=== PATIENT | male | born 1960 | race Caucasian/White ===

== ENCOUNTER 2021-07-03 02:09 | Day surgery (SDC) | payer OTHER, SELFPAY ==
[2021-06-22 14:17] VITALS: BMI 48.8
--- NOTE | 2021-06-28 12:10 | PC.NURSE ---
SPOKE WITH PATIENT TO HOLD XARELTO AFTER 06/30/2021, PT VERBALIZES UNDERSTANDING THAT HE WILL TAKE LAST DOSE ON 06/30/2021.
[2021-07-03 07:46] VITALS: BP 158/101; PULSE 73; RESP 20; TEMP 36.6; O2SAT 97; BMI 48.7
[2021-07-03] MEDS: LACTATED RINGERS 1,000 ML 150 ML IV CONT (07:53)
--- NOTE | 2021-07-03 07:53 | WPDGICN ---
Assessment and Plan Assessment and plan (1) Encounter for screening for malignant neoplasm of colon: Code(s): Z12.11 - Encounter for screening for malignant neoplasm of colon Status: Acute Assessment and Plan: Patient presents for screening colonoscopy today. Appears to be at average risk for colon polyps. GI Consult Note Consult date/time: 07/03/21 07:53 HPI: Vikas Banda is a 60 year old male Presents for screening colonoscopy. Patient's current weight appetite and bowel movements are normal. He denies abdominal pain. He has had no bleeding. Family history is noncontributory. Patient denies abdominal pain. He presents today for neoplasia screening. Review of Systems Review of Systems: All systems reviewed & are unremarkable except as noted in HPI and below PMFSH Past Medical History Medical History (Updated 05/22/21 @ 18:14 by Ashok Gaffney MD) Atrial fibrillation BMI 50.0-59.9, adult Elevated glucose Encounter for screening for malignant neoplasm of colon Encounter for screening for malignant neoplasm of prostate Mixed hyperlipidemia Osteoarthritis of knee Family History Family History Mother Family history of glaucoma Sibling Family history of glaucoma Father Hypertension Social History Social History Smoking status: Never smoker Alcohol intake: current Drinks per week: 24 Substance use: never Substance use type: does not use Living arrangements: with family Spiritual care concerns: No Meds Home Medications and Allergies Home Medications Medication Instructions Recorded Confirmed Type flecainide 150 mg tablet 150 mg PO Q12H 02/03/19 06/22/21 History metoprolol tartrate 50 mg tablet 50 mg PO Q12H 02/03/19 06/22/21 History nifedipine 60 mg tablet,extended 60 mg PO DAILY 02/03/19 06/22/21 History release rivaroxaban 20 mg tablet 20 mg PO DAILY 02/03/19 06/22/21 History Allergies Allergy/AdvReac Type Severity Reaction Status Date / Time No Known Allergies Allergy Verified 07/03/21 07:45 Vital Signs Vital Signs - 24 hr 07/03/21 07:46 Temperature 97.9 F Pulse Rate 73 Respiratory Rate 20 Blood Pressure 158/101 H Pulse Oximetry 97 Exam Narrative: Physical exam reveals patient be alert. Vital signs are stable. HEENT exam is unremarkable. Patient is anicteric. Lungs are clear to auscultation and percussion. Heart is without murmur or extra sounds. Abdominal exam bowel sounds are present soft nontender with no organomegaly. Patient is obese. Digital external rectal exam is normal.
--- NOTE | 2021-07-03 08:14 | P.PNAN_ITS ---
Anes - Initial Pre Proc Eval Procedure: Operation Date: 07/03/21 08:30 Proposed Procedures p Screening Colonoscopy - Rad Cox MD Date/Time: 07/03/21 08:14 Surgeon: Rad Cox MD Pre Op Diagnosis: neoplasm screening Patient Data Age: 60 Gender: M Height: 1.78 m Weight: 154.1 kg Last Vital Signs Temp 97.9 F 07/03/21 07:46 Pulse 73 07/03/21 07:46 Resp 20 07/03/21 07:46 BP 158/101 H 07/03/21 07:46 Pulse Ox 97 07/03/21 07:46 Allergies Allergy/AdvReac Type Severity Reaction Status Date / Time No Known Allergies Allergy Verified 07/03/21 07:45 Home Medications Medication Instructions Recorded Confirmed Type flecainide 150 mg tablet 150 mg PO Q12H 02/03/19 06/22/21 History metoprolol tartrate 50 mg tablet 50 mg PO Q12H 02/03/19 06/22/21 History nifedipine 60 mg tablet,extended 60 mg PO DAILY 02/03/19 06/22/21 History release rivaroxaban 20 mg tablet 20 mg PO DAILY 02/03/19 06/22/21 History Patient hx anesthesia problems: none Family hx anesthesia problems: none Results Review: All pre-operative results and documents have been reviewed as part of the pre-operative evaluation. [facility] Past Medical History Medical History (Updated 05/22/21 @ 18:14 by Ashok Gaffney MD) Atrial fibrillation BMI 50.0-59.9, adult Elevated glucose Encounter for screening for malignant neoplasm of colon Encounter for screening for malignant neoplasm of prostate Mixed hyperlipidemia Osteoarthritis of knee Family History Family History Mother Family history of glaucoma Sibling Family history of glaucoma Father Hypertension Social History Social History Smoking status: Never smoker Alcohol intake: current Drinks per week: 24 Substance use: never Substance use type: does not use Living arrangements: with family Spiritual care concerns: No Anes - Eval Final PreProcedure Day of Procedure 07/03/21 08:14 Patient weight: super morbidly obese Heart: irregular rhythm Lungs: clear to auscultation Airway: Mallampati scale class III Neurological: alert and oriented Last oral intake: >/= 8 hours ASA classification: IV Emergent: no Anesthetic plan: proceed Anesthesia type and monitoring: general GIVS and standard monitoring Results Review: All pre-operative results and documents have been reviewed as part of the pre-operative evaluation. Informed Consent: The patient's anesthetic plan and its attendant risks and benefits were discussed with the patient/family/POA. Questions were solicited and answers provided to the satisfaction of the patient/family/POA.
[2021-07-03 08:42] VITALS: BP 124/81; PULSE 61; RESP 19; O2SAT 96
[2021-07-03 08:52] VITALS: BP 146/77; PULSE 75; RESP 19; O2SAT 97
[2021-07-03 09:02] VITALS: BP 138/78; PULSE 74; RESP 21; O2SAT 98
== END 2021-07-03 09:13 | disposition home or self-care (01) ==
PROVIDERS: PCP Family Medicine; Visit Provider Internal Medicine Gastroenterology
PROC: 0DJD8ZZ Inspection of Lower Intestinal Tract, Via Natural or Artificial Opening Endoscopic (ICD-10-PCS; CPT 45378; principal; 2021-07-03 08:30)
DX: Z12.11 Encounter for screening for malignant neoplasm of colon (principal); K62.1 Rectal polyp; K64.8 Other hemorrhoids; K57.30 Diverticulosis of large intestine without perforation or abscess without bleeding; I48.91 Unspecified atrial fibrillation; E78.2 Mixed hyperlipidemia; Z79.01 Long term (current) use of anticoagulants; E66.01 Morbid (severe) obesity due to excess calories; Z68.42 Body mass index [BMI] 45.0-49.9, adult
CPT/HCPCS: 45380; 88305; J2704; J7120

== ENCOUNTER → 2022-03-08 08:02 | Outpatient (CLI) | payer OTHER, SELFPAY ==
--- NOTE | ~2022-03-08 | US_ITS ---
EXAMINATION: US soft tissue head and neck DATE: 03/08/2022 08:32 INDICATION: Left submandibular lump. Other diseases salivary glands. TECHNIQUE: Multiple grayscale and Doppler ultrasound images of the left submandibular region of myra rn as well as the contralateral right submandibular region for comparison were obtained. COMPARISON: None FINDINGS: There are few bilateral submandibular lymph nodes with central echogenic fatty bj. The largest is o n the left measuring 2.4 x 2.3 x 1.2 cm of the couple smaller left submandibular lymph nodes measurin g 1.2 x 0.6 x 1.6 cm and 1.5 x 0.5 x 1.6 cm. The largest right-sided mandibular lymph node measures 2 .2 x 0.9 x 1.6 cm a couple smaller nodules measuring 1.4 x 0.7 and 1.2 x 0.9 cm. IMPRESSION: 1. Relatively symmetric mild bilateral submandibular lymphadenopathy. This is most likely reactive gi rui the normal morphology with central fatty bj and provided history of recent infection requiring antibiotics. Differential would include less likely lymphoma or metastatic disease and would recommen d continued clinical follow-up with repeat imaging and/or biopsy should the lymph nodes either enlarg e or fail to appropriately decrease in size with time as would be expected for reactive lymph nodes. Reviewed, dictated and finalized at location A. [employer] IMPRESSION: 1. Relatively symmetric mild bilateral submandibular lymphadenopathy. This is m ost likely reactive given the normal morphology with central fatty bj and pro vided history of recent infection requiring antibiotics. Differential would inc lude less likely lymphoma or metastatic disease and would recommend continued c linical follow-up with repeat imaging and/or biopsy should the lymph nodes eith er enlarge or fail to appropriately decrease in size with time as would be expe cted for reactive lymph nodes.
== END ==
PROVIDERS: PCP Family Medicine; Visit Provider Physician Assistant Medical
DX: K11.8 Other diseases of salivary glands (principal); R59.0 Localized enlarged lymph nodes
CPT/HCPCS: 76536

== ENCOUNTER 2022-06-30 09:52 | Emergency (ER) | payer OTHER, SELFPAY ==
[2022-06-30 10:03] VITALS: BP 180/105; PULSE 77; RESP 18; TEMP 36.1; O2SAT 96
--- NOTE | 2022-06-30 10:27 | ED.URI ---
HPI - URI/Sore Throat General Chief Complaint: Upper Respiratory Infection Stated Complaint: Cough/Sinus Source: patient and RN notes reviewed History of Present Illness HPI Narrative: 41-year-old male presents to urgent care with complaints of a cough and congestion x 10 days. Pt reports associated SOB. States his cough is worse at nighttime. Pt denies any sore throat, ear pain, N/V/D, chest pain, or vomiting. Pt has been taking Dayquil at home with minimal relief. Pt's daughter also had strep throat this week and pt has been around her recently. Related Data Home Medications Medication Instructions Recorded Confirmed flecainide 150 mg tablet 150 mg PO Q12H 02/03/19 06/30/22 metoprolol tartrate 50 mg tablet 50 mg PO Q12H 02/03/19 06/30/22 nifedipine 60 mg tablet,extended 60 mg PO DAILY 02/03/19 06/30/22 release rivaroxaban 20 mg tablet (Xarelto) 20 mg PO DAILY 02/03/19 06/30/22 Allergies Allergy/AdvReac Type Severity Reaction Status Date / Time No Known Allergies Allergy Verified 06/30/22 10:07 Review of Systems Review of Systems: Pertinent positives and pertinent negatives per HPI. [facility] Past Medical History Medical History (Updated 06/30/22 @ 10:28 by Helena Hook, MARCEL) Atrial fibrillation BMI 45.0-49.9, adult BMI 50.0-59.9, adult Elevated glucose Encounter for screening for malignant neoplasm of colon Encounter for screening for malignant neoplasm of prostate Marital incompatibility involving divorce Mixed hyperlipidemia Nocturia Osteoarthritis of knee Family History Family History Mother Family history of glaucoma Lung cancer Sibling Family history of glaucoma Father Hypertension Social History Social History Smoking status: Never smoker Second hand tobacco smoke exposure: Yes Alcohol intake: current Drinks per week: 24 Substance use: never Substance use type: does not use Lack of Transportation: No Lack of Food: Never True Current Housing: I Have Housing Concerned About Future Housing: No Difficulty Paying Gas/Electric Bills: No Difficulty Paying for Meds: No Currently Unemployed: No Education: High School Diploma/GED Difficulty w/ Childcare or Family Care: No Living arrangements: alone Occupation/Education: occupation 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 There is no relevant family history pertinent to the patient complaint. Exam Narrative: GENERAL: This is a well-nourished, well-developed patient, in no apparent distress. HEAD: normocephalic, atraumatic. EYES: Sclera clear/white. Vision is grossly intact. EARS: External ears normal, auditory canals clear and without drainage, TMs normal without perforation. Hearing grossly intact. NOSE: Congested THROAT: Mucous membranes moist, posterior pharynx clear. NECK: Neck supple, non-tender without lymphadenopathy, masses or thyromegaly. CARDIOVASCULAR: Regular rate and rhythm without murmurs, gallops, or rubs. RESPIRATORY: mild wheezing and rhonchi noted throughout. Frequent coughing. SKIN: warm, intact with no suspicious lesions or rash, good texture and turgor. NEURO: awake, alert, and oriented to person, place and time. There were no obvious focal neurologic abnormalities. Course Course Level of Care: Express Care Visit Vital Signs Vital signs: Vital Signs Temperature 97 F L 06/30/22 10:03 Pulse Rate 77 06/30/22 10:03 Respiratory Rate 18 06/30/22 10:03 Blood Pressure 180/105 H 06/30/22 10:03 Pulse Oximetry 96 06/30/22 10:03 Oxygen Delivery Room Air 06/30/22 10:03 Temperature 97 F L 06/30/22 1
== END 2022-06-30 10:32 | disposition home or self-care (01) ==
PROVIDERS: Emergency Provider Nurse Practitioner Family; PCP Family Medicine
DX: J40 Bronchitis, not specified as acute or chronic (principal); J01.00 Acute maxillary sinusitis, unspecified; I48.91 Unspecified atrial fibrillation
CPT/HCPCS: 99213; G0463

== ENCOUNTER 2023-11-12 15:04 | Outpatient (CLI) | payer OTHER, SELFPAY ==
--- NOTE | ~2023-11-12 | US_ITS ---
US renal BI 11/12/2023 16:12 Procedure: Realtime transabdominal ultrasound of the kidneys and bladder. Indication: Abnormal CT Comparison: No prior studies for comparison. Findings: Renal echotexture is normal bilaterally without hydronephrosis, contour deforming mass or r enal calculus. There are bilateral renal cysts, largest in the left kidney measuring 3.4 cm. The righ t kidney measures 13.5 cm and left kidney measures 14.2 cm. Bladder within normal limits. Impression: 1: Bilateral renal cysts, largest mid pole of the left kidney measuring 3.4 cm. Reviewed, dictated and finalized at location B. Impression: 1: Bilateral renal cysts, largest mid pole of the left kidney measuring 3.4 cm.
== END 2023-11-12 15:05 | disposition home or self-care (01) ==
LOC: ANHIMG 15:09
PROVIDERS: PCP Family Medicine; Visit Provider Nurse Practitioner Family
DX: N28.89 Other specified disorders of kidney and ureter (principal); N28.1 Cyst of kidney, acquired
CPT/HCPCS: 76775

== ENCOUNTER 2024-03-25 15:55 | Inpatient (IN) | payer OTHER, SELFPAY ==
[2024-03-25] VITALS (7 sets, daily range): BP systolic 127–154; BP diastolic 62–103; PULSE 102–121; RESP 20–28; TEMP 36–37.9; O2SAT 90–98; BMI 45.7
--- NOTE | ~2024-03-25 | XR_ITS ---
EXAMINATION: XR chest 1V portable DATE: 03/25/2024 16:31 INDICATION: Shortness of breath. TECHNIQUE: A single frontal view of the chest was obtained. COMPARISON: Chest 2 views 08/12/2012 FINDINGS: There is a diffuse interstitial pattern, consistent with mild pulmonary edema. No pleural e ffusion or pneumothorax. The heart size is normal. IMPRESSION: 1. Mild pulmonary edema. Reviewed, dictated and finalized at location A. 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 Mild pulmonary edema.
--- NOTE | ~2024-03-25 | CT_ITS ---
EXAMINATION: CTA chest PE protocol DATE: 03/25/2024 18:29 INDICATION: Shortness of breath. TECHNIQUE: Computed tomography angiography (CTA) of the chest was performed with 100 mL Omnipaque-350 intravenous contrast timed to evaluate the pulmonary arteries. Coronal maximum intensity projection 3D-reconstructions were created by the technologist. Automated exposure control and iterative reconst ruction technique were employed. The dose-length product was 938.22 mGy-cm. COMPARISON: Chest CT 05/29/2006 FINDINGS: There is septal thickening throughout the lungs bilaterally. There are airspace opacities i n right upper lobe and right lower lobe, consistent with pneumonia. There is mosaic attenuation in th e lungs, likely small airways disease. There are trace pleural effusions. Cardiomegaly is noted. Ther e are coronary artery calcifications. No pericardial effusion. The central pulmonary arteries are enl arged, consistent with pulmonary arterial hypertension. There is no pulmonary embolus. There is mild right hilar and mediastinal lymphadenopathy. There is bilateral gynecomastia. There is mild thoracic spondylosis. IMPRESSION: 1. Pneumonia involving right upper lobe and right lower lobe. 2. Mild pulmonary edema. 3. No pulmonary embolus. 4. Mild right hilar and mediastinal lymphadenopathy, likely reactive. Reviewed, dictated and finalized at location A. 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
--- NOTE | 2024-03-25 16:11 | ECG_ITS ---
Test Date: 2024-03-25 16:15:25 Measurements Intervals Hermon Rate: 107 P: 0 NE: 0 QRS: -69 QRSD: 110 T: 67 QT: 352 QTc: 472 Interpretive Statements ATRIAL FIBRILLATION WITH RAPID VENTRICULAR RESPONSE PATTERN CONSISTENT WITH PULMONARY DISEASE INCOMPLETE RIGHT BUNDLE BRANCH BLOCK [90+ ms QRS DURATION, TERMINAL R IN V1/V2, 40+ ms S IN I/aVL/V4/V5/V6] LEFT ANTERIOR FASCICULAR BLOCK [QRS AXIS <= -45, QR IN I, RS IN II] No previous ECG available for comparison Electronically Signed On 03-25-2024 16:46:17 PRODUCT DEMONSTRATOR by Guilherme Gonzalez M.D.
[2024-03-25 16:47] LABS: Basophils Percent Auto 0.1 % (0.2-1.2); Hematocrit 41.5 % (42.0-52.0); Hemoglobin 13.8 g/dL (14.0-18.0); Immature Granulocyte Absolute 0.02 K/mm3 (0.00-0.031); Immature Granulocyte Percent A 0.3 % (0-0.5); Lymphocytes Absolute Auto 0.74 K/mm3 (0.9-3.2); Lymphocytes Percent Auto 10.5 % (18.3-44.2); Mean Corpuscular HGB Conc 33.3 g/dl (32-36); Mean Corpuscular Hemoglobin 28.3 pg (26-34); Mean Corpuscular Volume 85.2 fl (80-100); Mean Platelet Volume 10.5 fl (7.4-10.4); Monocytes Absolute Auto 0.4 K/mm3 (0.1-0.6); Monocytes Percent Auto 6.3 % (2.6-8.5); Neutrophils Absolute Auto 5.8 K/mm3 (1.3-6.7); Neutrophils Percent Auto 82.8 % (45.5-73.1); Platelet Count Result 193 k/mm3 (150-375); Red Blood Count 4.87 M/mm3 (4.6-6.20); Red Cell Distribution Width 14.1 % (11.5-14.5)
[2024-03-25 16:57] LABS: Alanine Aminotransferase 12 U/L (6-50); Albumin Level 3.9 g/dL (3.5-5.1); Alkaline Phosphatase 66 U/L (38-126); Anion Gap 4 mmol/L (4-12); Aspartate Amino Transferase 24 U/L (17-59); Bilirubin,Total 0.5 mg/dL (0.2-1.3); Blood Urea Nitrogen 18 mg/dL (9-20); Calcium 8.6 mg/dL (8.4-10.2); Carbon Dioxide 25 mmol/L (22-30); Chloride 105 mmol/L (98-107); Estimated CRCL calculation 97 ml/min; Estimated Glomerular Filt Rate > 60; Glucose 121 mg/dL (65-110); Potassium 3.8 mmol/L (3.4-5.0); Sodium 134 mmol/L (137-145)
--- NOTE | 2024-03-25 17:22 | ED_ITS ---
HPI - URI/Sore Throat General Chief Complaint: Upper Respiratory Infection Stated Complaint: URI sx x 3 days, hypoxic Time Seen by Provider: 03/25/24 16:49 Source: patient Mode of arrival: EMS Limitations: no limitations History of Present Illness HPI Narrative: Patient is a 63-year-old male who presents to the ED via EMS with report of shortness of breath. Patient reports he has not been feeling well for the past 3 days. Reports cough, congestion, rhinorrhea, shortness of breath, worse with any type of exertion. Also reports shortness breath is worse with laying flat causing to have difficulty sleeping. Does note that he was exposed to several children recently that have been sick. Denies known fevers, but was febrile per EMS. Was also noted to be hypoxic per EMS and placed on 2L NC. No previous O2 requirement. Reports history of AFib. Is on an aspirin currently. 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 Denies lower extremity swelling. Denies chest pain. Related Data Home Medications ?Medication ?Instructions ?Recorded ?Confirmed ?Last Taken ?Type metoprolol tartrate 50 mg tablet 50 mg PO Q12H 02/03/19 01/01/24 07/01/21 History nifedipine 60 mg tablet,extended 60 mg PO DAILY 02/03/19 01/01/24 07/01/21 History release Allergies Allergy/AdvReac Type Severity Reaction Status Date / Time No Known Allergies Allergy Verified 01/01/24 07:52 Review of Systems 2 Review of Systems: All systems reviewed & are unremarkable except as noted in HPI. All systems reviewed & are unremarkable except as noted in HPI and below PMFSH Past Medical History Medical History Achilles rupture Nocturia Marital incompatibility involving divorce BMI 45.0-49.9, adult Encounter for screening for malignant neoplasm of colon Encounter for screening for malignant neoplasm of prostate Mixed hyperlipidemia Elevated glucose BMI 50.0-59.9, adult Osteoarthritis of knee Atrial fibrillation Surgical History Surgical History Hx of colonoscopy Family History Family History Mother Family history of glaucoma Lung cancer Sibling Family history of glaucoma Father Hypertension Social History Social History Smoking status: Never smoker Second hand tobacco smoke exposure: Yes Alcohol intake: current Drinks per week: 24 Substance use: never Substance use type: does not use Do You Feel Safe in your Home?: Yes Lack of Transportation: No Lack of Food: Never True Current Housing: I Have Housing Concerned About Future Housing: No Difficulty Paying Gas/Electric Bills: No Difficulty Paying for Meds: No Currently Unemployed: No Education: High School Diploma/GED Difficulty w/ Childcare or Family Care: No Living arrangements: alone Occupation/Education: occupation 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 HEAD: Normocephalic, atraumatic. RESPIRATORY: Airway patent, respirations nonlabored. Diffuse rhonchi in bases bilaterally, worse on R, particularly throughout R lower lung zone CARDIOVASCULAR: Tachycardic with irregular rhythm without murmurs, rubs, or gallops. Peripheral pulses intact. MUSCULOSKELETAL: Moves all extremities. No gross deformities. Trace pitting edema bilaterally SKIN: Warm, dry, normal color. NEURO: A&O X3. Speech clear. Cranial nerves II-XII grossly intact. Steady gait. No ataxic movements. PSYCHIATRIC: Appropriate mood and affect. Normal interaction. Course Vital Signs Vital signs: Vital Signs Temperature 100.3 F H 03/25/24 15:56 Pulse Rate 112 H 03/25/24 15:56 Respiratory Rate 28 H 03/25/24 15:56 Pulse Oximetry 90 03/25/24 15:56 Oxygen Delivery Room Air 03/25/24 15:56 Temperature 100.3 F H 03/25/24 15:56 Pulse Rate 112 H 03/25/24 15:56 Respiratory Rate 28 H 03/25/24 15:56 Pulse Oximetry 95 03/25/24 16:19 Oxygen Delivery Nasal Cannula 03/25/24 16:19 Oxygen Flow Rate 2 03/25/24 16:19 MDM - URI/Sore Throat MDM Narrative Medical decision making narrative: Patient presented to ED with shortness of breath, URI symptoms X3d. Patient tachycardic, tachypneic, febrile, hypoxic upon arrival. Placed on 2 L nasal cannula. Denies previous oxygen requirement. Given fluids and acetaminophen. Laboratory studies are fairly unremarkable. No leukocytosis. Stable H&H. Stable kidney function. EKG showing AFib with RVR, rates in the 100s-110s. Patient has history of AFib, is not currently on anticoagulation due to history of recent brain bleed. Denying chest pain at this time. Chest x-ray with mild pulmonary edema. Patient denies previous history of CHF. BNP is moderately elevated to around 4000. Patient is influenza A positive. Consistent with clinical picture. Chest CTA obtained and no evidence of PE, does show recurrent pulm edema, as well as PNA throughout R lung. Blood cx obtained. Will start abx. Will admit for further evaluation and management of PNA and hypoxia. Discussed case with Dr. Workman, hospitalist, accepted patient for admission. Patient is in agreement with plan and need for admission. Patient's HR in low 100s, but ranging widely. Will given home metoprolol dose 50mg now and continue to monitor. Medical Records Attestation: I reviewed the patient's medical records. Lab Data Attestation: I reviewed the patient's lab results. 03/25/24 16:30 03/25/24 16:30 Labs: Lab Results 03/25/24 Range/Units 16:30 WBC 7.0 (4.5-10.0) K/mm3 RBC 4.87 (4.6-6.20) M/mm3 Hgb 13.8 L (14.0-18.0) g/dL Hct 41.5 L (42.0-52.0) % MCV 85.2 (80-100) fl MCH 28.3 (26-34) pg MCHC 33.3 (32-36) g/dl RDW 14.1 (11.5-14.5) % Plt Count 193 (150-375) k/mm3 MPV 10.5 H (7.4-10.4) fl Immature Gran % (Auto) 0.3 (0-0.5) % Neut % (Auto) 82.8 H (45.5-73.1) % Lymph % (Auto) 10.5 L (18.3-44.2) % Weston % (Auto) 6.3 (2.6-8.5) % Eos % (Auto) 0.0 (0-4.4) % Baso % (Auto) 0.1 L (0.2-1.2) % Lymph # (Auto) 0.74 L (0.9-3.2) K/mm3 Weston # (Auto) 0.4 (0.1-0.6) K/mm3 Eos # (Auto) 0.0 (0-0.3) K/mm3 Baso # (Auto) 0.0 (0.0-0.1) K/mm3 Abs Immat Gran (auto) 0.02 (0.00-0.031) K/mm3 Absolute Neuts (auto) 5.8 (1.3-6.7) K/mm3 Absolute Nucleated RBC 0.000 (0.0-0.012) K/mm3 Nucleated RBC % 0.0 (0.0-0.2) % Sodium 134 L (137-145) mmol/L Potassium 3.8 (3.4-5.0) mmol/L Chloride 105 (98-107) mmol/L Carbon Dioxide 25 (22-30) mmol/L Anion Gap 4 (4-12) mmol/L BUN 18 (9-20) mg/dL Creatinine 1.00 (0.7-1.3) mg/dL Estim Creat Clear Calc 97 ml/min Estimated GFR > 60 (59 - ) Glucose 121 H (65-110) mg/dL Calcium 8.6 (8.4-10.2) mg/dL Total Bilirubin 0.5 (0.2-1.3) mg/dL AST 24 (17-59) U/L ALT 12 (6-50) U/L Alkaline Phosphatase 66 (38-126) U/L NT-Pro-B Natriuret Pep 4130 H (19.9-100) pg/mL Total Protein 7.0 (6.3-8.2) g/dL Albumin 3.9 (3.5-5.1) g/dL Influenza A (RT-PCR) Positive A (Negative) Influenza B (RT-PCR) Negative (Negative) RSV (RT-PCR) Negative (Negative) SARS-CoV-2 RNA (RT-PCR) Negative (Negative) Imaging Data Attestation: I personally reviewed and interpreted this imaging study as follows: Radiologist's impression: ITS Impressions Chest X-Ray 03/25/24 16:32 IMPRESSION: 1. Mild pulmonary edema. Chest CTA 03/25/24 18:33 IMPRESSION: 1. Pneumonia involving right upper lobe and right lower lobe. 2. Mild pulmonary edema. 3. No pulmonary embolus. 4. Mild right hilar and mediastinal lymphadenopathy, likely reactive. ECG Data EKG #1: Attestation: I personally reviewed and interpreted this ECG as follows: ECG completion date: 03/25/24 ECG completion time: 16:15 EKG Interpretation: tachycardia (107), atrial fibrillation (RVR), non- specific ST changes and RBBB (incomplete) Discharge Plan Discharge Clinical Impression: Influenza A, Acute hypoxic respiratory failure, Atrial fibrillation with rapid ventricular response Pneumonia Qualifiers: Pneumonia type: due to unspecified organism Laterality: right Lung location: l ower lobe of lung Qualified Code(s): J18.9 - Pneumonia, unspecified organism Patient Disposition: Still a Patient Condition: Stable
[2024-03-25 17:24] LABS: Influenza A QL RT-PCR Positive (Negative); Influenza B QL RT-PCR Negative (Negative); RSV RNA, RT-PCR Negative (Negative); SARS-CoV-2 RNA PCR Negative (Negative)
[2024-03-25 17:46] LABS: NT Pro B Type Natriuretic Pept 4130 pg/mL (19.9-100)
[2024-03-25] MEDS: SODIUM CHLORIDE 0.9% IV 1,000 ML 999 ML IV CONT (17:59)
[2024-03-25] MEDS: ACETAMINOPHEN 500 MG TABLET 1000 MG PO (17:59)
[2024-03-25] MEDS: METOPROLOL TARTRATE 50 MG TAB PO (21:10)
--- NOTE | 2024-03-25 21:27 | ADMGEN ---
This patient, Vikas Banda, was admitted to 3 [facility] Room 300-01. Patient/family oriented to hospital policies and general routines including ID bracelet, bed and alarms, visiting hours, pain management, procedures, bathroom and other care routines, personal items, smoking policy, room service/diet, and visiting hours. Information on how to activate the Rapid Response Team has been discussed. Patient/Family are encouraged to report perceived risks to care and to ask questions if they do not understand what they are told or what they should do.
--- NOTE | 2024-03-25 21:29 | P.HP_ITS ---
H&P: HPI History of Present Illness Date/Time: 03/25/24 21:29 Chief Complaint: sob Narrative: This is a 63-year-old male with past medical history significant for morbid obesity, hypertension, atrial fibrillation, dyslipidemia. Patient presents to the emergency room due to shortness of breath, generalized malaise, body aches and pains, night sweats, chills. Preliminary workup was significant for chest x-ray with right lower and upper lobes lung pneumonia patient had a BNP of 4000, tested positive for influenza type A, patient ruled out for acute pulmonary embolism. While in the emergency room patient was noted to have low pulse ox requiring supplemental oxygen by nasal cannula 2 L. patient has been admitted for further evaluation management and treatment. EXAMINATION: XR chest 1V portable DATE: 03/25/2024 16:31 INDICATION: Shortness of breath. TECHNIQUE: A single frontal view of the chest was obtained. COMPARISON: Chest 2 views 08/12/2012 FINDINGS: There is a diffuse interstitial pattern, consistent with mild pulmonary edema. No pleural effusion or pneumothorax. The heart size is normal. IMPRESSION: 1. Mild pulmonary edema. EXAMINATION: CTA chest PE protocol DATE: 03/25/2024 18:29 INDICATION: Shortness of breath. TECHNIQUE: Computed tomography angiography (CTA) of the chest was performed with 100 mL Omnipaque-350 intravenous contrast timed to evaluate the pulmonary arteries. Coronal maximum intensity projection 3D-reconstructions were created by the technologist. Automated exposure control and iterative reconstruction technique were employed. The dose-length product was 938.22 mGy-cm. COMPARISON: Chest CT 05/29/2006 FINDINGS: There is septal thickening throughout the lungs bilaterally. There are airspace opacities in right upper lobe and right lower lobe, consistent with pneumonia. There is mosaic attenuation in the lungs, likely small airways disease. There are trace pleural effusions. Cardiomegaly is noted. There are coronary artery calcifications. No pericardial effusion. The central pulmonary arteries are enlarged, consistent with pulmonary arterial hypertension. There is no pulmonary embolus. There is mild right hilar and mediastinal lymphadenopathy. There is bilateral gynecomastia. There is mild thoracic spondylosis. IMPRESSION: 1. Pneumonia involving right upper lobe and right lower lobe. 2. Mild pulmonary edema. 3. No pulmonary embolus. 4. Mild right hilar and mediastinal lymphadenopathy, likely reactive. Review of Systems Review of Systems: sob, generalized malaise, body aches and pains, chills, fevers. [facility] Past Medical History Medical History Achilles rupture Nocturia Marital incompatibility involving divorce BMI 45.0-49.9, adult Encounter for screening for malignant neoplasm of colon Encounter for screening for malignant neoplasm of prostate Mixed hyperlipidemia Elevated glucose BMI 50.0-59.9, adult Osteoarthritis of knee Atrial fibrillation Surgical History Surgical History Hx of colonoscopy Family History Family History Mother Family history of glaucoma Lung cancer Sibling Family history of glaucoma Father Hypertension Social History Social History Smoking status: Never smoker Second hand tobacco smoke exposure: No Alcohol intake: current Drinks per week: 10 Substance use: never Substance use type: does not use Do You Feel Safe in your Home?: Yes Lack of Transportation: No Lack of Food: Never True Current Housing: I Have Housing Concerned About Future Housing: No Difficulty Paying Gas/Electric Bills: No Difficulty Paying for Meds: No Currently Unemployed: No Education: High School Diploma/GED Difficulty w/ Childcare or Family Care: No Living arrangements: alone Occupation/Education: occupation 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[employer] Gender identity (if verbalized by the patient): Female Spiritual care concerns: No Meds Home Medications and Allergies Home Medications ?Medication ?Instructions ?Recorded ?Confirmed ?Type metoprolol tartrate 50 mg tablet 50 mg PO Q12H 02/03/19 03/25/24 History nifedipine 60 mg tablet,extended 60 mg PO DAILY 02/03/19 03/25/24 History release cyclobenzaprine 10 mg tablet 10 mg PO TID PRN muscle spasm #30 11/10/23 03/25/24 Rx tabs tamsulosin 0.4 mg capsule See Rx Instructions .Route 12/23/23 03/25/24 Rx .COMPLEX #90 caps rosuvastatin 20 mg tablet 20 mg PO DAILY #90 tabs 03/17/24 03/25/24 Rx tirzepatide 10 mg/0.5 mL 10 mg (0.5 mL) subcut WEEKLY #2 mL 03/23/24 03/25/24 Rx subcutaneous pen injector aspirin 325 mg capsule 325 mg PO QHS 03/25/24 03/25/24 History Allergies Allergy/AdvReac Type Severity Reaction Status Date / Time No Known Allergies Allergy Verified 01/01/24 07:52 Vital Signs Vital Signs - 24 hr 03/25/24 15:56 03/25/24 16:19 03/25/24 21:00 Temperature 100.3 F H Pulse Rate 112 H 107 H Respiratory Rate 28 H 21 H Blood Pressure 154/103 H Pulse Oximetry 90 95 98 Oxygen Delivery Room Air Nasal Cannula Oxygen Flow Rate 2 03/25/24 21:10 03/25/24 21:13 Temperature Pulse Rate 121 H 107 H Respiratory Rate 21 H Blood Pressure 154/103 H Pulse Oximetry 98 Oxygen Delivery Oxygen Flow Rate Exam Narrative: Sitting by the edge of the bed Const: General: comfortable, no acute distress, well developed, alert, awake, ill appearing acutely and obese Nutritional Appearance: obese morbidly obese Orientation/consciousness: patient oriented x3 HENMT: Head: normal to inspection, normocephalic and atraumatic Ears: hearing grossly normal bilaterally Face/Nose/Sinus: normal facial exam Face and sinus: normal facial exam Eyes: General: appearance normal, both eyes and all related structures Pupils: Equal, round and reactive pupils present EOM: EOMs intact bilaterally Neck: Neck: full ROM, no lymphadenopathy and no JVD Thyroid: thyroid normal Lymphatic: no lymphadenopathy noted Resp: Effort & Inspection: normal respiratory effort and able to speak in complete sentences Auscultation: crackles on the right at the base and rales Cardio: Jugular venous distension: no JVD Rate: regular rate Rhythm: regular rhythm Heart sounds: S1 normal heart sound present and S2 normal heart sound present GI: Inspection: Pannus present and obesity GI Palp: Yes Soft to palpation and Yes No hepatosplenomegaly present : General: Yes deferred Skin: Rashes: no rashes Wounds: no wounds Neuro: General: patient oriented x3 and CN's II-XI intact bilaterally Cranial nerves: Yes CN's II-XII intact bilaterally and Yes Equal, round and reactive pupils present Cognition (Neuro): normal cognition Speech: normal speech Gait exam (Neuro): Normal gait present Motor exam (neuro): 5/5 motor strength present throughout Extrem: General: normal to inspection, full ROM, no joint enlargement and no pedal edema H&P: Results Labs Labs: Short CBC 03/25/24 Range/Units 16:30 WBC 7.0 (4.5-10.0) K/mm3 Hgb 13.8 L (14.0-18.0) g/dL Hct 41.5 L (42.0-52.0) % Plt Count 193 (150-375) k/mm3 BMP 03/25/24 16:30 Sodium 134 L Potassium 3.8 Chloride 105 Carbon Dioxide 25 BUN 18 Creatinine 1.00 Glucose 121 H Calcium 8.6 Liver Function 03/25/24 Range/Units 16:30 Total Bilirubin 0.5 (0.2-1.3) mg/dL AST 24 (17-59) U/L ALT 12 (6-50) U/L Alkaline Phosphatase 66 (38-126) U/L Albumin 3.9 (3.5-5.1) g/dL Assessment and Plan Assessment and plan (1) Pneumonia: Qualifiers: Laterality: right Lung location: lower lobe of lung Pneumonia type: due to unspecified organism Qualified Code(s): J18.9 - Pneumonia, unspecified organism Code(s): J18.9 - Pneumonia, unspecified organism Status: Acute Assessment and Plan: Admit to med tele Patient started on Rocephin and Zithromax Cultures in progress (2) Atrial fibrillation with rapid ventricular response: Code(s): I48.91 - Unspecified atrial fibrillation Status: Acute Assessment and Plan: Continue home meds Continue to monitor (3) Acute hypoxic respiratory failure: Code(s): J96.01 - Acute respiratory failure with hypoxia Status: Acute Assessment and Plan: On supplemental oxygen by nasal cannula 2 L (4) Influenza A: Code(s): J10.1 - Influenza due to other identified influenza virus with other respiratory manifestations Status: Acute Assessment and Plan: Will start Ozeltamivir. 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: without buttermilk drier operator use Diabetes mellitus type: type 2 Qualified Code(s): E11.9 - Type 2 diabetes mellitus without complications Code(s): E11.9 - Type 2 diabetes mellitus without complications Status: Acute Assessment and Plan: Patient is on Tirzepatide Which he will be placed on hold Carb consistent diet Insulin sliding scale as needed (6) BMI 45.0-49.9, adult: Code(s): Z68.42 - Body mass index [BMI] 45.0-49.9, adult Status: Acute Assessment and Plan: Lifestyle and diet modifications 1800 calorie restricted diet Hospitalist MIPS Advance Care Plan I have confirmed that the patient's Advanced Care Plan is present, code status is documented, or surrogate decision maker is listed in patient medical record.: Yes Medication Reconciliation I have utilized all available resources to obtain, update and review the patients current medications (includes all prescriptions, OTC, herbals, cannabis, and nutritional supplements).: Yes
--- NOTE | 2024-03-25 21:55 | ADMGEN ---
This patient, Vikas Banda, was admitted to [facility] Surg Room 300-01. Patient/family oriented to hospital policies and general routines including ID bracelet, bed and alarms, visiting hours, pain management, procedures, bathroom and other care routines, personal items, smoking policy, room service/diet, and visiting hours. Information on how to activate the Rapid Response Team has been discussed. Patient/Family are encouraged to report perceived risks to care and to ask questions if they do not understand what they are told or what they should do.
[2024-03-25] MEDS: AZITHROMYCIN 500 MG/NS 250 ML 500 MG/250 ML BAG 250 MG IVPB (23:00)
[2024-03-26] VITALS (12 sets, daily range): BP systolic 115–133; BP diastolic 81–91; PULSE 74–103; RESP 16–18; TEMP 36.3–36.5; O2SAT 94–99
--- NOTE | 2024-03-26 | ECHO_ITS ---
Patient Info Name: Vikas Banda Age: 63 years : 1960 Gender: Male Ht: 70 in Wt: 318 lbs BSA: 2.74 m2 HR: 103 bpm BP: 128 / 91 mmHg Technical Quality: Good Exam Date: 03/26/2024 9:53 AM Site Location: [facility] Exam Location: Echo Lab Exam Room: [facility]- Patient Status: Inpatient Admit Date: 03/26/2024 Staff Ordering Physician: Deandra Domínguez Template Checker: Stephanie Burnham RDCS Attending Provider: Deandra Domínguez Referring Physician: Catrachita LEE; Exam Type: CA echo doppler color flow Study Info Complete two-dimensional, color flow and Doppler transthoracic echocardiogram is performed. Summary 1. Complete two-dimensional, color flow and Doppler transthoracic echocardiogram is performed. 2. The left ventricle is mildly dilated measuring 6.3 cm in diameter; however this may be normal when indexed to body surface area. There is mild eccentric left ventricular hypertrophy. The left ventricular ejection fraction is visually estimated to be 60-65%. 3. The right ventricle is normal in size and systolic function. Left Ventricle The left ventricle is mildly dilated measuring 6.3 cm in diameter; however this may be normal when indexed to body surface area. There is mild eccentric left ventricular hypertrophy. The left ventricular ejection fraction is visually estimated to be 60-65%. Right Ventricle The right ventricle is normal in size and systolic function. Left Atria The left atrium is normal in size. Right Atria The right atrium is dilated. Atrial Septum The atrial septum visually appears intact. Aortic Valve The aortic valve is trileaflet and sclerotic but opens well. There is no aortic regurgitation. Pulmonic Valve The pulmonic valve is not well visualized. There is no color Doppler evidence of pulmonic valve regurgitation in this study. Mitral Valve The mitral valve is normal. There is trace mitral regurgitation. Tricuspid Valve The tricuspid valve is normal. There is trace tricuspid regurgitation. Pericardium/Pleural Pericardium is normal in appearance with no evidence for significant pericardial effusion. Inferior Vena Cava Dilated inferior vena cava with >50% collapse upon inspiration consistent with elevated right atrial pressure, 8 mmHg. Dilated inferior vena cava with >50% collapse upon inspiration consistent with elevated right atrial pressure, 8 mmHg. Aorta The aortic root at the level of the sinus of Valsalva is dilated measuring 4.0 cm in diameter. The ascending aorta is dilated measuring 4.4 cm in diameter. Left Ventricular Outflow Tract Name Value Normal LVOT 2D LVOT Diameter 2.7 cm LVOT Doppler LVOT Peak Gradient 4 mmHg LVOT Mean Gradient 2 mmHg LVOT VTI 20 cm LVOT VTI/AV VTI Ratio 1.0 LVOT Stroke Volume 113 ml LVOT CO 10.0 l/min LVOT CI 3.6 l/min/m2 Pulmonic Valve Name Value Normal PV Doppler PV Peak Gradient 2 mmHg Mitral Valve Name Value Normal MV Doppler MV Peak Gradient 5 mmHg MV Mean Gradient 1 mmHg MV Decel [place] 465 cm/s2 MV PHT 54 ms MV Area (PHT) 4.1 cm2 4.0-5.0 MV Area (Cont Eq VTI) 5.0 cm2 MV Diastolic Function MV E Peak Velocity 86 cm/s MV A Peak Velocity 31 cm/s MV E/A 2.8 MV Decel Time 185 ms MV Annular TDI MV E/e' (Septal) 8.6 <=8.0 MV E/e' (Lateral) 8.4 <=8.0 MV E/e' (Average) 8.5 Tricuspid Valve Name Value Normal TV Regurgitation Doppler TR Peak Velocity 349 cm/s TR Peak Gradient 49 mmHg Estimated PAP/RSVP RA Pressure 8 mmHg <=5 PA Systolic Pressure 57 mmHg <36 RV Systolic Pressure 57 mmHg <36 Aortic Valve Name Value Normal AV Doppler AV Peak Velocity 112 cm/s AV Peak Gradient 5 mmHg AV Mean Gradient 3 mmHg AV VTI 20 cm AV Area (Cont Eq VTI) 5.7 cm2 >=3.0 AV Area (Cont Eq Frank) 4.9 cm2 AV Regurgitation 2D LVOT Area 5.7 cm2 Ventricles Name Value Normal LV Dimensions 2D/MM IVS Diastolic Thickness (2D) 1.2 cm 0.6-1.0 LVID Diastole (2D) 6.3 cm 4.2-5.8 LVIW Diastolic Thickness (2D) 1.2 cm 0.6-1.0 LVID Systole (2D) 4.8 cm 2.5-4.0 LVOT Diameter 2.7 cm LV Mass (2D Cubed) 339.80 g 88.00-224.00 LV Mass Index (2D Cubed) 124 g/m2 49-115 Relative Wall Thickness (2D) 0.38 LV Fractional Shortening/Ejection Fraction 2D/MM LV Fractional Shortening (2D) 25 % 25-43 LV EF (2D Teicholz) 48 % 52-72 LV Diastolic Volume (4C MOD) 177 ml LV EF (4C MOD) 54 % LV Diastolic Length (4C) 9.0 cm LV Systolic Length (4C) 8.3 cm LV Stroke Volume (4C MOD) 95 ml Atria Name Value Normal LA Dimensions LA Volume (4C A-L) 119 ml RA Dimensions RA Area (4C) 29.7 cm2 <=18.0 Report Signatures
[2024-03-26 07:52] LABS: Basophils Percent Auto 0.6 % (0.2-1.2); Eosinophils Percent Auto 0.4 % (0-4.4); Hematocrit 37.6 % (42.0-52.0); Hemoglobin 12.4 g/dL (14.0-18.0); Immature Granulocyte Absolute 0.03 K/mm3 (0.00-0.031); Immature Granulocyte Percent A 0.6 % (0-0.5); Lymphocytes Absolute Auto 1.45 K/mm3 (0.9-3.2); Lymphocytes Percent Auto 28.5 % (18.3-44.2); Mean Corpuscular Hemoglobin 28.6 pg (26-34); Mean Corpuscular Volume 86.8 fl (80-100); Mean Platelet Volume 10.6 fl (7.4-10.4); Monocytes Absolute Auto 0.6 K/mm3 (0.1-0.6); Monocytes Percent Auto 11.6 % (2.6-8.5); Neutrophils Percent Auto 58.3 % (45.5-73.1); Platelet Count Result 184 k/mm3 (150-375); Red Blood Count 4.33 M/mm3 (4.6-6.20); White Blood Count 5.1 K/mm3 (4.5-10.0)
[2024-03-26 08:09] LABS: Alanine Aminotransferase 11 U/L (6-50); Albumin Level 3.4 g/dL (3.5-5.1); Alkaline Phosphatase 58 U/L (38-126); Anion Gap 4 mmol/L (4-12); Aspartate Amino Transferase 23 U/L (17-59); Bilirubin,Total 0.5 mg/dL (0.2-1.3); Blood Urea Nitrogen 19 mg/dL (9-20); Calcium 8.2 mg/dL (8.4-10.2); Carbon Dioxide 26 mmol/L (22-30); Chloride 107 mmol/L (98-107); Estimated CRCL calculation 98 ml/min; Estimated Glomerular Filt Rate > 60; Glucose 95 mg/dL (65-110); Magnesium 2.1 mg/dL (1.6-2.3); Potassium 3.6 mmol/L (3.4-5.0); Sodium 137 mmol/L (137-145)
[2024-03-26] MEDS: FUROSEMIDE 40 MG TABLET PO (08:09)
[2024-03-26] MEDS: OSELTAMIVIR PHOSPHATE 75 MG CAPSULE PO ×2 (08:09→20:31)
[2024-03-26] MEDS: ROSUVASTATIN 20 MG TABLET PO (08:09)
[2024-03-26 08:10] LABS: Glucose Point of Care 107 mg/dl (65-105)
[2024-03-26] MEDS: METOPROLOL TARTRATE 50 MG TAB PO ×2 (08:10→20:31)
[2024-03-26] MEDS: NIFEdipine 30 MG TAB.ER.24 60 MG PO (08:10)
--- NOTE | 2024-03-26 10:59 | P.PNIM_ITS ---
Progress Note: A&P Assessment and Plan (1) Pneumonia: Qualifiers: Laterality: right Lung location: lower lobe of lung Pneumonia type: due to unspecified organism Qualified Code(s): J18.9 - Pneumonia, unspecified organism Code(s): J18.9 - Pneumonia, unspecified organism Status: Acute Assessment and Plan: Admit to med tele Patient started on Rocephin and Zithromax Cultures in progress 03/26/24: * Continue abx as ordered. * Continue to wean oxygen as able to. * Monitor and trend VS and labs. * Supportive care with nebs ordered w/Duoneb Q6 hrs and prn Albuterol. (2) Atrial fibrillation with rapid ventricular response: Code(s): I48.91 - Unspecified atrial fibrillation Status: Acute Assessment and Plan: Continue home meds Continue to monitor 03/26/24: * Continue Metoprolol * Continue Telemetry * Pt does not appear to be on any oral anticoagulation for his hx of Atrial fibrillation. He is started on Lovenox at this time. Review of EMR states that he sees cardiology, but I do not see any recent notes. Suggest starting anticoagulation at discharge. * ECHO ordered (3) Acute hypoxic respiratory failure: Code(s): J96.01 - Acute respiratory failure with hypoxia Status: Acute Assessment and Plan: On supplemental oxygen by nasal cannula 2 L 03/26/24: * In setting of acute Influenza A and PNA dx. as well as evidence of pulmonary edema on imaging and elevation of BNP * Continue supportive care. * Monitor and trend labs and VS. * ECHO ordered * Diuresis initiated with Lasix 40 mg oral daily. (4) Influenza A: Code(s): J10.1 - Influenza due to other identified influenza virus with other respiratory manifestations Status: Acute Assessment and Plan: Will start Ozeltamivir. 03/26/24: * Continue tamiflu and supportive treatment. (5) Diabetes mellitus: Qualifiers: Diabetes mellitus type: type 2 Diabetes mellitus filler leaf cutter long insulin use: without filler leaf cutter long use Diabetes mellitus complication status: without complication Qualified Code(s): E11.9 - Type 2 diabetes mellitus without complications Code(s): E11.9 - Type 2 diabetes mellitus without complications Status: Acute Assessment and Plan: Patient is on Tirzepatide Which he will be placed on hold Carb consistent diet Insulin sliding scale as needed 03/26/24: * Continue SSI * Continue Hypoglycemic protocol * Glucose checks AC and HS * Continue to hold Tirzepitide. * Most recent A1C is noted to be from 05/16/21 was 6.2. (6) BMI 45.0-49.9, adult: Code(s): Z68.42 - Body mass index [BMI] 45.0-49.9, adult Status: Acute Assessment and Plan: Lifestyle and diet modifications 1800 calorie restricted diet Time Spent With Patient Time with patient: 25 - 35 minutes Subjective Date/time seen: 03/26/24 10:59 Interval history: Pt examined today without any change in condition. He reports intermittent dyspn ea and cough. Still requiring supplemental oxygen. Lasix 40 mg daily ordered as pt's imaging shows some pulmonary edema and he has a BNP of 4000. In addition, ECHO is ordered as pt has no cardiac hx. He remains on Rocephin, Azithromycin and Tamiflu. Review of Systems Review of Systems: All systems reviewed & are unremarkable except as noted in HPI and below Exam Const: General: comfortable and no acute distress Other: Obese male pt lying supine in bed at this time. HENMT: Face/Nose/Sinus: Normal nares present Mouth: Yes moist mucous membranes Eyes: General: appearance normal, both eyes and all related structures Neck: Neck: supple and no JVD Carotids: no bruits Resp: Effort & Inspection: normal respiratory effort Auscultation: wheezes Cardio: Rate: regular rate Rhythm: regular rhythm Heart sounds: no gallops, no murmurs and no rubs GI: GI Palp: Yes Soft to palpation and No Tenderness to palpation present (GI) Auscultation: normal bowel sounds Skin: General skin exam: normal color and no rashes or lesions noted Neuro: General: gait normal Speech: normal speech Motor exam (neuro): 5/5 motor strength present throughout and Normal motor muscle tone present throughout Sensory Exam: normal sensation Extrem: General: normal to inspection and no edema Psych: Mental Status: mental status grossly normal Affect: normal affect Objective Data Vital Signs Vital Signs: Vital Signs - 24 hr 03/25/24 15:56 03/25/24 16:19 03/25/24 21:00 Temperature 100.3 F H Pulse Rate 112 H 107 H Respiratory Rate 28 H 21 H Blood Pressure 154/103 H Pulse Oximetry 90 95 98 Oxygen Delivery Room Air Nasal Cannula Oxygen Flow Rate 2 03/25/24 21:10 03/25/24 21:13 03/25/24 21:45 Temperature 96.8 F L Pulse Rate 121 H 107 H 102 H Respiratory Rate 21 H 20 Blood Pressure 154/103 H 127/62 Pulse Oximetry 98 98 Oxygen Delivery Oxygen Flow Rate 03/25/24 21:49 03/26/24 04:35 03/26/24 08:00 Temperature 97.6 F Pulse Rate 103 H Respiratory Rate 18 Blood Pressure 128/91 H Pulse Oximetry 94 99 99 Oxygen Delivery Nasal Cannula Nasal Cannula Oxygen Flow Rate 2 2 03/26/24 08:00 03/26/24 08:10 Temperature Pulse Rate 96 74 Respiratory Rate Blood Pressure Pulse Oximetry Oxygen Delivery Oxygen Flow Rate Intake/Output Intake/Output: Intake & Output 03/23/24 03/24/24 03/25/24 03/26/24 23:59 23:59 23:59 23:59 Intake Total 1000 590 Balance 1000 590 Meds/Results Medications: Active Medications Generic Name Dose Route Start Last Admin Trade Name Freq PRN Reason Stop Dose Admin Acetaminophen 1,000 mg 03/25/24 19:26 Acetaminophen 500 Mg Tablet PO Q6H PRN Mild Pain (1-3) or Fever Aspirin 325 mg 03/26/24 21:00 Aspirin 325 Mg Enteric Tablet PO QHS JEISON Cyclobenzaprine HCl 10 mg 03/26/24 01:22 Cyclobenzaprine Hcl 10 Mg Tablet PO TID PRN muscle spasm Furosemide 40 mg 03/26/24 09:00 03/26/24 08:09 Furosemide 40 Mg Tablet PO 40 mg DAILY JEISON Administration Ceftriaxone Sodium 1 gm in 50 mls @ 100 mls/hr 03/26/24 20:00 Rocephin 1 Gm/Ns 50 Ml IVPB Q24H JEISON Azithromycin 500 mg in 250 mls @ 250 mls/hr 03/26/24 21:00 Zithromax IVPB Q24H JEISON Insulin Aspart 7 units 03/26/24 08:00 03/26/24 08:23 Insulin Aspart (*Bkc) 100 Units/Ml 0.05 units/kg (7 units) Not Given SUB-Q TIDWM JEISON Metoprolol Tartrate 50 mg 03/26/24 09:00 03/26/24 08:10 Metoprolol Tartrate 50 Mg Tab PO 50 mg Q12HR JEISON Administration Nifedipine 60 mg 03/26/24 09:00 03/26/24 08:10 Nifedipine 30 Mg Tab.Er.24 PO 60 mg DAILY JEISON Administration Ondansetron HCl 4 mg 03/25/24 19:26 Ondansetron Inj 4 Mg/2 Ml Vial IV PUSH Q4H PRN Nausea Oseltamivir Phosphate 75 mg 03/26/24 09:00 03/26/24 08:09 Oseltamivir Phosphate 75 Mg Capsule PO 03/31/24 08:59 75 mg Q12HR JEISON Administration Perflutren Lipid Microsphere 0 ml 03/26/24 07:05 Perflutren Lipid Microspheres 1.5 Ml Vial Diluted To 10 Ml Total Volume IV PUSH 03/29/24 07:05 ONCE PRN adequate visualization Protocol Rosuvastatin Calcium 20 mg 03/26/24 09:00 03/26/24 08:09 Rosuvastatin 20 Mg Tablet PO 20 mg DAILY JEISON Administration Tamsulosin HCl 0.4 mg 03/26/24 21:00 Tamsulosin Hcl 0.4 Mg Capsule BY MOUTH QHS [facility] Radiology Results: ITS Impressions Chest X-Ray 03/25/24 16:32 IMPRESSION: 1. Mild pulmonary edema. Chest CTA 03/25/24 18:33 IMPRESSION: 1. Pneumonia involving right upper lobe and right lower lobe. 2. Mild pulmonary edema. 3. No pulmonary embolus. 4. Mild right hilar and mediastinal lymphadenopathy, likely reactive. Labs Labs: Laboratory Results - last 24 hr 03/25/24 03/26/24 03/26/24 16:30 07:27 07:56 WBC 7.0 5.1 RBC 4.87 4.33 L Hgb 13.8 L 12.4 L Hct 41.5 L 37.6 L MCV 85.2 86.8 MCH 28.3 28.6 MCHC 33.3 33.0 RDW 14.1 14.0 Plt Count 193 184 MPV 10.5 H 10.6 H Immature Gran % (Auto) 0.3 0.6 H Neut % (Auto) 82.8 H 58.3 Lymph % (Auto) 10.5 L 28.5 [place] % (Auto) 6.3 11.6 H Eos % (Auto) 0.0 0.4 Baso % (Auto) 0.1 L 0.6 Lymph # (Auto) 0.74 L 1.45 [place] # (Auto) 0.4 0.6 Eos # (Auto) 0.0 0.0 Baso # (Auto) 0.0 0.0 Abs Immat Gran (auto) 0.02 0.03 Absolute Neuts (auto) 5.8 3.0 Absolute Nucleated RBC 0.000 0.000 Nucleated RBC % 0.0 0.0 Sodium 134 L 137 Potassium 3.8 3.6 Chloride 105 107 Carbon Dioxide 25 26 Anion Gap 4 4 BUN 18 19 Creatinine 1.00 1.00 Estim Creat Clear Calc 97 98 Estimated GFR > 60 > 60 Glucose 121 H 95 POC Capillary Glucose 107 H Calcium 8.6 8.2 L Magnesium 2.1 Total Bilirubin 0.5 0.5 AST 24 23 ALT 12 11 Alkaline Phosphatase 66 58 NT-Pro-B Natriuret Pep 4130 H Total Protein 7.0 7.0 Albumin 3.9 3.4 L Influenza A (RT-PCR) Positive A Influenza B (RT-PCR) Negative RSV (RT-PCR) Negative SARS-CoV-2 RNA (RT-PCR) Negative Quality VTE Prophylaxis VTE prophylaxis: pharmacologic ordered
[2024-03-26 11:46] LABS: Glucose Point of Care 180 mg/dl (65-105)
[2024-03-26 16:44] LABS: Glucose Point of Care 119 mg/dl (65-105)
[2024-03-26] MEDS: TAMSULOSIN HCL 0.4 MG CAPSULE BY MOUTH (20:30)
[2024-03-26] MEDS: ASPIRIN 325 MG ENTERIC TABLET PO (20:31)
[2024-03-26] MEDS: AZITHROMYCIN 500 MG/NS 250 ML 500 MG/250 ML BAG 250 MG IVPB (21:00)
[2024-03-26 21:18] LABS: Glucose Point of Care 113 mg/dl (65-105)
[2024-03-26] MEDS: IPRATROPIUM 0.5 MG/ALBUTEROL SULFATE 2.5 MG AMPUL.NEB 3 ML INHALATION (22:24)
[2024-03-27] VITALS (19 sets, daily range): BP systolic 113–141; BP diastolic 82–98; PULSE 66–97; RESP 16–20; TEMP 36.2–36.3; O2SAT 93–99
[2024-03-27] MEDS: IPRATROPIUM 0.5 MG/ALBUTEROL SULFATE 2.5 MG AMPUL.NEB 3 ML INHALATION ×4 (02:50→20:59)
[2024-03-27 07:41] LABS: Glucose Point of Care 101 mg/dl (65-105)
--- NOTE | 2024-03-27 07:46 | P.PNIM_ITS ---
Progress Note: A&P Assessment and Plan (1) Pneumonia: Qualifiers: Laterality: right Lung location: lower lobe of lung Pneumonia type: due to unspecified organism Qualified Code(s): J18.9 - Pneumonia, unspecified organism Code(s): J18.9 - Pneumonia, unspecified organism Status: Acute (2) Atrial fibrillation with rapid ventricular response: Code(s): I48.91 - Unspecified atrial fibrillation Status: Acute (3) Acute hypoxic respiratory failure: Code(s): J96.01 - Acute respiratory failure with hypoxia Status: Acute (4) Influenza A: Code(s): J10.1 - Influenza due to other identified influenza virus with other respiratory manifestations Status: Acute (5) Diabetes mellitus: Qualifiers: Diabetes mellitus complication status: without complication Diabetes mellitus long term acute care registered nurse insulin use: without long term acute care registered nurse use Diabetes mellitus type: type 2 Qualified Code(s): E11.9 - Type 2 diabetes mellitus without complications Code(s): E11.9 - Type 2 diabetes mellitus without complications Status: Acute Plan Pneumonia: Qualifiers: Laterality: right Lung location: lower lobe of lung Pneumonia type: due to unspecified organism Qualified Code(s): J18.9 - Pneumonia, unspecified organism Code(s): J18.9 - Pneumonia, unspecified organism Status: Acute Assessment and Plan: Admit to med tele Patient started on Rocephin and Zithromax Cultures in progress 03/26/24: * Continue abx as ordered. * Continue to wean oxygen as able to. * Monitor and trend VS and labs. * Supportive care with nebs ordered w/Duoneb Q6 hrs and prn Albuterol.(2) Atrial fibrillation with rapid ventricular response: Code(s): AFib RVR Upon arrival, EKG showed atrial fibrillation heart rate 107 Continue home meds Continue to monitor * Continue Metoprolol * Continue Telemetry * Pt does not appear to be on any oral anticoagulation for his hx of Atrial fibrillation. He is started on Lovenox at this time. Review of EMR states that he sees cardiology, * Patient has history of intracranial bleeding due to trauma, anticoagulation is on hold. Waiting for evaluation by critical care educator and neurosurgeon in [facility] * ECHO pending Acute hypoxic respiratory failure: Code(s): J96.01 - Acute respiratory failure with hypoxia Status: Acute Assessment and Plan: On supplemental oxygen by nasal cannula 2 L 03/26/24: * In setting of acute Influenza A and PNA dx. as well as evidence of pulmonary edema on imaging and elevation of BNP * Continue supportive care. * Monitor and trend labs and VS. * ECHO ordered * Diuresis initiated with Lasix 40 mg oral daily. Influenza A: Code(s): J10.1 - Influenza due to other identified influenza virus with other respiratory manifestations Status: Acute Assessment and Plan: c/w Ozeltamivir. supportive treatment. Fluid overloaded CT scan showed pulmonary edema Elevated BNP above 4000 Pending echocardiogram Patient is on Lasix 40 mg daily (5) Diabetes mellitus: Qualifiers: Diabetes mellitus type: type 2 Diabetes mellitus alf insulin use: without alf use Diabetes mellitus complication status: without complication Qualified Code(s): E11.9 - Type 2 diabetes mellitus without complications Code(s): E11.9 - Type 2 diabetes mellitus without complications Status: Acute Assessment and Plan: Patient is on Tirzepatide Which he will be placed on hold Carb consistent diet Insulin sliding scale as needed 03/26/24: * Continue SSI * Continue Hypoglycemic protocol * Glucose checks AC and HS * Continue to hold Tirzepitide. * Most recent A1C is noted to be from 05/16/21 was 6.2.(6) BMI 45.0-49.9, adult: Code(s): Z68.42 - Body mass index [BMI] 45.0-49.9, adult Status: Acute Assessment and Plan: Lifestyle and diet modifications 1800 calorie restricted diet Time Spent With Patient Time with patient: 25 - 35 minutes Subjective Date/time seen: 03/27/24 07:46 Interval history: Patient feels better today, dyspnea is improving, afebrile, blood pressure stable, still has a cough but improving, Exam Narrative: GENERAL: Pleasant, in no acute distress. Well-nourished. - EYES: EOMI. Anicteric. - HENT: Moist mucous membranes. - LUNGS: Coarse breath sound bilateral base - CARDIOVASCULAR: Regular rate and rhyth m. No murmur. No JVD. - ABDOMEN: Soft, non-tender and non-dist ended. No palpable masses. - EXTREMITIES: No edema. Peripheral puls es 2+. Non-tender. - NEUROLOGIC: No focal neurological defi cits. CN II-XII grossly intact. - PSYCHIATRIC: Awake, Alert and oriented x 3. Appropriate mood and affect. - SKIN: No rashes or lesions. Warm. - LYMPH: No cervical lymphadenopathy. Objective Data Vital Signs Vital Signs: Vital Signs - 24 hr 03/26/24 08:00 03/26/24 08:00 03/26/24 08:10 Temperature Pulse Rate 96 74 Respiratory Rate Blood Pressure Pulse Oximetry 99 Oxygen Delivery Nasal Cannula Oxygen Flow Rate 2 03/26/24 11:42 03/26/24 12:01 03/26/24 14:00 Temperature 97.4 F L Pulse Rate 79 86 Respiratory Rate 16 Blood Pressure 115/81 Pulse Oximetry 94 96 Oxygen Delivery Room Air Oxygen Flow Rate 03/26/24 16:00 03/26/24 20:00 03/26/24 20:00 Temperature Pulse Rate 78 97 Respiratory Rate Blood Pressure Pulse Oximetry Oxygen Delivery Room Air Oxygen Flow Rate 03/26/24 20:15 03/26/24 22:25 03/26/24 22:38 Temperature 97.7 F Pulse Rate 93 98 94 Respiratory Rate 18 18 18 Blood Pressure 133/91 H Pulse Oximetry 96 Oxygen Delivery Oxygen Flow Rate 03/26/24 22:39 03/27/24 00:00 03/27/24 02:50 Temperature Pulse Rate 98 86 91 Respiratory Rate 18 Blood Pressure Pulse Oximetry 97 Oxygen Delivery Room Air Oxygen Flow Rate 03/27/24 02:58 03/27/24 04:00 03/27/24 04:40 Temperature 97.3 F L Pulse Rate 92 97 87 Respiratory Rate 18 16 Blood Pressure 127/87 Pulse Oximetry 97 Oxygen Delivery Oxygen Flow Rate Intake/Output Intake/Output: Intake & Output 03/24/24 03/25/24 03/26/24 03/27/24 23:59 23:59 23:59 23:59 Intake Total 1000 2070 800 Balance 1000 2070 800 Meds/Results Medications: Active Medications Generic Name Dose Route Start Last Admin Trade Name Freq PRN Reason Stop Dose Admin Acetaminophen 1,000 mg 03/25/24 19:26 Acetaminophen 500 Mg Tablet PO Q6H PRN Mild Pain (1-3) or Fever Albuterol 2.5 mg 03/26/24 11:05 Albuterol Sulfate Neb 2.5 Mg/3 Ml Inh INHALATION Q4HRT PRN Shortness Of Breath Albuterol/Ipratropium 3 ml 03/26/24 14:00 03/27/24 02:50 Ipratropium 0.5 Mg/Albuterol Sulfate 2.5 Mg Ampul.Neb 3 Ml INHALATION 3 ml Q6HRT JEISON Administration Aspirin 325 mg 03/26/24 21:00 03/26/24 20:31 Aspirin 325 Mg Enteric Tablet PO 325 mg QHS JEISON Administration Cyclobenzaprine HCl 10 mg 03/26/24 01:22 Cyclobenzaprine Hcl 10 Mg Tablet PO TID PRN muscle spasm Enoxaparin Sodium 40 mg 03/27/24 09:00 Enoxaparin 40 Mg/0.4 Ml Syringe SUB-Q DAILY JEISON Furosemide 40 mg 03/26/24 09:00 03/26/24 08:09 Furosemide 40 Mg Tablet PO 40 mg DAILY JEISON Administration Ceftriaxone Sodium 1 gm in 50 mls @ 100 mls/hr 03/26/24 20:00 03/26/24 20:30 Rocephin 1 Gm/Ns 50 Ml IVPB 100 mls/hr Q24H JEISON Administration Azithromycin 500 mg in 250 mls @ 250 mls/hr 03/26/24 21:00 03/26/24 21:00 Zithromax IVPB 250 mls/hr Q24H JEISON Administration Insulin Aspart 7 units 03/26/24 08:00 03/26/24 17:07 Insulin Aspart (*Bkc) 100 Units/Ml 0.05 units/kg (7 units) Not Given SUB-Q TIDWM JEISON Metoprolol Tartrate 50 mg 03/26/24 09:00 03/26/24 20:31 Metoprolol Tartrate 50 Mg Tab PO 50 mg Q12HR JEISON Administration Nifedipine 60 mg 03/26/24 09:00 03/26/24 08:10 Nifedipine 30 Mg Tab.Er.24 PO 60 mg DAILY JEISON Administration Ondansetron HCl 4 mg 03/25/24 19:26 Ondansetron Inj 4 Mg/2 Ml Vial IV PUSH Q4H PRN Nausea Oseltamivir Phosphate 75 mg 03/26/24 09:00 03/26/24 20:31 Oseltamivir Phosphate 75 Mg Capsule PO 03/31/24 08:59 75 mg Q12HR JEISON Administration Perflutren Lipid Microsphere 0 ml 03/26/24 07:05 Perflutren Lipid Microspheres 1.5 Ml Vial Diluted To 10 Ml Total Volume IV PUSH 03/29/24 07:05 ONCE PRN adequate visualization Protocol Rosuvastatin Calcium 20 mg 03/26/24 09:00 03/26/24 08:09 Rosuvastatin 20 Mg Tablet PO 20 mg DAILY JEISON Administration Tamsulosin HCl 0.4 mg 03/26/24 21:00 03/26/24 20:30 Tamsulosin Hcl 0.4 Mg Capsule BY MOUTH 0.4 mg QHS JEISON Administration Radiology Results: ITS Impressions Chest X-Ray 03/25/24 16:32 IMPRESSION: 1. Mild pulmonary edema. Chest CTA 03/25/24 18:33 IMPRESSION: 1. Pneumonia involving right upper lobe and right lower lobe. 2. Mild pulmonary edema. 3. No pulmonary embolus. 4. Mild right hilar and mediastinal lymphadenopathy, likely reactive. Labs Labs: Laboratory Results - last 24 hr 03/26/24 03/26/24 03/26/24 07:27 07:56 11:29 WBC 5.1 RBC 4.33 L Hgb 12.4 L Hct 37.6 L MCV 86.8 MCH 28.6 MCHC 33.0 RDW 14.0 Plt Count 184 MPV 10.6 H Immature Gran % (Auto) 0.6 H Neut % (Auto) 58.3 Lymph % (Auto) 28.5 [place] % (Auto) 11.6 H Eos % (Auto) 0.4 Baso % (Auto) 0.6 Lymph # (Auto) 1.45 [place] # (Auto) 0.6 Eos # (Auto) 0.0 Baso # (Auto) 0.0 Abs Immat Gran (auto) 0.03 Absolute Neuts (auto) 3.0 Absolute Nucleated RBC 0.000 Nucleated RBC % 0.0 Sodium 137 Potassium 3.6 Chloride 107 Carbon Dioxide 26 Anion Gap 4 BUN 19 Creatinine 1.00 Estim Creat Clear Calc 98 Estimated GFR > 60 Glucose 95 POC Capillary Glucose 107 H 180 H Calcium 8.2 L Magnesium 2.1 Total Bilirubin 0.5 AST 23 ALT 11 Alkaline Phosphatase 58 Total Protein 7.0 Albumin 3.4 L 03/26/24 03/26/24 03/27/24 16:41 20:19 07:27 WBC RBC Hgb Hct MCV MCH MCHC RDW Plt Count MPV Immature Gran % (Auto) Neut % (Auto) Lymph % (Auto) [place] % (Auto) Eos % (Auto) Baso % (Auto) Lymph # (Auto) [place] # (Auto) Eos # (Auto) Baso # (Auto) Abs Immat Gran (auto) Absolute Neuts (auto) Absolute Nucleated RBC Nucleated RBC % Sodium Potassium Chloride Carbon Dioxide Anion Gap BUN Creatinine Estim Creat Clear Calc Estimated GFR Glucose POC Capillary Glucose 119 H 113 H 101 Calcium Magnesium Total Bilirubin AST ALT Alkaline Phosphatase Total Protein Albumin
[2024-03-27 07:51] LABS: Basophils Percent Auto 0.4 % (0.2-1.2); Eosinophils Absolute Auto 0.1 K/mm3 (0-0.3); Eosinophils Percent Auto 1.1 % (0-4.4); Hematocrit 37.3 % (42.0-52.0); Hemoglobin 11.9 g/dL (14.0-18.0); Immature Granulocyte Absolute 0.02 K/mm3 (0.00-0.031); Immature Granulocyte Percent A 0.4 % (0-0.5); Lymphocytes Absolute Auto 1.46 K/mm3 (0.9-3.2); Lymphocytes Percent Auto 32.7 % (18.3-44.2); Mean Corpuscular HGB Conc 31.9 g/dl (32-36); Mean Corpuscular Hemoglobin 27.9 pg (26-34); Mean Corpuscular Volume 87.6 fl (80-100); Mean Platelet Volume 10.5 fl (7.4-10.4); Monocytes Absolute Auto 0.5 K/mm3 (0.1-0.6); Monocytes Percent Auto 11.2 % (2.6-8.5); Neutrophils Absolute Auto 2.4 K/mm3 (1.3-6.7); Neutrophils Percent Auto 54.2 % (45.5-73.1); Platelet Count Result 172 k/mm3 (150-375); Red Blood Count 4.26 M/mm3 (4.6-6.20); Red Cell Distribution Width 13.9 % (11.5-14.5); White Blood Count 4.5 K/mm3 (4.5-10.0)
[2024-03-27 08:07] LABS: Alanine Aminotransferase 13 U/L (6-50); Albumin Level 3.4 g/dL (3.5-5.1); Alkaline Phosphatase 55 U/L (38-126); Anion Gap 2 mmol/L (4-12); Aspartate Amino Transferase 25 U/L (17-59); Bilirubin,Total 0.5 mg/dL (0.2-1.3); Blood Urea Nitrogen 23 mg/dL (9-20); Calcium 8.4 mg/dL (8.4-10.2); Carbon Dioxide 28 mmol/L (22-30); Chloride 107 mmol/L (98-107); Estimated CRCL calculation 109 ml/min; Estimated Glomerular Filt Rate > 60; Glucose 99 mg/dL (65-110); Magnesium 2.1 mg/dL (1.6-2.3); Potassium 3.5 mmol/L (3.4-5.0); Sodium 137 mmol/L (137-145)
[2024-03-27] MEDS: ENOXAPARIN 40 MG/0.4 ML SYRINGE SUB-Q (09:00)
[2024-03-27] MEDS: METOPROLOL TARTRATE 50 MG TAB PO ×2 (09:00→20:31)
[2024-03-27] MEDS: OSELTAMIVIR PHOSPHATE 75 MG CAPSULE PO ×2 (09:00→20:32)
[2024-03-27] MEDS: NIFEdipine 30 MG TAB.ER.24 60 MG PO (09:00)
[2024-03-27] MEDS: ROSUVASTATIN 20 MG TABLET PO (09:00)
[2024-03-27] MEDS: FUROSEMIDE 40 MG TABLET PO (09:00)
[2024-03-27 11:23] LABS: Glucose Point of Care 192 mg/dl (65-105)
[2024-03-27] MEDS: INSULIN ASPART (*BKC) 100 UNITS/ML 7 UNITS SUB-Q ×2 (12:58→17:29)
[2024-03-27 16:18] LABS: Glucose Point of Care 128 mg/dl (65-105)
[2024-03-27 20:15] LABS: Glucose Point of Care 129 mg/dl (65-105)
[2024-03-27] MEDS: AZITHROMYCIN 500 MG/NS 250 ML 500 MG/250 ML BAG 250 MG IVPB (20:27)
[2024-03-27] MEDS: ASPIRIN 325 MG ENTERIC TABLET PO (20:31)
[2024-03-27] MEDS: CYCLOBENZAPRINE HCL 10 MG TABLET PO (20:31)
[2024-03-27] MEDS: TAMSULOSIN HCL 0.4 MG CAPSULE BY MOUTH (20:32)
[2024-03-28] VITALS (9 sets, daily range): BP systolic 154; BP diastolic 96; PULSE 76–96; RESP 18–20; TEMP 36.3; O2SAT 93–94
[2024-03-28] MEDS: IPRATROPIUM 0.5 MG/ALBUTEROL SULFATE 2.5 MG AMPUL.NEB 3 ML INHALATION ×2 (02:00→07:30)
[2024-03-28 07:44] LABS: Glucose Point of Care 111 mg/dl (65-105)
[2024-03-28] MEDS: ENOXAPARIN 40 MG/0.4 ML SYRINGE SUB-Q (08:48)
[2024-03-28] MEDS: METOPROLOL TARTRATE 50 MG TAB PO (08:48)
[2024-03-28] MEDS: OSELTAMIVIR PHOSPHATE 75 MG CAPSULE PO (08:48)
[2024-03-28] MEDS: FUROSEMIDE 40 MG TABLET PO (08:49)
[2024-03-28] MEDS: INSULIN ASPART (*BKC) 100 UNITS/ML 7 UNITS SUB-Q (08:49)
[2024-03-28] MEDS: ROSUVASTATIN 20 MG TABLET PO (08:49)
[2024-03-28] MEDS: NIFEdipine 30 MG TAB.ER.24 60 MG PO (08:49)
--- NOTE | 2024-03-28 08:51 | P.PNIM_ITS ---
Progress Note: A&P Assessment and Plan (1) Pneumonia: Qualifiers: Laterality: right Lung location: lower lobe of lung Pneumonia type: due to unspecified organism Qualified Code(s): J18.9 - Pneumonia, unspecified organism Code(s): J18.9 - Pneumonia, unspecified organism Status: Acute (2) Atrial fibrillation with rapid ventricular response: Code(s): I48.91 - Unspecified atrial fibrillation Status: Acute (3) Acute hypoxic respiratory failure: Code(s): J96.01 - Acute respiratory failure with hypoxia Status: Acute (4) Influenza A: Code(s): J10.1 - Influenza due to other identified influenza virus with other respiratory manifestations Status: Acute (5) Diabetes mellitus: Qualifiers: Diabetes mellitus complication status: without complication Diabetes mellitus terminal press operator insulin use: without terminal press operator use Diabetes mellitus type: type 2 Qualified Code(s): E11.9 - Type 2 diabetes mellitus without complications Code(s): E11.9 - Type 2 diabetes mellitus without complications Status: Acute Plan Pneumonia: Qualifiers: Laterality: right Lung location: lower lobe of lung Pneumonia type: due to unspecified organism Qualified Code(s): J18.9 - Pneumonia, unspecified organism Code(s): J18.9 - Pneumonia, unspecified organism Status: Acute Assessment and Plan: Admit to med tele Patient started on Rocephin and Zithromax Cultures no growth so far AFib RVR Upon arrival, EKG showed atrial fibrillation heart rate 107 Continue home meds Continue to monitor * Continue Metoprolol * Continue Telemetry * Pt does not appear to be on any oral anticoagulation for his hx of Atrial fibrillation. * Patient has history of intracranial bleeding due to trauma, anticoagulation is on hold. Waiting for evaluation by cad intern and neurosurgeon in [facility] * ECHO 1. Complete two-dimensional, color flow and Doppler transthoracic echocardiogram is performed. 2. The left ventricle is mildly dilated measuring 6.3 cm in diameter; however this may be normal when indexed to body surface area. There is mild eccentric left ventricular hypertrophy. The left ventricular ejection fraction is visually estimated to be 60-65%. 3. The right ventricle is normal in size and systolic function. Acute hypoxic respiratory failure: Code(s): J96.01 - Acute respiratory failure with hypoxia Status: Acute Assessment and Plan: On supplemental oxygen by nasal cannula 2 L Likely resulting from acute Influenza A and PNA dx. as well as evidence of pulmonary edema on imaging and elevation of BNP Received Diuresis initiated with Lasix 40 mg oral daily. Echocardiogram showed normal EF Influenza A: Code(s): J10.1 - Influenza due to other identified influenza virus with other respiratory manifestations Status: Acute Assessment and Plan: c/w Ozeltamivir. supportive treatment. Fluid overloaded CT scan showed pulmonary edema Elevated BNP above 4000 Pending echocardiogram Patient is on Lasix 40 mg daily Diabetes mellitus: Qualifiers: Diabetes mellitus type: type 2 Diabetes mellitus terminal press operator insulin use: without terminal press operator use Diabetes mellitus complication status: without compli cation Qualified Code(s): E11.9 - Type 2 diabetes mellitus without complications Code(s): E11.9 - Type 2 diabetes mellitus without complications Status: Acute Assessment and Plan: Patient is on Tirzepatide placed on hold during hospitalization Carb consistent diet Insulin sliding scale as needed Resume home medication on discharge Z68.42 - Body mass index [BMI] 45.0-49.9, adult Status: Acute Assessment and Plan: Lifestyle and diet modifications 1800 calorie restricted diet Subjective Date/time seen: 03/28/24 08:51 Interval history: Patient feels better today, dyspnea is improving, afebrile, blood pressure stable, still has a cough but improving, Exam Narrative: GENERAL: Pleasant, in no acute distress. Well-nourished. - EYES: EOMI. Anicteric. - HENT: Moist mucous membranes. - LUNGS: Coarse breath sound bilateral base - CARDIOVASCULAR: Regular rate and rhyth m. No murmur. No JVD. - ABDOMEN: Soft, non-tender and non-dist ended. No palpable masses. - EXTREMITIES: No edema. Peripheral puls es 2+. Non-tender. - NEUROLOGIC: No focal neurological defi cits. CN II-XII grossly intact. - PSYCHIATRIC: Awake, Alert and oriented x 3. Appropriate mood and affect. - SKIN: No rashes or lesions. Warm. - LYMPH: No cervical lymphadenopathy. Objective Data Vital Signs Vital Signs: Vital Signs - 24 hr 03/27/24 09:00 03/27/24 09:43 03/27/24 09:43 Temperature Pulse Rate 66 93 Respiratory Rate 18 Blood Pressure Pulse Oximetry 98 Oxygen Delivery Room Air Fraction of Inspired Oxygen 03/27/24 09:48 03/27/24 12:00 03/27/24 14:00 Temperature 97.2 F L Pulse Rate 91 85 90 Respiratory Rate 18 20 Blood Pressure 141/98 H Pulse Oximetry 99 Oxygen Delivery Fraction of Inspired Oxygen 03/27/24 14:45 03/27/24 16:00 03/27/24 20:00 Temperature Pulse Rate 86 79 Respiratory Rate 20 Blood Pressure Pulse Oximetry 93 Oxygen Delivery Room Air Fraction of Inspired Oxygen 03/27/24 20:00 03/27/24 20:05 03/27/24 20:31 Temperature 97.1 F L Pulse Rate 93 93 90 Respiratory Rate 18 Blood Pressure 113/82 Pulse Oximetry 96 Oxygen Delivery Fraction of Inspired Oxygen 03/27/24 21:00 03/27/24 21:03 03/27/24 21:08 Temperature Pulse Rate 88 88 Respiratory Rate 20 20 Blood Pressure Pulse Oximetry 98 Oxygen Delivery Room Air Fraction of Inspired Oxygen 03/28/24 00:00 03/28/24 02:01 03/28/24 02:07 Temperature Pulse Rate 94 91 76 Respiratory Rate 20 19 Blood Pressure Pulse Oximetry Oxygen Delivery Fraction of Inspired Oxygen 03/28/24 04:00 03/28/24 04:35 03/28/24 07:27 Temperature 97.4 F L Pulse Rate 91 84 Respiratory Rate 20 Blood Pressure 154/96 H Pulse Oximetry 94 93 Oxygen Delivery Room Air Fraction of Inspired Oxygen 03/28/24 07:27 03/28/24 07:39 Temperature Pulse Rate 90 83 Respiratory Rate 18 18 Blood Pressure Pulse Oximetry Oxygen Delivery Fraction of Inspired Oxygen Intake/Output Intake/Output: Intake & Output 03/25/24 03/26/24 03/27/24 03/28/24 23:59 23:59 23:59 23:59 Intake Total 1000 2370 1800 550 Balance 1000 2370 1800 550 Meds/Results Medications: Active Medications Generic Name Dose Route Start Last Admin Trade Name Freq PRN Reason Stop Dose Admin Acetaminophen 1,000 mg 03/25/24 19:26 Acetaminophen 500 Mg Tablet PO Q6H PRN Mild Pain (1-3) or Fever Albuterol 2.5 mg 03/26/24 11:05 Albuterol Sulfate Neb 2.5 Mg/3 Ml Inh INHALATION Q4HRT PRN Shortness Of Breath Albuterol/Ipratropium 3 ml 03/26/24 14:00 03/28/24 07:30 Ipratropium 0.5 Mg/Albuterol Sulfate 2.5 Mg Ampul.Neb 3 Ml INHALATION 3 ml Q6HRT JEISON Administration Aspirin 325 mg 03/26/24 21:00 03/27/24 20:31 Aspirin 325 Mg Enteric Tablet PO 325 mg QHS JEISON Administration Cyclobenzaprine HCl 10 mg 03/26/24 01:22 03/27/24 20:31 Cyclobenzaprine Hcl 10 Mg Tablet PO 10 mg TID PRN Administration muscle spasm Enoxaparin Sodium 40 mg 03/27/24 09:00 03/27/24 09:00 Enoxaparin 40 Mg/0.4 Ml Syringe SUB-Q 40 mg DAILY JEISON Administration Furosemide 40 mg 03/26/24 09:00 03/27/24 09:00 Furosemide 40 Mg Tablet PO 40 mg DAILY JEISON Administration Ceftriaxone Sodium 1 gm in 50 mls @ 100 mls/hr 03/26/24 20:00 03/27/24 20:55 Rocephin 1 Gm/Ns 50 Ml IVPB Infused Q24H JEISON Infusion Azithromycin 500 mg in 250 mls @ 250 mls/hr 03/26/24 21:00 03/27/24 20:55 Zithromax IVPB 250 mls/hr Q24H JEISON Infusion Insulin Aspart 7 units 03/26/24 08:00 03/27/24 17:29 Insulin Aspart (*Bkc) 100 Units/Ml 0.05 units/kg (7 units) 7 units SUB-Q Administration TIDWM JEISON Metoprolol Tartrate 50 mg 03/26/24 09:00 03/27/24 20:31 Metoprolol Tartrate 50 Mg Tab PO 50 mg Q12HR JEISON Administration Nifedipine 60 mg 03/26/24 09:00 03/27/24 09:00 Nifedipine 30 Mg Tab.Er.24 PO 60 mg DAILY JEISON Administration Ondansetron HCl 4 mg 03/25/24 19:26 Ondansetron Inj 4 Mg/2 Ml Vial IV PUSH Q4H PRN Nausea Oseltamivir Phosphate 75 mg 03/26/24 09:00 03/27/24 20:32 Oseltamivir Phosphate 75 Mg Capsule PO 03/31/24 08:59 75 mg Q12HR JEISON Administration Perflutren Lipid Microsphere 0 ml 03/26/24 07:05 Perflutren Lipid Microspheres 1.5 Ml Vial Diluted To 10 Ml Total Volume IV PUSH 03/29/24 07:05 ONCE PRN adequate visualization Protocol Rosuvastatin Calcium 20 mg 03/26/24 09:00 03/27/24 09:00 Rosuvastatin 20 Mg Tablet PO 20 mg DAILY JEISON Administration Tamsulosin HCl 0.4 mg 03/26/24 21:00 03/27/24 20:32 Tamsulosin Hcl 0.4 Mg Capsule BY MOUTH 0.4 mg QHS JEISON Administration Radiology Results: ITS Impressions Chest X-Ray 03/25/24 16:32 IMPRESSION: 1. Mild pulmonary edema. Chest CTA 03/25/24 18:33 IMPRESSION: 1. Pneumonia involving right upper lobe and right lower lobe. 2. Mild pulmonary edema. 3. No pulmonary embolus. 4. Mild right hilar and mediastinal lymphadenopathy, likely reactive. Labs Labs: Laboratory Results - last 24 hr 03/27/24 03/27/24 03/27/24 11:20 16:15 20:11 POC Capillary Glucose 192 H 128 H 129 H 03/28/24 07:32 POC Capillary Glucose 111 H
--- NOTE | 2024-03-28 08:54 | P.DS_ITS ---
DS: Admitting Diagnosis Discharge Date 03/18/24 Admitting Diagnosis (1) Pneumonia: Qualifiers: Laterality: right Lung location: lower lobe of lung Pneumonia type: due to unspecified organism Qualified Code(s): J18.9 - Pneumonia, unspecified organism Code(s): J18.9 - Pneumonia, unspecified organism Status: Acute (2) Atrial fibrillation with rapid ventricular response: Code(s): I48.91 - Unspecified atrial fibrillation Status: Acute (3) Acute hypoxic respiratory failure: Code(s): J96.01 - Acute respiratory failure with hypoxia Status: Acute (4) Influenza A: Code(s): J10.1 - Influenza due to other identified influenza virus with other respiratory manifestations Status: Acute (5) Diabetes mellitus: Qualifiers: Diabetes mellitus complication status: without complication Diabetes mellitus [facility] insulin use: without long term acute care registered nurse use Diabetes mellitus type: type 2 Qualified Code(s): E11.9 - Type 2 diabetes mellitus without complications Code(s): E11.9 - Type 2 diabetes mellitus without complications Status: Acute DS: Discharge Diagnosis Discharge Diagnosis (1) Pneumonia: Qualifiers: Laterality: right Lung location: lower lobe of lung Pneumonia type: due to unspecified organism Qualified Code(s): J18.9 - Pneumonia, unspecified organism Code(s): J18.9 - Pneumonia, unspecified organism Status: Acute (2) Atrial fibrillation with rapid ventricular response: Code(s): I48.91 - Unspecified atrial fibrillation Status: Acute (3) Acute hypoxic respiratory failure: Code(s): J96.01 - Acute respiratory failure with hypoxia Status: Acute (4) Influenza A: Code(s): J10.1 - Influenza due to other identified influenza virus with other respiratory manifestations Status: Acute (5) Diabetes mellitus: Qualifiers: Diabetes mellitus type: type 2 Diabetes mellitus [facility] insulin use: without long term acute care registered nurse use Diabetes mellitus complication status: without complication Qualified Code(s): E11.9 - Type 2 diabetes mellitus without complications Code(s): E11.9 - Type 2 diabetes mellitus without complications Status: Acute DS: Summary Hospital Course Hospital Course: This is a 63-year-old male with past medical history significant for morbid obesity, hypertension, atrial fibrillation, dyslipidemia. Patient presents to the emergency room due to shortness of breath, generalized malaise, body aches and pains, night sweats, chills. Preliminary workup was significant for chest x-ray with right lower and upper lobes lung pneumonia patient had a BNP of 4000, tested positive for influenza type A, patient ruled out for acute pulmonary embolism. While in the emergency room patient was noted to have low pulse ox requiring supplemental oxygen by nasal cannula 2 L. patient has been admitted for further evaluation management and treatment. The following med issues have been addressed during hospitalization Pneumonia: Qualifiers: Laterality: right Lung location: lower lobe of lung Pneumonia type: due to unspecified organism Qualified Code(s): J18.9 - Pneumonia, unspecified organism Code(s): J18.9 - Pneumonia, unspecified organism Status: Acute Assessment and Plan: Admit to med tele Patient started on Rocephin and Zithromax Cultures no growth so far Switch to azithromycin p.o. on discharge AFib RVR Upon arrival, EKG showed atrial fibrillation heart rate 107 Continue home meds Continue to monitor Continue Metoprolol Telemetry: Rate is controlled Patient has history of intracranial bleeding due to trauma, anticoagulation is on hold. Waiting for evaluation by manager express and neurosurgeon in [facility] Echocardiogram showed 1. Complete two-dimensional, color flow and Doppler transthoracic echocardiogram is performed. 2. The left ventricle is mildly dilated measuring 6.3 cm in diameter; however this may be normal when indexed to body surface area. There is mild eccentric left ventricular hypertrophy. The left ventricular ejection fraction is visually estimated to be 60-65%. 3. The right ventricle is normal in size and systolic function. Acute hypoxic respiratory failure: Code(s): J96.01 - Acute respiratory failure with hypoxia Status: Acute Assessment and Plan: On supplemental oxygen by nasal cannula 2 L Likely resulting from acute Influenza A and PNA dx. as well as evidence of pulmonary edema on imaging and elevation of BNP Received Diuresis initiated with Lasix 40 mg oral daily. Echocardiogram showed normal EF Influenza A: Code(s): J10.1 - Influenza due to other identified influenza virus with other respiratory manifestations Status: Acute Assessment and Plan: c/w Ozeltamivir. supportive treatment. Continue Tamiflu for total of 5 days treatment Fluid overloaded CT scan showed pulmonary edema Elevated BNP above 4000 Pending echocardiogram Received on Lasix 40 mg daily Euvolemia Echocardiogram shows normal EF Diabetes mellitus: Qualifiers: Diabetes mellitus type: type 2 Diabetes mellitus [facility] insulin use: without [facility] use Diabetes mellitus complication status: without complication Qualified Code(s): E11.9 - Type 2 diabetes mellitus without complications Code(s): E11.9 - Type 2 diabetes mellitus without complications Status: Acute Assessment and Plan: Patient is on Tirzepatide placed on hold during hospitalization Carb consistent diet Insulin sliding scale as needed Resume home medication on discharge Z68.42 - Body mass index [BMI] 45.0-49.9, adult Status: Acute Assessment and Plan: Lifestyle and diet modifications 1800 calorie restricted diet Time Spent with Patient Time attestation: Total time spent providing and/or coordinating discharge services: Exam Narrative: GENERAL: Pleasant, in no acute distress. Well-nourished. - EYES: EOMI. Anicteric. - HENT: Moist mucous membranes. - LUNGS: Coarse breath sound bilateral base - CARDIOVASCULAR: Regular rate and rhyth m. No murmur. No JVD. - ABDOMEN: Soft, non-tender and non-dist ended. No palpable masses. - EXTREMITIES: No edema. Peripheral puls es 2+. Non-tender. - NEUROLOGIC: No focal neurological defi cits. CN II-XII grossly intact. - PSYCHIATRIC: Awake, Alert and oriented x 3. Appropriate mood and affect. - SKIN: No rashes or lesions. Warm. - LYMPH: No cervical lymphadenopathy. DS: Data Data Completed and Pending Labs on day of discharge: Labs from last 24 hours 03/28/24 03/27/24 03/27/24 07:32 20:11 16:15 POC Capillary Glucose 111 H 129 H 128 H 03/27/24 11:20 POC Capillary Glucose 192 H Preliminary micro results at discharge 03/25/24 19:50 Blood Culture - Preliminary Blood 03/25/24 20:31 Blood Culture - Preliminary Blood Discharge Plan Discharge Attending physician on discharge: Jose Paulino Discharging Clinician: Jose Paulino Anticipated Discharge Date/Time: 03/28/24 09:55 Patient Disposition: Home, Self-Care Activity: as tolerated Diet: as tolerated and heart healthy Patient Instructions: Antibiotic Form Patient Language: Honduran Stand Alone Forms: General Discharge Information Follow-up/Referrals: Ashok Gaffney MD [Primary Care Provider] - (Patient needs to see primary care doctor in 1 week) Discharge Medications: New azithromycin 250 mg tablet 250 mg PO DAILY Qty: 3 0RF oseltamivir [Tamiflu] 75 mg capsule 75 mg PO Q12H Qty: 6 0RF Continued metoprolol tartrate 50 mg tablet 50 mg PO Q12H nifedipine 60 mg tablet extended release 60 mg PO DAILY aspirin 325 mg capsule 325 mg PO QHS cyclobenzaprine 10 mg tablet 10 mg PO TID PRN (Reason: muscle spasm) Qty: 30 0RF tamsulosin 0.4 mg capsule See Rx Instructions .ROUTE .COMPLEX Qty: 90 1RF Dose Instruction: TAKE 1 CAPSULE BY MOUTH EVERYDAY AT BEDTIME Rx Instructions: TAKE 1 CAPSULE BY MOUTH EVERYDAY AT BEDTIME rosuvastatin 20 mg tablet 20 mg PO DAILY Qty: 90 0RF tirzepatide 10 mg/0.5 mL pen injector 10 mg subcut WEEKLY Qty: 2 0RF Date of admission: 03/26/24 09:40 Primary Care Provider: Ashok Gaffney Admitting Provider: Yuri Workman V. Attending physician on admission: Deandra Domínguez Condition: Stable
--- OUTSIDE RECORDS SUMMARY | 2024-04-01 21:13 | XMS_ITS | Encounter Summary ---
Author Organization [facility] Address [address] [place] [address]. [place], [place] [id number] [place] [id number] Care Team Providers Care Dredging Inspector Name Role Phone Anjelica Moscoso CRNA Primary Care Provider Unav ailable Reason for Visit * Reason Comments Shortness Of Breath Encounter Details Date Type Department Care Team (Late st Contact Info) Description 11/12/2019 8:44 PM CDT - 11/12/2019 11:58 PM CDT Emergency [facility] [place] [address] Tequila Rosenthal PA [address] [place] [address] Shortness Of Breath Discharge Disposition: Home or Self Care (Routine Discharge) Social History Tobacco Use Types Packs/Day Years Used Date Smoking Tobacco: Never Smokeless Tobacco: Never Alcohol Use Standard Drinks/Week Comments Yes 0 (1 standard drink = 0.6 oz pur e alcohol) Sex and Gender Information Value Date Recorded Sex Assigned at Not on file Legal Sex Male 8:41 PM CDT Gender Identity Not on file Sexual Orientation Not on file COVID-19 Exposure Response Date Recorded In the last month, have you been in contact with someone who was confirmed or suspected to have Coronavirus / COVID-19? Yes 11/12/2019 8:42 PM CDT documented as of this encounter Last Filed Vital Signs Vital Sign Reading Time Taken Comments Blood Pressure 135/108 11/12/2019 11:14 PM CDT Pulse 79 11/12/2019 11:14 PM CDT Temperature 37.8 ??C (100.1 ??F) 11/12/2019 11:14 PM CDT Respiratory Rate 20 11/12/2019 11:14 PM CDT Oxygen Saturation 97% 11/12/2019 11:14 PM CDT Inhaled Oxygen Concentration - - Weight 149.7 kg (330 lb) 11/12/2019 10:35 PM CDT Height 177.8 cm (5' 10 ) 11/12/2019 10:35 PM CDT Body Mass Index 47.35 11/12/2019 10:35 PM CDT documented in this encounter Discharge Instructions * Discharge Instructions* JINNY Medina - 11/12/2019 11:34 PM CDT Based on your symptoms and your chest xray you clearly have COVID. Your sample will be sent off andyou should receive a call about the results in the next few days. Please self quarantine yourself and any sick contacts for the next 14 days (or until you have had negative COVID test and your symptoms have resolved for 3 days) If you feel worse especially if you feel short of breath (cannot walk to bathroom without feeling very winded) then please return to the ER. COVID-19 Symptoms, Spread and Prevention: https://www.dhs.[place].gov/publications/s36653.pdf Self-Isolation for Individuals Being Evaluated for COVID-19: https://www.dhs.[place].gov/publications/g90951.pdf * Attachments The following attachments cannot be sent through Care Everywhere. * Coronavirus Disease 2019 (COVID-19) Discharge Instructions (Lao) documented in this encounter Nursing Notes * Deandra Templeton RN - 11/12/2019 11:58 PM CDT covid result called and faxed to Nicolasa at [facility] documented in this encounter ED Notes * JINNY Medina - 11/12/2019 11:28 PM CDT [place] EMERGENCY DEPARTMENT ENCOUNTER HISTORICAL INFORMATION Primary Care Doctor: Anjelica Moscoso APN, VACATION SALES ADVISOR, VACATION SALES ADVISOR Patient information was obtained primarily from the patient, nursing notes History/Exam limitations: None Provider at Bedside Date/Time Event User Comments 11/12/19 6112 Provider at Bedside Assessing Patient TEQUILA ROSENTHAL CHIEF COMPLAINT Shortness Of Breath HPI Meena Andrade is a 59-year-old male who presents loss of taste and smell 1 week ago with cough, now with sob with coughing today. Pt has had low grade fever as well. Pt has not been around anyone with known COVID. PAST MEDICAL HISTORY Past Medical History: Diagnosis Date ??? A-fib (CMS/HCC) ??? Hypertension Negative unless otherwise noted SURGICAL HISTORY History reviewed. No pertinent surgical history. Negative unless otherwise noted CURRENT MEDICATIONS No current facility-administered medications for this encounter. No current outpatient medications on file. ALLERGIES No Known Allergies FAMILY HISTORY No family history on file. Negative unless otherwise noted SOCIAL HISTORY Social History Socioeconomic History ??? Marital status: Spouse name: Not on file ??? Number of children: Not on file ??? Years of education: Not on file ??? Highest education level: Not on file Occupational History ??? Not on file Social Needs ??? Financial resource strain: Not on file ??? Food insecurity: Worry: Not on file Inability: Not on file ??? Transportation needs: Medical: Not on file Non-medical: Not on file Tobacco Use ??? Smoking status: Never Smoker ??? Smokeless tobacco: Never Used Substance and Sexual Activity ??? Alcohol use: Yes ??? Drug use: Not Currently ??? Sexual activity: Not on file Lifestyle ??? Physical activity: Days per week: Not on file Minutes per session: Not on file ??? Stress: Not on file Relationships ??? Social connections: Talks on phone: Not on file Gets together: Not on file Attends worship service: Not on file Active member of club or organization: Not on file Attends meetings of clubs or organizations: Not on file Relationship status: Not on file ??? Intimate partner violence: Fear of current or ex partner: Not on file Emotionally abused: Not on file Physically abused: Not on file Forced sexual activity: Not on file Other Topics Concern ??? Not on file Social History Narrative ??? Not on file Negative unless otherwise noted REVIEW OF SYSTEMS Review of Systems Constitutional: Positive for fatigue and fever. Respiratory: Positive for shortness of breath. Cardiovascular: Negative for chest pain. All other systems reviewed and negative PHYSICAL EXAM VITAL SIGNS: Filed Vitals: 11/12/19 2229 11/12/19 2235 11/12/19 2314 BP: (!) 135/108 Pulse: 79 Resp: 20 20 Temp: 100.1 ??F (37.8 ??C) TempSrc: Oral SpO2: 97% 97% Weight: (!) 149.7 kg (330 lb) Height: 5' 10 (1.778 m) Constitutional: Well developed, Well nourished, No acute distress, Non-toxic appearance. Pt obese HENT: Normocephalic, Atraumatic, Bilateral external ears normal, Oropharynx moist, No oral exudates, Nose normal. Eyes: PERRL, EOMI, Conjunctiva normal, No discharge. Neck- Normal range of motion, No tenderness, Supple, No stridor. Respiratory: Normal breath sounds, No respiratory distress. Cardiovascular: Normal heart rate, Normal rhythm, no chest wall tenderness GI: Bowel sounds normal, Soft, No tenderness, No masses, No pulsatile masses. Musculoskeletal: Intact distal pulses, No edema, No tenderness, No cyanosis, No clubbing. Good range of motion in all major joints. No tenderness to palpation or major deformities noted. Back- No tenderness. Integument: Warm, Dry, No erythema, No rash. Lymphatic: No lymphadenopathy noted. Neurologic: Alert & oriented x 3, Normal motor function, Normal sensory function, No focal deficits noted. Psychiatric: Affect normal, Judgment normal, Mood normal. Pulse Oximetry Interpretation Saturation: 97% Oxygen Delivery: room air Interpretation: normal DDX: Differential diagnostic considerations include acute bronchitis, pneumonia, pleurisy, inhalational injury, asthma/reactive airways disease, COPD/chronic bronchitis, sinusitis, pharyngitis, URI/viral infection, GERD and ACS, PE, COVID Pertinent Labs: Results for orders placed or performed during the hospital encounter of 11/12/19 CBC W/DIFF AUTOMATED Result Value Ref Range WBC 5.3 4.5 - 11.0 x10'3/uL RBC 5.07 4.70 - 6.10 x10'6/uL HGB 16.1 14.0 - 18.0 G/DL HCT 45.7 43.0 - 54.0 % MCV 90.1 80.0 - 94.0 FL MCH 31.8 (H) 27.0 - 31.0 PG MCHC 35.2 32.0 - 36.0 G/DL RDW 13.2 11.5 - 14.5 % PLT 169 130 - 400 x10'3/uL MPV 11.1 9.3 - 12.2 FL DIFFERENTIAL TYPE AUTOMATED DIFFERENTIAL NEUTROPHILS 76.4 % LYMPHOCYTES 16.6 % MONOCYTES 6.2 % EOSINOPHILS 0.0 % BASOPHILS 0.2 % IMMATURE GRANS 0.6 % ABS. NEUTROPHILS TOTAL 4.04 1.80 - 7.70 x10'3/uL ABS. LYMPHOCYTES 0.88 (L) 1.00 - 4.80 x10'3/uL ABS. MONOCYTES 0.33 0.30 - 0.82 x10'3/uL ABS. EOSINOPHILS 0.00 (L) 0.04 - 0.54 x10'3/uL ABS. BASOPHILS 0.01 0.01 - 0.08 x10'3/uL ABS. IMMATURE GRANULOCYTES 0.03 0.00 - 0.49 x10'3/uL COMPREHENSIVE METABOLIC PANEL Result Value Ref Range GLUCOSE 115 (H) 70 - 99 MG/DL BUN 15 7 - 18 MG/DL CREATININE S/P/B 1.17 0.7 - 1.3 MG/DL SODIUM 135 (L) 136 - 145 MMOL/L POTASSIUM 4.1 3.5 - 5.1 MMOL/L CHLORIDE S/P/B 102 100 - 108 MMOL/L CO2 27.5 21 - 32 MMOL/L CALCIUM 8.8 8.5 - 10.1 MG/DL BILIRUBIN TOTAL S/P/B 0.5 0.2 - 1.2 MG/DL TOTAL PROTEIN S/P/B 6.9 6.4 - 8.2 G/DL ALBUMIN S/P/B 3.3 (L) 3.4 - 5.0 G/DL AST 61 (H) 15 - 37 U/L ALT 55 16 - 60 U/L ALKALINE PHOSPHATASE S/P/B 66 50 - 136 U/L ANION GAP 5.5 5 - 15 MMOL/L BUN CREATININE RATIO 12.8 6 - 26 A/G RATIO 0.9 (L) 1.0 - 2.0 RATIO eGFR Non-Afr. Amer. 69 (L) >90 ML/MIN/1.73 M2 eGFR Afr. Amer. 80 (L) >90 ML/MIN/1.73 M2 RADIOLOGY XR CHEST PORTABLE Final Result by User, [id number] (11/11 2110) Examination: Chest x-ray 1 view Exam date/time: 11/12/2019 9:02 PM Reason For Exam: short of breath Comparison: None Technique: Upright AP view of the chest demonstrated. Findings: Heart size within normal limits. Pulmonary vasculature unremarkable. Patchy ill-defined groundglass opacities are noted in both upper lobes. These findings are not specific, however Covid 19 related pneumonitis cannot be excluded. No airspace consolidation. No pleural effusion. Lungs do not appear hyperinflated. =====IMPRESSION:===== 1. Patchy ill-defined groundglass opacities bilaterally as described. No airspace consolidation or pleural effusion. GIVEN IN ER: Medications - No data to display ED COURSE & MEDICAL DECISION MAKING Pertinent Labs & Imaging studies reviewed. (See chart for details) Pt's symptoms and CXR clinically confirm COVID. Pt will be tested. and I instructed the patient to self quarantine for the next 14 days. Pt looks stable and nontoxic looking. Pt mostly dyspneic with coughing. pt ambulates with some dyspnea, no hypoxia. We discussed symptomatic tx of symptoms including anti- pyretics and hydration. During my encounter I used personal protective equipment. I spoke with pt about return precautions including increasing dyspnea uncontrollable fever or change in mental status. ? Disposition Discussion: I have discussed today's findings with the patient and provided information regarding the likely diagnosis. The patient has been given information regarding their treatment, follow up and concerning symptoms for which they should seek urgent or emergent attention. I have expressed the the importance of seeking attention should there be any new, or worsening symptoms or persistence of their condition. The patient is stable at discharge and has verbalized understanding of these instructions. DATE: 11/12/2019 11:28 PM PATIENT: Meena Andrade Discharge Clinical Impressions: COVID infection Discharge Condition: stable Discharge Disposition: Patient discharge to home with I spent time answering the patient's questions. Discharge instructions using teach back, understanding assessed and validated. Please refer to the exit inspector automatic typewriter discharge instructions for details surrounding the discharge plan. I did reiterate with the patient that if an urgent need for immediate follow up comes up, not to hesitate to return to the ED. JINNY Medina PA 11/12/19 2331 Cosigned by Rigo Azevedo MD at 11/13/2019 6:06 AM CDT * Keyur Hunt RN - 11/12/2019 11:15 PM CDT Patient ambulated in room. o2 sats at rest 93-97%. o2 sat with ambulation 93-95% * Keyur Hunt RN - 11/12/2019 10:34 PM CDT covid swab obtained. Handed to charge gang weigher * Peg Morales RN - 11/12/2019 9:34 PM CDT Bed: 01 Expected date: Expected time: Means of arrival: Comments: TG1 * Elif Zambrano RN - 11/12/2019 8:46 PM CDT Pt reports difficulty breathing since this AM, that has progressively gotten worse all week. Pt also reports decreased sense of smell and taste for 5-6 days documented in this encounter Plan of Treatment Not on file documented as of this encounter Procedures Procedure Name Priority Date/Time Associated Diagnosis Comments COMPREHENSIVE METABOLIC PANEL STAT 11/12/2019 10:30 PM CDT CBC W/DIFF AUTOMATED STAT 11/12/2019 10:30 PM CDT CORONAVIRUS (COVID 19) Routine 0 10:10 PM CDT XR CHEST PORTABLE STAT 11/12/2019 9:0 7 PM CDT ECG 12-LEAD Routine 11/12/2019 8:50 PM CDT documented in this encounter Results * (ABNORMAL) COMPREHENSIVE METABOLIC PANEL (11/12/2019 10:30 PM CDT) GLUCOSE 115(H) 70 - 99 MG/DL 11/12/2019 11:13 PM CDT [facility] BUN 15 7 - 18 MG/DL 11/12/2019 11:13 PM CDT [facility] CREATININE S/P/B 1.17 0.7 - 1.3 MG/DL 11/12/2019 11:13 PM CDT [facility] SODIUM S/P/B 135(L) 136 - 145 MMOL/L 11/12/2019 11:13 PM CDT [facility] POTASSIUM S/P/B 4.1 3.5 - 5.1 MMOL/L 11/12/2019 11:13 PM CDT [facility] Comment:SLIGHT HEMOLYSIS, RE SULT MAY BE AFFECTED. CHLORIDE S/P/B 102 100 - 108 MMOL/L 11/12/2019 11:13 PM CDT [facility] CO2 27.5 21 - 32 MMOL/L 11/12/2019 11:13 PM CDT [facility] CALCIUM S/P/B 8.8 8.5 - 10.1 MG/DL 11/12/2019 11:13 PM CDT [facility] BILIRUBIN TOTAL S/P/B 0.5 0.2 - 1.2 MG/DL 11/12/2019 11:13 PM [facility] Comment: THIS ASSAY IS NOT RECOMMENDED FOR PATIENTS UNDERGOING TREATMENT WITH ELTROMBOPAG DUE TO THE POTENTIAL FOR FALSELY ELEVATED RESULTS. TOTAL PROTEIN S/P/B 6.9 6.4 - 8.2 G/DL 11/12/2019 11:13 PM [facility] ALBUMIN S/P/B 3.3(L) 3.4 - 5.0 G/DL 11/12/2019 11:13 PM T [facility] AST 61(H) 15 - 37 U/L 11/12/2019 11:13 PM [facility] Comment:SLIGHT HEMOLYSIS, RE SULT MAY BE AFFECTED. ALT 55 16 - 60 U/L 11/12/2019 11:13 PM [facility] ALKALINE PHOSPHATASE S/P/B 66 50 - 136 U/L 11/12/2019 11:13 PM [facility] ANION GAP 5.5 5 - 15 MMOL/L 11/12/2019 11:13 PM [facility] BUN CREATININE RATIO 12.8 6 - 26 11/12/2019 11:13 PM [facility] A/G RATIO 0.9(L) 1.0 - 2.0 RATIO 11/12/2019 11:13 PM [facility] EGFR NON-AFR. AMER. 69(L) >90 ML/MIN/1.7 3 M2 11/12/2019 11:13 PM [facility] EGFR AFR. AMER. 80(L) >90 ML/MIN/1.7 3 M2 11/12/2019 11:13 PM [facility] Comment: NOTE: eGFR is not calculated for patients <18 years of age. This is an estimated GFR (CKD EPI) and should not be used for calculating drug doses. 11/12/2019 10:3 0 PM CDT Rigo Azevedo MD LABORATORY Final Resu lt [facility] [address] [place] [address], [place] [phone] * (ABNORMAL) CBC W/DIFF AUTOMATED (11/12/2019 10:30 PM CDT) WBC 5.3 4.5 - 11.0 x10'3/uL 11/12/2019 10:48 PM CDT [facility] RBC 5.07 4.70 - 6.10 x10'6/uL 11/12/2019 10:48 PM CDT [facility] HGB 16.1 14.0 - 18.0 G/DL 11/12/2019 10:48 PM CDT [facility] HCT 45.7 43.0 - 54.0 % 11/12/2019 10:48 PM CDT [facility] MCV 90.1 80.0 - 94.0 FL 11/12/2019 10:48 PM CDT [facility] MCH 31.8(H) 27.0 - 31.0 PG 11/12/2019 10:48 PM CDT [facility] MCHC 35.2 32.0 - 36.0 G/DL 11/12/2019 10:48 PM CDT [facility] RDW 13.2 11.5 - 14.5 % 11/12/2019 10:48 PM CDT [facility] PLT 169 130 - 400 x10'3/uL 11/12/2019 10:48 PM CDT [facility] MPV 11.1 9.3 - 12.2 FL 11/12/2019 10:48 PM CDT [facility] DIFFERENTIAL TYPE AUTOMATED DIFFERENTIAL 11/12/2019 10:48 PM CDT [facility] NEUTROPHILS % 76.4 % 11/12/2019 10:48 PM CDT [facility] LYMPHOCYTES % 16.6 % 11/12/2019 10:48 PM CDT [facility] MONOCYTES % 6.2 % 11/12/2019 10:48 PM CDT [facility] EOSINOPHILS 0.0 % 11/12/2019 10:48 PM CDT [facility] BASOPHILS 0.2 % 11/12/2019 10:48 PM CDT [facility] IMMATURE GRANS % 0.6 % 11/12/19 10:48 PM CDT [facility] ABS. NEUTROPHILS TOTAL 4.04 1.80 - 7.70 x10'3/uL 11/12/2019 10:48 PM CDT [facility] ABS. LYMPHOCYTES 0.88(L) 1.00 - 4.80 x10'3/uL 11/12/2019 10:48 PM CDT [facility] ABS. MONOCYTES 0.33 0.30 - 0.82 x10'3/uL 11/12/2019 10:48 PM CDT [facility] ABS. EOSINOPHILS 0.00(L) 0.04 - 0.54 x10'3/uL 11/12/2019 10:48 PM CDT [facility] ABS. BASOPHILS 0.01 0.01 - 0.08 x10'3/uL 11/12/2019 10:48 PM CDT [facility] ABS. IMMATURE GRANULOCYTES 0.03 0.00 - 0.49 x10'3/uL 11/12/2019 10:48 PM CDT [facility] 11/12/2019 10:3 0 PM CDT Rigo Azevedo MD LABORATORY Final Resu lt [facility] [address] [place] [address], * (ABNORMAL) CORONAVIRUS (COVID 19) [facility] (11/12/2019 10:10 PM CDT) CORONAVIRUS SARS COV 2 PCR (RESP) DETECTED( A) NOT DETECTED 11/14/2019 11:23 AM CDT [facility] Comment: ?? A Detected result is considered a positive test result for COVID-19. ??This indicates that RNA from SARS-CoV-2 (formerly 2019-nCoV) was detected, and the patient is infected with the virus and presumed to be contagious. If requested by public health authority, specimen will be sent for additional testing. Please review the Fact Sheets and FDA authorized labeling available for health care providers and patients using the following websites: https://www.[place].[employer]TheBeast/home/Covid-19/HCP/[facility]/fact- sheet.html https://www.[place].[employer]The[employer]ast/home/Covid-19/Patients/ [facility]/fact-sheet.html This test has been authorized by the FDA under an Emergency Use Authorization (EUA) for use by authorized laboratories. Due to the current public health emergency, [facility] is receiving a high volume of samples from a wide variety of swabs and media for COVID-19 testing. In order to serve patients during this public health crisis, samples from appropriate clinical sources are being tested. Negative test results derived from specimens received in non-commercially manufactured viral collection and transport media, or in media and sample collection kits not yet authorized by FDA for COVID-19 testing should be cautiously evaluated and the patient potentially subjected to extra precautions such as additional clinical monitoring, including collection of an additional specimen. Methodology: ??Nucleic Acid Amplification Test (NAAT) includes PCR or TMA Additional information about COVID-19 can be found at the [facility] website: www.[facility].BeTheBeast/Covid19. Test performed at [facility] [place] [address] [facility] [place] Director: SENAIT ROBLES DO,MPH 11/12/2019 10:1 0 PM CDT us Tequila STEARNS MICROBIOLOGY - GENERAL ORD ERABLES Final Result [facility] [address] [place] [address], [place] * XR CHEST PORTABLE (11/12/2019 9:07 PM CDT) Anatomical Region Laterality Modality Chest Radiographic Jennyfer ging 11/12/2019 9:08 PM CDT Impressions 11/12/2019 9:10 PM CDT =====IMPRESSION:===== 1. Patchy ill-defined groundglass opacities bilaterally as described. No airspace consolidation or pleural effusion. Narrative 11/12/2019 9:10 PM CDT Examination: Chest x-ray 1 view Exam date/time: 11/12/2019 9:02 PM Reason For Exam: ??short of breath ? Comparison: None Technique: Upright AP view of the chest demonstrated. Findings: ??Heart size within normal limits. Pulmonary vasculature unremarkable. Patchy ill-defined groundglass opacities are noted in both upper lobes. These findings are not specific, however Covid 19 related pneumonitis cannot be excluded. No airspace consolidation. No pleural effusion. Lungs do not appear hyperinflated. Procedure Note Scar Coyle MD - 11/12/2019 Examination: Chest x-ray 1 view Exam date/time: 11/12/2019 9:02 PM Reason For Exam: short of breath Comparison: None Technique: Upright AP view of the chest demonstrated. Findings: Heart size within normal limits. Pulmonary vasculature unremarkable. Patchy ill-defined groundglass opacities are noted in both upper lobes. These findings are not specific, however Covid 19 related pneumonitis cannot be excluded. No airspace consolidation. No pleural effusion. Lungs do not appear hyperinflated. =====IMPRESSION:===== 1. Patchy ill-defined groundglass opacities bilaterally as described. No airspace consolidation or pleural effusion. us Rigo Azevedo MD GENERAL IMAGING Final Resu lt * ECG 12 lead (11/12/2019 8:50 PM CDT) 11/12/2019 8:50 PM CDT Narrative [facility] - 11/13/2019 9:18 PM CDT ?[facility] ? [address] [place] ? Test Date: ?2019-11-12 Pat Name: ? MEENA ANDRADE ? Department: ? Room: ? EXAM01 Gender: ? M ?Payroll Lead: ?? AW : ?1960 ? Requested By: RIGO AZEVEDO Order Number: [id number] ? Reading : ?? Sawyer Campbell ? Measurements Intervals ?[place] ? Rate: ? 85 ? P: ?-1 CT: ? 183 ?QRS: ?-72 QRSD: ? 110 ?T: ?68 QT: ? 393 ? QTc: ?470 ? Interpretive Statements SINUS RHYTHM WITH OCCASIONAL SUPRAVENTRICULAR PREMATURE COMPLEXES PATTERN CONSISTENT WITH PULMONARY DISEASE LEFT ANTERIOR FASCICULAR BLOCK No previous ECG available for comparison Preliminary EKG interpretation by ED Physician Other ischemic changes, not STEMI Rigo Azevedo M.D. CRITICAL ALERT ISSUED ON 11-12-2019 20:52:20 Procedure Note Sawyer Campbell MD - 11/13/2019 [facility] [address] [facility] Test Date: 2019-11-12 Pat Name: MEENA ANDRADE Department: Room: [facility] Gender: M Payroll Lead: REINALDO : 1960 Requested By: RIGO AZEVEDO Order Number: [id number] Reading MD: Sawyer Campbell Measurements Intervals [place] Rate: 85 P: -1 CT: 183 QRS: -72 QRSD: 110 T: 68 QT: 393 QTc: 470 Interpretive Statements SINUS RHYTHM WITH OCCASIONAL SUPRAVENTRICULAR PREMATURE COMPLEXES PATTERN CONSISTENT WITH PULMONARY DISEASE LEFT ANTERIOR FASCICULAR BLOCK No previous ECG available for comparison Preliminary EKG interpretation by ED Physician Other ischemic changes, not STEMI Rigo Azevedo M.D. CRITICAL ALERT ISSUED ON 11-12-2019 20:52:20 us Rigo Azevedo MD ECG ORDERABLES Final Resu lt [facility] documented in this encounter Visit Diagnoses Diagnosis COVID-19- Primary documented in this encounter Administered Medications Inactive Administered Medications - up to 3 most recent administrations Medication Order MAR Action Action Date Dose Rate Site acetaminophen (TYLENOL) tablet 650 mg 650 mg, Oral, Once, 1 dose, On Fide 11/12/19 at 2345, Maximum dose of acetaminophen is 4000 mg from all sources in 24 hours. Given 11/12/2019 11:49 PM CDT 650 mg documented in this encounter Active and Recently Administered Medications Times are shown in CDT. Scheduled Medication Order 11/10/2019 11/11/2019 11/12/2019 acetaminophen (TYLENOL) tablet 650 mg (COMPLETED) 650 mg, Oral, Once, 1 dose, On Fide 11/12/19 at 2345, Maximum dose of acetaminophen is 4000 mg from all sources in 24 hours. 2349 (Given - Provid er: Keyur Hunt RN - Comment: fever) documented in this encounter Care Teams Dredging Inspector Relationship Specialty Start Date End Date Anjelica Moscoso CRNA PCP - General ANESTHESIOLOGY 11/12/19 documented as of this encounter
--- OUTSIDE RECORDS SUMMARY | 2024-04-01 21:13 | XMS_ITS | Encounter Summary ---
Author Organization [facility] Healthcare Address [address] [place] [address] Care Team Providers Care Ortho Assistant Name Role Phone Ashok Gaffney MD Primary Care Provider [phone] Encounter Details Date Type Department Care Team (Late st Contact Info) Description 09/13/2023 Telephone Arrhythmia Center [address] [facility] [address], [place] [address] Caitlyn Muir, GREASE MAKER [address] [facility] [address] [place] [address] Social History Tobacco Use Types Packs/Day Years Used Date Smoking Tobacco: Never Smokeless Tobacco: Never Alcohol Use Standard Drinks/Week Comments Yes 2 (1 standard drink = 0.6 oz pur e alcohol) [facility] Utilities Answer Date Recorded In the past 12 months has [facility] [employer], gas, oil, or water [employer] threatened to shut off services in your home? No 07/16/2023 Humiliation, Afraid, Rape, and Kick questionnair e Answer Date Recorded Within the last year, have y ou been afraid of your partner or ex-partner? No 07/16/2023 Within the last year, have y ou been humiliated or emotionally abused in other ways by your partner or ex-partner? No Within the last year, have y ou been kicked, hit, slapped, or otherwise physically hurt by your partner or ex-partner? No 07/16/2023 Within the last year, have y ou been raped or forced to have any kind of sexual activity by your partner or ex-partner? No 07/16/2023 Social Connection and Isolat ion Panel [NHANES] Answer Date Recorded In a typical week, how many times do you talk on the phone with family, friends, or neighbors? More than three times a week 07/16/2023 How often do you get togethe r with friends or relatives? More than three times a week 07/16/2023 How often do you attend chur or islam services? Never 07/16/2023 Do you belong to any clubs o r organizations such as adventist groups, unions, fraternal or athletic groups, or school groups? Yes 07/16/2023 How often do you attend meet ings of the clubs or organizations you belong to? More than 4 times per year 07/16/2023 Are you , , di vorced, , never , or living with a partner? Living with partner 07/16/2023 AUDIT-C Answer Date Recorded Q1: How often do you have a drink containing alc ohol? 2-3 times a week 07/16/2023 Q2: How many drinks containi ng alcohol do you have on a typical day when you are drinking? 3 or 4 07/16/2023 Q3: How often do you have si x or more drinks on one occasion? Weekly 07/16/2023 Overall Financial Resource Strain (CARDIA) Answe r Date Recorded How hard is it for you to pa y for the very basics like food, housing, medical care, and heating? Not hard at all 07/16/2023 [facility] of Occupat ional Health - Occupational Stress Questionnaire Answer Date Recorded Do you feel stress - tense, restless, nervous, or anxious, or unable to sleep at night because your mind is troubled all the time - these days? Not at all 07/16/2023 Exercise Vital Sign Answer Date Recorde d On average, how many days pe r week do you engage in moderate to strenuous exercise (like a brisk walk)? 5 days 07/16/2023 On average, how many minutes do you engage in exercise at this level? 30 min 07/16/2023 Hunger Vital Sign Answer Date Recorded Within the past 12 months, y ou worried that your food would run out before you got the money to buy more. Never true 07/16/19 24 Within the past 12 months, t he food you bought just didn't last and you didn't have money to get more. Never true 07/16/2023 PRAPARE - Transportation Answer Date Re corded In the past 12 months, has l ack of transportation kept you from medical appointments or from getting medications? No 06/30 In the past 12 months, has l ack of transportation kept you from meetings, work, or from getting things needed for daily living? No 07/16/2023 Housing Stability Vital Sign Answer Luis e Recorded Unable to Pay for Housing in the Last Year Not o n file 07/16/2023 In the last 12 months, how many places have you lived? 1 07/16/2023 In the last 12 months, was t here a time when you did not have a steady place to sleep or slept in a usp (including now)? No 07/16/2023 Personal Safety Answer Date Recorded Have you ever been in or are you currently in a harmful physical or emotional relationship or is someone making you feel afraid or unsafe? Denies 07/15/2023 Sex and Gender Information Value Date Recorded Sex Assigned at Not on file Legal Sex Male 1:22 AM ANGLE FURNACEMAN Gender Identity Male 02/12/2020 11:14 AM ANGLE FURNACEMAN Sexual Orientation Straight 02/12/2020 11 :14 AM ANGLE FURNACEMAN documented as of this encounter Miscellaneous Notes * Telephone Encounter - Katrin Mar - 10/10/2023 1:42 PM CDT WQ f/u---Stress Echo ordered 07/10/23 by Caitlyn was scheduled and then canceled due to subdural hematoma per Angie noted on 09/15. Deandra/GREASE MAKER request Stress Echo to be rescheduled which is noted on09/15. Please contact pt to schedule * Telephone Encounter - Karla Zabala MA - 09/17/2023 1:08 PM CDT Called patient, no answer, lvm for patient to call back and schedule stress echo. * Telephone Encounter - Deandra Kelsey NP - 09/16/2023 9:27 AM CDT Can go ahead and reschedule stress test prior to his next appointment. * Telephone Encounter - Katrin Mar - 09/13/2023 9:55 AM CDT Stress test to be scheduled before next appointment if possible. Please see phone note dated 07/17/23 documented in this encounter Plan of Treatment Not on file documented as of this encounter Visit Diagnoses Not on filedocumented in this encounter Care Teams Ortho Assistant Relationship Specialty Start Date End Date Ashok Gaffney MD PCP - General 08/23/11 documented as of this encounter
--- OUTSIDE RECORDS SUMMARY | 2024-04-01 21:13 | XMS_ITS | Encounter Summary ---
Author Organization [facility] Healthcare Address [address] [place] [address] Care Team Providers Care Biodiesel Engineering Manager Name Role Phone Ashok Gaffney MD Primary Care Provider [phone] Reason for Visit * Reason Comments Atrial Fibrillation Encounter Details Date Type Department Care Team (Late st Contact Info) Description 10/07/2023 1:15 PM CDT Office Visit Arrhythmia Center [address] [facility] [address] [place] [id number] Caitlyn Muir, NAVID [address] [facility] [address] [address] Cardiac arrhythmia, unspecified cardiac arrhythmia type (Primary Dx) Social History Tobacco Use Types Packs/Day Years Used Date Smoking Tobacco: Never Smokeless Tobacco: Never Tobacco Cessation:Counseling Given: Not Answered Alcohol Use Standard Drinks/Week Comments Yes 2 (1 standard drink = 0.6 oz pur e alcohol) [facility] Utilities Answer Date Recorded In the past 12 months has e [employer], gas, oil, or water [employer] threatened to shut off services in your [...] 07/16/2023 How often do you attend chur ch or pentecostal services? Never 07/16/2023 Do you belong to any clubs o r organizations such as jew groups, unions, fraternal or athletic groups, or [...] and heating? Not hard at all 07/16/2023 [facility] Check of Occupat ional Health - Occupational Stress [...] place to sleep or slept in a halfway (including now)? No 07/16/2023 Personal Safety Answer Date Recorded Have you ever been in or are you currently in a harmful physical or emotional relationship or is someone making you feel afraid or unsafe? Denies 07/15/2023 Sex and Gender Information Value Date Recorded Sex Assigned at Not on file Legal Sex Male 1:22 AM POLE SHAVER HELPER Gender Identity Male 02/12/2020 11:14 AM POLE SHAVER HELPER Sexual Orientation Straight 02/12/2020 11 :14 AM POLE SHAVER HELPER documented as of this encounter Last Filed Vital Signs Vital Sign Reading Time Taken Comments Blood Pressure 130/68 10/07/2023 1:30 PM CDT Pulse 84 10/07/2023 1:30 PM CDT Temperature - - Respiratory Rate - - Oxygen Saturation 94% 10/07/2023 1:30 PM CDT Inhaled Oxygen Concentration - - Weight 149 kg (328 lb 6.4 oz) 10/07/2023 1:30 PM CDT Height 177.8 cm (5' 10 ) 10/07/2023 1:30 PM CDT Body Mass Index 47.12 10/07/2023 1:30 PM CDT documented in this encounter Progress Notes * Caitlyn Muir NP - 10/07/2023 1:15 PM CDT Images from the original note were not included. Patient ID: Vikas Banda is a 63 y.o. male Chief Complaint Atrial fibrillation HPI Mr. Banda is evaluated at the Arrhythmia Center today for follow up on 10/07/2023 for follow-up of his atrial fibrillation. Since he was last seen he unfortunately sustained a fall. He was admitted to [facility] with a subdural hematoma at that time. His anticoagulation at that time was discontinued. He underwent transesophageal echo on August 05, 2017 that showed no thrombus normal LV function no wallmotion abnormalities EF 60% moderate left atrial enlargement. He was started on flecainide then hadspontaneous conversion. On 03/20/2023 he was seen in the emergency room for symptomatic atrial fibrillation. At that time he was found to be in AF with controlled ventricular rates. During that time his drug screen was also positive for cocaine and methamphetamines. He was taken off of his flecainide at that time. He presents today in follow-up. He is currently in sinus rhythm but states he does have episodes atrial fibrillation. 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 EKG on my review today demonstrates sinus rhythm (80) normal QRS duration and QT interval. She Current Outpatient Medications: acetaminophen 500 mg capsule, Take 2 capsules (1,000 mg total) by mouth every 6 (six) hours, Disp: 30 tablet, Rfl: 0 levETIRAcetam (KEPPRA) 500 mg tablet, Take 1 tablet (500 mg total) by mouth 2 (two) times a day for8 doses, Disp: 8 tablet, Rfl: 0 methocarbamoL (ROBAXIN) 500 mg tablet, Take 1 tablet (500 mg total) by mouth 4 (four) times a day, Disp: 10 tablet, Rfl: 0 metoprolol XL (TOPROL-XL) 100 mg 24 hr tablet, Take 0.5 tablets (50 mg total) by mouth 2 (two) times a day, Disp: 30 tablet, Rfl: 11 NIFEdipine (NIFEdipine CC) 60 mg 24 hr tablet, Take 1 tablet (60 mg total) by mouth nightly, Disp: , Rfl: rosuvastatin (CRESTOR) 20 mg tablet, Take 1 tablet (20 mg total) by mouth every evening, Disp: , Rfl: senna-docusate (PERICOLACE) 8.6-50 mg, Take 1 tablet by mouth 2 (two) times a day, Disp: 20 tablet,Rfl: 0 tamsulosin (FLOMAX) 0.4 mg extended release capsule, Take 1 capsule (0.4 mg total) by mouth every evening, Disp: , Rfl: tirzepatide (Mounjaro) 5 mg/0.5 mL pen injector, Inject 5 mg under the skin every 7 days (Patient injects on Sundays), Disp: , Rfl: Past Medical History: Diagnosis Date HX OTHER MEDICAL 2011 Hypogonadism HX OTHER MEDICAL Obesity, Morbid HX OTHER MEDICAL Sleep Apnea, CPAP No family history on file. Social History Tobacco Use Smoking status: Never Smoker Smokeless tobacco: Never Used Substance Use Topics Alcohol use: Yes Alcohol/week: 2.0 standard drinks Types: 2 Cans of beer per week Review of Systems Constitutional: Negative. HENT: Negative. Eyes: Negative. Respiratory: Negative. Cardiovascular: Negative. Gastrointestinal: Negative. Endocrine: Negative. Genitourinary: Negative. Skin: Negative. Neurological: Negative. Hematological: Negative. Psychiatric/Behavioral: Negative. Physical Exam Constitutional: No distress. Head: Normocephalic. Nose: Nose normal. Mouth/Throat: Mucous membranes are normal. Eyes: EOM are normal. Neck: Normal range of motion. Cardiovascular: Regular rhythm, S1 normal and S2 normal. Pulmonary/Chest: Effort normal and breath sounds normal. Abdominal: Soft. Normal appearance. Neurological: alert, oriented to person, place, and time and easily aroused. Skin: warm and dry. Psychiatric: normal mood and affect. Musculoskeletal: No joint inflammation Impression: 1. Atrial fibrillation with a reported increase in burden. He was recently taken off of his flecainide as he tested positive for methamphetamine and cocaine. He does report continued use 2. Normal LV function 3. Recent subdural hematoma after fall. He is currently off of Xarelto Plan: Mr. Ceja was recently admitted to [facility] in 07/20/2023 with a fall and subdural hematoma which was conservatively managed. At that time he was taken off of Xarelto. Will follow-up with his neurosurgeon for safety regardingreinstitution of Xarelto. Have again discussed with the patient the consequences and risk of arrhythmia with methamphetamine. As he has continued use ablation and the addition of antiarrhythmic drug therapy is not an option at this time He demonstrates understanding Caitlyn Muir NP [facility] Medical Group Arrhythmia [facility] documented in this encounter Plan of Treatment Not on file documented as of this encounter Procedures Procedure Name Priority Date/Time Associated Diagnosis Comments ECG 12-LEAD Routine 10/07/2023 1:39 PM CDT Cardiac arrhythmia, unspecified cardiac arrhythmia type documented in this encounter Results * ECG 12 lead (10/07/2023 1:39 PM CDT) Caitlyn Muir NP ECG ORDERABLES Final Resu lt documented in this encounter Visit Diagnoses Diagnosis Cardiac arrhythmia, unspecified cardiac arrhythmia type- Primary documented in this encounter Discontinued Medications Medication Sig Discontinue Reason Start Date End Da te acetaminophen 500 mg capsule Take 2 capsules (1,000 mg total) by mouth every 6 (six) hours Therapy completed 07/18/2023 10/07/2023 levETIRAcetam (KEPPRA) 500 mg tabletIndications:seizu re prevention s/p SDH Take 1 tablet (500 mg total) by mouth 2 (two) times a day for 8 doses Therapy completed 07/18/2023 10/07/2023 senna-docusate (PERICOLACE) 8.6-50 mgIndications:constipat ion Take 1 tablet by mouth 2 (two) times a day Therapy completed 07/18/2023 10/07/2023 tirzepatide (Mounjaro) 5 mg/0.5 mL pen injector Inject 5 mg under the skin every 7 days (Patient injects on Sundays) 10/07/2023 documented as of this encounter Historical Medications * This list may reflect changes made after this encounter. Mounjaro 7.5 mg/0.5 mL pen injector 7.5 MG (0.5 ML) SUBCUTANEOUSLY WEEKLY 10/01/2023 4 added in this encounter Care Teams Biodiesel Engineering Manager Relationship Specialty Start Date End Date Ashok Gaffney MD PCP - General 08/23/11 documented as of this encounter
--- OUTSIDE RECORDS SUMMARY | 2024-04-01 21:13 | XMS_ITS | Clinical Summary ---
Author Organization [facility] Address [address] [place] [address]. [place], [place] [address] [place] [id number] Care Team Providers Care Research & Insights Executive Name Role Phone Anjelica Moscoso CRNA Primary Care Provider Unav ailable Allergies No known active allergies Medications albuterol sulfate HFA 108 (90 Base) MCG/ACT inhaler Inhale 2 puffs into the lungs every 6 (six) hours as needed for Wheezing. 18 g 03/08/2023 Active Social History Tobacco Use Types Packs/Day Years Used Date Smoking Tobacco: Never Smokeless Tobacco: Never Alcohol Use Standard Drinks/Week Comments Yes 0 (1 standard drink = 0.6 oz pur e alcohol) Sex and Gender Information Value Date Recorded Sex Assigned at Not on file Legal Sex Male 8:41 PM CDT Gender Identity Not on file Sexual Orientation Not on file Last Filed Vital Signs Vital Sign Reading Time Taken Comments Blood Pressure 180/100 03/08/2023 7:17 PM VIDEO SYSTEMS ENGINEER Pulse 60 03/08/2023 7:17 PM VIDEO SYSTEMS ENGINEER Temperature 37.1 ??C (98.8 ??F) 03/08/2023 4:24 PM CS T Respiratory Rate 18 03/08/2023 4:24 PM VIDEO SYSTEMS ENGINEER Oxygen Saturation 93% 03/08/2023 7:17 PM VIDEO SYSTEMS ENGINEER Inhaled Oxygen Concentration - - Weight 158.8 kg (350 lb) 03/08/2023 4:24 PM VIDEO SYSTEMS ENGINEER Height 177.8 cm (5' 10 ) 03/08/2023 4:24 PM VIDEO SYSTEMS ENGINEER Body Mass Index 50.22 03/08/2023 4:24 PM VIDEO SYSTEMS ENGINEER Plan of Treatment Health Maintenance Due Date Last Done Comments Colorectal Cancer Screening Colonoscopy (10 Years) 1962 Annual Physical 1965 Hepatitis C 1980 DTaP, Tdap and Td Vaccines ( 1 - Tdap) 1981 Zoster Vaccines (1 of 2) 2012 RSV Immunization or 60+ Years (1 - Risk 60-74 years 1-dose series) 2022 COVID-19 Vaccine (3 - 2023-2 5 season) 2023 07/21/2020, 06/30/2020 Influenza Adult (#1) 2023 Meningococcal Vaccine Aged Out No abraham tyrone eligible based on patient's age to complete this topic Pneumococcal Vaccine: Pediatrics (0 to 5 Years) and At-Risk Patients (6 to 64 Years) Aged Out No longer eligible b ased on patient's age to complete this topic RSV Immunizations Under 20 Months Aged Out No longer eligible b ased on patient's age to complete this topic Insurance Care Teams Research & Insights Executive Relationship Specialty Start Date End Date Anjelica Moscoso CRNA PCP - General ANESTHESIOLOGY 11/12/19
--- OUTSIDE RECORDS SUMMARY | 2024-04-01 21:13 | XMS_ITS | Encounter Summary ---
Author Organization [facility] Healthcare Address [address] [place] [address] Care Team Providers Care Court Assistant Name Role Phone Ashok Gaffney MD Primary Care Provider Reason for Visit * Reason Onset Date Comments Scheduling Appointments 08/12/2023 Encounter Details Date Type Department Care Team (Late st Contact Info) Description 08/12/2023 Telephone Specialty Care Clinic Neurosurgery [address] [facility] [address] [place] [address] Sintia Tse Scheduling Appointments Social History Tobacco Use Types Packs/Day Years Used Date Smoking Tobacco: Never Smokeless Tobacco: Never Alcohol Use Standard Drinks/Week Comments Yes 2 (1 standard drink = 0.6 oz pur e alcohol) [facility] Utilities Answer Date Recorded In the past 12 months has e electric, gas, oil, or water [employer] threatened to shut off services in your [...] often do you attend chur ch or mandaen services? Never 07/16/2023 Do you belong to any clubs o r organizations such as yazidism groups, unions, fraternal or athletic groups, or [...] and heating? Not hard at all 07/16/2023 [facility] of Occupat ional Health - Occupational Stress [...] place to sleep or slept in a care home (including now)? No 07/16/2023 Personal Safety Answer Date Recorded Have you ever been in or are you currently in a harmful physical or emotional relationship or is someone making you feel afraid or unsafe? Denies 07/15/2023 Sex and Gender Information Value Date Recorded Sex Assigned at Not on file Legal Sex Male 1:[address]YER Gender Identity Male 02/12/2020 11:[address] BUYER Sexual Orientation Straight 02/12/2020 11 :[address] BUYER documented as of this encounter Miscellaneous Notes * Telephone Encounter - Sintia Tse - 08/12/2023 1:23 PM CDT Attempted to contact, no answer, left vm. Please schedule f/u with neurosurgery and CT Head WO Contrast (per Dr. Castano) 4-6 wks when call is returned. Sintia Arambula documented in this encounter Plan of Treatment Not on file documented as of this encounter Visit Diagnoses Not on filedocumented in this encounter Care Teams Court Assistant Relationship Specialty Start Date End Date Ashok Gaffney MD PCP - General 08/23/11 documented as of this encounter
--- OUTSIDE RECORDS SUMMARY | 2024-04-01 21:13 | XMS_ITS | Encounter Summary ---
Author Organization [facility] Healthcare Address [address] [place] [address] Care Team Providers Care Key Cutter Name Role Phone Ashok Gaffney MD Primary Care Provider [phone] Encounter Details Date Type Department Care Team (Late st Contact Info) Description 02/12/2024 3:00 PM MARKET INTELLIGENCE CONSULTANT Office Visit Arrhythmia Center [address] [facility] [address] [place] [id number] Caitlyn Muir, CLINICAL RESEARCH SPEC [address] [facility] [address], [place] [address] Cardiac arrhythmia, unspecified cardiac arrhythmia type (Primary Dx) Social History Tobacco Use Types Packs/Day Years Used Date Smoking Tobacco: Never Smokeless Tobacco: Never Alcohol Use Standard Drinks/Week Comments Yes 2 (1 standard drink = 0.6 oz pur e alcohol) [facility] Utilities Answer Date Recorded In the past 12 months has [facility] [employer] gas, oil, or water [employer] threatened to shut off services in your [...] How often do you attend chur or voodoo services? Never 07/16/2023 Do you belong to any clubs o r organizations such as baptist groups, unions, fraternal or athletic groups, or [...] and heating? Not hard at all 07/16/2023 [facility] of Occupat ional Health - Occupational Stress [...] making you feel afraid or unsafe? Denies 11/30/2023 Sex and Gender Information Value Date Recorded Sex Assigned at Not on file Legal Sex Male 1:22 AM MARKET INTELLIGENCE CONSULTANT Gender Identity Male 02/12/2020 11:14 AM MARKET INTELLIGENCE CONSULTANT Sexual Orientation Straight 02/12/2020 11 :14 AM MARKET INTELLIGENCE CONSULTANT documented as of this encounter Last Filed Vital Signs Vital Sign Reading Time Taken Comments Blood Pressure 136/86 02/12/2024 3:08 PM MARKET INTELLIGENCE CONSULTANT Pulse 95 02/12/2024 3:08 PM MARKET INTELLIGENCE CONSULTANT Temperature - - Respiratory Rate - - Oxygen Saturation - - Inhaled Oxygen Concentration - - Weight 144.7 kg (319 lb) 02/12/2024 3:08 PM MARKET INTELLIGENCE CONSULTANT Height 177.8 cm (5' 10 ) 02/12/2024 3:08 PM MARKET INTELLIGENCE CONSULTANT Body Mass Index 45.77 02/12/2024 3:08 PM MARKET INTELLIGENCE CONSULTANT documented in this encounter Progress Notes * Caitlyn Muir, NAVID - 02/12/2024 3:00 PM CST Images from the original note were not included. Patient ID: Vikas Banda is a 63 y.o. male Chief Complaint Atrial fibrillation HPI Mr. Banda is evaluated at the Arrhythmia Center today for follow up on 02/12/2024 for follow-up of his atrial fibrillation. Since he was last seen he unfortunately sustained a fall. He was admitted[place] with a subdural hematoma at that time. [...] of his flecainide at that time. He continues to remain in atrial fibrillation. He also continues to use cocaine and methamphetamines. He reports shortness of breath with his atrial arrhythmia. EKG on my review today demonstrates atrial fibrillation with a ventricular rate of 95 beats per minute Current Outpatient Medications: aspirin 325 mg enteric coated tablet, Take 1 tablet (325 mg total) by mouth daily, Disp: , Rfl: metoprolol XL (TOPROL-XL) 100 mg 24 hr [...] every evening, Disp: , Rfl: tirzepatide (Mounjaro) 7.5 mg/0.5 mL pen injector, Inject 7.5 mg under the skin every 7 days Sundays, Disp: , Rfl: Past Medical History: Diagnosis [...] methamphetamine and cocaine. He does report continued use. Antiarrhythmics continued to be contraindicated in the setting of illicit drug use 2. Normal LV function 3. Recent subdural hematoma after fall. He is currently off of Xarelto Plan: Mr. Ceja was recently admitted to [place] in 07/20/2023 with a fall and subdural hematoma which was conservatively managed. At that time he was taken off of Xarelto. Recent admission to the emergency room confusion and shortness of breath. CT scan at that time was unremarkable. Will discuss with neurosurgeon safety to restart anticoagulation. Have again discussed with the patient her options for his atrial arrhythmia are limited in the setting of continued illicit drug use with cocaine and methamphetamine. He demonstrates understanding Caitlyn Muir NP [facility] Medical Group Arrhythmia Center ET INTELLIGENCE CONSULTANT documented in this encounter Plan of Treatment Not on file documented as of this encounter Procedures Procedure Name Priority Date/Time Associated Diagnosis Comments ECG 12-LEAD Routine 02/12/2024 3:20 PM MARKET INTELLIGENCE CONSULTANT Cardiac arrhythmia, unspecified cardiac arrhythmia type documented in this encounter Results * ECG 12 lead (02/12/2024 3:20 PM MARKET INTELLIGENCE CONSULTANT) Caitlyn Muir NP ECG ORDERABLES Final Resu lt documented in this encounter Visit Diagnoses Diagnosis Cardiac arrhythmia, unspecified cardiac arrhythmia type- Primary documented in this encounter Care Teams Key Cutter Relationship Specialty Start Date End Date Ashok Gaffney MD PCP - General 08/23/11 documented as of this encounter
--- OUTSIDE RECORDS SUMMARY | 2024-04-01 21:13 | XMS_ITS | Encounter Summary ---
Author Organization [facility] Healthcare Address [address] [place] [address] Care Team Providers Care Fish Bait Picker Name Role Phone Ashok Gaffney MD Primary Care Provider Reason for Visit * Reason Comments Stroke Encounter Details Date Type Department Care Team (Late st Contact Info) Description 11/30/2023 12:10 PM CDT - 11/30/2023 7:07 PM CDT Emergency [facility] Emergency Department [address] [place] [address] Vikas Emmanuel MD [address] [place] [address] Domenico Tubbs MD [address] [place] [address] Paroxysmal A-fib (CMS/HCC) (HCC) (Primary Dx); Dizziness Discharge Disposition: Discharge to home or self care Social History Tobacco Use Types Packs/Day Years Used Date Smoking Tobacco: Never Smokeless Tobacco: Never Alcohol Use Standard Drinks/Week Comments Yes 2 (1 standard drink = 0.6 oz pur e alcohol) [facility] Utilities Answer Date Recorded In the past 12 months has th e electric, gas, oil, or water company threatened to shut off services in your [...] How often do you attend chur or latter day services? Never 07/16/2023 Do you belong to any clubs o r organizations such as rastafarian groups, unions, fraternal or athletic groups, or [...] and heating? Not hard at all 07/16/2023 [facility] [place] [facility] Occupat ional Health - Occupational Stress [...] place to sleep or slept in a retirement (including now)? No 07/16/2023 Personal Safety Answer Date Recorded Have you ever been in or are you currently in a harmful physical or emotional relationship or is someone making you feel afraid or unsafe? 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 Gender Identity Male 02/12/2020 11:14 AM WARE TESTER Sexual Orientation Straight 02/12/2020 11 :14 AM WARE TESTER documented as of this encounter Last Filed Vital Signs Vital Sign Reading Time Taken Comments Blood Pressure 143/105 11/30/2023 6:45 PM CDT Pulse 103 11/30/2023 6:45 PM CDT Temperature 36.4 ??C (97.5 ??F) 11/30/2023 1 2:37 PM CDT Respiratory Rate 33 11/30/2023 6:45 PM CDT Oxygen Saturation 97% 11/30/2023 6:45 PM CDT Inhaled Oxygen Concentration - - Weight 147.4 kg (324 lb 15.3 oz) 2023 12:12 PM CDT Height - - Body Mass Index 46.63 10/07/2023 1:30 PM CDT documented in this encounter Discharge Instructions * Discharge Instructions* Matt Cordon MD - 11/30/2023 6:21 PM CDT You were dizziness today does not seem to be caused by any serious health conditions. It could be due to your known prior atrial fibrillation. Please avoid drug or alcohol use and keep taking your medications as prescribed. Call your neurosurgeon to see if you can restart your blood thinning medications. If you are not starting to feel better in the next 1-2 days please call your primary care doctor to arrange for a follow-up appointment. If you start having unbearable pain even with medications, new trouble breathing, fainting, or other worrying symptoms, please return to the emergency department as soon as possible for a re-evaluation. documented in this encounter Medications at Time of Discharge aspirin 325 mg enteric coated tablet Take 1 tablet (325 mg total) by mouth daily metoprolol XL (TOPROL-XL) 100 mg 24 hr tablet Take 0.5 tablets (50 mg total) by mouth 2 (two) times a day 30 tablet 11 04/17/2023 04/16/2024 rosuvastatin (CRESTOR) 20 mg tablet Take 1 tablet (20 mg total) by mouth every evening tirzepatide (Mounjaro) 7.5 mg/0.5 mL pen injector Inject 7.5 mg under the skin every 7 days Sundays NIFEdipine (NIFEdipine CC) 60 mg 24 hr tablet Take 1 tablet (60 mg total) by mouth nightly 03/02/2024 documented as of this encounter Discharge Disposition Disposition Code Departure Means Destination Comment s Discharge to home or self care documented in this encounter ED Notes * Matt Cordon MD - 11/30/2023 12:20 PM CDT HPI Chief Complaint Patient presents with Stroke 63-year-old male patient with past medical history of hyperlipidemia, MIRTA, paroxysmal atrial fibrillation on metoprolol but not currently on any anticoagulation, hypertension on nifedipine, BPH, recent traumatic subdural hematoma, methamphetamine use, presenting with tingling in the left arm, dizzin ess, reported confusion, and shortness of breath starting at approximately 9:30 a.m. today. Patientreports that he woke up and was preparing for work when he had sudden onset of the symptoms. Was initially evaluated as a code stroke. NIH stroke scale 0 on evaluation. He reports that he does not take his anticoagulation but he does take a full-dose aspirin daily. Patient History: Patient Active Problem List Diagnosis Date Noted Discharge planning issues 07/17/2023 SDH (subdural hematoma) ([facility]) 07/16/2023 BPH (benign prostatic hyperplasia) 07/16/2023 Methamphetamine use ([facility]) ([facility]) 03/20/2023 Anticoagulation management encounter 03/13/2023 Class 3 severe obesity without serious comorbidity with body mass index (BMI) of 45.0 to 49.9 in adult ([facility]) 10/09/2017 Body mass index 40.0-44.9, adult ([facility]) 07/31/2017 Morbid obesity ([facility]) 07/31/2017 Hyperlipidemia LDL goal <100 07/15/2017 Morbid obesity with BMI of 40.0-44.9, adult ([facility]) 06/06/2017 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 Social History Tobacco Use Smoking status: Never Smokeless tobacco: Never Substance and Sexual Activity Alcohol use: Yes Alcohol/week: 2.0 standard drinks of alcohol Types: 2 Cans of beer per week Drug use: No Sexual activity: Not on file Social History Social History Narrative Not on file Review of Systems Review of Systems All other systems reviewed and are negative. Physical Exam ED Triage Vitals Temp Pulse Resp BP SpO2 11/30/23 1237 11/30/23 1227 11/30/23 1227 11/30/23 1227 11/30/23 1227 36.4 ??C (97.5 ??F) 104 22 133/100 98 % Temp src Heart Rate Source Patient Position BP Location FiO2 (%) -- -- -- -- -- Height Height Method Weight Weight Method -- -- 11/30/23 1212 11/30/23 1212 (!) 147.4 kg (324 lb 15.3 oz) Standing scale Physical Exam Vitals and nursing note reviewed. Constitutional: General: He is not in acute distress. Appearance: He is well-developed. HENT: Head: Normocephalic and atraumatic. Eyes: Extraocular Movements: Extraocular movements intact. Conjunctiva/sclera: Conjunctivae normal. Pupils: Pupils are equal, round, and reactive to light. Cardiovascular: Rate and Rhythm: Normal rate and regular rhythm. Heart sounds: No murmur heard. Pulmonary: Effort: Pulmonary effort is normal. No respiratory distress. Breath sounds: Normal breath sounds. Abdominal: Palpations: Abdomen is soft. Tenderness: There is no abdominal tenderness. Musculoskeletal: General: No swelling. Cervical back: Neck supple. Skin: General: Skin is warm and dry. Capillary Refill: Capillary refill takes less than 2 seconds. Neurological: General: No focal deficit present. Mental Status: He is alert and oriented to person, place, and time. Cranial Nerves: No cranial nerve deficit. Sensory: No sensory deficit. Motor: No weakness. Coordination: Coordination normal. Gait: Gait normal. Psychiatric: Mood and Affect: Mood normal. MDM Heart Score NIH Score Interval: Baseline Level of Consciousness (1a.): 0 LOC Questions (1b.): 0 LOC Commands (1c.): 0 Best Gaze (2.): 0 Visual (3.): 0 Facial Palsy (4.): 0 Motor Arm, Left (5a.): 0 Motor Arm, Right (5b.): 0 Motor Leg, Left (6a.): 0 Motor Leg, Right (6b.): 0 Limb Ataxia (7.): 0 Sensory (8.): 0 Best Language (9.): 0 Dysarthria (10.): 0 Extinction and Inattention (11.) (Formerly Neglect): 0 Total: 0 Medical Decision Making This is a 63 y.o. male with pertinent history of parox afib not on AC, MIRTA, HTN, presenting with c/f dizziness, shob, L arm tingling. ECG with afib rate 104. No chest pain, neck pain, or headache symptoms. Ddx includes but not limited to: High prob: afib RVR onset, electrolyte abn, dehydration Medium prob: acute stroke less likely, seizure, ACS, substance use Low prob: PE, PTX, dissection, PNA, sepsis Plan: Labs: CBC CMP trops ECG and rest of stroke workup Imaging: CT head wo, CXR Therapeutics: pending workup Dispo: pending workup and findings Amount and/or Complexity of Data Reviewed Labs: ordered. Decision-making details documented in ED Course. Radiology: ordered and independent interpretation performed. ECG/medicine tests: ordered. Risk Prescription drug management. Attending Summary of Care ED Course as of 11/30/23 1828 Time: 11/29 1243 Comment: EKG without signs of acute STEMI to explain this patient's shortness of breath and finger paresthesias. By: Vikas Emmanuel MD Time: 11/29 1259 Comment: IMPRESSION: No acute intracranial abnormality. By: Matt Cordon MD Time: 11/29 7757 Comment: On repeat eval, pt does report using cocaine last night via snorting, meth use by smoking most recently last week. Reports that he can feel palpitations when he is in AFib and has been in and out of AFib several times in the past week at least. He also reports heavy alcohol use about 2 days a week, no prior history of withdrawal. He reports his symptoms have generally improved and he feels more comfortable with walking now By: Matt Cordon MD Time: 11/29 1613 Value: Trop T hs interp: Equivocal Comment: (Reviewed) By: Matt Cordon MD Time: 11/29 1613 Comment: UA noninfectious. Patient's symptoms have resolved, plan for discharge home with neurosurgery clinic and primary care follow-up and return precautions By: Matt Cordon MD Time: 11/29 1820 Comment: CT PE negative, plan for discharge with return precautions By: Matt Cordon MD Paroxysmal A-fib (CMS/HCC) ([facility]) Dizziness Matt Cordon MD Resident 11/30/231827 Cosigned by Vikas Emmanuel MD at 12/02/2023 7:33 AM CDT Associated attestation - Vikas Emmanuel MD - 12/02/2023 7:33 AM CDT I have seen and examined the patient on 11/30/2023. I agree with the findings and plan of care as documented in the resident's note. * Yamilka Holcomb RN - 11/30/2023 12:13 PM CDT Pt arrives complaining of dizziness, L arm tingling/numbness, and confusion that started at 0930. Pt stated that he woke up at 0645 at his baseline, was getting ready for work, then at 0930 had sudden onset dizziness. LKW: 0930- Code stroke activated documented in this encounter Miscellaneous Notes * ED Procedure Note - Vikas Emmanuel MD - 11/30/2023 7:07 PM CDT Associated Order(s): Critical Care Procedure Critical Care Performed by: Vikas Emmanuel MD Authorized by: Domenico Tubbs MD Critical care provider statement: As reflected in the history, physical exam, orders, notes, and/or MDM, I was personally present while the patient was critically ill and provided critical care services for 30 minutes, excluding timeinvolved in separately billable procedures. Critical care was necessary to treat or prevent imminent or life- threatening deterioration of the following condition(s): acute cerebrovascular accident (CVA) Stroke alert, substance use disorder Critical care was time spent by me providing the following: continuous telemetry, continuous pulse oximetry, interpretation of bedside monitors, imaging, and arterial/venous lab draws, serial bedside patient exams and serial laboratory checks frequent neurologic exams, decision regarding acute lytic therapy and initiation of stroke management Electrolyte supplementation I provided emergent necessary critical care medicine services to this patient. I ordered and reviewed test results and/or imaging studies. I spent time discussing the management of this critically ill patient with consultants and the medical staff. I spent time discussing the management and therapeutic options for this critically ill patient with the patient themselves or with the appropriate designated surrogate decision-maker. I spent time documenting in the medical record. Vikas Emmanuel MD 12/01/23 0917 documented in this encounter Plan of Treatment Pending Results Name Type Priority Associated Diagnoses Date /Time Magnesium Lab STAT 11/30/2023 12: 33 PM CDT Thyroid Function [place] [facility] STAT 11/30/2023 12:33 PM CDT Scheduled Orders Name Type Priority Associated Diagnoses Orde r Schedule Magnesium Lab STAT Once for 1 Occ urrences starting 11/30/2023 until 11/30/2023 Thyroid Function [place] [facility] STAT Once for 1 Occurrences starting 11/30/2023 until 11/30/2023 documented as of this encounter Procedures Procedure Name Priority Date/Time Associated Diagnosis Comments [place] [facility] ILL/INJURED PATIENT INIT 30-74 MIN Routine 11/30/2023 7:[address] CHEST PE W CONTRAST ED 11/30/2023 5:09 PM CDT TROPONIN T HIGH-SENSITIVITY 4-HR Timed 11/30/2023 4:28 PM CDT TROPONIN T HIGH-SENSITIVITY 2-HOUR Timed 11/30/2023 2:50 PM CDT URINALYSIS AND REFLEX TO MICROSCOPIC AND CULTURE STAT 11/30/2023 2:50 PM CDT XR CHEST PA LATERAL 2 VIEWS ED 11/30/2023 1:12 PM CDT ADD ON LAB TEST Add-On 11/30/2023 12:54 PM CDT ADD ON LAB TEST Add-On 11/30/2023 12:54 PM CDT TROPONIN T HIGH-SENSITIVITY SERIES (BASELINE, 2HR, 4HR, 6HR) STAT 11/30/2023 12:33 PM CDT EGFR STAT 11/30/2023 12:33 PM CDT DIFFERENTIAL AUTO STAT 11/30/2023 12: 33 PM CDT THYROID FUNCTION CASCADE STAT 11/30/2023 12:33 PM CDT CBC WITH AUTO DIFFERENTIAL STAT 11/30/2023 12:33 PM CDT APTT STAT 11/30/2023 12:33 PM CDT PROTIME-INR STAT 11/30/2023 12:33 PM CDT MAGNESIUM STAT 11/30/2023 12:33 PM CDT COMPREHENSIVE METABOLIC PANEL STAT 11/30/2023 12:33 PM CDT ECG 12-LEAD STAT 11/30/2023 12:[address] STROKE PROTOCOL WO CONTRAST Critical/Life-T hreatening 11/30/2023 12:24 PM CDT documented in this encounter Results * [place] CRIT[facility] ILL/INJURED PATIENT INIT 30-74 MIN (11/30/2023 7:07 PM CDT) Narrative Vikas Emmanuel MD - 11/30/2023 7:07 PM CDT Vikas Emmanuel MD ? 12/01/2023 ??9:17 AM Critical Care Performed by: Vikas Emmanuel MD Authorized by: Domenico Tubbs MD ?? Critical care provider statement: As reflected in the history, physical exam, orders, notes, and/or MDM, I was personally present while the patient was critically ill and provided critical care services for 30 minutes, excluding time involved in separately billable procedures. ??Critical care was necessary to treat or prevent imminent or life-threatening deterioration of the following condition(s): ?? acute cerebrovascular accident (CVA) ?? Stroke alert, substance use disorder ??Critical care was time spent by me providing the following: ? continuous telemetry, continuous pulse oximetry, interpretation of bedside monitors, imaging, and arterial/venous lab draws, serial bedside patient exams and serial laboratory checks ?? frequent neurologic exams, decision regarding acute lytic therapy and initiation of stroke management ?? Electrolyte supplementation ?? I provided emergent necessary critical care medicine services to this patient. I ordered and reviewed test results and/or imaging studies. I spent time discussing the management of this critically ill patient with consultants and the medical staff. I spent time discussing the management and therapeutic options for this critically ill patient with the patient themselves or with the appropriate designated surrogate decision-maker. I spent time documenting in the medical record. us Domenico Tubbs MD IN CLINIC/BEDSIDE ORDERABL ES Final Result * CT Chest PE (CTA) W Contrast (11/30/2023 5:09 PM CDT) Anatomical Region Laterality Modality Body N/A Computed Tomogra phy 11/30/2023 4:57 PM CDT Impressions 12/01/2023 6:42 PM CDT Suboptimal contrast bolus timing limits evaluation for subsegmental emboli. Within this limitation there is no large or central pulmonary embolism visualized. No acute process in the chest. Electronically signed by: Oren Leger MD Narrative 12/01/2023 6:42 PM CDT EXAMINATION: ??CT CHEST PE (CTA) W CONTRAST HISTORY: ??Chest pain, PE suspected, high prob TECHNIQUE: ??Transaxial computed tomographic images of the chest were obtained with intravenous contrast according to a pulmonary embolism protocol after the uneventful administration of 97 mL Opti-Ray 350 intravenous contrast. Vascular 3D images were postprocessed on a dedicated workstation and also interpreted. COMPARISON: 07/16/2023 FINDINGS: ?? Lines/tubes: None. Neck: Unremarkable. Aorta: No ectasia or dissection. Pulmonary vasculature: Suboptimal contrast bolus timing limits evaluation for subsegmental emboli. Within this limitation there is no large or central pulmonary embolism visualized. Lungs: No focal consolidation, pleural effusion or pneumothorax. No suspicious pulmonary nodules or masses. Mediastinum: Unremarkable. Heart: Normal size. No pericardial effusion. No significant coronary artery atherosclerosis. No evidence of right heart strain. Chest wall: Unremarkable. Bones: No suspicious lytic or sclerotic lesions. No acute fracture or dislocation. Mild diffuse degenerative changes of the spine. Soft tissues: Unremarkable. Upper abdomen: Unremarkable. Procedure Note Oren Leger MD - 12/01/2023 EXAMINATION: CT CHEST PE (CTA) W CONTRAST HISTORY: Chest pain, PE suspected, high prob TECHNIQUE: Transaxial computed tomographic images of the chest were obtained with intravenous contrast according to a pulmonary embolism protocol after the uneventful administration of 97 mL Opti-Ray 350 intravenous contrast. Vascular 3D images were postprocessed on a dedicated workstation and also interpreted. COMPARISON: 07/16/2023 FINDINGS: Lines/tubes: None. Neck: Unremarkable. Aorta: No ectasia or dissection. Pulmonary vasculature: Suboptimal contrast bolus timing limits evaluation for subsegmental emboli. Within this limitation there is no large or central pulmonary embolism visualized. Lungs: No focal consolidation, pleural effusion or pneumothorax. No suspicious pulmonary nodules or masses. Mediastinum: Unremarkable. Heart: Normal size. No pericardial effusion. No significant coronary artery atherosclerosis. No evidence of right heart strain. Chest wall: Unremarkable. Bones: No suspicious lytic or sclerotic lesions. No acute fracture or dislocation. Mild diffuse degenerative changes of the spine. Soft tissues: Unremarkable. Upper abdomen: Unremarkable. IMPRESSION: Suboptimal contrast bolus timing limits evaluation for subsegmental emboli. Within this limitation there is no large or central pulmonary embolism visualized. No acute process in the chest. Electronically signed by: Oren Leger MD us Prerak Qamar Cordon MD IMG CT PROCEDURES Kimberley l Result * Troponin T high-sensitivity 4-hour (11/30/2023 4:28 PM CDT) Trop T hs 16 <=22 ng/L Comment: Interpretive Data For further hscTnT resources including the diagnostic algorithm and an aid in interpretation, copy and paste this link: [email or web address].testcatalog.org/show/hsTrop Current Interpretive Data last revised 2020. Trop T hs delta -5 ng/L [facility] Trop T hs interp Equivocal [facility] Blood 11/30/2023 4:28 PM CDT 11/30/2023 4:33 PM CDT us Vikas Emmanuel MD LAB BLOOD ORDERABLES F inal Result [facility] [address] Department [place] [address] * Troponin T high-sensitivity 2-hour (11/30/2023 2:50 PM CDT) Trop T hs 13 <=22 ng/L Comment: Interpretive Data For further hscTnT resources including the diagnostic algorithm and an aid in interpretation, copy and paste this link: https://nrl.testcatalog.org/show/hsTrop Current Interpretive Data last revised 2020. Trop T hs delta -8 ng/L [facility] Trop T hs interp Equivocal [facility] Blood 11/30/2023 2:50 PM CDT 11/30/2023 3:15 PM CDT Vikas Emmanuel MD LAB BLOOD ORDERABLES F inal Result [facility] [address] Department [place] [address] * (ABNORMAL) Urinalysis reflex to microscopic and culture Urine (11/30/2023 2:50 PM CDT) Pathologist [facility] Color, ur Yellow Yellow Clarity, ur Clear Clear [facility] Specific gravity, ur 1.007 1.003 - 1.030 [facility] pH, urine 6.0 [facility] Comment: Interpretive Data ? Urine pH is affected by diet, medications, systemic acid-base disturbances, and renal tubular function. ??pH may affect urinary stone formation. ??For example, urine pH below 6.0 may help reduce the tendency for calcium phosphate stones and pH greater than 6.0 may reduce the tendency for uric acid stone formation. Source: [facility] [employer] Current Interpretive Data was last revised on 2017 Protein, ur ql Negative Negative [facility] Glucose, ur ql Trace(A) Negative [facility] Ketones, ur Negative Negative [facility] Bilirubin, ur Negative Negative [facility] Blood, ur Negative Negative [facility] Urobilinogen, ur <2.0 <2.0 mg/dL [facility] Nitrite, ur Negative Negative [facility] Leukocyte esterase, ur Negative Negative [facility] UA reflex comment Reflex conditions for microscopic UA and culture not met. [facility] Urine 11/30/2023 2:50 PM CDT 11/30/2023 2:51 PM CDT us Vikas Emmanuel MD LAB MICROBIOLOGY - GEN ERAL ORDERABLES Final Result [facility] [address] Department [place] [address] * XR Chest Pa Lateral 2 Views (11/30/2023 1:12 PM CDT) Anatomical Region Laterality Modality Body, Chest N/A Computed Radiogr aphy 11/30/2023 1:17 PM CDT Impressions 11/30/2023 1:17 PM CDT 1. ??Mild cephalization of the pulmonary vessels, likely representing pulmonary vascular congestion. 2. ??Borderline cardiomegaly. Electronically signed by: John Vasquez M.D. Narrative 11/30/2023 1:17 PM CDT EXAMINATION: Two view chest radiograph INDICATION: shortness of breath COMPARISON: 06/10/2023 VIEWS: AP/Lateral FINDINGS: Heart size is the upper limits of normal. There is mild cephalization of the pulmonary vessels. There are no pleural effusions or pneumothorax. Procedure Note John Vasquez MD - 11/30/2023 EXAMINATION: Two view chest radiograph INDICATION: shortness of breath COMPARISON: 06/10/2023 VIEWS: AP/Lateral FINDINGS: Heart size is the upper limits of normal. There is mild cephalization of the pulmonary vessels. There are no pleural effusions or pneumothorax. IMPRESSION: 1. Mild cephalization of the pulmonary vessels, likely representing pulmonary vascular congestion. 2. Borderline cardiomegaly. Electronically signed by: John Vasquez M.D. us Preemerson Cordon MD IMG XR PROCEDURES Kimberley l Result * Magnesium - Add on lab test (11/30/2023 12:54 PM CDT) Acceptable Yes Blood 11/30/2023 12:5 4 PM CDT 11/30/2023 12:54 PM CDT Narrative [facility] - 11/30/2023 12:54 PM CDT Name of Test->Magnesium Matt Cordon MD LAB BLOOD ORDERABLES F inal Result Performing Organization Address City/[facility]/ZIP Co de Phone Number [facility] [address] [facility] [employer] [place], [place] [id number] * TSH reflex Free T4 - Add on lab test (11/30/2023 12:54 PM CDT) Acceptable Yes Blood 11/30/2023 12:5 4 PM CDT 11/30/2023 12:54 PM CDT Narrative [facility] 11/30/2023 12:54 PM CDT Name of Test->TSH reflex Free T4 Matt Cordon MD LAB BLOOD ORDERABLES F inal Result Performing Organization Address [facility] Co de Phone Number [facility] [address] [facility] [employer] [place] [address] * Thyroid Function [place] (11/30/2023 12:33 PM CDT) TSH 3.00 0.30 - 4.20 mcIUnit/mL Blood 11/30/2023 12:3 3 PM CDT 11/30/2023 12:35 PM CDT Vikas Emmanuel MD LAB BLOOD ORDERABLES F inal Result Performing Organization Address City/[facility]/ZIP Co de Phone Number [facility] [address] [facility] [employer] [place] [address] * Magnesium (11/30/2023 12:33 PM CDT) Magnesium 1.9 1.4 - 2.5 mg/dL Blood 11/30/2023 12:3 3 PM CDT 11/30/2023 12:35 PM CDT us Vikas Emmanuel MD LAB BLOOD ORDERABLES F inal Result [facility] [address] [place] [address] * eGFR (11/30/2023 12:33 PM CDT) eGFR 61 >=60 mL/min/1. 73 m2 Comment: Interpretive Data Reference Interval Normal ?>/= 90 mL/min/1.73m2 Mildly decreased* ? 60 - 89 mL/min/1.73m2 Mildly to moderately decreased ?45 - 59 mL/min/1.73m2 Moderately to severely decreased ??30 - 44 mL/min/1.73m2 Severely decreased ?15 - 29 mL/min/1.73m2 Kidney Failure ?< 15 ??mL/min/1.73m2 *Relative to young adult level Estimated glomerular filtration rate is determined by the 2020 CKD-EPI equation recommended by the National Kidney Foundation (A Unifying Approach to GFR Estimation: Recommendations of the NKF-ASK Task Force on Reassessing the Inclusion of Race in Diagnosing Kidney Disease, JASN 202). The CKD-EPI equation should not be used for patients with unstable renal function and has not been validated in children and those over 70. Current interpretive data was last reviewed 2021. Blood 11/30/2023 12:3 3 PM CDT 11/30/2023 12:35 PM CDT us Vikas Emmanuel MD LAB BLOOD ORDERABLES F inal Result [facility] [address] Department [place] [address] * (ABNORMAL) Differential, auto (11/30/2023 12:33 PM CDT) Neutrophil abs 10.2(H) 1.5 - 6.5 K/cumm Imm gran abs 0.1 0.0 - 0.1 K/cumm [facility] Lymphocyte abs 1.7 0.8 - 3.3 K/cumm [facility] Monocyte abs 0.8 0.2 - 0.8 K/cumm [facility] Eosinophil abs 0.0 0.0 - 0.5 K/cumm [facility] Basophil abs 0.1 0.0 - 0.1 K/cumm [facility] Neutrophil pct 79.3 % [facility] Comment: Interpretive Data Percent cell count reference ranges are not reported, since discordance with absolute values may lead to misinterpretation of CBC data. Current Interpretive Data was last revised on 2017. Imm gran pct 0.6 % [facility] Comment: Interpretive Data Percent cell count reference ranges are not reported, since discordance with absolute values may lead to misinterpretation of CBC data. Current Interpretive Data was last revised on 2017. Lymphocyte pct 13.0 % [facility] Comment: Interpretive Data Percent cell count reference ranges are not reported, since discordance with absolute values may lead to misinterpretation of CBC data. Current Interpretive Data was last revised on 2017. Monocyte pct 6.3 % [facility] Comment: Interpretive Data Percent cell count reference ranges are not reported, since discordance with absolute values may lead to misinterpretation of CBC data. Current Interpretive Data was last revised on 2017. Eosinophil pct 0.3 % [facility] Comment: Interpretive Data Percent cell count reference ranges are not reported, since discordance with absolute values may lead to misinterpretation of CBC data. Current Interpretive Data was last revised on 2017. Basophil pct 0.5 % [facility] Comment: Interpretive Data Percent cell count reference ranges are not reported, since discordance with absolute values may lead to misinterpretation of CBC data. Current Interpretive Data was last revised on 2017. Blood 11/30/2023 12:3 3 PM CDT 11/30/2023 12:35 PM CDT Vikas Emmanuel MD LAB BLOOD ORDERABLES F inal Result Performing Organization Address [facility] Co de Phone Number [facility] [address] Department [employer] [place] [address] * Troponin T high-sensitivity series (baseline, 2hr, 4hr, 6hr) (11/30/2023 12:33 PM CDT) Trop T hs 21 <=22 ng/L Comment: Interpretive Data For further hscTnT resources including the diagnostic algorithm and an aid in interpretation, copy and paste this link: https://nrl.testcatalog.org/show/hsTrop Current Interpretive Data last revised 2020. Blood 11/30/2023 12:3 3 PM CDT 11/30/2023 12:35 PM CDT Vikas Emmanuel MD LAB BLOOD ORDERABLES F inal Result Performing Organization Address [facility] de Phone Number [facility] [address] Department [place] [address] * (ABNORMAL) aPTT (11/30/2023 12:33 PM CDT) aPTT 27(L) 28 - 38 sec Comment: Interpretive Data Heparin therapeutic range: 66.0 - 100.0 seconds. Range based on correlation with therapeutic heparin activity range of 0.3 - 0.7 Units/mL. Current interpretive data was last revised on 2022. Blood (Blood, Venous) 11/30/2023 12:33 PM CDT 11/30/2023 12:35 PM CDT Narrative [facility] - 11/30/2023 12:49 PM CDT Potential stroke patient. Vikas Emmanuel MD LAB BLOOD ORDERABLES F inal Result Performing Organization Address [facility] Co de Phone Number [facility] [address] Department [place] [employer] [place] [address] * Protime-INR (11/30/2023 12:33 PM CDT) Pathologist [facility] PT 12.4 9.7 - 13.0 sec INR 1.14 0.90 - 1.20 [facility] Comment: Interpretive data Oral anticoagulant therapeutic ranges: Venous thromboembolism prophylaxis or treatment: 2.0-3.0 CARDIOLOGY Standard range: 2.0-3.0 High-intensity range: 2.5-3.5 Refer to indication-specific guidelines for appropriate target ranges for prosthetic heart valve replacement. Current interpretive data was last revised on 2019. Blood 11/30/2023 12:3 3 PM CDT 11/30/2023 12:35 PM CDT Vikas Emmanuel MD LAB BLOOD ORDERABLES F inal Result Performing Organization Address [facility] de Phone Number [facility] [address] [employer] [address] * (ABNORMAL) Comprehensive metabolic panel (11/30/2023 12:33 PM CDT) Pathologist [facility] Sodium 139 135 - 145 mmol/L Potassium, pl 4.0 3.3 - 4.9 mmol/L [facility] Chloride 100 97 - 110 mmol/L [facility] CO2 22 22 - 32 mmol/L [facility] Anion gap 17(H) 2 - 15 mmol/L [facility] BUN 18 6 - 25 mg/dL [facility] Creatinine 1.33(H) 0.80 - 1.30 mg/dL [facility] Glucose 133 70 - 199 mg/dL [facility] Comment: Interpretive Data Fasting glucose >/= 126 mg/dl is diagnostic for diabetes. ?? Fasting is defined as no caloric intake for at least 8 hours. Fasting glucose between 100 mg/dl to 125 mg/dl is diagnostic of prediabetes. In a patient with classic symptoms of hyperglycemia or hyperglycemic crisis, a random glucose >/= 200 mg/dl is diagnostic for diabetes. In the absence of unequivocal hyperglycemia, results should be confirmed by repeat testing. The classification and Diagnosis of Diabetes Diabetes Care 2021; 46: S19-S40. Current interpretive data was last revised 2022. Calcium 9.0 8.5 - 10.3 mg/dL [facility] Bilirubin, total 0.5 0.1 - 1.2 mg/dL [facility] Protein, pl 7.2 6.5 - 8.5 g/dL [facility] Albumin 3.9 3.5 - 5.0 g/dL [facility] Alk phos 85 40 - 130 Units/L [facility] ALT 19 7 - 55 Units/L [facility] AST 20 10 - 50 Units/L [facility] Blood (Blood, Venous) 11/30/2023 12:33 PM CDT 11/30/2023 12:35 PM CDT Narrative [facility] - 11/30/2023 12:59 PM CDT Potential Stroke Patient us Vikas Emmanuel MD LAB BLOOD ORDERABLES F inal Result [facility] [address] Department [place] [address] * (ABNORMAL) CBC with auto differential (11/30/2023 12:33 PM CDT) WBC 12.8(H) 3.8 - 9.9 K/cumm Hgb 15.2 13.0 - 17.5 g/dL [facility] Hct 44.5 38.9 - 50.3 % [facility] Plt 287 150 - 400 K/cumm [facility] MPV 9.3 9.1 - 12.3 fL [facility] RBC 5.16 4.30 - 5.80 M/cumm [facility] MCV 86.2 81.3 - 96.4 fL [facility] MCH 29.5 27.1 - 33.3 pg [facility] MCHC 34.2 32.3 - 35.7 g/dL [facility] RDW CV 14.0 11.1 - 14.9 % [facility] RDW SD 43.4 35.7 - 48.1 fL [facility] NRBC abs 0.00 0.00 - 0.01 K/cumm [facility] Blood (Blood, Venous) 11/30/2023 12:33 PM CDT 11/30/2023 12:35 PM CDT Narrative [facility] - 11/30/2023 12:42 PM CDT Potential Stroke Patient us Vikas Emmanuel MD LAB BLOOD ORDERABLES F inal Result Performing Organization Address City/[facility]/ZIP Co de Phone Number [facility] [address] Department [place] [address] * ECG 12 lead (11/30/2023 12:26 PM CDT) 11/30/2023 12:2 6 PM CDT Narrative [facility] - 12/01/2023 6:06 PM CDT Vent Rate: 104 bpm RR Interval: 574 msec [place] Interval: 0 msec QRS Duration: 109 msec QT Interval: 382 msec QTC Interval: 442 msec P-R-T [place]: 0 - -73 - 28 degrees IMPRESSION: ATRIAL FIBRILLATION WITH RAPID VENTRICULAR RESPONSE PATTERN CONSISTENT WITH PULMONARY DISEASE INCOMPLETE RIGHT BUNDLE BRANCH BLOCK SEPTAL MYOCARDIAL INFARCTION , PROBABLY OLD INFERIOR MYOCARDIAL INFARCTION , PROBABLY OLD ABNORMAL ECG Electronically Signed By: Aryan Zapata [facility] Card us Vikas Emmanuel MD ECG ORDERABLES Final Result Performing Organization Address City/[facility]/ZIP Co de Phone Number [email or web address] [facility] * CT Stroke Head WO Contrast (11/30/2023 12:24 PM CDT) Anatomical Region Laterality Modality Head N/A Computed Tomogra phy 11/30/2023 12:2 9 PM CDT Impressions 11/30/2023 12:56 PM CDT No acute intracranial abnormality. The Critical results were discussed with Dr. Emmanuel by Dr. Davila on 11/30/2023 at 12:29 P.M. Dictated by: Rigo Davila M.D. The radiology attending physician has personally reviewed this study, and had reviewed and/or edited this written report and agrees with it. Electronically signed by: Carolyn Michel M.D., Ph.D. Narrative 11/30/2023 12:56 PM CDT EXAMINATION: CT head without contrast HISTORY: left arm numbness and weakness. TECHNIQUE: Noncontrast CT of the brain was performed with images acquired from skull base to vertex. COMPARISON: 07/16/2023 FINDINGS: Topogram demonstrates no lytic lesions or fractures. There is no acute intracranial hemorrhage. Ventricles are of normal size and morphology. No mass effect or midline shift is present. The yadav-white matter differentiation is normal. The visualized portions of the orbits are normal. The visualized portions of the mastoids are normal. Mild paranasal sinus mucosal thickening. No fractures are identified.Small left frontal arachnoid cyst. Prior parafalcine subdural hemorrhage has resolved. Procedure Note Carolyn Michel MD PhD - 11/30/2023 EXAMINATION: CT head without contrast HISTORY: left arm numbness and weakness. TECHNIQUE: Noncontrast CT of the brain was performed with images acquired from skull base to vertex. COMPARISON: 07/16/2023 FINDINGS: Topogram demonstrates no lytic lesions or fractures. There is no acute intracranial hemorrhage. Ventricles are of normal size and morphology. No mass effect or midline shift is present. The yadav-white matter differentiation is normal. The visualized portions of the orbits are normal. The visualized portions of the mastoids are normal. Mild paranasal sinus mucosal thickening. No fractures are identified.Small left frontal arachnoid cyst. Prior parafalcine subdural hemorrhage has resolved. IMPRESSION: No acute intracranial abnormality. The Critical results were discussed with Dr. Emmanuel by Dr. Davila on 11/30/2023 at 12:29 P.M. Dictated by: Rigo Davila M.D. The radiology attending physician has personally reviewed this study, and had reviewed and/or edited this written report and agrees with it. Electronically signed by: Carolyn Michel M.D., Ph.D. Vikas Emmanuel MD IMG CT PROCEDURES Kimberley l Result documented in this encounter Visit Diagnoses Diagnosis Paroxysmal A-fib (CMS/HCC) (HCC)- Primary Dizziness Dizziness and giddiness documented in this encounter Administered Medications Inactive Administered Medications - up to 3 most recent administrations Medication Order MAR Action Action Date Dose Rate Site ioversoL (OPTIRAY 350) syringe 100 mL 100 mL, intravenous, Once in imaging, contrast, Starting on 11/30/23 at 1657, For 1 dose Contrast Given 11/30/2023 4:57 PM CDT 97 mL magnesium sulfate 2 g/50 mL in water (premix) 2 g 2 g, intravenous, Administer over 60 Minutes, Once, On 11/30/23 at 1338, For 1 dose New Bag 11/30/2023 1:51 PM CDT 2 g documented in this encounter Discontinued Medications Medication Sig Discontinue Reason Start Date End Da te tamsulosin (FLOMAX) 0.4 mg extended release capsule Take 1 capsule (0.4 mg total) by mouth every evening Error 11/30/2023 methocarbamoL (ROBAXIN) 500 mg tablet Take 1 tablet (500 mg total) by mouth 4 (four) times a day Error 07/18/2023 11/30/2023 Mounjaro 7.5 mg/0.5 mL pen injector 7.5 MG (0.5 ML) SUBCUTANEOUSLY WEEKLY Error 10/01/2023 11/30/2023 documented as of this encounter Historical Medications * This list may reflect changes made after this encounter. tirzepatide (Mounjaro) 7.5 mg/0.5 mL pen injector Inject 7.5 mg under the skin every 7 days Sundays aspirin 325 mg enteric coated tablet Take 1 tablet (325 mg total) by mouth daily added in this encounter Active and Recently Administered Medications Times are shown in CDT. Scheduled Medication Order 11/28/2023 11/29/2023 11/30/2023 magnesium sulfate 2 g/50 mL in water (premix) 2 g (COMPLETED) 2 g, intravenous, Administer over 60 Minutes, Once, On 11/30/23 at 1338, For 1 dose 1351 (New Bag - Prov ider: Cheli Maradiaga, RN)1445 (Stopped - Provider: Cheli Maradiaga, RN) PRN Medication Order 11/28/2023 11/29/2023 11/30/2023 ioversoL (OPTIRAY 350) syringe 100 mL (COMPLETED) 100 mL, intravenous, Once in imaging, contrast, Starting on 11/30/23 at 1657, For 1 dose 1657 (Contrast Given - Provider: Diane Guadarrama, RT) documented in this encounter Orders Lab Orders Without Results Count Last Ordered D ate First Ordered Date POCT GLUCOSE DEVICE 1 11/30/2023 Nursing Count Last Ordered Date First Orde red Date CARDIORESPIRATORY MONITOR 1 11/30/2023 NURSING COMMUNICATION 1 11/30/2023 NURSING SWALLOW ASSESSMENT 1 11/30/2023 WEIGH PATIENT 1 11/30/2023 IV Count Last Ordered Date First Orde red Date SALINE LOCK IV 2 11/30/2023 documented in this encounter Care Teams Fish Bait Picker Relationship Specialty Start Date End Date sAhok Gaffney MD PCP - General 08/23/11 documented as of this encounter
--- OUTSIDE RECORDS SUMMARY | 2024-04-01 21:13 | XMS_ITS | Encounter Summary ---
Author Organization [facility] Address [address] [place] [address]. [place], [place] [id number] [place] [address] Care Team Providers Care Fire Marshal Name Role Phone Anjelica Moscoso CRNA Primary Care Provider Unav ailable Encounter Details Date Type Department Care Team (Latest Contact Info) Description 03/08/2023 Travel Social History Tobacco Use Types Packs/Day Years Used Date Smoking Tobacco: Never Smokeless Tobacco: Never Alcohol Use Standard Drinks/Week Comments Yes 0 (1 standard drink = 0.6 oz pur e alcohol) Sex and Gender Information Value Date Recorded Sex Assigned at Not on file Legal Sex Male 8:41 PM CDT Gender Identity Not on file Sexual Orientation Not on file documented as of this encounter Plan of Treatment Not on file documented as of this encounter Visit Diagnoses Not on filedocumented in this encounter Care Teams Fire Marshal Relationship Specialty Start Date End Date Anjelica Moscoso CRNA PCP - General ANESTHESIOLOGY 11/12/19 documented as of this encounter
--- OUTSIDE RECORDS SUMMARY | 2024-04-01 21:13 | XMS_ITS | Encounter Summary ---
Author Organization [facility] Address [address] [place] [address]. [place], [place] [address] [place] [id number] Care Team Providers Care Ehs Manager Name Role Phone Anjelica Moscoso CRNA Primary Care Provider Unav ailable Reason for Visit * Reason Comments Flu Like Symptoms Encounter Details Date Type Department Care Team (Late st Contact Info) Description 03/08/2023 4:57 PM AGRICULTURAL SYSTEMS SPECIALIST - 03/08/2023 7:34 PM AGRICULTURAL SYSTEMS SPECIALIST Emergency [facility] [place] [address] Anson Colon MD [address] [id number] Flu Like Symptoms Discharge Disposition: Home or Self Care (Routine [...] on file documented as of this encounter Last Filed Vital Signs Vital Sign Reading Time Taken Comments Blood Pressure 180/100 03/08/2023 7:17 PM AGRICULTURAL SYSTEMS SPECIALIST Pulse 60 03/08/2023 7:17 PM AGRICULTURAL SYSTEMS SPECIALIST Temperature 37.1 ??C (98.8 ??F) 03/08/2023 4:24 PM CS T Respiratory Rate 18 03/08/2023 4:24 PM AGRICULTURAL SYSTEMS SPECIALIST Oxygen Saturation 93% 03/08/2023 7:17 PM AGRICULTURAL SYSTEMS SPECIALIST Inhaled Oxygen Concentration - - Weight 158.8 kg (350 lb) 03/08/2023 4:24 PM AGRICULTURAL SYSTEMS SPECIALIST Height 177.8 cm (5' 10 ) 03/08/2023 4:24 PM AGRICULTURAL SYSTEMS SPECIALIST Body Mass Index 50.22 03/08/2023 4:24 PM AGRICULTURAL SYSTEMS SPECIALIST documented in this encounter Discharge Instructions * Discharge Instructions* Anson Colon MD - 03/08/2023 7:28 PM AGRICULTURAL SYSTEMS SPECIALIST Thank you for entrusting your health with me. I have obtained information about your health and reviewed your work-up. Please access [facility] to see my note and work-up. Medical care is complex and your health is important to me. I encourage you to ask questions for further understanding of today's visit and return if something changes. Sincerely, Dr. Colon CULTURAL SYSTEMS SPECIALIST * Attachments The following attachments cannot be sent through Care Everywhere. * Cough, Adult ED (Faroese) documented in this encounter Medications at Time of Discharge albuterol sulfate HFA 108 (90 Base) MCG/ACT inhaler Inhale 2 puffs into the lungs every 6 (six) hours as needed for Wheezing. 18 g 03/08/2023 doxycycline hyclate (VIBRAMYCIN) 100 MG capsule Take 1 capsule (100 mg total) by mouth 2 (two) times daily for 7 days. 14 capsule 03/08/2023 03/15/2023 documented as of this encounter ED Notes * Anson Colon MD - 03/08/2023 7:17 PM CST Emergency Department Note Chief Complaint Chief Complaint Patient presents with Flu Like Symptoms History of Present Illness Meena Andrade is a 62-year-old male with a PMH of A-fib and HTN presents to the ED for evaluation of flu-like symptoms. Patient reports having a nonproductive cough and pounding headache x 3 weeks. He reports the cough makes it hard to breathe and he often dry heaves. Patient reports missing his blood pressure meds the last few days. Patient has appointment on 03/14 with his aromatherapist. Deniesnausea/vomiting. Denies fever/chills. Patient takes xarelto. Hx obtained by patient. Medical History MEDICATIONS: Prior to Admission medications Medication Sig Start Date End Date Taking? Authorizing Provider albuterol sulfate HFA 108 (90 Base) MCG/ACT inhaler Inhale 2 puffs into the lungs every 6 (six) hours as needed for Wheezing. 03/08/23 Yes Anson Colon MD doxycycline hyclate (VIBRAMYCIN) 100 MG capsule Take 1 capsule (100 mg total) by mouth 2 (two) times daily for 7 days. 03/08/23 03/15/23 Yes Anson Colon MD PAST MEDICAL HISTORY: Past Medical History: Diagnosis Date A-fib (CMS/HCC) Hypertension PAST SURGICAL HISTORY: No past surgical history on file. Physical Exam Vital 24 Hour Range Most Recent Value Temperature Temp Min: 98.8 ??F (37.1 ??C) Max: 98.8 ??F (37.1 ??C) 98.8 ??F (37.1 ??C) Pulse Pulse Min: 60 Max: 62 60 Respiratory Resp Min: 18 Max: 18 18 Blood Pressure BP Min: 180/100 Max: 206/110 (!) 180/100 Pulse Oximetry SpO2 Min: 93 % Max: 96 % 93 % O2 No data recorded Constitutional: Well developed, Well nourished, No acute distress, Non-toxic appearance. Occasionalcough. HEENT: Normocephalic, Atraumatic, Bilateral external ears normal, EOMI, Conjunctiva normal, No discharge.Oropharynx moist, Nose normal. Respiratory: Normal breath sounds, No respiratory distress. Cardiovascular: Normal heart rate, Normal rhythm GI: Soft, No tenderness, No masses, No pulsatile masses. Neck: Normal range of motion, No tenderness, Supple, No stridor. Back: No tenderness Extremities: Intact distal pulses, trace bilateral lower extremity edema, No tenderness, Good rangeof motion in all major joints. Skin: Warm, Dry, No erythema, No rash. Neurologic: Alert & oriented x 3, Normal motor function, Normal sensory function, No focal deficits noted. Psychiatric: Affect normal, Judgment normal, Mood normal. Medical Decision Making/ ED course: Problem list: Cough, congestion, headache Differentials: Viral syndrome, bacterial pneumonia, less likely fluid overload, other Considered chronic illnesses (see PMH), comorbidities, social determinants of health, access to follow-up, and medical literacy when determining work up and disposition. Labs: Results for orders placed or performed during the hospital encounter of 03/08/23 CBC W/DIFF AUTOMATED Result Value Ref Range WBC 8.0 4.5 - 11.0 x10'3/uL RBC 5.24 4.70 - 6.10 x10'6/uL HGB 16.0 14.0 - 18.0 G/DL HCT 46.4 43.0 - 54.0 % MCV 91.1 80.0 - 94.0 FL MCH 30.5 27.0 - 31.0 PG MCHC 34.5 32.0 - 36.0 G/DL RDW 13.6 11.5 - 14.5 % PLT 254 130 - 400 x10'3/uL MPV 10.5 9.3 - 12.2 FL DIFFERENTIAL TYPE AUTOMATED DIFFERENTIAL NEUTROPHILS 76.4 % LYMPHOCYTES 13.0 % MONOCYTES 9.2 % EOSINOPHILS 0.3 % BASOPHILS 0.3 % IMMATURE GRANS 0.8 % ABS. NEUTROPHILS TOTAL 6.09 1.80 - 7.70 x10'3/uL ABS. LYMPHOCYTES 1.03 1.00 - 4.80 x10'3/uL ABS. MONOCYTES 0.73 0.30 - 0.82 x10'3/uL ABS. EOSINOPHILS 0.02 (L) 0.04 - 0.54 x10'3/uL ABS. BASOPHILS 0.02 0.01 - 0.08 x10'3/uL ABS. IMMATURE GRANULOCYTES 0.06 0.00 - 0.49 x10'3/uL COMPREHENSIVE METABOLIC PANEL Result Value Ref Range GLUCOSE 154 (H) 70 - 99 MG/DL BUN 13 7 - 18 MG/DL CREATININE S/P/B 1.04 0.7 - 1.3 MG/DL SODIUM S/P/B 138 136 - 145 MMOL/L POTASSIUM S/P/B 4.0 3.5 - 5.1 MMOL/L CHLORIDE S/P/B 102 100 - 108 MMOL/L CO2 25.4 21 - 32 MMOL/L CALCIUM S/P/B 9.1 8.5 - 10.1 MG/DL BILIRUBIN TOTAL S/P/B 0.4 0.2 - 1.2 MG/DL TOTAL PROTEIN S/P/B 8.4 (H) 6.4 - 8.2 G/DL ALBUMIN S/P/B 3.5 3.4 - 5.0 G/DL AST 64 (H) 15 - 37 U/L ALT 60 16 - 60 U/L ALKALINE PHOSPHATASE S/P/B 88 50 - 136 U/L ANION GAP 10.6 5 - 15 MMOL/L BUN CREATININE RATIO 12.5 6 - 26 A/G RATIO 0.7 (L) 1.0 - 2.0 RATIO GFR ESTIMATE 82 (L) >90 ML/MIN/1.73 M2 TROPONIN, QUANT Result Value Ref Range TROPONIN I HIGH SENSITIVITY 16 <79 ng/L URINALYSIS Result Value Ref Range Specimen Type URINE CLEAN CATCH COLOR (U) YELLOW TRANSPARENCY CLEAR SPECIFIC GRAVITY (U) 1.018 1.001 - 1.030 U PH 5.5 5.0 - 9.0 LEUKOCYTES (U) NEGATIVE NEGATIVE NITRITES NEGATIVE NEGATIVE PROTEIN RANDOM (U) 50 (H) <30 MG/DL GLUCOSE (U) 30 (A) NORMAL MG/DL KETONES (U) NEGATIVE NEGATIVE MG/DL UROBILINOGEN NORMAL NORMAL MG/DL BILIRUBIN (U) NEGATIVE NEGATIVE MG/DL BLOOD (U) NEGATIVE NEGATIVE CULTURE & SENSITIVITY INDICATED? CULTURE IS NOT INDICATED TRANSITIONAL EPI RARE /HPF MUCUS RARE /LPF WBC/HPF 2 <6 /HPF RBC/HPF 4 <6 /HPF SQUAMOUS EPITHELIALS RARE /HPF Imaging: XR CHEST PA+LAT Result Date: 03/08/2023 =====IMPRESSION:===== Increase in lung markings and subtle opacities in the lungs. These may represent congestion rather than inflammatory process. Clinical correlation and management and follow-up imaging recommended. Ordered By: JACOBO MARSH Interpreted By: Bairon Jimenez MD, 03/08/2023 5:35 PM My independent interpretation of labs/imaging: Labs grossly benign. Troponin normal. Chest imaging with concerns for subtle opacifications in the lungs. Unclear whether or not this is congestion or pneumonia. Cardiac Rhythm strip ordered and independently interpretated as: Sinus rhythm. Rate of 60. First-degree block My independent interpretation of EKG: No ischemia My independent interpretation of pulse ox: Normal Consults: no emergent consult indicated Communication: I discussed the workup as well as plan of care when possible. I discussed medications as well as other therapies as needed. Encourage compliance with blood pressure medications. Patient agrees. Patient has follow-up with his aromatherapist next week. Recommended albuterol as well as antibiotics. Return precautions given. Medications - No data to display Clinical Impression Cough (Primary) Discharge Medication List as of 03/08/2023 7:30 PM START taking these medications Details albuterol sulfate HFA 108 (90 Base) MCG/ACT inhaler Inhale 2 puffs into the lungs every 6 (six) hours as needed for Wheezing., Starting Sat03/08/2023, Eprescribe Class: Eprescribe Pharmacy: [facility]/pharmacy [address] [place] [address] (Ph #: [phone]) doxycycline hyclate (VIBRAMYCIN) 100 MG capsule Take 1 capsule (100 mg total) by mouth 2 (two) times daily for 7 days., Starting Sat03/08/2023, Until Sat03/15/2023, Eprescribe Class: Eprescribe Pharmacy: [facility]/pharmacy [address] [place] [address] (Ph #: [phone]) Disposition: Discharge Follow-Up: [facility] [address] [place] [address] If symptoms worsen; also follow-up with your aromatherapist ANSON COLON MD 03/08/2023 Please excuse any grammatical or spelling errors as this chart was likely documented using a dictation software. I, Nelida Ramos, acting as a scribe, am personally taking down the notes in the presence of Dr. Anson Colon,*. Take no action on this note until reviewed and authenticated by the physician. Anson Colon MD 03/08/232005 CULTURAL SYSTEMS SPECIALIST * Cathy Buckner RN - 03/08/2023 7:00 PM CST Bed: 22 Expected date: Expected time: Means of arrival: Comments: CULTURAL SYSTEMS SPECIALIST * Akosua García RN - 03/08/2023 4:52 PM CST Pt has hx of afib but states he is not in it right now. He stated he goes in and out. Pt is scheduled to see aromatherapist next week. CULTURAL SYSTEMS SPECIALIST * Akosua García RN - 03/08/2023 4:51 PM CST Pt comes in with complaints of flu like symptoms. Pt has been sick for about 2 weeks and states he can't get over it. He has increased SOB today. CULTURAL SYSTEMS SPECIALIST documented in this encounter Plan of Treatment Not on file documented as of this encounter Procedures Procedure Name Priority Date/Time Associated Diagnosis Comments XR CHEST PA+LAT STAT 03/08/2023 5:33 PM AGRICULTURAL SYSTEMS SPECIALIST ECG 12-LEAD Routine 03/08/2023 5:17 PM AGRICULTURAL SYSTEMS SPECIALIST COMPREHENSIVE METABOLIC PANEL STAT 03/08/2023 5:08 PM AGRICULTURAL SYSTEMS SPECIALIST CBC W/DIFF AUTOMATED STAT 03/08/2023 5:08 PM AGRICULTURAL SYSTEMS SPECIALIST TROPONIN, QUANT STAT 03/08/2023 5:08 PM AGRICULTURAL SYSTEMS SPECIALIST HC URINALYSIS AUTO W/O MICRO STAT 03/08/2023 5:07 PM AGRICULTURAL SYSTEMS SPECIALIST documented in this encounter Results * XR CHEST PA+LAT (03/08/2023 5:33 PM AGRICULTURAL SYSTEMS SPECIALIST) Anatomical Region Laterality Modality Chest Radiographic Jennyfer ging 03/08/2023 5:35 PM AGRICULTURAL SYSTEMS SPECIALIST Impressions 03/08/2023 5:37 PM AGRICULTURAL SYSTEMS SPECIALIST =====IMPRESSION:===== Increase in lung markings and subtle opacities in the lungs. These may represent congestion rather than inflammatory process. Clinical correlation and management and follow-up imaging recommended. Ordered By: JACOBO MARSH Interpreted By: Bairon Jimenez MD, 03/08/2023 5:35 PM Narrative 03/08/2023 5:37 PM AGRICULTURAL SYSTEMS SPECIALIST Examination: Chest x-ray 2 view Exam date/time: 03/08/2023 5:23 PM Reason For Exam: ??cough ? Comparison: Prior studies from October 2019. Technique: PA and lateral views of the chest were obtained. Findings: Heart size is in the upper normal limits. Mildly elongated aorta. In the lung parenchyma there is worsening of aeration than before with opacities and increase in lung markings. Diagnostic considerations would be congestion although inflammatory changes and atelectasis in the lower lobes cannot be excluded. There is no pneumothorax. No significant effusion. Osseous structures are intact. Mild degenerative changes. Procedure Note Bairon Jimenez MD - 03/08/2023 Examination: Chest x-ray 2 view Exam date/time: 03/08/2023 5:23 PM Reason For Exam: cough Comparison: Prior studies from October 2019. Technique: PA and lateral views of the chest were obtained. Findings: Heart size is in the upper normal limits. Mildly elongatedaorta. In the lung parenchyma there is worsening of aeration than beforewith opacities and increase in lung markings. Diagnostic considerationswould be congestion although inflammatory changes and atelectasis in thelower lobes cannot be excluded. There is no pneumothorax. No significanteffusion. Osseous structures are intact. Mild degenerative changes. =====IMPRESSION:===== Increase in lung markings and subtle opacities in the lungs. These mayrepresent congestion rather than inflammatory process. Clinical correlation and management and follow-up imaging recommended. Ordered By: JACOBO MARSH Interpreted By: Bairon Jimenez MD, 03/08/2023 5:35 PM us [facility] Final Resul t * ECG 12 lead (03/08/2023 5:17 PM AGRICULTURAL SYSTEMS SPECIALIST) 03/08/2023 5:17 PM AGRICULTURAL SYSTEMS SPECIALIST Narrative [facility]Taryn DUGANOLIVER[facility] ([facility]) RAD - 03/08/2023 11:11 PM AGRICULTURAL SYSTEMS SPECIALIST ?Ze[place]`t[place] ? [address] ? Test Date: ?2023-03-08 Pat Name: ? MEENA ANDRADE ? Department: ?? 41 ? Room: ? EXAM22 Gender: ? Male ? Banquet Captain: ?? [id number] : ?1960 ? Requested By: JACOBO MARSH Order Number: [id number] ? Reading : ?? Rickie Holden ? Measurements Intervals ?[place] ? Rate: ? 60 ? P: ?1 ME: ? 255 ?QRS: ?-67 QRSD: ? 130 ?T: ?54 QT: ? 498 ? QTc: ?502 ? Interpretive Statements SINUS RHYTHM WITH FIRST DEGREE AV BLOCK WITH FREQUENT SUPRAVENTRICULAR PREMATURE COMPLEXES Interventricular conduction defect LEFT AXIS DEVIATION ??[QRS AXIS < -30] SEPTAL MYOCARDIAL INFARCTION , PROBABLY OLD [40+ ms Q WAVE IN V1/V2] Compared to ECG 11/12/2019 20:50:26 First degree AV block now present CULTURAL SYSTEMS SPECIALIST Procedure Note Rickie Holden MD - 03/08/2023 [facility] [place] [address] [facility] Test Date: 2023-03-08 Pat Name: MEENA ANDRADE Department: 41 Room: [facility] Gender: Male Banquet Captain: [id number] : 1960 Requested By: JACOBO MARSH Order Number: [id number] Adarsh MD: Rickie Holden Measurements Intervals [place] Rate: 60 P: 1 ME: 255 QRS: -67 QRSD: 130 T: 54 QT: 498 QTc: 502 Interpretive Statements SINUS RHYTHM WITH FIRST DEGREE AV BLOCK WITH FREQUENT SUPRAVENTRICULAR PREMATURE COMPLEXES Interventricular conduction defect LEFT AXIS DEVIATION [QRS AXIS < -30] SEPTAL MYOCARDIAL INFARCTION , PROBABLY OLD [40+ ms Q WAVE IN V1/V2] Compared to ECG 11/12/2019 20:50:26 First degree AV block now present CULTURAL SYSTEMS SPECIALIST us [facility] ECG ORDERABLES Final Resul t Performing Organization Address City/[facility]/ZIP Co de Phone Number [facility] ([facility]) RAD * TROPONIN, QUANT (03/08/2023 5:08 PM AGRICULTURAL SYSTEMS SPECIALIST) Pathologist [facility] TROPONIN I HIGH SENSITIVITY 16 <79 ng/L 03/08/2023 6:08 PM AGRICULTURAL SYSTEMS SPECIALIST [facility] Comment: HIGH DOSES OF BIOTIN, TROPONIN-SPECIFIC AUTOANTIBODIES, AND ANTIBODY THERAPY CONTAINING HAMA MAY INTERFERE WITH THIS TEST RESULT. CORRELATION TO CLINICAL HISTORY AND PRESENTATION RECOMMENDED. 03/08/2023 5:08 PM AGRICULTURAL SYSTEMS SPECIALIST us [facility] Final Resul t Performing Organization Address [facility] Co de Phone Number [facility] [address] [place] [address], [place] [phone] * (ABNORMAL) COMPREHENSIVE METABOLIC PANEL (03/08/2023 5:08 PM AGRICULTURAL SYSTEMS SPECIALIST) Pathologist [facility] GLUCOSE 154(H) 70 - 99 MG/DL 03/08/2023 6:08 PM AGRICULTURAL SYSTEMS SPECIALIST [facility] BUN 13 7 - 18 MG/DL 03/08/2023 6:08 PM AGRICULTURAL SYSTEMS SPECIALIST [facility] CREATININE S/P/B 1.04 0.7 - 1.3 MG/DL 03/08/2023 6:08 PM AGRICULTURAL SYSTEMS SPECIALIST [facility] SODIUM S/P/B 138 136 - 145 MMOL/L 03/08/2023 6:08 PM AGRICULTURAL SYSTEMS SPECIALIST [facility] POTASSIUM S/P/B 4.0 3.5 - 5.1 MMOL/L 03/08/2023 6:08 PM [facility] CHLORIDE S/P/B 102 100 - 108 MMOL/L 03/08/2023 6:08 PM [facility] CO2 25.4 21 - 32 MMOL/L 03/08/2023 6:08 PM [facility] CALCIUM S/P/B 9.1 8.5 - 10.1 MG/DL 03/08/2023 6:08 PM [facility] BILIRUBIN TOTAL S/P/B 0.4 0.2 - 1.2 MG/DL 03/08/2023 6:08 PM [facility] Comment: THIS ASSAY IS NOT RECOMMENDED FOR PATIENTS UNDERGOING TREATMENT WITH ELTROMBOPAG DUE TO THE POTENTIAL FOR FALSELY ELEVATED RESULTS. TOTAL PROTEIN S/P/B 8.4(H) 6.4 - 8.2 G/DL 03/08/2023 6:08 PM [facility] ALBUMIN S/P/B 3.5 3.4 - 5.0 G/DL 03/08/2023 6:08 PM [facility] AST 64(H) 15 - 37 U/L 03/08/2023 6:08 PM [facility] ALT 60 16 - 60 U/L 03/08/2023 6:08 PM [facility] ALKALINE PHOSPHATASE S/P/B 88 50 - 136 U/L 03/08/2023 6:08 PM [facility] ANION GAP 10.6 5 - 15 MMOL/L 03/08/2023 6:08 PM [facility] BUN CREATININE RATIO 12.5 6 - 26 03/08/2023 6:08 PM [facility] A/G RATIO 0.7(L) 1.0 - 2.0 RATIO 03/08/2023 6:08 PM AGRICULTURAL SYSTEMS SPECIALIST [facility] GFR ESTIMATE 82(L) >90 ML/MIN/1.7 3 M2 03/08/2023 6:08 PM AGRICULTURAL SYSTEMS SPECIALIST [facility] Comment: NOTE: eGFR is not calculated for patients <18 years of age. This is an estimated GFR calculation using the new CKD EPI creatinine equation without race and so does not require a correction factor for race. This estimated GFR should not be used for calculating drug doses. 03/08/2023 5:08 PM AGRICULTURAL SYSTEMS SPECIALIST us [facility] Final Resul t [facility] [address] [place] [address], [place] [phone] * (ABNORMAL) CBC W/DIFF AUTOMATED (03/08/2023 5:08 PM AGRICULTURAL SYSTEMS SPECIALIST) WBC 8.0 4.5 - 11.0 x10'3/uL 03/08/2023 6:51 PM AGRICULTURAL SYSTEMS SPECIALIST [facility] RBC 5.24 4.70 - 6.10 x10'6/uL 03/08/2023 6:51 PM AGRICULTURAL SYSTEMS SPECIALIST [facility] HGB 16.0 14.0 - 18.0 G/DL 03/08/2023 6:51 PM AGRICULTURAL SYSTEMS SPECIALIST [facility] HCT 46.4 43.0 - 54.0 % 03/08/2023 6:51 PM AGRICULTURAL SYSTEMS SPECIALIST [facility] MCV 91.1 80.0 - 94.0 FL 03/08/2023 6:51 PM AGRICULTURAL SYSTEMS SPECIALIST [facility] MCH 30.5 27.0 - 31.0 PG 03/08/2023 6:51 PM AGRICULTURAL SYSTEMS SPECIALIST [facility] MCHC 34.5 32.0 - 36.0 G/DL 03/08/2023 6:51 PM [facility] RDW 13.6 11.5 - 14.5 % 03/08/2023 6:51 PM [facility] PLT 254 130 - 400 x10'3/uL 03/08/2023 6:51 PM [facility] MPV 10.5 9.3 - 12.2 FL 03/08/2023 6:51 PM [facility] DIFFERENTIAL TYPE AUTOMATED DIFFERENTIAL 03/08/2023 6:51 PM [facility] NEUTROPHILS % 76.4 % 03/08/2023 6:51 PM [facility] LYMPHOCYTES % 13.0 % 03/08/2023 6:51 PM [facility] MONOCYTES % 9.2 % 03/08/2023 6:51 PM [facility] EOSINOPHILS 0.3 % 03/08/2023 6:51 PM [facility] BASOPHILS 0.3 % 03/08/2023 6:51 PM [facility] IMMATURE GRANS % 0.8 % 03/08/20 6:51 PM [facility] ABS. NEUTROPHILS TOTAL 6.09 1.80 - 7.70 x10'3/uL 03/08/2023 6:51 PM [facility] ABS. LYMPHOCYTES 1.03 1.00 - 4.80 x10'3/uL 03/08/2023 6:51 PM [facility] ABS. MONOCYTES 0.73 0.30 - 0.82 x10'3/uL 03/08/2023 6:51 PM [facility] ABS. EOSINOPHILS 0.02(L) 0.04 - 0.54 x10'3/uL 03/08/2023 6:51 PM [facility] ABS. BASOPHILS 0.02 0.01 - 0.08 x10'3/uL 03/08/2023 6:51 PM [facility] ABS. IMMATURE GRANULOCYTES 0.06 0.00 - 0.49 x10'3/uL 03/08/2023 6:51 PM [facility] 03/08/2023 5:08 PM AGRICULTURAL SYSTEMS SPECIALIST us [facility] Final Resul t [facility] [address] [place] [address], * (ABNORMAL) URINALYSIS (03/08/2023 5:07 PM AGRICULTURAL SYSTEMS SPECIALIST) SPECIMEN TYPE URINE CLEAN CATCH 03/08/2023 5:07 PM [facility] COLOR (U) YELLOW 03/08/2023 6:11 PM [facility] TRANSPARENCY CLEAR 03/08/2023 6:11 PM [facility] SPECIFIC GRAVITY (U) 1.018 1.001 - 1.030 03/08/2023 6:11 PM [facility] U PH 5.5 5.0 - 9.0 03/08/2023 6:11 PM [facility] LEUKOCYTES (U) NEGATIVE NEGATIVE 03/08/2023 6:11 PM [facility] NITRITES NEGATIVE NEGATIVE 03/08/2023 6:11 PM [facility] PROTEIN RANDOM (U) 50(H) <30 MG/DL 03/08/2023 6:11 PM [facility] GLUCOSE (U) 30(A) NORMAL MG/DL 03/08/2023 6:11 PM [facility] KETONES MG/DL (U) NEGATIVE NEGATIVE MG/DL 03/08/2023 6:11 PM AGRICULTURAL SYSTEMS SPECIALIST [facility] UROBILINOGEN NORMAL NORMAL MG/DL 03/08/2023 6:11 PM AGRICULTURAL SYSTEMS SPECIALIST [facility] BILIRUBIN (U) NEGATIVE NEGATIVE MG/DL 03/08/2023 6:11 PM AGRICULTURAL SYSTEMS SPECIALIST [facility] BLOOD (U) NEGATIVE NEGATIVE 03/08/2023 6:11 PM AGRICULTURAL SYSTEMS SPECIALIST [facility] CULTURE & SENSITIVITY INDICATED? CULTURE IS NOT INDICATED 03/08/2023 6:11 PM AGRICULTURAL SYSTEMS SPECIALIST [facility] TRANSITIONAL EPI RARE /HPF 03/08/20 6:11 PM AGRICULTURAL SYSTEMS SPECIALIST [facility] MUCUS RARE /LPF 03/08/2023 6:11 PM AGRICULTURAL SYSTEMS SPECIALIST [facility] WBC/HPF 2 <6 /HPF 03/08/2023 6:11 PM AGRICULTURAL SYSTEMS SPECIALIST [facility] RBC/HPF 4 <6 /HPF 03/08/2023 6:11 PM AGRICULTURAL SYSTEMS SPECIALIST [facility] SQUAMOUS EPITHELIALS RARE /HPF 03/08/2023 6:11 PM [facility] URINE SPECIMEN OBTAINED BY CLEAN CATCH PROCEDURE / Unknown 03/08/2023 5:07 PM AGRICULTURAL SYSTEMS SPECIALIST us [facility] URINE ORDERABLES Final Resu lt [facility] [address] [place] [address], [place] [phone] documented in this encounter Visit Diagnoses Diagnosis Cough- Primary documented in this encounter Care Teams Ehs Manager Relationship Specialty Start Date End Date Anjelica Moscoso CRNA PCP - General ANESTHESIOLOGY 11/12/19 documented as of this encounter
--- OUTSIDE RECORDS SUMMARY | 2024-04-01 21:13 | XMS_ITS | Encounter Summary ---
Author Organization [facility] Address [address] [place] [address] Care Team Providers Care Loan Review Analyst Name Role Phone Unavailable Primary Care Provider Unavailabl e Encounter Details Date Type Department Care Team (Late st Contact Info) Description 02/05/2019 Lab Requisition [facility] [address] [facility], [place] [id number] Ashok Gaffney MD [address] [place] [address] Social History Tobacco Use Types Packs/Day Years Used Date Smoking Tobacco: Never Assessed Sex and Gender Information Value Date Recorded Sex Assigned at Not on file Gender Identity Not on file Sexual Orientation Not on file documented as of this encounter Plan of Treatment Not on file documented as of this encounter Procedures Procedure Name Priority Date/Time Associated Diagnosis Comments DERMATOPATHOLOGY Routine 02/03/2019 12:0 0 AM REMOTE RUBY ON RAILS DEVELOPER documented in this encounter Results * DERMATOPATHOLOGY (02/03/2019 12:00 AM REMOTE RUBY ON RAILS DEVELOPER) Case Report Dermatopathology Report ? Case: [id number] ? Authorizing Provider: ??Ashok Gaffney MD ? Collected: ? 02/03/2019 12:00 AM ? Ordering Location: ? [facility] ?Received: ?02/05/2019 01:38 PM ? Pathologist: ? David Ann MD ? Specimen: ?Skin, right hand thumb ? 3:11 PM [facility] Final Diagnosis Specimen A. 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 Check margins. 3:11 PM [facility] Gross Description Specimen A: Received is one formalin filled container labeled with the patient's name and designated right hand thumb. The specimen consists of a shave biopsy measuring [id number], bisected. The margin is inked green. Jar 0. 3:11 PM [facility] Microscopic Description Specimen A. SKIN, right hand thumb: The epidermis is acanthotic and hyperkeratotic and surrounds a dermis with thick collagen bundles oriented predominantly in a vertical fashion. There are scattered stellate fibroblasts. COMMENT: Included in this group are: acquired digital fibrokeratoma, acquired periungual fibrokeratoma, garlic clove fibroma, and subungual/periungua l fibromas of tuberous sclerosis. This lesion is present at the margin of the specimen. 3:11 PM [facility] Disclaimer An external and internal positive and negative controls are appropriate for the histochemical, immunohistochemical and immunofluorescence stain(s) in this case (if any), except where stated explicitly. The performance characteristics of the stain(s) cited in this report were developed and its performance characteristic determined by the Dermatopathology Laboratory at [facility], directed by Dr. Jolly Ann. These tests need not be, and therefore are not, approved by the [place] Food and Drug Administration. The tests are used for clinical purposes. Billing Codes Specimen Charges Stain Charges 83299 1 9 3:11 PM REMOTE RUBY ON RAILS DEVELOPER DERMATOPATHOLOGY LABORATORY Embedded Images 9 3:11 PM REMOTE RUBY ON RAILS DEVELOPER DERMATOPATHOLOGY LABORATORY Pathology/Cytolog y TISSUE SPECIMEN FROM SKIN / Unknown 02/03/2019 02/05/2019 1:38 PM REMOTE RUBY ON RAILS DEVELOPER Ashok Gaffney MD LAB - PATHOLOGY/CYTO LOGY ORDERABLES DERMATOPATHOLOGY LABORATORY [facility] - Department of Dermatology [address] [place] [address], [address]th [place] [address], [facility] [phone] documented in this encounter Visit Diagnoses Not on filedocumented in this encounter
--- OUTSIDE RECORDS SUMMARY | 2024-04-01 21:13 | XMS_ITS | Clinical Summary ---
Author Organization [facility] Address [address] [place] [address] Care Team Providers Care Shovel Operator Name Role Phone Unavailable Primary Care Provider Unavailabl e Source Comments [facility] [employer],non-owned Affiliates and Associated Physician Practices is amultiple site organization consisting of ambulatory clinics and hospital sitesin [place], [place], [place] and [place]. This disclosure is being madepursuant to the Care Everywhere program and may not contain all information available regarding this patient. Last updated 17.[facility] [employer] Social History Tobacco Use Types Packs/Day Years Used Date Smoking Tobacco: Never Assessed Sex and Gender Information Value Date Recorded Sex Assigned at Not on file Gender Identity Not on file Sexual Orientation Not on file Plan of Treatment Health Maintenance Due Date Last Done Comments COLOGUARD (AGES 45-75) - COL ON CA SCREENING 1962 COLON MONITORING 1962 COLONOSCOPY - COLON CA SCREENING 1962 CT COLONOGRAPHY - COLON CA SCREENING 1962 Colorectal Cancer Screening 1962 FIT - COLON CA SCREENING 1962 FLEX SIG - COLON CA SCREENING 1962 LIPID TESTING 1962 HIV SCREENING 1977 HEPATITIS C SCREENING 09/19/1980 DTAP/TDAP/TD VACCINES (1 - Tdap) 1981 ZOSTER VACCINE (1 of 2) 2012 COVID-19 VACCINE ( - 2023-2 5 season) 2023 INFLUENZA VACCINE (#1) 2023 DEPRESSION SCREENING 04/01/2024 Respiratory Syncytial Virus (RSV) Vaccine Pt: or over 60 yrs (1 - 1-dose 75+ series) 2037 HEPATITIS B VACCINE Aged Out No longe r eligible based on patient's age to complete this topic HIB VACCINE Aged Out No longer eligi ble based on patient's age to complete this topic HPV VACCINE Aged Out No longer eligi ble based on patient's age to complete this topic MENINGOCOCCAL VACCINE Aged Out No abraham tyrone eligible based on patient's age to complete this topic PNEUMOCOCCAL VACCINE Aged Out No long er eligible based on patient's age to complete this topic
--- OUTSIDE RECORDS SUMMARY | 2024-04-01 21:13 | XMS_ITS | Patient Health Summary ---
Author Organization [facility] Address [address] [place] [place] [address] Care Team Providers Care Election Assistant Name Role Phone Unavailable Primary Care Provider Unavailabl e Note from [facility],non-owned Affiliates and Associated Physician Practices is amultiple site organization consisting of ambulatory clinics and hospital sitesin [place], [place], [place] and [place]. This disclosure is being madepursuant to the Care Everywhere program and may not contain all information available regarding this patient. Last updated 17.[facility] Social History Tobacco Use Types Packs/Day Years Used Date Smoking Tobacco: Never Assessed Sex and Gender Information Value Date Recorded Sex Assigned at Not on file Gender Identity Not on file Sexual Orientation Not on file Procedures * DERMATOPATHOLOGY(Performed 02/03/2019) Results * DERMATOPATHOLOGY (02/03/2019 12:00 AM INSPECTOR METAL FABRICATING) Case Report Dermatopathology Report ? Case: [id number] ? Authorizing Provider: ??Ashok Gaffney MD ? Collected: ? 02/03/2019 12:00 AM ? Ordering Location: ? [facility] ?Received: ?02/05/2019 01:38 PM ? Pathologist: ? David Ann MD ? Specimen: ?Skin, right hand thumb ? 3:11 PM [facility] DERMATOPATHOLOGY LABORATORY Final Diagnosis Specimen A. 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 Check margins. 3:11 PM [facility] DERMATOPATHOLOGY LABORATORY Gross Description Specimen A: Received is one formalin filled container labeled with the patient's name and designated right hand thumb. The specimen consists of a shave biopsy measuring [id number], bisected. The margin is inked green. Jar 0. 3:11 PM [facility] DERMATOPATHOLOGY LABORATORY Microscopic Description Specimen A. SKIN, [...] the margin of the specimen. 3:11 PM [facility] DERMATOPATHOLOGY LABORATORY Disclaimer An external and internal positive and negative controls are appropriate for the histochemical, immunohistochemical and immunofluorescence stain(s) in this case (if any), except where stated explicitly. The performance characteristics of the stain(s) cited in this report were developed and its performance characteristic determined by the Dermatopathology Laboratory at [facility], directed by Dr. Jolly Ann. These tests need not be, and therefore are not, approved by the [place] Food and Drug Administration. The tests are used for clinical purposes. Billing Codes Specimen Charges Stain Charges 24106 1 9 3:11 PM INSPECTOR METAL FABRICATING DERMATOPATHOLOGY LABORATORY Embedded Images 9 3:11 PM INSPECTOR METAL FABRICATING DERMATOPATHOLOGY LABORATORY Pathology/Cytolog y TISSUE SPECIMEN FROM SKIN / Unknown 02/03/2019 02/05/2019 1:38 PM INSPECTOR METAL FABRICATING Ashok Gaffney MD LAB - PATHOLOGY/CYTO LOGY ORDERABLES DERMATOPATHOLOGY LABORATORY [facility] - Department of Dermatology [address] [place] [address], 5th Floor Lab [address] [phone]
--- OUTSIDE RECORDS SUMMARY | 2024-04-01 21:13 | XMS_ITS | Referral Summary ---
Author Organization [facility] [address] Address [address] [place] [address] Care Team Providers Care Meter Supervisor Name Role Phone Ashok Gaffney MD Primary Care Provider [phone] Encounters Date Type Department Care Team Description 02/12/2024 3:00 PM BANQUET COORDINATOR [facility] [address] [address] Caitlyn Muir NP Cardiac arrhythmia, unspecified cardiac arrhythmia type (Primary Dx) 01/01/2024 Telephone [facility] [address] [address] Caitlyn Muir NP from Last 3 Months Allergies No known active allergies Medications metoprolol XL (TOPROL-XL) 100 mg 24 hr tablet Take 0.5 tablets (50 mg total) by mouth 2 (two) times a day 30 tablet 11 04/17/2023 Active rosuvastatin (CRESTOR) 20 mg tablet Take 1 tablet (20 mg total) by mouth every evening Active aspirin 325 mg enteric coated tablet Take 1 tablet (325 mg total) by mouth daily Active tirzepatide (Mounjaro) 7.5 mg/0.5 mL pen injector Inject 7.5 mg under the skin every 7 days Sundays Active NIFEdipine CC 60 mg 24 hr tablet TAKE 1 TABLET BY MOUTH EVERY DAY 90 tablet 3 03/02/2024 Active Active Problems Problem Noted Date Diagnosed Date Discharge planning issues 07/17/2023 Assessment & Plan (07/17/2023 10:19 AM CDT): 07/16 clear from neurosurgery Q4 neuro checks, episode of Afib with RVR if rate controlled and BI consults completed can plan for dispo, likely to discharge home 07/18/2023. SDH (subdural hematoma) 07/16/2023 Assessment & Plan (07/18/2023 10:32 AM CDT): 3 mm anterior Parafalcine SDH after fall hitting head after horse bumped him - NSGY consultation - Keppra 500 mg BID - Q4hr - Ok for DVT ppx -PT/INR stable normal -hold DOAC until follow up with neurosurgery 1 month Neurosurgery team for 3mm parafalcine SDH, which was managed non-operatively, and followed with stable serial imaging. This patient was staffed with Dr. Dipo, who reviewed the patient's history and imaging. e seen in our clinic in 4-6 weeks with a non-contrast head CT. Please have the patient hold Xarelto until the patient's follow-up appointment. Appointment Scheduling: Doctor? s Office: [facility], After hours emergency: or BPH (benign prostatic hyperplasia) 07/16/2023 Assessment & Plan (07/16/2023 2:55 PM CDT): Home Flomax 0.4 mg daily Methamphetamine use (CMS/HCC) 03/20/2023 Assessment & Plan (03/20/2023 4:02 PM BANQUET COORDINATOR): Had a long discussion about the dangers of this and he was counseled to stop using. Will stop the flecainide as above. Anticoagulation management encounter 03/13/2023 Assessment & Plan (03/13/2023 1:39 PM BANQUET COORDINATOR): The patient is maintained on rivaroxaban. He states compliance with this. He denies any bleeding issues. Class 3 severe obesity witho ut serious comorbidity with body mass index (BMI) of 45.0 to 49.9 in adult 10/09/2017 Assessment & Plan (07/16/2023 10:04 AM CDT): On Mounjaro weekly -RD consult Body mass index 40.0-44.9, adult 07/31/2017 Morbid obesity 07/31/2017 Hyperlipidemia LDL goal <100 07/15/2017 Assessment & Plan (07/16/2023 10:06 AM CDT): Home Rosuvastatin 20 mg daily Morbid obesity with BMI of 40.0-44.9, adult 10/2017 halfway current use of antiarrhythmic drug 10/2017 Assessment & Plan (03/13/2023 1:40 PM BANQUET COORDINATOR): The patient is currently maintained on flecainide. With lifestyle modifications mentioned in the HPI, he states that his atrial fibrillation is fairly well controlled on this medication. However, he has multiple risk factors for CAD and given that this is a class 1 C antiarrhythmic, we will get a stress echocardiogram to rule out any underlying structural heart disease. Plan tentative follow-up in 3 months. Paroxysmal atrial fibrillation (CMS/HCC) 016 Overview (07/05/2016): PAF (paroxysmal atrial fibrillation) Assessment & Plan (07/17/2023 10:16 AM CDT): Home Xarelto - On hold 2/2 SDH, Resume per neurosurgery Home Metoprolol XL 100 mg daily 07/16 episode of Afib with RVR overnight requiring metoprolol 5 mg IV x 3 in the past 12-16 hours, Metoprolol PO increase from 25 mg bid to 50 mg bid. -continue telemetry Assessment & Plan (03/20/2023 4:02 PM BANQUET COORDINATOR): The patient is in rate controlled atrial fibrillation in the ER. Will stop his flecainide as above and continue his rivaroxaban and metoprolol. Assessment & Plan (03/13/2023 1:39 PM BANQUET COORDINATOR): EKG reveals sinus rhythm with first-degree AV block and IVCD. He is maintained on rivaroxaban for CVA prophylaxis and flecainide for rhythm control and metoprolol succinate for rate control. Encouraged lifestyle modifications including compliance with his CPAP and continued decreased alcohol intake. Given his age and risk factors for CAD including morbid obesity, hypertension we will get a stress echocardiogram to ensure that it is safe to continue his class IC antiarrhythmic. Will continue his current medical therapy pending the results of this and have him follow-up in 3 months or sooner if needed. Essential hypertension 03/20/2016 Overview (07/05/2016): Essential hypertension Assessment & Plan (07/16/2023 10:06 AM CDT): Home Nifedipine 60 mg daily Obstructive sleep apnea syndrome 03/20/2016 Overview (07/05/2016): MIRTA on CPAP Assessment & Plan (07/16/2023 12:24 PM CDT): Maintain O2 sat greater than 90% Supplemental oxygen as needed Home CPAP - pt states he does not wear his device and decline being supplied with a device to wear while hospitalized. Body mass index 40+ - severely obese 03/20/2016 Overview (07/05/2016): Morbid obesity with BMI of 40.0-44.9, adult Left ventricular hypertrophy 03/20/2016 Overview (07/05/2016): LVH (left ventricular hypertrophy) Social History Tobacco Use Types Packs/Day Years Used Date Smoking Tobacco: Never Smokeless Tobacco: Never Tobacco Cessation:Counseling Given: Not Answered Alcohol Use Standard Drinks/Week Comments Yes 2 (1 standard drink = 0.6 oz pur e alcohol) [facility] [employer] Answer Date Recorded In the past 12 months has e [employer], gas, oil, or water [employer] threatened to shut off services in your [...] often do you attend chur ch or gnosticism services? Never 07/16/2023 Do you belong to any clubs o r organizations such as buddhist groups, unions, fraternal or athletic groups, or [...] and heating? Not hard at all 07/16/2023 [facility] [place] of Occupat ional Health - Occupational Stress [...] place to sleep or slept in a mcc (including now)? No 07/16/2023 Personal Safety Answer Date Recorded Have you ever been in or are you currently in a harmful physical or emotional relationship or is someone making you feel afraid or unsafe? Denies 11/30/2023 Sex and Gender Information Value Date Recorded Sex Assigned at Not on file Legal Sex Male 1:22 AM BANQUET COORDINATOR Gender Identity Male 02/12/2020 11:14 AM BANQUET COORDINATOR Sexual Orientation Straight 02/12/2020 11 :14 AM BANQUET COORDINATOR Last Filed Vital Signs Vital Sign Reading Time Taken Comments Blood Pressure 136/86 02/12/2024 3:08 PM BANQUET COORDINATOR Pulse 95 02/12/2024 3:08 PM BANQUET COORDINATOR Temperature 36.4 ??C (97.5 ??F) 11/30/2023 12:37 PM C DT Respiratory Rate 33 11/30/2023 6:45 PM CDT Oxygen Saturation 97% 11/30/2023 6:45 PM CDT Inhaled Oxygen Concentration - - Weight 144.7 kg (319 lb) 02/12/2024 3:08 PM BANQUET COORDINATOR Height 177.8 cm (5' 10 ) 02/12/2024 3:08 PM BANQUET COORDINATOR Body Mass Index 45.77 02/12/2024 3:08 PM BANQUET COORDINATOR Plan of Treatment Not on file Procedures Procedure Name Priority Date/Time Associated Diagnosis Comments ECG 12-LEAD Routine 02/12/2024 3:20 PM BANQUET COORDINATOR Cardiac arrhythmia, unspecified cardiac arrhythmia type from Last 3 Months Results * ECG 12 lead (02/12/2024 3:20 PM BANQUET COORDINATOR) Caitlyn Muir NP ECG ORDERABLES Final Resu lt from Last 3 Months Insurance [employer] [facility] Advance Directives For more information, please contact: [phone] * Full Code (Latest Code Status on File) Date Activated Date Inactivated Comments 07/16/2023 7:51 AM 07/18/2023 3:17 PM Care Teams Meter Supervisor Relationship Specialty Start Date End Date Ashok Gaffney MD PCP - General 08/23/11
--- OUTSIDE RECORDS SUMMARY | 2024-04-01 21:13 | XMS_ITS | Clinical Summary ---
Author Organization [facility] [address] Address [address] [place] [address] Care Team Providers Care K 9 Handler/ Deputy Name Role Phone Ashok Gaffney MD Primary Care Provider [phone] Allergies No known active allergies Medications metoprolol [...] imaging. This patient was staffed with Dr. Diop, who reviewed the patient's history and imaging. [...] 03/20/2023 Assessment & Plan (03/20/2023 4:02 PM SUPPLY CHAIN CONSULTANT): Had a long discussion about the dangers of this and he was counseled to stop using. Will stop the flecainide as above. Anticoagulation management encounter 03/13/2023 Assessment & Plan (03/13/2023 1:39 PM SUPPLY CHAIN CONSULTANT): The patient is maintained on rivaroxaban. He states compliance with this. He denies any bleeding issues. Class 3 severe obesity witho ut serious comorbidity with body mass index (BMI) of 45.0 to 49.9 in adult 10/09/2017 Assessment & Plan (07/16/2023 10:04 AM CDT): On Mounjadi weekly -RD consult Body mass index 40.0-44.9, adult 07/31/2017 Morbid obesity 07/31/2017 Hyperlipidemia LDL goal <100 07/15/2017 Assessment & Plan (07/16/2023 10:06 AM CDT): Home Rosuvastatin 20 mg daily Morbid obesity with BMI of 40.0-44.9, adult 10/2017 care home current use of antiarrhythmic drug 10/2017 Assessment & Plan (03/13/2023 1:40 PM SUPPLY CHAIN CONSULTANT): The patient is currently maintained on flecainide. [...] AM CDT): Home Xarelto - On hold / SDH, Resume per neurosurgery Home Metoprolol XL 100 mg daily 07/16 episode of Afib with RVR overnight requiring metoprolol 5 mg IV x 3 in the past 12-16 hours, Metoprolol PO increase from 25 mg bid to 50 mg bid. -continue telemetry Assessment & Plan (03/20/2023 4:02 PM SUPPLY CHAIN CONSULTANT): The patient is in rate controlled atrial fibrillation in the ER. Will stop his flecainide as above and continue his rivaroxaban and metoprolol. Assessment & Plan (03/13/2023 1:39 PM SUPPLY CHAIN CONSULTANT): EKG reveals sinus rhythm with first-degree AV [...] 03/20/2016 Overview (07/05/2016): LVH (left ventricular hypertrophy) Encounters Date Type Department Care Team Description 02/12/2024 3:00 PM SUPPLY CHAIN CONSULTANT Office [facility] [address] [address] Caitlyn Muir NP Cardiac arrhythmia, unspecified cardiac arrhythmia type (Primary Dx) 01/01/2024 Telephone [facility] [address] [address] Caitlyn Muir NP from Last 3 Months Surgical History Surgery Date Site/Laterality Comments TONSILLECTOMY Tonsillectomy OTHER SURGICAL HISTORY Achilles tendon OR Medical History Medical History Date Comments Hx Other Medical 2012 Hypogonadism Hx Other Medical Obesity, Morbid Hx Other Medical Sleep Apnea, CP AP Social History Tobacco Use Types Packs/Day Years Used Date Smoking Tobacco: Never Smokeless Tobacco: Never Tobacco Cessation:Counseling Given: Not Answered Alcohol Use Standard Drinks/Week Comments Yes 2 (1 standard drink = 0.6 oz pur e alcohol) [facility] Utilities Answer Date Recorded In the past 12 months has [employer], gas, oil, or water [employer] threatened to shut off services in your [...] week 07/16/2023 How often do you attend up health system or uatsdin services? Never 07/16/2023 Do you belong to any clubs o r organizations such as quaker groups, unions, fraternal or athletic groups, or [...] and heating? Not hard at all 07/16/2023 [facility] [place] of Occupat ional Health - Occupational Stress [...] place to sleep or slept in a jail (including now)? No 07/16/2023 Personal Safety Answer Date Recorded Have you ever been in or are you currently in a harmful physical or emotional relationship or is someone making you feel afraid or unsafe? Denies 11/30/2023 Sex and Gender Information Value Date Recorded Sex Assigned at Not on file Legal Sex Male 1:22 AM SUPPLY CHAIN CONSULTANT Gender Identity Male 02/12/2020 11:14 AM SUPPLY CHAIN CONSULTANT Sexual Orientation Straight 02/12/2020 11 :14 AM SUPPLY CHAIN CONSULTANT Obstetrics History Last Filed Vital Signs Vital Sign Reading Time Taken Comments Blood Pressure 136/86 02/12/2024 3:08 PM SUPPLY CHAIN CONSULTANT Pulse 95 02/12/2024 3:08 PM SUPPLY CHAIN CONSULTANT Temperature 36.4 ??C (97.5 ??F) 11/30/2023 12:37 PM C DT Respiratory Rate 33 11/30/2023 6:45 PM CDT Oxygen Saturation 97% 11/30/2023 6:45 PM CDT Inhaled Oxygen Concentration - - Weight 144.7 kg (319 lb) 02/12/2024 3:08 PM SUPPLY CHAIN CONSULTANT Height 177.8 cm (5' 10 ) 02/12/2024 3:08 PM SUPPLY CHAIN CONSULTANT Body Mass Index 45.77 02/12/2024 3:08 PM SUPPLY CHAIN CONSULTANT Plan of Treatment Health Maintenance Due Date Last Done Comments Colon Cancer Screening-Colonoscopy 1962 Depression Screening 1962 Hepatitis C Screening 1962 Prostate Cancer Screening-PSA 1962 DTaP/Tdap/Td Vaccine (1 - Tdap) 1973 Hepatitis B Screening 1980 Regular Well Visit/Exam 18-64 1980 Zoster Vaccine (1 of 2) 2012 Covid-19 Vaccine (3 - 2023-2 5 season) 2023 07/21/2020, 06/30/2020 Influenza Vaccine (#1) 2023 Pneumococcal vaccine <65 Aged Out No longer eligible based on patient's age to complete this topic Procedures Procedure Name Priority Date/Time Associated Diagnosis Comments ECG 12-LEAD Routine 02/12/2024 3:20 PM SUPPLY CHAIN CONSULTANT Cardiac arrhythmia, unspecified cardiac arrhythmia type from Last 3 Months Results * ECG 12 lead (02/12/2024 3:20 PM SUPPLY CHAIN CONSULTANT) Caitlyn Muir NP ECG ORDERABLES Final Resu lt from Last 3 Months Insurance [employer] OPEN ACCESS [facility] Advance Directives For more information, please contact: [phone] * Full Code (Latest Code Status on File) Date Activated Date Inactivated Comments 07/16/2023 7:51 AM 07/18/2023 3:17 PM Care Teams K 9 Handler/ Deputy Relationship Specialty Start Date End Date Ashok Gaffney MD PCP - General 08/23/11
--- OUTSIDE RECORDS SUMMARY | 2024-04-01 21:13 | XMS_ITS | Encounter Summary ---
Author Organization [facility] Address [address] [place] [address] Care Team Providers Care Boarder Hand Name Role Phone Ashok Gaffney MD Primary Care Provider [phone] Encounter Details Date Type Department Care Team (Late st Contact Info) Description 01/01/2024 Telephone [facility] [address] [facility] [address], [place] [address] Caitlyn Muir, EPIDEMIOLOGY INTERN [address] [facility] [address], [place] [address] Social History Tobacco Use Types Packs/Day Years Used Date Smoking Tobacco: Never Smokeless Tobacco: Never Alcohol Use Standard Drinks/Week Comments Yes 2 (1 standard drink = 0.6 oz pur e alcohol) [facility] Utilities Answer Date Recorded In the past 12 months has [facility] [employer], gas, oil, or water [employer] threatened to shut off services in your [...] How often do you attend chur or zoroastrian services? Never 07/16/2023 Do you belong to any clubs o r organizations such as hoahaoism groups, unions, fraternal or athletic groups, or [...] and heating? Not hard at all 07/16/2023 [facility] - Occupational Stress [...] place to sleep or slept in a prison (including now)? No 07/16/2023 Personal Safety Answer Date Recorded Have you ever been in or are you currently in a harmful physical or emotional relationship or is someone making you feel afraid or unsafe? 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 Test needs to be scheduled and hopefully before next office visit which is 02/11/24 documented in this encounter Plan of Treatment Not on file documented as of this encounter Visit Diagnoses Not on filedocumented in this encounter Care Teams Boarder Hand Relationship Specialty Start Date End Date Ashok Gaffney MD PCP - General 08/23/11 documented as of this encounter
--- OUTSIDE RECORDS SUMMARY | 2024-04-01 21:13 | XMS_ITS | Referral Summary ---
Author Organization [facility] Address [address] [place] [address] Care Team Providers Care State Wildlife Officer Name Role Phone Unavailable Primary Care Provider Unavailabl e Source Comments [facility],non-owned Affiliates and Associated Physician Practices is amultiple site organization consisting of ambulatory clinics and hospital sitesin [place], [place], [place] and [place]. This disclosure is being madepursuant to the Care Everywhere program and may not contain all information available regarding this patient. Last updated 17.[facility] [place] Social History Tobacco Use Types Packs/Day Years Used Date Smoking Tobacco: Never Assessed Sex and Gender Information Value Date Recorded Sex Assigned at Not on file Gender Identity Not on file Sexual Orientation Not on file Plan of Treatment Not on file
--- OUTSIDE RECORDS SUMMARY | 2024-04-01 21:13 | XMS_ITS | Encounter Summary ---
Author Organization [facility] Address [address] [place] [address]. [place], [place] [id number] [place] [id number] Care Team Providers Care Vegetable Grader Name Role Phone Anjelica Moscoso CRNA Primary Care Provider Unav ailable Encounter Details Date Type Department Care Team (Latest Contact Info) Description 11/12/2019 Travel Social History Tobacco Use Types Packs/Day [...] PM CDT documented as of this encounter Plan of Treatment Not on file documented as of this encounter Visit Diagnoses Not on filedocumented in this encounter Care Teams Vegetable Grader Relationship Specialty Start Date End Date Anjelica Moscoso CRNA PCP - General ANESTHESIOLOGY 11/12/19 documented as of this encounter
--- OUTSIDE RECORDS SUMMARY | 2024-04-01 21:13 | XMS_ITS | Encounter Summary ---
Author Organization [facility] Healthcare Address [address] [place] [address] Care Team Providers Care Reconditioning Associate Name Role Phone Ashok Gaffney MD Primary Care Provider [phone] Encounter Details Date Type Department Care Team (Late st Contact Info) Description 10/08/2023 Documentation [facility] [address] [facility] [address], [place] [address] Caitlyn Muir, DUTY OFFICER [address] [facility] [address] [address] Social History Tobacco Use Types Packs/Day Years Used Date Smoking Tobacco: Never Smokeless Tobacco: Never Alcohol Use Standard Drinks/Week Comments Yes 2 (1 standard drink = 0.6 oz pur e alcohol) [facility] Utilities Answer Date Recorded In the past 12 months has [facility] [employer], gas, oil, or water [employer] threatened to shut off services in your [...] How often do you attend chur or mandaen services? Never 07/16/2023 Do you belong to any clubs o r organizations such as religion groups, unions, fraternal or athletic groups, or [...] and heating? Not hard at all 07/16/2023 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 He recently sustained a subdural hematoma following a fall. At that time he was on Xarelto. This was discontinued and has not been restarted. Have reviewed the chart. Neurosurgery has been trying to contact the patient regarding a follow-up CT scan. He has not had this scheduled yet. Will discuss with the patient. We will also discuss withNeurosurgery the safety of restarting anticoagulation post follow-up CT documented in this encounter Plan of Treatment Not on file documented as of this encounter Visit Diagnoses Not on filedocumented in this encounter Care Teams Reconditioning Associate Relationship Specialty Start Date End Date Ashok Gaffney MD PCP - General 08/23/11 documented as of this encounter
--- OUTSIDE RECORDS SUMMARY | 2024-04-01 21:14 | XMS_ITS | Encounter Summary ---
Author Organization [facility] Healthcare Address [address] [place] [address] Care Team Providers Care Arabic Linguist Name Role Phone Ashok Gaffney MD Primary Care Provider Reason for Visit * Reason Comments Trauma Encounter Details Date Type Department Care Team (Late st Contact Info) Description 07/15/2023 4:23 PM CDT - 07/15/2023 8:34 PM CDT Emergency [facility] [address] [place] [address] Gilberto Day MD [address] [place] [id number] Subdural hematoma (HCC) (Primary Dx) Discharge Disposition: Discharge to a short term hospital for IP Social History Tobacco Use Types Packs/Day Years Used Date Smoking Tobacco: Never Smokeless Tobacco: Never Alcohol Use Standard Drinks/Week Comments Yes 2 (1 standard drink = 0.6 oz pur e alcohol) [facility] Utilities Answer Date Recorded In the past 12 months has [facility] [employer], gas, oil, or water [employer] threatened to shut off services in your [...] often do you attend chur ch or anglican services? Never 07/16/2023 Do you belong to any clubs o r organizations such as judaism groups, unions, [email or web address] or athletic groups, or school groups? Yes [...] and heating? Not hard at all 07/16/2023 [facility] Occupat ional Health - Occupational Stress [...] place to sleep or slept in a fpc (including now)? No 07/16/2023 Personal Safety Answer Date Recorded Have you ever been in or are you currently in a harmful physical or emotional relationship or is someone making you feel afraid or unsafe? Denies 07/15/2023 Sex and Gender Information Value Date Recorded Sex Assigned at Not on file Legal Sex Male 1:22 AM JD EDWARDS Gender Identity Male 02/12/2020 11:14 AM JD EDWARDS Sexual Orientation Straight 02/12/2020 11 :14 AM JD EDWARDS documented as of this encounter Last Filed Vital Signs Vital Sign Reading Time Taken Comments Blood Pressure 134/98 07/15/2023 8:15 PM CDT Pulse 96 07/15/2023 8:15 PM CDT Temperature 36.9 ??C (98.4 ??F) 07/15/2023 7:30 PM CD T Respiratory Rate 17 07/15/2023 8:15 PM CDT Oxygen Saturation 92% 07/15/2023 8:15 PM CDT Inhaled Oxygen Concentration - - Weight 167 kg (368 lb 2.7 oz) 07/15/2023 4:25 PM CDT Height 177.8 cm (5' 10 ) 07/15/2023 4:25 PM CDT Body Mass Index 52.83 07/15/2023 4:25 PM CDT documented in this encounter Medications at Time of Discharge metoprolol XL (TOPROL-XL) 100 mg 24 hr tablet Take 0.5 tablets (50 mg total) by mouth 2 (two) times a day 30 tablet 11 04/17/2023 04/16/2024 rosuvastatin (CRESTOR) 20 mg tablet Take 1 tablet (20 mg total) by mouth every evening acetaminophen 500 mg capsule Take 2 capsules (1,000 mg total) by mouth every 6 (six) hours 30 tablet 07/18/2023 10/07/2023 levETIRAcetam (KEPPRA) 500 mg tabletIndication s:seizure prevention s/p SDH Take 1 tablet (500 mg total) by mouth 2 (two) times a day for 8 doses 8 tablet 07/18/2023 10/07/2023 methocarbamoL (ROBAXIN) 500 mg tablet Take 1 tablet (500 mg total) by mouth 4 (four) times a day 10 tablet 07/18/2023 11/30/2023 NIFEdipine (NIFEdipine CC) 60 mg 24 hr tablet Take 1 tablet (60 mg total) by mouth nightly 03/02/2024 rivaroxaban (XARELTO) 20 mg tablet Take 1 tablet (20 mg total) by mouth daily with dinner 07/18/2023 senna-docusate (PERICOLACE) 8.6-50 mgIndications:co nstipation Take 1 tablet by mouth 2 (two) times a day 20 tablet 07/18/2023 10/07/2023 tamsulosin (FLOMAX) 0.4 mg extended release capsule Take 1 capsule (0.4 mg total) by mouth every evening 11/30/2023 tirzepatide (Mounjaro) 5 mg/0.5 mL pen injector Inject 5 mg under the skin every 7 days (Patient injects on Sundays) 10/07/2023 documented as of this encounter Discharge Disposition Disposition Code Departure Means Destination Comment s Discharge to a short term hospital for [facility] documented in this encounter ED Notes * Gilberto Day MD - 07/15/2023 4:23 PM CDT HPI Chief Complaint Patient presents with Trauma Patient is 62-year-old male presenting with head injury. Was pinned between hoarse and rail earliertoday. Horse moved suddenly and he spun backwards striking the back of his head on the ground. No loss of consciousness. Is on Xarelto. Reports pain and swelling to his posterior occiput. 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 HENT: Negative for congestion, rhinorrhea, sinus pressure, sinus pain and sore throat. Eyes: Negative for pain and visual disturbance. Respiratory: Negative for cough, chest tightness, shortness of breath and wheezing. Cardiovascular: Negative for chest pain. Gastrointestinal: Negative for abdominal pain, diarrhea, nausea and vomiting. Genitourinary: Negative for difficulty urinating, dysuria, flank pain and hematuria. Musculoskeletal: Negative for myalgias. Skin: Negative for rash. Neurological: Negative for seizures, facial asymmetry and headaches. Psychiatric/Behavioral: Negative for agitation, self-injury and suicidal ideas. Physical Exam ED Triage Vitals [07/15/23 1625] Temp Pulse Resp BP SpO2 37.1 ??C (98.7 ??F) 77 20 110/69 94 % Temp src Heart Rate Source Patient Position BP Location FiO2 (%) Oral -- -- -- -- Height Height Method Weight Weight Method 1.778 m (5' 10 ) Stated (!) 167 kg (368 lb 2.7 oz) EMS stretcher scale Physical Exam Vitals and nursing note reviewed. Constitutional: General: He is not in acute distress. Appearance: He is well-developed. HENT: Head: Normocephalic and atraumatic. Ears: Comments: Large hematoma to the posterior occipital Eyes: Conjunctiva/sclera: Conjunctivae normal. Cardiovascular: Rate and Rhythm: Normal rate and [...] refill takes less than 2 seconds. Neurological: Mental Status: He is alert. Psychiatric: Mood and Affect: Mood normal. MDM Heart Score Medical Decision Making Patient is 62-year-old male, chronically anticoagulated on Xarelto for paroxysmal AFib presenting to the emergency department with head injury. Fell backward striking his head while working with a horse earlier this afternoon. No loss of consciousness. Notable posterior scalp hematoma. Cervical spinal collar was placed on arrival. CT head demonstrates prominent posterior scalp hematoma as well assmall subdural hemorrhage. No cervical spinal injury approach shaded. Anticoagulation reversal medications as well as labs ordered. Patient given medication for pain control. Plan will be to discuss with the transfer service at [facility] for transfer for trauma/neurosurgical evaluation. Will be signing out to the oncoming physician, please see their documentation for further detail. Amount and/or Complexity of Data Reviewed Labs: ordered. Radiology: ordered. Risk Prescription drug management. Final diagnoses: Subdural hematoma (HCC) Gilberto Day MD 07/16/23 1156 * Bárbara Ponce, RN - 07/15/2023 4:17 PM CDT Pt brought in by ems for head trauma. 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 Unsure of LOC. A&ox4 Pt has large hematoma to back of head, dried blood to mouth. Pt on xarelto. C- collar placed in triage documented in this encounter Plan of Treatment Not on file documented as of this encounter Procedures Procedure Name Priority Date/Time Associated Diagnosis Comments INFLUENZA A/B, RSV, AND COVID-19 PCR Routine 07/15/2023 6:59 PM CDT EGFR STAT 07/15/2023 6:59 PM CDT DIFFERENTIAL AUTO STAT 07/15/2023 6:5 9 PM CDT CBC WITH AUTO DIFFERENTIAL STAT 07/15/2023 6:59 PM CDT PROTIME-INR STAT 07/15/2023 6:59 PM CDT COMPREHENSIVE METABOLIC PANEL STAT 07/15/2023 6:[address] CERVICAL SPINE WO CONTRAST ED 07/15/2023 6:[address] HEAD WO CONTRAST ED 07/15/2023 6 :30 PM CDT documented in this encounter Results * eGFR (07/15/2023 6:59 PM CDT) eGFR 86 >=60 mL/min/1. 73 m2 Comment: Interpretive Data [...] of Race in Diagnosing Kidney Disease, JASN 2020). The CKD-EPI equation should not be used for patients with unstable renal function and has not been validated in children and those over 70. Current interpretive data was last reviewed 2021. Testing performed by: [facility], [address] [place] [address]., [address] Blood 07/15/2023 6:59 PM CDT 07/15/2023 7:03 PM CDT us Gilberto Day MD LAB BLOOD ORDERABLES Final Re sult [facility] [address] [facility] Department [place] [address] * Differential, auto (07/15/2023 6:59 PM CDT) [facility] Neutrophil abs 5.2 1.5 - 6.5 K/cumm Comment:Testing performed by : [address] [address] Imm gran abs 0.0 0.0 - 0.1 K/cumm CHEN Comment:Testing performed by : [facility], [address] [place] [address]., [address] Lymphocyte abs 1.5 0.8 - 3.3 K/cumm CHEN Comment:Testing performed by : [address] [address] Monocyte abs 0.5 0.2 - 0.8 K/cumm CHEN Comment:Testing performed by : [address] [address] Eosinophil abs 0.1 0.0 - 0.5 K/cumm CHEN Comment:Testing performed by : [address] [address] Basophil abs 0.0 0.0 - 0.1 K/cumm [facility] Comment:Testing performed by : [address] [address] Neutrophil pct 70.6 % CHEN Comment: Interpretive Data Percent cell count reference ranges are not reported, since discordance with absolute values may lead to misinterpretation of CBC data. Current Interpretive Data was last revised on 2017. Testing performed by: [address] [address] Imm gran pct 0.4 % [facility] Comment: Interpretive Data Percent cell count reference ranges are not reported, since discordance with absolute values may lead to misinterpretation of CBC data. Current Interpretive Data was last revised on 2017. Testing performed by: [address] [address] Lymphocyte pct 19.8 % [facility] Comment: Interpretive Data Percent cell count reference ranges are not reported, since discordance with absolute values may lead to misinterpretation of CBC data. Current Interpretive Data was last revised on 2017. Testing performed by: [address] [address] Monocyte pct 7.3 % [facility] Comment: Interpretive Data Percent cell count reference ranges are not reported, since discordance with absolute values may lead to misinterpretation of CBC data. Current Interpretive Data was last revised on 2017. Testing performed by: [address] [place]., [address] Eosinophil pct 1.8 % CHEN Comment: Interpretive Data Percent cell count reference ranges are not reported, since discordance with absolute values may lead to misinterpretation of CBC data. Current Interpretive Data was last revised on 2017. Testing performed by: [address] [address] Basophil pct 0.1 % CHEN Comment: Interpretive Data Percent cell count reference ranges are not reported, since discordance with absolute values may lead to misinterpretation of CBC data. Current Interpretive Data was last revised on 2017. Testing performed by: [address] [address] Blood 07/15/2023 6:59 PM CDT 07/15/2023 7:03 PM CDT Gilberto Day MD LAB BLOOD ORDERABLES Final Re sult [facility] [address] [facility] Department [place] [address] * (ABNORMAL) Protime-INR (07/15/2023 6:59 PM CDT) PT 22.4(H) 12.0 - 14.6 sec Comment: Ref Range High Testing performed by: [address] [address] INR 2.0(H) 0.9 - 1.2 CHEN Comment: Ref Range High Interpretive data Oral anticoagulant therapeutic ranges: Venous thromboembolism prophylaxis or treatment: 2.0-3.0 CARDIOLOGY Standard range: 2.0-3.0 High-intensity range: 2.5-3.5 Refer to indication-specific guidelines for appropriate target ranges for prosthetic heart valve replacement. Current interpretive data was last revised on 2019. Testing performed by: [address] [address] Blood 07/15/2023 6:59 PM CDT 07/15/2023 7:03 PM CDT Gilberto Day MD LAB BLOOD ORDERABLES Final Re sult Performing Organization Address [facility]/ZIP Co de Phone Number CHEN [facility] [facility] [place] [address] * Influenza A/B, RSV, and COVID-19 PCR Nasopharyngeal (07/15/2023 6:59 PM CDT) COVID-19 RNA Negative Negative Comment:Testing performed by : [address] [address] Influenza A RNA Negative Negative [facility] Comment:Testing performed by : [address] [address] Influenza B RNA Negative Negative [facility] Comment:Testing performed by : [address] [address] RSV RNA Negative Negative [facility] Comment: Interpretive data: Testing performed by [facility]. This test is performed using the [employer] Xpert Xpress CoV-2/Flu/RSV plus assay. This is a multiplex, real-time reverse transcriptase PCR assay intended for the qualitative detection of nucleic acid from SARS-CoV-2, influenza A, influenza B, and respiratory syncytial virus. This assay has been cleared by the [place] Food and Drug administration. The performance characteristics have been verified by the [facility]. ??Results must be considered in the clinical context, and a negative result does not rule out infection. Interpretive Data last revised 2023 Testing performed by: [address] [address] Nasopharyngeal 07/15/2023 6: 59 PM CDT 07/15/2023 7:03 PM CDT Narrative CHEN - 07/15/2023 7:45 PM CDT Is the Patient experiencing symptoms consistent with COVID?->Unknown Gilberto Day MD LAB MICROBIOLOGY - GENERAL OR DERABLES Final Result Performing Organization Address City/[facility]/ZIP Co de Phone Number CHEN [address] [facility] Department [place] [employer] [place] [address] * Comprehensive metabolic panel (07/15/2023 6:59 PM CDT) Sodium 141 135 - 145 mmol/L Comment:Testing performed by : [address] [address] Potassium, pl 4.2 3.3 - 4.9 mmol/L CHEN Comment:Testing performed by : [address], [place]., [address] Chloride 104 97 - 110 mmol/L CHEN Comment:Testing performed by : [address], [place]., [address] CO2 25 22 - 32 mmol/L CHEN Comment:Testing performed by : [address], [place]., [address] Anion gap 12 2 - 15 mmol/L CHEN Comment:Testing performed by : [address], [place]., [address] BUN 20 6 - 25 mg/dL CHEN Comment:Testing performed by : [address] [address] Creatinine 1.00 0.80 - 1.30 mg/dL [facility] Comment:Testing performed by : [address] [address] Glucose 133 70 - 199 mg/dL [facility] Comment: Interpretive Data Fasting glucose >/= 126 [...] classification and Diagnosis of Diabetes Diabetes Care 202; 46: S19-S40. Current interpretive data was last revised 2022. Testing performed by: [address], [place]., [address] Calcium 9.4 8.5 - 10.3 mg/dL CHEN Comment:Testing performed by : [address], [place]., [address] Bilirubin, total 0.4 0.1 - 1.2 mg/dL CHEN GARCIA Comment:Testing performed by : [address] [address] Protein, pl 7.1 6.5 - 8.5 g/dL CHEN GARCIA Comment:Testing performed by : [address] [address] Albumin 3.9 3.5 - 5.0 g/dL CHEN GARCIA Comment:Testing performed by : [address] [address] Alk phos 85 40 - 130 Units/L CHEN Comment:Testing performed by : [address] [address] ALT 17 7 - 55 Units/L CHEN Comment:Testing performed by : [address] [address] AST 20 10 - 50 Units/L CHEN Comment:Testing performed by : [address] [address] Blood 07/15/2023 6:59 PM CDT 07/15/2023 7:03 PM CDT us Gilberto Day MD LAB BLOOD ORDERABLES Final Re sult CHEN [address] [facility] Department of Laboratories [place], [place] [id number] * (ABNORMAL) CBC with auto differential (07/15/2023 6:59 PM CDT) [facility] WBC 7.4 3.8 - 9.9 K/cumm Comment:Testing performed by : [address] [address] Hgb 13.2 13.0 - 17.5 g/dL CHEN GARCIA Comment:Testing performed by : [address] [address] Hct 38.4(L) 38.9 - 50.3 % CHEN GARCIA Comment:Testing performed by : [address] [address] Plt 249 150 - 400 K/cumm CHEN GARCIA Comment:Testing performed by : [address] [address] MPV 10.8 9.1 - 12.3 fL CHEN GARCIA Comment:Testing performed by : [address] [address] RBC 4.48 4.30 - 5.80 M/cumm CHEN GARCIA Comment:Testing performed by : [address] [address] MCV 85.7 81.3 - 96.4 fL CHEN Comment:Testing performed by : [address] [address] MCH 29.5 27.1 - 33.3 pg CHEN GARCIA Comment:Testing performed by : [address] [address] MCHC 34.4 32.3 - 35.7 g/dL CHEN Comment:Testing performed by : [address] [address] RDW CV 13.8 11.1 - 14.9 % CHEN Comment:Testing performed by : [address] [address] RDW SD 42.6 35.7 - 48.1 fL CHEN Comment:Testing performed by : [address] [address] NRBC abs 0.00 0.00 - 0.01 K/cumm CHEN GARCIA Comment:Testing performed by : [address] [address] Blood 07/15/2023 6:59 PM CDT 07/15/2023 7:03 PM CDT us Gilberto Day MD LAB BLOOD ORDERABLES Final Re sult CHEN [address] [facility] Department of Laboratories [place], [place] [id number] * CT Cervical Spine WO Contrast (07/15/2023 6:30 PM CDT) Anatomical Region Laterality Modality Spine N/A Computed Tomogra phy 07/15/2023 6:51 PM CDT Narrative 07/15/2023 6:53 PM CDT EXAM DESCRIPTION: ?? CT CERVICAL SPINE WO CONTRAST REASON FOR STUDY: ?? Fall, left-sided neck pain, chronic anticoagulation ?? Pt brought in by ems for head trauma. 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 Unsure of LOC. A ?? TECHNIQUE: Axial images through the cervical spine with sagittal and coronal reformatted images. Automated exposure control was used as a dose optimization technique for this examination. COMPARISON: ?? None FINDINGS: ALIGNMENT: ?? Normal. ?? Straightening of the cervical spine with loss of the normal lordotic curve. VERTEBRAE: ?? No fracture. Vertebral body heights well-maintained. DISCS: ?? Mild disc space narrowing at C4-5 and there is moderate narrowing at C5-6 and C6-7. ??Small marginal osteophytes C4 through C7. ??Degenerative change involving the articular facets. HARDWARE: ?? None in the spine. INDIVIDUAL DISC LEVELS: ?? No significant osseous spinal canal or neural foraminal stenosis. UPPER THORACIC: ?? Incompletely imaged. No significant osseous spinal stenosis or osseous neural foraminal stenosis. SKULL BASE: ?? No significant finding. LUNG APICES: ?? No significant abnormality. NECK SOFT TISSUES: ?? No significant abnormality. OTHER: ?? No other significant findings. IMPRESSION: Multilevel degenerative change in the cervical spine. No CT evidence of cervical spine fracture. THIS IS AN ELECTRONICALLY VERIFIED FINAL REPORT 07/15/2023 6:53 PM - Electronically signed by ??Domenico Huggins M.D. KT: JESÚS D: ??07/15/2023 6:53 PM T: ??07/15/2023 6:53 PM Report ID: [id number] Reading Location: ??[id number] Procedure Note Domenico Huggins MD - 07/15/2023 EXAM DESCRIPTION: CT CERVICAL SPINE WO CONTRAST REASON FOR STUDY: Fall, left-sided neck pain, chronic anticoagulation Pt brought in by ems for head trauma. 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 Unsure of LOC. A TECHNIQUE: Axial images through the cervical spine with sagittal andcoronal reformatted images. Automated exposure control was used as a doseoptimization technique for this examination. COMPARISON: None FINDINGS: ALIGNMENT: Normal. Straightening of the cervical spine with loss ofthe normal lordotic curve. VERTEBRAE: No fracture. Vertebral body heights well-maintained. DISCS: Mild disc space narrowing at C4-5 and there is moderate narrowingat C5-6 and C6-7. Small marginal osteophytes C4 through C7. Degenerativechange involving the articular facets. HARDWARE: None in the spine. INDIVIDUAL DISC LEVELS: No significant osseous spinal canal or neural foraminal stenosis. UPPER THORACIC: Incompletely imaged. No significant osseous spinalstenosis or osseous neural foraminal stenosis. SKULL BASE: No significant finding. LUNG APICES: No significant abnormality. NECK SOFT TISSUES: No significant abnormality. OTHER: No other significant findings. IMPRESSION: Multilevel degenerative change in the cervical spine. No CT evidence of cervical spine fracture. THIS IS AN ELECTRONICALLY VERIFIED FINAL REPORT 07/15/2023 6:53 PM - Electronically signed by Domenico Huggins M.D. KT: JESÚS Report ID: [id number] Reading Location: [place] [address] Gilberto Day MD IMG CT PROCEDURES Final Resul t * CT Head WO Contrast (07/15/2023 6:30 PM CDT) Anatomical Region Laterality Modality Head and Neck N/A Computed Tomogra phy 07/15/2023 6:36 PM CDT Narrative 07/15/2023 6:51 PM CDT EXAM DESCRIPTION: CT HEAD WO CONTRAST REASON FOR STUDY: Fall, head trauma, chronically anticoagulated ?? Pt brought in by ems for head trauma. 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 Unsure of LOC. A ?? TECHNIQUE: Axial images acquired through the brain without intravenous contrast. ??Images stored on PACS. ?? Automated exposure control was used as a dose optimization technique for this examination. COMPARISON: None FINDINGS: BRAIN: ?? No intra-axial hemorrhage, edema or mass effect. No recent infarct. ?Mild periventricular microvascular white matter ischemic change. ? EXTRA-AXIAL SPACES: ?? There is a 3 mm subdural hematoma along the anterior left side of the falx. CALVARIUM: ?? No fracture. ?? Large superior scalp occipital hematoma measuring 5.9 cm x 3 cm by 8.2 cm. SINUSES/MASTOIDS: ?? Mild mucosal thickening in the ethmoid sinuses. ORBITS: ?? No significant abnormality. OTHER: ?? No other significant abnormality. IMPRESSION: 3 mm subdural hematoma along the anterior left side of the falx. ??The findings were called to Dr. Day at 6:50 p.m. on 07/15/2023. Large superior scalp hematoma measuring 5.9 cm x 3 cm x 8.2 cm. THIS IS AN ELECTRONICALLY VERIFIED FINAL REPORT 07/15/2023 6:51 PM - Electronically signed by ??Domenico Huggins M.D. KT: JESÚS D: ??07/15/2023 6:51 PM T: ??07/15/2023 6:51 PM Report ID: [id number] Reading Location: ??[id number] Procedure Note Domenico Huggins MD - 07/15/2023 EXAM DESCRIPTION: CT HEAD WO CONTRAST REASON FOR STUDY: Fall, head trauma, chronically anticoagulated Pt brought in by ems for head trauma. 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 Unsure of LOC. A TECHNIQUE: Axial images acquired through the brain without intravenous contrast. Images stored on PACS. Automated exposure control was used asa dose optimization technique for this examination. COMPARISON: None FINDINGS: BRAIN: No intra-axial hemorrhage, edema or mass effect. Norecent infarct. Mild periventricular microvascular white matter ischemicchange. EXTRA-AXIAL SPACES: There is a 3 mm subdural hematoma along the anterior left side of the falx. CALVARIUM: No fracture. Large superior scalp occipital hematomameasuring 5.9 cm x 3 cm by 8.2 cm. SINUSES/MASTOIDS: Mild mucosal thickening in the ethmoid sinuses. ORBITS: No significant abnormality. OTHER: No other significant abnormality. IMPRESSION: 3 mm subdural hematoma along the anterior left side of the falx. The findings were called to Dr. Day at 6:50 p.m. on 07/15/2023. Large superior scalp hematoma measuring 5.9 cm x 3 cm x 8.2 cm. THIS IS AN ELECTRONICALLY VERIFIED FINAL REPORT 07/15/2023 6:51 PM - Electronically signed by Domenico Huggins M.D. KT: KT Report ID: [id number] Reading Location: [place] [address] [place] Gilberto Day MD IMG CT PROCEDURES Final Resul t documented in this encounter Visit Diagnoses Diagnosis Subdural hematoma (HCC)- Primary Subdural hemorrhage documented in this encounter Administered Medications Inactive Administered Medications - up to 3 most recent administrations Medication Order MAR Action Action Date Dose Rate Site fentaNYL (SUBLIMAZE) preservative free injection 50 mcg 50 mcg, intravenous, As needed, 1st line for pain, Starting on Sat07/15/23 at 1904, For 3 doses Given 07/15/2023 7:15 PM CDT 50 mcg prothrombin complex four factor (KCENTRA) injection 4,920 Units 4,920 Units, intravenous, Once, On Sat07/15/23 at 1915, For 1 dose, Administration rate = 3 units/kg/min. Maximum rate is 500 mL/hr. If 3 units/kg/min exceeds 500 mL/hr, use a rate of 500 mL/hr., Indications: Anticoagulant-Induced Prothrombin DeficiencyIndications:Antico agulant-Induced Prothrombin Deficiency New Bag 07/15/2023 7:19 PM CDT 4,920 Units 916 mL/hr documented in this encounter Discontinued Medications Medication Sig Discontinue Reason Start Date End Da te tirzepatide (Mounjaro) 2.5 mg/0.5 mL pen injector Inject 0.5 mL (2.5 mg total) under the skin every 7 days Sundays Alternate therapy 07/15/2023 documented as of this encounter Historical Medications * This list may reflect changes made after this encounter. rosuvastatin (CRESTOR) 20 mg tablet Take 1 tablet (20 mg total) by mouth every evening tirzepatide (Mounjaro) 5 mg/0.5 mL pen injector Inject 5 mg under the skin every 7 days (Patient injects on Sundays) 10/07/2023 tamsulosin (FLOMAX) 0.4 mg extended release capsule Take 1 capsule (0.4 mg total) by mouth every evening 11/30/2023 added in this encounter Active and Recently Administered Medications Times are shown in CDT. Scheduled Medication Order 07/13/2023 07/14/2023 07/15/2023 prothrombin complex four factor (KCENTRA) injection 4,920 Units (COMPLETED) 4,920 Units, intravenous, Once, On Sat07/15/23 at 1915, For 1 dose, Administration rate = 3 units/kg/min. Maximum rate is 500 mL/hr. If 3 units/kg/min exceeds 500 mL/hr, use a rate of 500 mL/hr., Indications: Anticoagulant-Induced Prothrombin Deficiency 1918 (New Bag - Prov ider: Adebayo Alegre RN - Comment: verified with Wm, pharmacist, on rate calculation.)1938 (Stopped - Provider: Adebayo Alegre RN) PRN Medication Order 07/13/2023 07/14/2023 07/15/2023 fentaNYL (SUBLIMAZE) preservative free injection 50 mcg 50 mcg, intravenous, As needed, 1st line for pain, Starting on Sat07/15/23 at 1904, For 3 doses 1914 (Given - Provid er: Adebayo Alegre RN) documented in this encounter Additional Health Concerns Infection Onset Date Last Indicated Resolved Time COVID: Suspected 07/15/2023 07/15/2023 07/15/2023 7:46 PM CDT documented as of this encounter Care Teams Arabic Linguist Relationship Specialty Start Date End Date Ashok Gaffney MD PCP - General 08/23/11 documented as of this encounter
--- OUTSIDE RECORDS SUMMARY | 2024-04-01 21:14 | XMS_ITS | Encounter Summary ---
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 Dictated by: Rox Servin MD, MPH CT Chest WO Contrast Result Date: 07/16/2023 1. Findings of bibasilar atelectasis and aspiration. 2. Otherwise, no evidence of acute traumatic abnormality in the chest. Dictated by: Rox Servin MD, MPH I have independently reviewed and interpreted all relevant lab and radiographic data. Assessment/Plan Trauma Surgical Assessment and Plan Discharge planning issues Assessment & Plan 07/16 clear from neurosurgery Q4 neuro checks, episode of Afib with RVR if rate controlled and BI consults completed can plan for dispo, likely to discharge home 07/18/2023. BPH (benign prostatic hyperplasia) Assessment & Plan Home Flomax 0.4 mg daily Class 3 severe obesity without serious comorbidity with body mass index (BMI) of 45.0 to 49.9 in adult ([facility]) Assessment & Plan On Mounjaro weekly -RD consult Hyperlipidemia LDL goal <100 Assessment & Plan Home Rosuvastatin 20 mg daily Obstructive sleep apnea syndrome Assessment & Plan Maintain O2 sat greater than 90% Supplemental oxygen as needed Home CPAP - pt states he does not wear his device and decline being supplied with a device to wear while hospitalized. Essential hypertension Assessment & Plan Home Nifedipine 60 mg daily Paroxysmal atrial fibrillation (CMS/HCC) ([facility]) Assessment & Plan Home Xarelto - On hold 2/2 SDH, Resume per neurosurgery Home Metoprolol XL 100 mg daily 07/16 episode of Afib with RVR overnight requiring metoprolol 5 mg IV x 3 in the past 12-16 hours, Metoprolol PO increase from 25 mg bid to 50 mg bid. -continue telemetry * SDH (subdural hematoma) ([facility]) Assessment & Plan 3 mm anterior Parafalcine SDH after fall hitting head after horse bumped him - NSGY consultation - Keppra 500 mg BID - Q4hr - Ok for DVT ppx -PT/INR stable normal -hold DOAC until follow up with neurosurgery 1 month FEN: These fluid and electrolyte abnormalities are being treated, evaluated or monitored: No fluid or electrolyte disorders Lines/Drains/Tubes: piv DVT Prophylaxis: hold Diet: Adult Diet Regular Activity: bedrest GI Prophylaxis: n/a Code Status: Full Code Total time spent included the following activities caring for this patient: Patient chart review, Reviewing/obtaining history, Examination and evaluation, Counseling/educating patient/family/caregiver, Ordering medications/tests/procedures, Referring & communicating with other health youth care worker, Documenting clinical information in the health record, Independent interpretation of results, and Care coordination 30 minutes All care plans discussed with rounding/operative attending: MD Angle Steel NP * Viji Kevin - 07/17/2023 8:28 AM CDT Physical Therapy Physical Therapy Initial Assessment NOTE: This is a summary note for the zeng assessments completed during the evaluation session. For full details, review chart review for all flowsheets documented on by this physical therapist on thisdate. Vital signs documented in vital signs flowsheet. Plan Plan Plan : If this is the last note, consider this the discharge summary, Discharge PT Recommendation and Plan Recommendation/Plan PT Recommendation/Plan: Home with family, Home with intermittent assist PT Frequency during current admission: One time visit (Discharge from this service) PT - OK to Discharge: Yes PT Evaluation Complete: Yes General Information General Chart Reviewed: Yes Session Type: Evaluation PT Received On: 07/17/23 Safe Environment: Arm band checked, Patient found in supine, Gait belt not utilized, see comment (not utilized per pt request) Subjective: Agreeable to Therapy Family/Caregiver Present: Yes (Friend) Physical Therapy-Patient Goal: pt agreeable to goals set by SPT Prior Function Prior Function Level of [place]: Independent with ADLs, Independent functional transfers, Independent with ambulation Lives With: Alone Receives Help From: Friend(s) (available for FT assist) Fall within the last 6 months: Yes Fall within the last 6 months comment: Reason for current admission Home Living Home Living Type of Home: House Home Layout: Multi-level, Stairs without rails # of Steps-Unrailed: 16 Home Access: Stairs to enter without rails Entrance Stairs-Rails: None Entrance Stairs-Number of Steps: 2 Home Mobility Equipment-Available: None Home Mobility Equipment-Currently Using: None Precautions Precautions Precautions: Obstructive sleep apnea Weight Bearing Restrictions: No Precaution Handout Issued: No Pain Pain Assessment Pain Assessment: No/denies pain Cognition Cognition Cognition Comments: RLAS: X Arousal/Alertness: Alert, Appropriate responses to stimuli Orientation : Oriented X4 (person, place, time, situation) Following Commands: Follows all commands and directions without difficulty Safety Judgment: Good awareness of safety precautions Compliance/Behavior: Easy to engage 6 Clicks Basic Mobility - 6 Click How much difficulty does the patient have: Turning over in bed: None How much difficulty does the patient currently have: Sitting down and standing up from a chair witharms?: None How much difficulty does the patient have: Moving from lying on back to sitting on the side of the bed?: A little How much difficulty does the patient have: Moving to and from a bed to a chair including wheelchair?: None How much help does the patient currently need: Walk in hospital room?: A little How much help from another person does the patient currently need: Climbing 3-5 steps with a railing?: A little Total 6 Click Score (range 6-24): 21 Score Interpretation: 21 Bed Mobility Bed Mobility Bed Mobility: Yes Bed Mobility 1 Bed Mobility From 1: Supine Bed Mobility Type 1: To and from Bed Mobility to 1: Edge of bed Level of Assistance 1: Minimum Assist Bed Mobility Comments 1: min A for elevation of trunk; pt states he sleeps in a recliner Transfers Transfers Transfer: Yes Transfer 1 Transfer From 1: Sit Transfer Type 1: To and from Transfer to 1: Stand Technique 1: Sit to stand, Stand to sit Transfer Device 1: No device Transfer Level of Assistance 1: Independent Trials/Comments 1: performed x2 Balance Static Sitting Balance Static Sitting-Balance Support: Bilateral upper extremity supported, Feet supported (UE supported on bed) Static Sitting-Sitting Surface: Bed Static Sitting-Level of Assistance: Independent Static Standing Balance Static Standing-Balance Support: Left upper extremity supported Static Standing-Standing Surface: Floor Static Standing-Level of Assistance: Independent Static Standing-Comment/# of Minutes: L UE supported on IV pole Ambulation Ambulation Ambulation: Yes Ambulation 1 Distance (ft) 1: 250 Surface 1: Level tile Device 1: No device Assistance 1: Standby Assist Gait: Requires verbal cues to 1: Improve upright posture, Increase step length, Pace activity Ambulation Comments 1: 10 MWT: 0.73 Stairs Stairs Stairs: Yes Stairs Number of Stairs 1: 8 Rails 1: Right Device 1: No device Assistance 1: Standby Assist Stairs: Requires assist with 1: (SBA for patient safety and verbal cues to perform slowly for safety) RLE Assessment RLE Assessment RLE Assessment: Within Functional Limits LLE Assessment LLE Assessment LLE Assessment: Within Functional Limits Safe Environment End of Session Safe Environment End of Therapy Session: Call light within reach, Patient left in chair Other Comments Other Comments Other PT Comments: pt agreeable to SPT POC and d/c recs; pt educate on concussion s/s and importance of a good night's sleep and limiting screen time if headache occurs significant other present for this agreement and both verbalize understanding. PT Goals Multi-Disciplinary Problems (from Physical Therapy) Active Problems Not on file Cosigned by Natalie Beard, PT at 07/17/2023 4:25 PM CDT * Sánchez Castano MD PhD - 07/16/2023 7:00 PM CDT Neurosurgery Daily Progress Note 07/17/2023 Hospital Course 07/14 Consulted for tSDH 3mm parafalcine on xarelto s/p Kcentra. Repeat HCT stable. 07/[address] stable. Admitted to GTS. Subjective no complaints and pain well controlled Objective Physical Exam Awake, alert, oriented to person, place, time. Regards, follows all commands. Speech is fluent. Answers questions appropriately. PERRL, EOMI, face symmetric, tongue protrusion midline. Strength 5/5 BUE and BLE. No drift. Sensation intact to light touch in BUE and BLE. Vitals 24hr min/max vitals: Temp Min: 36.4 ??C (97.6 ??F) Max: 37.6 ??C (99.6 ??F) Pulse Min: 73 Max: 145 Resp Min: 13 Max: 33 SpO2 Min: 91 % Max: 96 % MAP (mmHg) Min: 91 Max: 139 Intake and Output I/O last 2 completed shifts: In: 470 [I.V.:470] Out: 600 [Urine:600] Medications Scheduled Scheduled Medications Medication Dose Route Frequency acetaminophen (TYLENOL) tablet 1,000 mg 1,000 mg oral Q6H JEISON levETIRAcetam (KEPPRA) injection 500 mg 500 mg intravenous Q12H JEISON metoprolol tartrate (LOPRESSOR) immediate release tablet 25 mg 25 mg oral BID NIFEdipine (PROCARDIA XL/ADALAT CC) extended release tablet 60 mg 60 mg oral Nightly rosuvastatin (CRESTOR) tablet 20 mg 20 mg oral Daily senna-docusate (PERICOLACE) 8.6-50 mg per tablet 1 tablet 1 tablet oral BID sodium chloride 0.9% flush 0.5-20 mL 0.5-20 mL intra-catheter Q8H JEISON tamsulosin (FLOMAX) extended release capsule 0.4 mg 0.4 mg oral Daily with dinner As needed PRN Medications Medication Dose Route Frequency Last Admin Carrier Fluids for Secondary Infusion - 0.9% Sodium Chloride 30 mL intravenous PRN HYDROmorphone (DILAUDID) injection 0.5 mg 0.5 mg intravenous Q3H PRN sodium chloride 0.9% flush 0.5-20 mL 0.5-20 mL intra-catheter PRN Labs Lab Results Component Value Date SODIUM 139 07/16/2023 SODIUM 138 07/15/2023 SODIUM 141 07/15/2023 Lab Results Component Value Date GLUCOSE 142 07/17/2023 CALCIUM 9.1 07/16/2023 POTASSIUM 3.8 07/16/2023 CO2 25 07/16/2023 CHLORIDE 106 07/16/2023 BUNSER 11 07/16/2023 CREATININE 0.90 07/16/2023 Lab Results Component Value Date WBC 8.8 07/16/2023 WBC 9.1 07/15/2023 WBC 7.4 07/15/2023 HGB 13.8 07/16/2023 HGB 13.6 07/15/2023 HGB 13.2 07/15/2023 HCT 39.2 07/16/2023 HCT 39.8 07/15/2023 HCT 38.4 (L) 07/15/2023 LABPLAT 219 07/16/2023 LABPLAT 234 07/15/2023 LABPLAT 249 07/15/2023 Lab Results Component Value Date INR 1.15 07/16/2023 INR 1.27 (H) 07/15/2023 INR 2.0 (H) 07/15/2023 PT 13.1 07/16/2023 PT 14.5 (H) 07/15/2023 PT 22.4 (H) 07/15/2023 APTT 27 (L) 07/16/2023 APTT 31 07/15/2023 No components found for: TROPONIN PT/OT Evaluation Assessment/Plan Hospital Day: 3 Vikas Banda is a 62 y.o. male who was on Xarelto s/p Kcentra, Xarelto last taken 07/13 PM, hypertension, paroxysmal atrial fibrillation, meth/cocaine use in past, HLD, and MIRTA, who presents to [facility] as a transfer from [facility] after being pinned to a trailer by a horse, at a head strike and has a traumatic subdural hematoma. Plan NC Q4H OK for SQH for DVT prophylaxis 07/16 Hold Xarelto until neurosurgery follow-up in 1 month Responsible Team Eyad Judd For any questions or concerns, please contact the nurse practitioner signed in to the chart. If youare unable to reach them, you may contact the residents as listed. If it is after 6pm or you are unable to reach the ACCOUNTS PAYABLE OR RECEIVABLE CLERK or resident team, please page the Neurosurgery Call Pager at [phone]. Cosigned by Parmjit Diop MD at 07/26/2023 6:38 PM CDT * Angle Medeiros ACCOUNTS PAYABLE OR RECEIVABLE CLERK - 07/16/2023 12:21 PM CDT Images from the original note were not included. [facility] Daily Progress Note Admit: 07/15/2023 9:06 PM Date: July 16, 2023 Length of Stay: 0 Attending: Rigo Burnham MD POD:* No surgery found * Subjective History: Vikas Banda (1960) 62 yo M paroxysmal atrial fibrillation for 20 years currently on Xarelto, hypertension, and MIRTA presents as level III transfer from [facility] for a fall. [place] into a wall then jerked him to the ground causing him to strike the back of his head on the asphalt. #SDH Edited by: Angle Medeiros NP at 07/16/2023 1014 Interval History: pt to [facility] from ed, no acute distress, complain of headache, alert though sleeping,easily aroused. Objective Medications: Current Facility-Administered Medications: acetaminophen (TYLENOL) tablet 1,000 mg, 1,000 mg, oral, Q6H [facility], Angle Hayes NP, 1,000 mg at 07/16/23 1213 Carrier Fluids for Secondary Infusion - 0.9% Sodium Chloride, 30 mL, intravenous, PRN, Goldie Crespo MD dextrose 5% and Lactated Ringer's infusion, 50 mL/hr, intravenous, Continuous, Goldie Crespo MD, Last Rate: 50 mL/hr at 07/16/23 0836, 50 mL/hr at 07/16/23 0836 HYDROmorphone (DILAUDID) injection 0.5 mg, 0.5 mg, intravenous, Q3H PRN, Colin Ventura MD levETIRAcetam (KEPPRA) injection 500 mg, 500 mg, intravenous, Q12H JEISON, Angle Medeiros, ACCOUNTS PAYABLE OR RECEIVABLE CLERK, 500 mg at 07/16/23 0836 NIFEdipine (PROCARDIA XL/ADALAT CC) extended release tablet 60 mg, 60 mg, oral, Nightly, Goldie Crespo MD rosuvastatin (CRESTOR) tablet 20 mg, 20 mg, oral, Daily, Goldie Crespo MD, 20 mg at 07/16/23 0836 senna-docusate (PERICOLACE) 8.6-50 mg per tablet 1 tablet, 1 tablet, oral, BID, Goldie Crespo MD, 1 tablet at 07/16/23 0836 sodium chloride 0.9% flush 0.5-20 mL, 0.5-20 mL, intra-catheter, Q8H JEISON, Goldie Crespo MD, 10 mL at 07/16/23 0836 sodium chloride 0.9% flush 0.5-20 mL, 0.5-20 mL, intra-catheter, PRN, Goldie Crespo MD tamsulosin (FLOMAX) extended release capsule 0.4 mg, 0.4 mg, oral, Daily with dinner, Goldie Crespo MD Past Medical: Past Medical History: Diagnosis Date HX OTHER MEDICAL 2012 Hypogonadism HX OTHER MEDICAL Obesity, Morbid HX OTHER MEDICAL Sleep Apnea, CPAP Surgical History: Past Surgical History: Procedure Laterality Date OTHER SURGICAL HISTORY Achilles tendon OR TONSILLECTOMY Tonsillectomy Is&Os: No intake/output data recorded. I/O this shift: In: 170 [I.V.:170] Out: 350 [Urine:350] Physical Exam: 24hr Min/Max: Temp Min: 36.4 ??C (97.6 ??F) Max: 37.1 ??C (98.7 ??F) Pulse Min: 73 Max: 113 BP Min: 110/69 Max: 187/106 Resp Min: 14 Max: 26 SpO2 Min: 91 % Max: 97 % Physical Exam Vitals and nursing note reviewed. Constitutional: Appearance: Normal appearance. He is obese. HENT: Head: Normocephalic and atraumatic. Comments: Occipital head contusion/hematoma scant blood Right Ear: External ear normal. Left Ear: External ear normal. Mouth/Throat: Mouth: Mucous membranes are moist. Pharynx: Oropharynx is clear. Eyes: Extraocular Movements: Extraocular movements intact. Conjunctiva/sclera: Conjunctivae normal. Cardiovascular: Rate and Rhythm: Normal rate. Pulses: Normal pulses. Pulmonary: Effort: Pulmonary effort is normal. Abdominal: General: There is no distension. Palpations: Abdomen is soft. Tenderness: There is no abdominal tenderness. Musculoskeletal: General: Normal range of motion. Cervical back: Normal range of motion. Skin: General: Skin is warm and dry. Neurological: General: No focal deficit present. Mental Status: He is alert and oriented to person, place, and time. GCS: GCS eye subscore is 4. GCS verbal subscore is 5. GCS motor subscore is 6. Cranial Nerves: Cranial nerves 2-12 are intact. No cranial nerve deficit. Sensory: Sensation is intact. Motor: Motor function is intact. No weakness. Psychiatric: Mood and Affect: Mood normal. Behavior: Behavior normal. Labs/Imaging: Recent Labs Lab Units 07/15/23225607/15/23 1859 WBC K/cumm 9.1 7.4 HEMOGLOBIN g/dL 13.6 13.2 HEMATOCRIT % 39.8 38.4* PLATELETS K/cumm 234 249 Recent Labs Lab Units 07/16/23 0846 07/16/23 0545 07/16/23 0143 07/15/23225607/15/23211907/15/23 1859 SODIUM mmol/L -- -- -- 138 -- 141 POTASSIUM PLASMA mmol/L -- -- -- 3.9 -- 4.2 CHLORIDE mmol/L -- -- -- 104 -- 104 CO2 mmol/L -- -- -- 24 -- 25 BUN SERUM mg/dL -- -- -- 15 -- 20 CREATININE mg/dL -- -- -- 0.85 -- 1.00 GLUCOSE mg/dL -- -- -- 113 -- 133 POC GLUCOSE MONITOR mg/dL 147 124 111 -- < > -- CALCIUM mg/dL -- -- -- 9.0 -- 9.4 < > = values in this interval not displayed. Recent Labs Lab Units 07/15/232256 PROTIME (PT) sec 14.5* INR 1.27* XR Elbow Left 3 or More Views Result Date: 07/16/2023 FINDINGS/IMPRESSION: Intravenous line overlying the left elbow. Heterotopic ossification seen adjacent to the medial condyle. Ossific density with irregular borders posterior to the olecranon may represent a small enthesophyte versus an avulsion fracture. Small joint effusion. Clinical correlation with point tenderness is recommended. Dictated by: Rox Servin MD, MPH CT Head WO Contrast Result Date: 07/16/2023 1. Stable thin left anterior parafalcine subdural hematoma. No new intracranial hemorrhage. No midline shift. 2. Evolving left occipital scalp hematoma with increasing surrounding hematoma. Dictated by: Matthew Skaggs MD The radiology attending physician has personally reviewed this study, and had reviewed and/or edited this written report and agrees with it. Electronically signed by: Marietta Lacey M.D. CT Abdomen Pelvis W Contrast Result Date: 07/16/2023 1. 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 This is unlikely to represent mesenteric injury given no evidence of adjacent bowel wall thickening 2. Incidentally noted 3.5 cm hypoattenuating lesion in the midpole of the left kidney, favored to represent a cyst but indeterminate. Further evaluation with a renal ultrasound in 3 months is recommended. 3. Otherwise, no acute CT evidence of a traumatic abnormality in the abdomen or pelvis. Recommend follow up of the Incidental renal nodule. Additional Imaging in 3 Months with US. Dictated by: Rox Servin MD, MPH CT Chest WO Contrast Result Date: 07/16/2023 1. Findings of bibasilar atelectasis and aspiration. 2. Otherwise, no evidence of acute traumatic abnormality in the chest. Dictated by: Rox Servin MD, MPH I have independently reviewed and interpreted all relevant lab and radiographic data. Assessment/Plan Trauma Surgical Assessment and Plan SDH (subdural hematoma) ([facility]) Assessment & Plan 3 mm anterior Parafalcine SDH after fall hitting head after horse bumped him - NSGY consultation - Keppra 500 mg BID - Q2H Neurovascular checks - Repeat coagulation profile Hyperlipidemia LDL goal <100 Assessment & Plan Home Rosuvastatin 20 mg daily Obstructive sleep apnea syndrome Assessment & Plan Maintain O2 sat greater than 90% Supplemental oxygen as needed Home CPAP - pt states he does not wear his device and decline being supplied with a device to wear while hospitalized. Essential hypertension Assessment & Plan Home Nifedipine 60 mg daily Paroxysmal atrial fibrillation (CMS/HCC) ([facility]) Assessment & Plan Home Xarelto - On hold 2/2 SDH, Resume per neurosurgery Home Metoprolol XL 100 mg daily * Class 3 severe obesity without serious comorbidity with body mass index (BMI) of 45.0 to 49.9 in adult ([facility]) Assessment & Plan On Mounjaro weekly -RD consult FEN: These fluid and electrolyte abnormalities are being treated, evaluated or monitored: No fluid or electrolyte disorders Lines/Drains/Tubes: piv DVT Prophylaxis: hold Diet: NPO Diet Activity: bedrest GI Prophylaxis: n/a Code Status: Full Code Total time spent included the following activities caring for this patient: Patient chart review, Reviewing/obtaining history, Examination and evaluation, Counseling/educating patient/family/caregiver, Ordering medications/tests/procedures, Referring & communicating with other health youth care worker, Documenting clinical information in the health record, Independent interpretation of results, and Care coordination 45 minutes All care plans discussed with rounding/operative attending: MD Angle Steel NP Cosigned by Colin Brown MD at 07/16/2023 12:59 PM CDT documented in this encounter Consult Notes * Raffy Vera MD - 07/16/2023 12:01 AM CDTAssociated Order(s): IP CONSULT TO NEUROSURGERY Neurosurgery Consultation Patient: Vikas Banda CSN: [id number] : 1960 Admission date: 07/15/2023 Length of stay (days): 0 Consulting: Dr. Diop Requesting provider: ED Reason for consultation: [facility] History of present illness: Vikas Banda is a 62 y.o. male who was on Xarelto s/p Kcentra, Xarelto last taken 07/13 PM, hypertension, paroxysmal atrial fibrillation, meth/cocaine use in past, HLD, and MIRTA, who presents to [facility] as a transfer from [facility] after being pinned to a trailer by a horse. He was walking next to the horse when the horse unexpectedly backed up into him and caused him to hit his head against the side of his trailer. He denied loss of consciousness. He has a mild headache right now. He denies weakness, numbness, tingling, dizziness, or double vision. Review of systems: A full review of systems was completed and was negative unless otherwise stated in the HPI. Past medical/surgical history: HTN Afib Obesity Methamphetamine/cocaine use MIRTA HLD Allergies: No Known Allergies Medications: HOME MEDICATIONS : metoprolol XL (TOPROL-XL) 100 mg 24 hr tablet NIFEdipine (NIFEdipine CC) 60 mg 24 hr tablet rivaroxaban (XARELTO) 20 mg tablet rosuvastatin (CRESTOR) 20 mg tablet tamsulosin (FLOMAX) 0.4 mg extended release capsule tirzepatide (Mounjaro) 5 mg/0.5 mL pen injector Social history: The patient does not smoke, he drinks couple of beers a week. He has a history of positive drug screen for cocaine and methamphetamines. The patient's primary emergency contact is Nicole whose contact information is below: Extended Emergency Contact Information Primary Emergency Contact: Nicole Neely Address: [address] [place], [place] [id number] [facility] Mobile Relation: Significant Other Preferred language: Bahamian Mercury Purifier needed? No Family history: Reviewed and noncontributory. Physical Examination: Neuro: Awake, alert, oriented to person, place, time. Regards, follows all commands. Speech is fluent. Answers questions appropriately. PERRL, EOMI, face symmetric, tongue protrusion midline. Strength 5/5 BUE and BLE. No drift. Sensation intact to light touch in BUE and BLE. Psych: normal mood Constitutional: no acute distress HENT: Hematoma posterior scalp Cardiovascular: normal rate Pulmonary: normal respiratory effort Abdominal: non-distended Musculoskeletal: normal range of motion Imaging and Labs: It at CT without contrast in a stable repeat head CT without contrast that are most significant fora 3 mm anterior parafalcine subdural hematoma. Labs: Na 138 Cr 0.85 WBC 9.1 Hgb 13.6 Plt 234 INR 1.27 PTT 31 Assessment and Plan Vikas Banda is a 62 y.o. male who was on Xarelto s/p Kcentra, Xarelto last taken 4 PM, hypertension, paroxysmal atrial fibrillation, meth/cocaine use in past, HLD, and MIRTA, who presents to [facility] as a transfer from [facility] after being pinned to a trailer by a horse, at a head strike and has a traumatic subdural hematoma. This is stable on repeat imaging and on examhe is intact. At this point, he can be watched with q.2 hours neuro checks. He should be given Keppra 500 mg b.i.d. for 7 days. We will monitor him closely given that he was on Xarelto. BMP, CBC, PT, PTT, UA macro-micro, CXR, EKG, T&S Appreciate trauma eval Q.2 hours neuro checks Keppra 500 b.i.d. x7 days Repeat coag labs after receiving Kcentra are okay. This plan will be discussed with the chief resident and attending svp research & ebusiness operations. The patient was evaluated within 30 minutes of consultation. For any questions regarding care of this patient, please page Neurosurgery at [phone]. Raffy Vera MD Cosigned by Parmjit Diop MD at 07/17/2023 3:30 PM CDT Associated attestation - Parmjit Diop MD - 07/17/2023 3:30 PM CDT I have seen and examined the patient on 07/17/23. I agree with the findings and plan of care as documented in the resident's/fellow's note. . * Goldie Crespo MD - 07/15/2023 11:30 PM CDT [facility] Team A Trauma Surgery History and Physical Date of Evaluation: 07/15/23 Sex: male Date of : 1960 Consulting provider: Consults Trauma Level 3 Assessment/Plan: 62 yo M paroxysmal atrial fibrillation for 20 years currently on Xarelto, hypertension, and MIRTA presents as level III transfer from [facility] for a fall. [place] into a wall then jerked him to the ground causing him to strike the back of his head on the asphalt. CT Head Cspine abdomen pelvis as well as left elbow demonstrated: #SDH - NSGY consultation - Keppra 500 mg BIDx 7 days - Hold Xarelto - Q2H Neurovascular checks -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 (07/16/231099) Potential discharge needs include: Specific discharge needs undetermined at this time. Will await therapy evals for dispo recommendations. Case management will continue to follow for discharge planning and referrals as needed. Dialysis: No Behavioral Health Services: Behavioral Health Services: No (07/16/231099) Patient expects to be Discharged to: Private residence, (07/16/231099) Additional Information: Demographics verified with facesheet. Explained role of CM. Patient reportshe was independent in ADLs prior to admission. Denies any active home health or DME prior to admission. Lives alone. Patient's Identified Problem/Goal Problem: Ensure acute medical needs are met and that patient has a safe discharge plan. Goal: Secure a discharge plan that patient/family are agreeable with and ensure patient has continuum of care. Case management will follow for discharge planning and send referrals as needed. Goals include: To assure continuity of care, To maximize coping skills, To assure patient is in a safe environment and To assure access to community resources. Plan includes: 1. Collaboration with patient, MD, direct care nurse, Websphere Commerce Developer, and other members of the health care team to assure needed interventions completed. 2. Return patient to optimal level of self-care post discharge. 3. Dairy Machine Operator Farmworker will follow for Discharge Planning - interventions as needed 4. Anticipated level of care at discharge 5. Planned Discharge Disposition Based on a comprehensive family assessment, assistance with instrumental activities of daily livingafter discharge will be provided by significant other Through the course of our work I determined that the significant other possesses the skill and ability to provide and monitor the care of the patient when he or she returns home. Significant other has the capacity to provide/monitor/arrange for the care of the patient. Finally, we determined that significant other has the knowledge of available resources and that combining them with their existing resources will suffice to sustain and care for the patient when he or she returns home. The treatment team is aware of this information. All are in agreement with the aftercare plan. Anita Becerra RN * ED Re-evaluation Note - Josafat Colorado MD - 07/16/2023 10:38 AM CDT ED Re-evaluation Neuro recheck: Conducted at [id number] Physical Exam Constitutional: Appearance: Normal appearance. Eyes: Pupils: Pupils are equal, round, and reactive to light. Cardiovascular: Rate and Rhythm: Normal rate. Abdominal: General: Abdomen is flat. There is no distension. Musculoskeletal: Cervical back: Normal range of motion and neck supple. Skin: General: Skin is dry. Neurological: General: No focal deficit present. Mental Status: He is alert and oriented to person, place, and time. Cranial Nerves: No cranial nerve deficit. Sensory: No sensory deficit. Motor: No weakness. Coordination: Coordination normal. Psychiatric: Mood and Affect: Mood normal. Behavior: Behavior normal. Thought Content: Thought content normal. Judgment: Judgment normal. Josafat Colorado MD 07/16/23 1041 * Assessment & Plan Note - Angle Medeiros NP - 07/16/2023 10:08 AM CDTAssociated Problem(s): SDH (subdural hematoma) (HCC) 3 mm anterior Parafalcine SDH after fall [...] until the patient's follow-up appointment. Appointment Scheduling: Doctor???s Office: [facility], After hours emergency: or * Assessment & Plan Note - Angle Medeiros NP - 07/16/2023 10:08 AM CDTAssociated Problem(s): Paroxysmal atrial fibrillation (CMS/HCC) (HCC) Home Xarelto - On hold / SDH, Resume per neurosurgery Home Metoprolol XL 100 mg daily 07/16 episode of Afib with RVR overnight requiring metoprolol 5 mg IV x 3 in the past 12-16 hours, Metoprolol PO increase from 25 mg bid to 50 mg bid. -continue telemetry * Assessment & Plan Note - Angle Medeiros NP - 07/16/2023 10:07 AM CDTAssociated Problem(s): Obstructive sleep apnea syndrome Maintain O2 sat greater than 90% Supplemental oxygen as needed Home CPAP - pt states he does not wear his device and decline being supplied with a device to wear while hospitalized. * Assessment & Plan Note - Angle Medeiros NP - 07/16/2023 10:06 AM CDTAssociated Problem(s): Hyperlipidemia LDL goal <100 Home Rosuvastatin 20 mg daily * Assessment & Plan Note - Angle Medeiros NP - 07/16/2023 10:06 AM CDTAssociated Problem(s): Essential hypertension Home Nifedipine 60 mg daily * Assessment & Plan Note - Angle Medeiros NP - 07/16/2023 10:04 AM CDTAssociated Problem(s): Class 3 severe obesity without serious comorbidity with body mass index (BMI) of 45.0 to 49.9 in adult (HCC) On Mounjaro weekly -RD consult * ED Re-evaluation Note - Colin Ventura MD - 07/15/2023 10:46 PM CDT ED Re-evaluation TRANSITION OF CARE I, Colin Ventura MD, am taking signout from outgoing team and assuming care of this patient. I have reviewed all pertinent vital signs, allergies, and history available in the chart. See below for a time-stamped review of ED course. Refer to original providers H+P for initial history. ED Course as of 07/19/232148 Time: 07/14 2253 Comment: D/W NSGY. Plan as discussed in my prior MDM. Will d/w GTS about admit. By: Unique Landers MD Time: 07/14 2256 Comment: D/W GTS. They will see the patient. Likely admission to their service. Anticipate OU. By: Unique Landers MD Time: 07/14 2308 Comment: TRANSITION OF CARE: I, Colin Ventura MD, am taking signout from outgoing team and assuming care of this patient. I have reviewed all pertinent vital signs, allergies, and history available in the chart. Summary: 62 y.o. male anticoagulated on xeralto for afib. Fell off horse. 3mm SDH. NSGY and GTS consulted. Pending: Specialty recs Dispo: Likely admission By: Colin Ventura MD Time: 07/15 733 Comment: Spoke with NSG, they would like his repeat head CT at noon. Q1 hour neuro checks until repeat head CT is negative. By: Shiloh Graham MD Time: 07/15 733 Comment: Pt s/p fall from horse with SDH per nsgy wants a repeat head CT at noon with Q1 hour neurochecks will likely maintain an OU bed at noon. By: Josafat Colorado MD Ruggeri, Jeffrey Scott, MD Resident 07/16/23 0656 Colin Ventura MD Resident 07/19/23 2149 * ED Pre-Arrival Note - Nesha Lugo RN - 07/15/2023 7:37 PM CDT Pre-Arrival Note The patient is coming from [facility] patient had a fall off a horse and has a SDH patient is neuro intact is getting Kcentra prior to arrival . Dr Olson received report patient accepted as a Level 3 trauma transfer. Nesha Lugo RN documented in this encounter Plan of Treatment Scheduled Orders Name Type Priority Associated Diagnoses Orde r Schedule ECG 12 lead ECG STAT As needed unt il discontinued starting 07/16/2023 documented as of this encounter Procedures Procedure Name Priority Date/Time Associated Diagnosis Comments POCT GLUCOSE DEVICE Routine 07/18/2023 7 :32 AM CDT POCT GLUCOSE DEVICE Routine 07/18/2023 4 :56 AM CDT POCT GLUCOSE DEVICE Routine 07/18/2023 1 :01 AM CDT POCT GLUCOSE DEVICE Routine 07/17/2023 9 :27 PM CDT POCT GLUCOSE DEVICE Routine 07/17/2023 5 :10 PM CDT POCT GLUCOSE DEVICE Routine 07/17/2023 1 2:58 PM CDT POCT GLUCOSE DEVICE Routine 07/17/2023 9 :04 AM CDT POCT GLUCOSE DEVICE Routine 07/17/2023 4 :04 AM CDT POCT GLUCOSE DEVICE Routine 07/17/2023 1 :07 AM CDT POCT GLUCOSE DEVICE Routine 07/16/2023 9 :56 PM CDT EGFR Routine 07/16/2023 9:51 PM CDT CBC WITHOUT DIFFERENTIAL Routine 07/16/2023 9:51 PM CDT PHOSPHORUS Timed 07/16/2023 9:51 PM CDT MAGNESIUM Routine 07/16/2023 9:51 PM CDT BASIC METABOLIC PANEL Routine 07/16/2023 9:51 PM CDT ECG 12-LEAD STAT 07/16/2023 6:09 PM CDT POCT GLUCOSE DEVICE Routine 07/16/2023 5 :[address] HEAD WO CONTRAST ED Urgent/IP Urgent 07/16/2023 1:34 PM CDT POCT GLUCOSE DEVICE Routine 07/16/2023 1 2:48 PM CDT APTT Routine 07/16/2023 12:46 PM CDT PROTIME-INR Routine 07/16/2023 12:46 PM CDT POCT GLUCOSE DEVICE Routine 07/16/2023 8 :46 AM CDT POCT GLUCOSE DEVICE Routine 07/16/2023 5 :[address] CHEST WO CONTRAST ED 07/16/2023 4:[address] ABDOMEN PELVIS W CONTRAST ED 07/16/2023 2:12 AM CDT POCT GLUCOSE DEVICE Routine 07/16/2023 1 :43 AM CDT URINALYSIS AND REFLEX TO MICROSCOPIC STAT 07/16/2023 12:55 AM CDT URINALYSIS, MICROSCOPIC ONLY STAT 07/16/2023 12:55 AM CDT XR ELBOW LEFT 3 OR MORE VIEWS ED 07/16/2023 12:[address] HEAD WO CONTRAST Timed 07/16/2023 1 2:40 AM CDT B CHECK SAMPLE STAT 07/15/2023 11:37 PM CDT EGFR STAT 07/15/2023 10:57 PM CDT DIFFERENTIAL AUTO STAT 07/15/2023 10: 57 PM CDT HEPARIN ANTI FACTOR XA ACTIVITY STAT 07/15/2023 10:57 PM CDT CBC WITH AUTO DIFFERENTIAL STAT 07/15/2023 10:57 PM CDT APTT STAT 07/15/2023 10:57 PM CDT PROTIME-INR STAT 07/15/2023 10:57 PM CDT TYPE AND SCREEN STAT 07/15/2023 10:57 PM CDT COMPREHENSIVE METABOLIC PANEL STAT 07/15/2023 10:57 PM CDT POCT GLUCOSE DEVICE Routine 07/15/2023 9 :20 PM CDT POCT RAPID HIV ANTIBODY COMMUNITY SCREENING-[place] ELIGIBLE Routine 07/15/2023 9:07 PM CDT documented in this encounter Results * POCT glucose (07/18/2023 7:32 AM CDT) Glucose, POC 159 70 - 199 mg/dL Blood 07/18/2023 7:32 AM CDT 07/18/2023 7:32 AM CDT us Rigo Burnham MD LAB POCT ORDERABLES - DEV ICE Final Result [facility] Department [place] [address] * POCT glucose (07/18/2023 4:56 AM CDT) Glucose, POC 137 70 - 199 mg/dL Blood 07/18/2023 4:56 AM CDT 07/18/2023 4:56 AM CDT Rigo Burnham MD LAB POCT ORDERABLES - DEV ICE Final Result Performing Organization Address [facility] de Phone Number [facility] [place] [address] * POCT glucose (07/18/2023 1:01 AM CDT) Glucose, POC 126 70 - 199 mg/dL Blood 07/18/2023 1:01 AM CDT 07/18/2023 1:01 AM CDT us Rigo Burnham MD LAB POCT ORDERABLES - DEV ICE Final Result Performing Organization Address [facility] de Phone Number [facility] [place] [address] * POCT glucose (07/17/2023 9:27 PM CDT) Glucose, POC 139 70 - 199 mg/dL Blood 07/17/2023 9:27 PM CDT 07/17/2023 9:27 PM CDT us Rigo Burnham MD LAB POCT ORDERABLES - DEV ICE Final Result Performing Organization Address [facility] de Phone Number [facility] [place] [address] * POCT glucose (07/17/2023 5:10 PM CDT) Glucose, POC 131 70 - 199 mg/dL Blood 07/17/2023 5:10 PM CDT 07/17/2023 5:10 PM CDT Rigo Burnham MD LAB POCT ORDERABLES - DEV ICE Final Result Performing Organization Address [facility]/[place] [address] * POCT glucose (07/17/2023 12:58 PM CDT) Glucose, POC 129 70 - 199 mg/dL Blood 07/17/2023 12:5 8 PM CDT 07/17/2023 12:58 PM CDT Rigo Burnham MD LAB POCT ORDERABLES - DEV ICE Final Result Performing Organization Address [facility] [place] [address] * POCT glucose (07/17/2023 9:04 AM CDT) Glucose, POC 137 70 - 199 mg/dL Blood 07/17/2023 9:04 AM CDT 07/17/2023 9:04 AM CDT Rigo Burnham MD LAB POCT ORDERABLES - DEV ICE Final Result Performing Organization Address [facility] Co de Phone Number [facility] [place] [address] * POCT glucose (07/17/2023 4:04 AM CDT) Glucose, POC 142 70 - 199 mg/dL Blood 07/17/2023 4:04 AM CDT 07/17/2023 4:04 AM CDT Rigo Burnham MD LAB POCT ORDERABLES - DEV ICE Final Result Performing Organization Address [facility]/ZIP Co de Phone Number [facility] [place] [address] * POCT glucose (07/17/2023 1:07 AM CDT) Glucose, POC 148 70 - 199 mg/dL Blood 07/17/2023 1:07 AM CDT 07/17/2023 1:07 AM CDT Rigo Burnham MD LAB POCT ORDERABLES - DEV ICE Final Result Performing Organization Address [facility] Co de Phone Number [facility] [place] [address] * POCT glucose (07/16/2023 9:56 PM CDT) Glucose, POC 120 70 - 199 mg/dL Blood 07/16/2023 9:5 6 PM CDT 07/16/2023 9:56 PM CDT Rigo Burnham MD LAB POCT ORDERABLES - DEV ICE Final Result Performing Organization Address [facility] de Phone Number [facility] [place] [address] * eGFR (07/16/2023 9:51 PM CDT) eGFR >90 >=60 mL/min/1. 73 m2 Comment: Interpretive Data [...] interpretive data was last reviewed 2021. Blood 07/16/2023 9:51 PM CDT 07/16/2023 10:02 PM CDT Rigo Burnham MD LAB BLOOD ORDERABLES Kimberley hayden Result [facility] Department [place] [address] * Basic metabolic panel (07/16/2023 9:51 PM CDT) [facility] Sodium 139 135 - 145 mmol/L Potassium, pl 3.8 3.3 - 4.9 mmol/L [facility] Chloride 106 97 - 110 mmol/L [facility] CO2 25 22 - 32 mmol/L [facility] Anion gap 8 2 - 15 mmol/L [facility] BUN 11 6 - 25 mg/dL [facility] Creatinine 0.90 0.80 - 1.30 mg/dL [facility] Glucose 130 70 - 199 mg/dL [facility] Comment: Interpretive Data Fasting glucose >/= 126 [...] interpretive data was last revised 2022. Calcium 9.1 8.5 - 10.3 mg/dL [facility] Blood 07/16/2023 9:51 PM CDT 07/16/2023 10:02 PM CDT Rigo Burnham MD LAB BLOOD ORDERABLES Kimberley l Result Performing Organization Address [facility]/ZIP Co de Phone Number [facility] [place] [address] * Phosphorus (07/16/2023 9:51 PM CDT) Pathologist [facility] Phosphorus, pl 3.6 2.3 - 4.5 mg/dL Blood 07/16/2023 9:51 PM CDT 07/16/2023 10:02 PM CDT Rigo Burnham MD LAB BLOOD ORDERABLES Kimberley l Result Performing Organization Address [facility] Co de Phone Number [facility] [place] [address] * Magnesium (07/16/2023 9:51 PM CDT) Pathologist [facility] Magnesium 2.1 1.4 - 2.5 mg/dL Blood 07/16/2023 9:51 PM CDT 07/16/2023 10:02 PM CDT Rigo Burnham MD LAB BLOOD ORDERABLES Kimberley l Result Performing Organization Address [facility] Co de Phone Number [facility] [place] [address] * CBC without differential (07/16/2023 9:51 PM CDT) Pathologist [facility] WBC 8.8 3.8 - 9.9 K/cumm Hgb 13.8 13.0 - 17.5 g/dL [facility] Hct 39.2 38.9 - 50.3 % [facility] Plt 219 150 - 400 K/cumm [facility] MPV 9.9 9.1 - 12.3 fL [facility] RBC 4.64 4.30 - 5.80 M/cumm [facility] MCV 84.5 81.3 - 96.4 fL [facility] MCH 29.7 27.1 - 33.3 pg [facility] MCHC 35.2 32.3 - 35.7 g/dL [facility] RDW CV 13.5 11.1 - 14.9 % [facility] RDW SD 41.2 35.7 - 48.1 fL [facility] NRBC abs 0.00 0.00 - 0.01 K/cumm [facility] Blood 07/16/2023 9:51 PM CDT 07/16/2023 10:02 PM CDT us Rigo Burnham MD LAB BLOOD ORDERABLES Kimberley l Result Performing Organization Address City/State/[facility] Co de Phone Number [facility] Department [place] [address] * ECG 12 lead (07/16/2023 6:09 PM CDT) Ventricular Rate EKG/Min 85 BPM [facility] Atrial Rate 85 BPM [facility] DE-Interval (MSEC) 244 ms [facility] QRS-Interval (MSEC) 110 ms [facility] QT-Interval (MSEC) 384 ms [facility] QTc 456 ms [facility] P Staples 22 degrees [facility] R Staples -65 degrees [facility] T Staples 50 degrees [facility] Diagnosis Sinus rhythm with 1st degree A-V block Left anterior fascicular block Abnormal ECG No previous ECGs available Confirmed by PASCUAL BEDOLLA M.D ([id number]) on 07/23/2023 5:35:42 AM [facility] 07/16/2023 6:09 PM CDT 07/23/2023 5:35 AM CDT us Rigo Burnham MD ECG ORDERABLES Final Res ult [facility] * POCT glucose (07/16/2023 5:23 PM CDT) Glucose, POC 136 70 - 199 mg/dL Blood 07/16/2023 5:23 PM CDT 07/16/2023 5:23 PM CDT us Rigo Burnham MD LAB POCT ORDERABLES - DEV ICE Final Result [facility] Department [place] [address] * CT Head WO Contrast (07/16/2023 1:34 PM CDT) Anatomical Region Laterality Modality Head and Neck N/A Computed Tomogra phy 07/16/2023 3:54 PM CDT Impressions 07/16/2023 4:22 PM CDT 1. ??Similar-appearing left parafalcine subdural hematoma along the anterior falx with extension into the left tentorium, measuring 3 mm. 2. ??Interval decrease in hyperacute component of the left-sided occipital scalp hematoma. Dictated by: Chidi Chadwick MD The radiology attending physician has personally reviewed this study, and had reviewed and/or edited this written report and agrees with it. Electronically signed by: Aleida Stein M.D. Narrative 07/16/2023 4:22 PM CDT EXAMINATION: CT head without contrast HISTORY: Follow-up subdural hemorrhage TECHNIQUE: CT of the head was performed with images acquired from skull base to vertex without intravenous contrast. COMPARISON: 07/16/2023 at 12:33 AM FINDINGS: When measured in a similar fashion, there has been interval decrease in left occipital scalp hematoma measuring 3.4 x 1.8 cm, previously 4 x 2.3 cm. ??Similar-appearing underlying subcutaneous soft tissue swelling. Unchanged appearance of left parafalcine subdural hematoma measuring 3 mm along the anterior falx with extension into the left tentorium. Note made of a cava septum pellucidum. Topogram demonstrates no lytic lesions or fractures. Ventricles are of normal size and morphology. No mass effect or midline shift is present. The yadav-white matter differentiation is normal. The visualized portions of the orbits are normal. The visualized portions of the mastoids are normal. Mild mucosal thickening of the paranasal sinuses. No fractures are identified. Procedure Note Aleida Gonzalez MD - 07/16/2023 EXAMINATION: CT head without contrast HISTORY: Follow-up subdural hemorrhage TECHNIQUE: CT of the head was performed with images acquired from skull base to vertex without intravenous contrast. COMPARISON: 07/16/2023 at 12:33 AM FINDINGS: When measured in a similar fashion, there has been interval decrease in left occipital scalp hematoma measuring 3.4 x 1.8 cm, previously 4 x 2.3 cm. Similar-appearing underlying subcutaneous soft tissue swelling. Unchanged appearance of left parafalcine subdural hematoma measuring 3 mm along the anterior falx with extension into the left tentorium. Note made of a cava septum pellucidum. Topogram demonstrates no lytic lesions or fractures. Ventricles are of normal size and morphology. No mass effect or midline shift is present. The yadav-white matter differentiation is normal. The visualized portions of the orbits are normal. The visualized portions of the mastoids are normal. Mild mucosal thickening of the paranasal sinuses. No fractures are identified. IMPRESSION: 1. Similar-appearing left parafalcine subdural hematoma along the anterior falx with extension into the left tentorium, measuring 3 mm. 2. Interval decrease in hyperacute component of the left-sided occipital scalp hematoma. Dictated by: Chidi Chadwick MD The radiology attending physician has personally reviewed this study, and had reviewed and/or edited this written report and agrees with it. Electronically signed by: Aleida Stein M.D. Rigo Burnham MD IM CT PROCEDURES Final R esult * POCT glucose (07/16/2023 12:48 PM CDT) Glucose, POC 129 70 - 199 mg/dL Blood 07/16/2023 12:4 8 PM CDT 07/16/2023 12:48 PM CDT Rigo Burnham MD LAB POCT ORDERABLES - DEV ICE Final Result Performing Organization Address [facility] Co de Phone Number [facility] [place] [address] * (ABNORMAL) aPTT (07/16/2023 12:46 PM CDT) aPTT 27(L) 28 - 38 sec Comment: Interpretive Data Heparin therapeutic range: 66.0 - 100.0 seconds. Range based on correlation with therapeutic heparin activity range of 0.3 - 0.7 Units/mL. Current interpretive data was last revised on 2022. Blood 07/16/2023 12:4 6 PM CDT 07/16/2023 1:27 PM CDT Angle Medeiros NP LAB BLOOD ORDERABLES Final Result Performing Organization Address [facility] de Phone Number [facility] [place] [address] * Protime-INR (07/16/2023 12:46 PM CDT) PT 13.1 10.3 - 13.7 sec INR 1.15 0.90 - 1.20 [facility] Comment: Interpretive data Oral anticoagulant therapeutic ranges: Venous thromboembolism prophylaxis or treatment: 2.0-3.0 CARDIOLOGY Standard range: 2.0-3.0 High-intensity range: 2.5-3.5 Refer to indication-specific guidelines for appropriate target ranges for prosthetic heart valve replacement. Current interpretive data was last revised on 2019. Blood 07/16/2023 12:4 6 PM CDT 07/16/2023 1:27 PM CDT Angle Medeiros NP LAB BLOOD ORDERABLES Final Result Performing Organization Address [facility] Co de Phone Number [facility] [place] [address] * POCT glucose (07/16/2023 8:46 AM CDT) Glucose, POC 147 70 - 199 mg/dL Blood 07/16/2023 8:46 AM CDT 07/16/2023 8:46 AM CDT Rigo Burnham MD LAB POCT ORDERABLES - DEV ICE Final Result Performing Organization Address [facility] de Phone Number [facility] [place] [address] * POCT glucose (07/16/2023 5:45 AM CDT) Glucose, POC 124 70 - 199 mg/dL Blood 07/16/2023 5:45 AM CDT 07/16/2023 5:45 AM CDT Rigo Burnham MD LAB POCT ORDERABLES - DEV ICE Final Result Performing Organization Address [facility] de Phone Number [facility] Department [place] [address] * CT Chest WO Contrast (07/16/2023 4:36 AM CDT) Anatomical Region Laterality Modality Body N/A Computed Tomogra phy 07/16/2023 4:49 AM CDT Impressions 07/16/2023 1:56 PM CDT 1. ??Findings of bibasilar atelectasis and aspiration. 2. ??Otherwise, no evidence of acute traumatic abnormality in the chest. Dictated by: Rox Servin MD, MPH The radiology attending physician has personally reviewed this study, and had reviewed and/or edited this written report and agrees with it. Electronically signed by: Terri Stoddard M.D. Narrative 07/16/2023 1:56 PM CDT EXAMINATION: ??Computed tomography of the chest without intravenous contrast HISTORY: 62-year-old male presenting after being pinned between a horse and railing TECHNIQUE: ??Transaxial computed tomographic images of the chest were obtained without intravenous contrast according to the standard protocol. COMPARISON: None FINDINGS: ?? The central airways are patent. ??Bibasilar atelectasis. ??Additional tree-in-bud opacities are seen superimposed concerning for possible aspiration. ??No pleural effusion. ??No pneumothorax. The thyroid tissue is unremarkable. ??No suspicious supraclavicular or axillary lymphadenopathy. ??There are multiple prominent but not enlarged by size criteria mediastinal and hilar lymph nodes, likely reactive. ??There is also a 1.0 cm right cardiophrenic lymph node (2:120). ??Heart size is within normal limits. ??Trace pericardial effusion. ??Coronary artery calcifications. ??Aortic valve calcifications. ??Mild atherosclerotic calcifications of the thoracic aorta. The partially imaged upper abdomen is unremarkable for an acute abnormality. ??No suspicious osseous lesion Procedure Note Terri Stoddard MD - 07/16/2023 EXAMINATION: Computed tomography of the chest without intravenous contrast HISTORY: 62-year-old male presenting after being pinned between a horse and railing TECHNIQUE: Transaxial computed tomographic images of the chest were obtained without intravenous contrast according to the standard protocol. COMPARISON: None FINDINGS: The central airways are patent. Bibasilar atelectasis. Additional tree-in-bud opacities are seen superimposed concerning for possible aspiration. No pleural effusion. No pneumothorax. The thyroid tissue is unremarkable. No suspicious supraclavicular or axillary lymphadenopathy. There are multiple prominent but not enlarged by size criteria mediastinal and hilar lymph nodes, likely reactive. There is also a 1.0 cm right cardiophrenic lymph node (2:120). Heart size is within normal limits. Trace pericardial effusion. Coronary artery calcifications. Aortic valve calcifications. Mild atherosclerotic calcifications of the thoracic aorta. The partially imaged upper abdomen is unremarkable for an acute abnormality. No suspicious osseous lesion IMPRESSION: 1. Findings of bibasilar atelectasis and aspiration. 2. Otherwise, no evidence of acute traumatic abnormality in the chest. Dictated by: Rox Servin MD, MPH The radiology attending physician has personally reviewed this study, and had reviewed and/or edited this written report and agrees with it. Electronically signed by: Terri Stoddard M.D. Colin Ventura MD IMG CT PROCEDURES Final Result * CT Abdomen Pelvis W Contrast (07/16/2023 2:12 AM CDT) Anatomical Region Laterality Modality Body N/A Computed Tomogra phy 07/16/2023 2:59 AM CDT Addenda Addendum by Terri Stoddard MD on 11/22/2023 12:59 PM CDT Follow up kidney ultrasound completed 11/12/23 ([place]). Lizzie MARSHALL, RN. Edited by: Lizzie Thompson Electronically signed by: Terri Stoddard M.D. Impressions 07/16/2023 1:57 PM CDT 1. 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 This is unlikely to represent mesenteric injury given no evidence of adjacent bowel wall thickening 2. ??Incidentally noted 3.5 cm hypoattenuating lesion in the midpole of the left kidney, favored to represent a cyst but indeterminate. Further evaluation with a renal ultrasound in 3 months is recommended. 3. ??Otherwise, no acute CT evidence of a traumatic abnormality in the abdomen or pelvis. Recommend follow up of the Incidental renal nodule. Additional Imaging in 3 Months with US. Dictated by: Rox Servin MD, MPH The radiology attending physician has personally reviewed this study, and had reviewed and/or edited this written report and agrees with it. Electronically signed by: Terri Stoddard M.D. Narrative 07/16/2023 1:57 PM CDT EXAMINATION: ??Computed tomography of the abdomen and pelvis with intravenous contrast HISTORY: 62-year-old male presenting after being pinned between a horse and railing TECHNIQUE: ??Transaxial computed tomographic images of the abdomen and pelvis were obtained with intravenous contrast according to the standard protocol after the uneventful administration of 110 mL Opti-Ray 350 intravenous contrast. COMPARISON: None FINDINGS: Bibasilar atelectasis. ??No pulmonary consolidation. ??No pleural effusion. ??No pneumothorax. ??Imaged heart is within normal limits. No pericardial effusion. ??Coronary artery calcifications. ??The thoracic aorta is normal in caliber. ??The distal esophagus is unremarkable. No focal solid liver lesions. ??No intrahepatic or extra hepatic biliary ductal dilatation. ??The portal vein, superior mesenteric vein and splenic veins are patent. ??The gallbladder is unremarkable. ??The spleen is unremarkable. ??The pancreas is unremarkable. ??Minimal adreniform thickening of bilateral adrenal glands. ??Multiple hypoattenuating lesions seen in bilateral kidneys, the majority of which have simple fluid attenuation and are favored to represent cysts. ??There is a 3.5 x 2.9 cm slightly higher attenuation cysts in the midpole of the left kidney. ??Symmetric nephrograms without obstructing stone or hydronephrosis. ??The urinary bladder is unremarkable. ??The prostate is present. ??The seminal vesicles are unremarkable. Diffuse colonic diverticulosis without evidence of acute diverticulitis. ??The appendix is normal. ??The stomach, small bowel and large bowel is unremarkable without bowel wall thickening or dilatation. ??No bowel obstruction. There is mild focal haziness of the mesentery centered in the left hemiabdomen without evidence of adjacent bowel wall thickening. No free air. ??No free fluid. ??The abdominal aorta is normal in caliber without significant atherosclerotic calcifications of it or its branching vessels. ??The celiac axis and superior mesenteric arteries are patent. ??No suspicious abdominal or pelvic lymphadenopathy. Bilateral gynecomastia. No suspicious osseous lesions. ??Degenerative disease of the spine. Procedure Note Terri Stoddard MD - 07/16/2023 EXAMINATION: Computed tomography of the abdomen and pelvis with intravenous contrast HISTORY: 62-year-old male presenting after being pinned between a horse and railing TECHNIQUE: Transaxial computed tomographic images of the abdomen and pelvis were obtained with intravenous contrast according to the standard protocol after the uneventful administration of 110 mL Opti-Ray 350 intravenous contrast. COMPARISON: None FINDINGS: Bibasilar atelectasis. No pulmonary consolidation. No pleural effusion. No pneumothorax. Imaged heart is within normal limits. No pericardial effusion. Coronary artery calcifications. The thoracic aorta is normal in caliber. The distal esophagus is unremarkable. No focal solid liver lesions. No intrahepatic or extra hepatic biliary ductal dilatation. The portal vein, superior mesenteric vein and splenic veins are patent. The gallbladder is unremarkable. The spleen is unremarkable. The pancreas is unremarkable. Minimal adreniform thickening of bilateral adrenal glands. Multiple hypoattenuating lesions seen in bilateral kidneys, the majority of which have simple fluid attenuation and are favored to represent cysts. There is a 3.5 x 2.9 cm slightly higher attenuation cysts in the midpole of the left kidney. Symmetric nephrograms without obstructing stone or hydronephrosis. The urinary bladder is unremarkable. The prostate is present. The seminal vesicles are unremarkable. Diffuse colonic diverticulosis without evidence of acute diverticulitis. The appendix is normal. The stomach, small bowel and large bowel is unremarkable without bowel wall thickening or dilatation. No bowel obstruction. There is mild focal haziness of the mesentery centered in the left hemiabdomen without evidence of adjacent bowel wall thickening. No free air. No free fluid. The abdominal aorta is normal in caliber without significant atherosclerotic calcifications of it or its branching vessels. The celiac axis and superior mesenteric arteries are patent. No suspicious abdominal or pelvic lymphadenopathy. Bilateral gynecomastia. No suspicious osseous lesions. Degenerative disease of the spine. IMPRESSION: 1. 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 This is unlikely to represent mesenteric injury given no evidence of adjacent bowel wall thickening 2. Incidentally noted 3.5 cm hypoattenuating lesion in the midpole of the left kidney, favored to represent a cyst but indeterminate. Further evaluation with a renal ultrasound in 3 months is recommended. 3. Otherwise, no acute CT evidence of a traumatic abnormality in the abdomen or pelvis. Recommend follow up of the Incidental renal nodule. Additional Imaging in 3 Months with US. Dictated by: Rox Servin MD, MPH The radiology attending physician has personally reviewed this study, and had reviewed and/or edited this written report and agrees with it. Electronically signed by: Terri Stoddard M.D. Colin Ventura MD IMG CT PROCEDURES Edite d Result - Final * POCT glucose (07/16/2023 1:43 AM CDT) Glucose, POC 111 70 - 199 mg/dL Blood 07/16/2023 1:43 AM CDT 07/16/2023 1:43 AM CDT Samantha Islas MD LAB POCT ORDERABLES - DEVICE Final Result Performing Organization Address [facility] de Phone Number [facility] [place] [address] * (ABNORMAL) Urinalysis, microscopic only (07/16/2023 12:55 AM CDT) WBC, ur 0-5 0 - 5 /HPF RBC, ur 0-2 0 - 2 /HPF [facility] Epithelial cells, squamous, ur 1-5 0 - 5 /HPF [facility] Mucous, ur Present(A) [facility] Urine 07/16/2023 12:5 5 AM CDT 07/16/2023 1:02 AM CDT us Unique Landers MD LAB URINE ORDERABLES Fin al Result Performing Organization Address [facility] [place] [address] * (ABNORMAL) Urinalysis reflex to microscopic (07/16/2023 12:55 AM CDT) Color, ur Straw Yellow Clarity, ur Clear Clear [facility] Specific gravity, ur 1.016 1.003 - 1.030 [facility] pH, urine 6.5 [facility] Comment: Interpretive Data ? Urine pH is affected by diet, medications, systemic acid-base disturbances, and renal tubular function. ??pH may affect urinary stone formation. ??For example, urine pH below 6.0 may help reduce the tendency for calcium phosphate stones and pH greater than 6.0 may reduce the tendency for uric acid stone formation. Source: [facility] [employer] Current Interpretive Data was last revised on 2017 Protein, ur ql Negative Negative [facility] Glucose, ur ql Trace(A) Negative [facility] Ketones, ur Negative Negative [facility] Bilirubin, ur Negative Negative [facility] Blood, ur Negative Negative [facility] Urobilinogen, ur <2.0 <2.0 mg/dL [facility] Nitrite, ur Negative Negative [facility] Leukocyte esterase, ur Trace(A) Negative [facility] UA reflex comment Reflex to microscopic UA will be performed. [facility] Urine 07/16/2023 12:5 5 AM CDT 07/16/2023 1:02 AM CDT us Unique Landers MD LAB URINE ORDERABLES Fin al Result [facility] Department [place] [address] * XR Elbow Left 3 or More Views (07/16/2023 12:47 AM CDT) Anatomical Region Laterality Modality Upper Extremities, Elbow Left Compute d Radiography 07/16/2023 12:5 5 AM CDT Impressions 07/16/2023 1:53 PM CDT FINDINGS/IMPRESSION: Intravenous line overlying the left elbow. Heterotopic ossification seen adjacent to the medial condyle. Ossific density with irregular borders posterior to the olecranon may represent a small enthesophyte versus an avulsion fracture. Small joint effusion. Clinical correlation with point tenderness is recommended. Dictated by: Rox Servin MD, MPH The radiology attending physician has personally reviewed this study, and had reviewed and/or edited this written report and agrees with it. Electronically signed by: Terri Stoddard M.D. Narrative 07/16/2023 1:53 PM CDT EXAMINATION: ??XR ELBOW LEFT 3 OR MORE VIEWS HISTORY: Trauma, patient pinned between a horse and railing Procedure Note Terri Stoddard MD - 07/16/2023 EXAMINATION: XR ELBOW LEFT 3 OR MORE VIEWS HISTORY: Trauma, patient pinned between a horse and railing IMPRESSION: FINDINGS/IMPRESSION: Intravenous line overlying the left elbow. Heterotopic ossification seen adjacent to the medial condyle. Ossific density with irregular borders posterior to the olecranon may represent a small enthesophyte versus an avulsion fracture. Small joint effusion. Clinical correlation with point tenderness is recommended. Dictated by: Rox Servin MD, MPH The radiology attending physician has personally reviewed this study, and had reviewed and/or edited this written report and agrees with it. Electronically signed by: Terri Stoddard M.D. Colin Ventura MD IMG XR PROCEDURES Final Result * CT Head WO Contrast (07/16/2023 12:40 AM CDT) Anatomical Region Laterality Modality Head and Neck N/A Computed Tomogra phy 07/16/2023 1:01 AM CDT Impressions 07/16/2023 8:11 AM CDT 1. ??Stable thin left anterior parafalcine subdural hematoma. ??No new intracranial hemorrhage. ??No midline shift. 2. ??Evolving left occipital scalp hematoma with increasing surrounding hematoma. Dictated by: Matthew Skaggs MD The radiology attending physician has personally reviewed this study, and had reviewed and/or edited this written report and agrees with it. Electronically signed by: Marietta Lacey M.D. Narrative 07/16/2023 8:11 AM CDT EXAMINATION: CT head without contrast HISTORY: Follow-up subdural hematoma TECHNIQUE: CT of the head was performed with images acquired from skull base to vertex without intravenous contrast. COMPARISON: Same-day head CT from 6:19 PM FINDINGS: Redemonstrated acute left thin parafalcine subdural hematoma along the anterior falx measuring 3 mm, unchanged. Evolving left occipital scalp hematoma with increased surrounding subcutaneous edema. ??Mild scattered periventricular white matter hypodensities are nonspecific but likely sequela of chronic small vessel ischemic disease. Ventricles are of normal size and morphology.. ??Cavum septum pellucidum is noted. ??No mass effect or midline shift is present. The yadav-white matter differentiation is normal. The visualized portions of the orbits are normal. The visualized portions of the mastoids are normal. Mild mucosal thickening of the left maxillary sinus and ethmoid air cells. No fractures are identified. Procedure Note Marietta Lacey MD - 07/16/2023 EXAMINATION: CT head without contrast HISTORY: Follow-up subdural hematoma TECHNIQUE: CT of the head was performed with images acquired from skull base to vertex without intravenous contrast. COMPARISON: Same-day head CT from 6:19 PM FINDINGS: Redemonstrated acute left thin parafalcine subdural hematoma along the anterior falx measuring 3 mm, unchanged. Evolving left occipital scalp hematoma with increased surrounding subcutaneous edema. Mild scattered periventricular white matter hypodensities are nonspecific but likely sequela of chronic small vessel ischemic disease. Ventricles are of normal size and morphology.. Cavum septum pellucidum is noted. No mass effect or midline shift is present. The yadav-white matter differentiation is normal. The visualized portions of the orbits are normal. The visualized portions of the mastoids are normal. Mild mucosal thickening of the left maxillary sinus and ethmoid air cells. No fractures are identified. IMPRESSION: 1. Stable thin left anterior parafalcine subdural hematoma. No new intracranial hemorrhage. No midline shift. 2. Evolving left occipital scalp hematoma with increasing surrounding hematoma. Dictated by: Matthew Skaggs MD The radiology attending physician has personally reviewed this study, and had reviewed and/or edited this written report and agrees with it. Electronically signed by: Marietta Lacey M.D. us Unique Landers MD IMG CT PROCEDURES Final Result * Check Sample (07/15/2023 11:37 PM CDT) ABO Rh B Positive [facility] OTHER 07/15/2023 11:3 7 PM CDT 07/15/2023 11:49 PM CDT us Samantha Islas MD LAB BLOOD ORDERABLES Final Result [facility] Department [place] [address] * eGFR (07/15/2023 10:57 PM CDT) Pathologist [facility] eGFR >90 >=60 mL/min/1. 73 m2 Comment: Interpretive Data [...] interpretive data was last reviewed 2021. Blood 07/15/2023 10:5 7 PM CDT 07/15/2023 11:13 PM CDT us Unique Landers MD LAB BLOOD ORDERABLES Fin al Result [facility] Department [place] [address] * Differential, auto (07/15/2023 10:57 PM CDT) Pathologist [facility] Neutrophil abs 6.4 1.5 - 6.5 K/cumm Imm gran abs 0.0 0.0 - 0.1 K/cumm [facility] Lymphocyte abs 1.8 0.8 - 3.3 K/cumm [facility] Monocyte abs 0.7 0.2 - 0.8 K/cumm [facility] Eosinophil abs 0.2 0.0 - 0.5 K/cumm [facility] Basophil abs 0.0 0.0 - 0.1 K/cumm [facility] Neutrophil pct 70.3 % [facility] Comment: Interpretive Data Percent cell count reference ranges are not reported, since discordance with absolute values may lead to misinterpretation of CBC data. Current Interpretive Data was last revised on 2017. Imm gran pct 0.3 % [facility] Comment: Interpretive Data Percent cell count reference ranges are not reported, since discordance with absolute values may lead to misinterpretation of CBC data. Current Interpretive Data was last revised on 2017. Lymphocyte pct 20.2 % [facility] Comment: Interpretive Data Percent cell count reference ranges are not reported, since discordance with absolute values may lead to misinterpretation of CBC data. Current Interpretive Data was last revised on 2017. Monocyte pct 7.4 % [facility] Comment: Interpretive Data Percent cell count reference ranges are not reported, since discordance with absolute values may lead to misinterpretation of CBC data. Current Interpretive Data was last revised on 2017. Eosinophil pct 1.6 % [facility] Comment: Interpretive Data Percent cell count reference ranges are not reported, since discordance with absolute values may lead to misinterpretation of CBC data. Current Interpretive Data was last revised on 2017. Basophil pct 0.2 % [facility] Comment: Interpretive Data Percent cell count reference ranges are not reported, since discordance with absolute values may lead to misinterpretation of CBC data. Current Interpretive Data was last revised on 2017. Blood 07/15/2023 10:5 7 PM CDT 07/15/2023 11:14 PM CDT us Unique Landers MD LAB BLOOD ORDERABLES Fin al Result [facility] Department [place] [address] * Heparin anti factor Xa activity (07/15/2023 10:57 PM CDT) [facility] Anti Factor Xa 1.07 IUnits/mL Comment: Interpretive Data Enoxaparin therapeutic range (peak): VTE treatment, Q12hr dosin.60-1.00 IUnits/mL VTE treatment, Q24hr dosin.00-2.00 IUnits/mL Q24hr dosing for renal impairment (CrCl <30 mL/min): 0.60-1.00 IUnits/mL VTE prevention: 0.10-0.40 IUnits/mL - Anti-Xa therapeutic ranges apply to blood samples drawn 4 hours after last dose (peak). - Unfractionated heparin (UFH) therapeutic range: 0.30-0.70 IUnits/mL - Direct factor Xa inhibitors (rivaroxaban, apixaban): Results must be interpreted qualitatively. No activity detected suggests little anticoagulant activity. - In severe antithrombin deficiency, anti-Xa measurement may be inaccurate. - Interpretive guidelines developed in adult populations. Interpretive guidelines for pediatric patients have not been rigorously defined. - Current interpretive data was last revised on 2018. Blood 07/15/2023 10:5 7 PM CDT 07/15/2023 11:36 PM CDT us Unique Landers MD LAB BLOOD ORDERABLES Fin al Result [facility] Department [place] [address] * CBC with auto differential (07/15/2023 10:57 PM CDT) [facility] WBC 9.1 3.8 - 9.9 K/cumm Hgb 13.6 13.0 - 17.5 g/dL [facility] Hct 39.8 38.9 - 50.3 % [facility] Plt 234 150 - 400 K/cumm [facility] MPV 9.7 9.1 - 12.3 fL [facility] RBC 4.66 4.30 - 5.80 M/cumm [facility] MCV 85.4 81.3 - 96.4 fL [facility] MCH 29.2 27.1 - 33.3 pg [facility] MCHC 34.2 32.3 - 35.7 g/dL [facility] RDW CV 13.9 11.1 - 14.9 % [facility] RDW SD 42.8 35.7 - 48.1 fL [facility] NRBC abs 0.00 0.00 - 0.01 K/cumm [facility] Blood 07/15/2023 10:5 7 PM CDT 07/15/2023 11:14 PM CDT us Unique Landers MD LAB BLOOD ORDERABLES Fin al Result [facility] Department [place] [address] * Comprehensive metabolic panel (07/15/2023 10:57 PM CDT) Sodium 138 135 - 145 mmol/L Potassium, pl 3.9 3.3 - 4.9 mmol/L [facility] Chloride 104 97 - 110 mmol/L [facility] CO2 24 22 - 32 mmol/L [facility] Anion gap 10 2 - 15 mmol/L [facility] BUN 15 6 - 25 mg/dL [facility] Creatinine 0.85 0.80 - 1.30 mg/dL [facility] Glucose 113 70 - 199 mg/dL [facility] Comment: Interpretive Data Fasting glucose >/= 126 [...] 2022. Calcium 9.0 8.5 - 10.3 mg/dL [facility] Bilirubin, total 0.5 0.1 - 1.2 mg/dL [facility] Protein, pl 7.2 6.5 - 8.5 g/dL [facility] Albumin 4.0 3.5 - 5.0 g/dL [facility] Alk phos 91 40 - 130 Units/L [facility] ALT 21 7 - 55 Units/L [facility] AST 27 10 - 50 Units/L [facility] Blood 07/15/2023 10:5 7 PM CDT 07/15/2023 11:13 PM CDT Unique Landers MD LAB BLOOD ORDERABLES Fin al Result Performing Organization Address [facility] de Phone Number [facility] [place] [address] * aPTT (07/15/2023 10:57 PM CDT) aPTT 31 28 - 38 sec Comment: Interpretive Data Heparin therapeutic range: 66.0 - 100.0 seconds. Range based on correlation with therapeutic heparin activity range of 0.3 - 0.7 Units/mL. Current interpretive data was last revised on 2022. Blood 07/15/2023 10:5 7 PM CDT 07/15/2023 11:34 PM CDT Unique Landers MD LAB BLOOD ORDERABLES Fin al Result Performing Organization Address [facility] de Phone Number [facility] [place] [address] * (ABNORMAL) Protime-INR (07/15/2023 10:57 PM CDT) PT 14.5(H) 10.3 - 13.7 sec INR 1.27(H) 0.90 - 1.20 [facility] Comment: Interpretive data Oral anticoagulant therapeutic ranges: Venous thromboembolism prophylaxis or treatment: 2.0-3.0 CARDIOLOGY Standard range: 2.0-3.0 High-intensity range: 2.5-3.5 Refer to indication-specific guidelines for appropriate target ranges for prosthetic heart valve replacement. Current interpretive data was last revised on 2019. Blood 07/15/2023 10:5 7 PM CDT 07/15/2023 11:34 PM CDT Unique Landers MD LAB BLOOD ORDERABLES Fin al Result Performing Organization Address [facility] [place] [address] * Type and screen (07/15/2023 10:57 PM CDT) Pathologist [facility] ABO Rh B Positive [place], indirect Negative [facility] Blood 07/15/2023 10:5 7 PM CDT 07/15/2023 11:20 PM CDT Narrative [facility] - 07/16/2023 12:15 AM CDT Has the patient had Daratumumab or Isatuximab in the past 6 months?->Unknown Unique Landers MD LAB BLOOD BANK TEST ORDE RABLES Final Result Performing Organization Address [facility] [place] [address] * POCT glucose (07/15/2023 9:20 PM CDT) Pathologist [facility] Glucose, POC 116 70 - 199 mg/dL Blood 07/15/2023 9:20 PM CDT 07/15/2023 9:20 PM CDT Result [facility] Physician No LAB POCT ORDERABLES - DEVICE Fin al Result Performing Organization Address [facility] [place] [address] * POCT rapid HIV (07/15/2023 9:07 PM CDT) Rapid HIV, POC Negative Negative QC Control Line Acceptable Blood 07/15/2023 9:07 PM CDT Epifanio Up MD POINT OF CARE TEST ORDERA BLES Final Result documented in this encounter Visit Diagnoses Diagnosis SDH (subdural hematoma) (HCC)- Primary Subdural hemorrhage SDH (subdural hematoma) (HCC) Subdural hemorrhage Fall, initial encounter Class 3 severe obesity without serious comorbidity with body mass index (BMI) of 45.0 to 49.9 in adult (HCC) Essential hypertension Unspecified essential hypertension Hyperlipidemia LDL goal <100 Other and unspecified hyperlipidemia Obstructive sleep apnea syndrome Obstructive sleep apnea (adult) (pediatric) Paroxysmal atrial fibrillation (CMS/HCC) (HCC) Atrial fibrillation BPH (benign prostatic hyperplasia) Unspecified hyperplasia of prostate without urinary obstruction and other lower urinary tract symptoms (LUTS) Discharge planning issues documented in this encounter Admitting Diagnoses Diagnosis SDH (subdural hematoma) (HCC) Subdural hemorrhage documented in this encounter Administered Medications Inactive Administered Medications - up to 3 most recent administrations Medication Order MAR Action Action Date Dose Rate Site acetaminophen (TYLENOL) tablet 1,000 mg 1,000 mg, oral, Once, On Sat07/15/23 at 2303, For 1 dose Given 07/15/2023 11:05 PM CDT 1,000 mg acetaminophen (TYLENOL) tablet 1,000 mg 1,000 mg, oral, Every 6 hours scheduled, First dose on Sat07/16/23 at 1200 Given 07/18/2023 6:33 AM CDT 1,000 mg Given 07/18/2023 12:58 AM CDT 1,000 mg Given 07/17/2023 5:07 PM CDT 1,000 mg dextrose 5% and Lactated Ringer's infusion 50 mL/hr, intravenous, Continuous, Starting on Sat07/16/23 at 0830 New Bag 07/17/2023 6:01 AM CDT 50 mL/hr 50 mL/hr New Bag 07/16/2023 8:36 AM CDT 50 mL/hr 50 mL/hr enoxaparin (LOVENOX) syringe 40 mg 40 mg, subcutaneous, Every 12 hours scheduled, First dose on Sat07/17/23 at 0930, Indications: Deep Vein Thrombosis PreventionIndications:Deep Vein Thrombosis Prevention Given 07/18/2023 8:23 AM CDT 40 mg Left Upper Abdomen Given 07/17/2023 9:27 PM CDT 40 mg Ri ght Lower Abdomen Given 07/17/2023 9:01 AM CDT 40 mg Ri ght Upper Arm HYDROmorphone (DILAUDID) injection 0.5 mg 0.5 mg, intravenous, Administer over 2 Minutes, Every 3 hours PRN, 1st line for pain, Starting on Sat07/16/23 at 0137 Given 07/16/2023 5:46 AM CDT 0.5 mg Given 07/16/2023 1:44 AM CDT 0.5 mg HYDROmorphone (DILAUDID) injection 1 mg 1 mg, intravenous, Administer over 2 Minutes, Once, On Sat07/15/23 at 2224, For 1 dose Given 07/15/2023 10:26 PM CDT 1 mg ioversoL (OPTIRAY 350) syringe 125 mL 125 mL, intravenous, Once in imaging, contrast, Starting on Sat07/16/23 at 0213, For 1 dose Contrast Given 07/16/2023 2:13 AM CDT 110 mL levETIRAcetam (KEPPRA) injection 500 mg 500 mg, intravenous, Every 12 hours scheduled, First dose on Sat07/15/23 at 2300, For 14 doses, Administer at a rate of 500 mg/min IV push (IVP) undiluted. For doses greater than 2,000 mg, split into multiple syringes (maximum 2,000 mg per syringe) and administer as separate injections (in separate IV lines, if available). Given 07/17/2023 8:49 AM CDT 500 mg Given 07/16/2023 8:22 PM CDT 500 mg Given 07/16/2023 8:36 AM CDT 500 mg levETIRAcetam (KEPPRA) tablet 500 mg 500 mg, oral, 2 times daily, First dose on Sat07/17/23 at 2100, For 10 doses, May mix with 120 mL of enteral nutrition formula or disperse crushed tablets (500 mg tablet strength studied) in 10 mL of water, shake for 5 minutes to dissolve, and administer immediately via enteral feeding tube Given 07/18/2023 8:22 AM CDT 500 mg Given 07/17/2023 9:28 PM CDT 500 mg metoprolol (LOPRESSOR) injection 5 mg 5 mg, intravenous, Administer over 1 Minutes, Once, On Sat07/16/23 at 2015, For 1 dose Given 07/16/2023 8:24 PM CDT 5 m g metoprolol (LOPRESSOR) injection 5 mg 5 mg, intravenous, Administer over 1 Minutes, Once, On Sat07/17/23 at 0400, For 1 dose Given 07/17/2023 4:07 AM CDT 5 m g metoprolol (LOPRESSOR) injection 5 mg 5 mg, intravenous, Administer over 1 Minutes, Every 5 min PRN, afib w RVR, Starting on Sat07/17/23 at 0738, For 2 doses, Hold for heart rate 100 or less, Indications: Ventricular Rate Control in Atrial FibrillationIndications:Ventricular Rate Control in Atrial Fibrillation Given 07/17/2023 8:49 AM CDT 5 mg Given 07/17/2023 7:50 AM CDT 5 mg metoprolol tartrate (LOPRESSOR) immediate release tablet 25 mg 25 mg, oral, 2 times daily, First dose (after last modification) on Sat07/16/23 at 1745 Given 07/16/2023 5:19 PM CDT 25 mg metoprolol tartrate (LOPRESSOR) immediate release tablet 50 mg 50 mg, oral, 2 times daily, First dose (after last modification) on Sat07/17/23 at 0900 Given 07/18/2023 8:22 AM CDT 50 mg Given 07/17/2023 9:28 PM CDT 50 mg Given 07/17/2023 9:23 AM CDT 50 mg NIFEdipine (PROCARDIA XL/ADALAT CC) extended release tablet 60 mg 60 mg, oral, Nightly, First dose on Sat07/16/23 at 2100, Do not crush, chew, cut, dissolve, open or otherwise manipulate tablet/capsule. Given 07/17/2023 9:27 PM CDT 60 mg Given 07/16/2023 8:23 PM CDT 60 mg oxyCODONE (ROXICODONE) tablet 5 mg 5 mg, oral, Every 4 hours PRN, 1st line for pain, Starting on Sat07/17/23 at 1003, Indications: PainIndications:Pain rosuvastatin (CRESTOR) tablet 20 mg 20 mg, oral, Daily, First dose on 4/16/24 at 0900 Given 07/18/2023 8:22 AM CDT 20 mg Given 07/17/2023 8:49 AM CDT 20 mg Given 07/16/2023 8:36 AM CDT 20 mg senna-docusate (PERICOLACE) 8.6-50 mg per tablet 1 tablet 1 tablet, oral, 2 times daily, First dose on Sat07/16/23 at 0900, Hold for diarrhea., Indications: constipationIndications:constipation Given 07/18/2023 8:22 AM CDT 1 table t Given 07/17/2023 9:27 PM CDT 1 tablet Given 07/17/2023 8:49 AM CDT 1 tablet sodium chloride 0.9% flush 0.5-20 mL 0.5-20 mL, intra-catheter, Every 8 hours scheduled, First dose on Sat07/16/23 at 0830, Flush volume based on line type and size. Given 07/17/2023 2:00 PM CDT 10 mL Given 07/16/2023 8:36 AM CDT 10 mL tamsulosin (FLOMAX) extended release capsule 0.4 mg 0.4 mg, oral, Daily with dinner, First dose on Sat07/16/23 at 1800, Do not crush, chew, cut, dissolve, open or otherwise manipulate tablet/capsule. Given 07/17/2023 5:07 PM CDT 0.4 mg Given 07/16/2023 5:19 PM CDT 0.4 mg documented in this encounter Discontinued Medications Medication Sig Discontinue Reason Start Date End Da te rivaroxaban (XARELTO) 20 mg tablet Take 1 tablet (20 mg total) by mouth daily with dinner Stop Taking at Discharge 07/18/2023 documented as of this encounter Active and Recently Administered Medications Times are shown in CDT. Scheduled Medication Order 07/16/2023 07/17/2023 07/18/2023 acetaminophen (TYLENOL) tablet 1,000 mg 1,000 mg, oral, Every 6 hours scheduled, First dose on Sat07/16/23 at 1200 1213 (Given - Provider: Livia Gutierrez RN)1719 (Given - Provider: Livia Gutierrez RN) 0000 (Not Given - Provider: Augusta Win RN - Reason: Patient/family refused)0515 (Given - Provider: Augusta Win, NATA)1255 (Given - Provider: Livia Gutierrez, NATA)1707 (Given - Provider: Livia Gutierrez, NATA) 0058 (Given - Provider: Karen Bailey, RN)0633 (Given - Provider: Karen Bailey, RN) enoxaparin (LOVENOX) syringe 40 mg 40 mg, subcutaneous, Every 12 hours scheduled, First dose on Sat07/17/23 at 0930, Indications: Deep Vein Thrombosis Prevention 0901 (Given - Provider: Livia Gutierrez, NATA)2126 (Given - Provider: Karen Bailey, RN) 822 (Given - Provider: Lesli Nunez, NATA) levETIRAcetam (KEPPRA) injection 500 mg (CANCELED) 500 mg, intravenous, Every 12 hours scheduled, First dose on Sat07/15/23 at 2300, For 14 doses, Administer at a rate of 500 mg/min IV push (IVP) undiluted. For doses greater than 2,000 mg, split into multiple syringes (maximum 2,000 mg per syringe) and administer as separate injections (in separate IV lines, if available). 08 (Given - Provider: Livia Gutierrez RN)2021 (Given - Provider: Augusta Win RN) 08 (Given - Provider: Livia Gutierrez, NATA) levETIRAcetam (KEPPRA) tablet 500 mg 500 mg, oral, 2 times daily, First dose on Sat07/17/23 at 2100, For 10 doses, May mix with 120 mL of enteral nutrition formula or disperse crushed tablets (500 mg tablet strength studied) in 10 mL of water, shake for 5 minutes to dissolve, and administer immediately via enteral feeding tube 2127 (Given - Provider: Karen Bailey, NAAT) 08 (Given - Provider: Lesli Nunez, NATA) metoprolol (LOPRESSOR) injection 5 mg (COMPLETED) 5 mg, intravenous, Administer over 1 Minutes, Once, On Sat07/16/23 at 2015, For 1 dose 2023 (Given - Provider: Augusta Win RN) metoprolol (LOPRESSOR) injection 5 mg (COMPLETED) 5 mg, intravenous, Administer over 1 Minutes, Once, On Sat07/17/23 at 0400, For 1 dose 0407 (Given - Provider: Augusta Win RN) metoprolol tartrate (LOPRESSOR) immediate release tablet 25 mg (CANCELED) 25 mg, oral, 2 times daily, First dose (after last modification) on Sat07/16/23 at 1745 1719 (Given - Provider: Livia Gutierrez RN) metoprolol tartrate (LOPRESSOR) immediate release tablet 50 mg 50 mg, oral, 2 times daily, First dose (after last modification) on Sat07/17/23 at 0900 0923 (Given - Provider: Livia Gutierrez RN)2127 (Given - Provider: Karen Bailey, NATA) 821 (Given - Provider: Lesli Nunez, NATA) NIFEdipine (PROCARDIA XL/ADALAT CC) extended release tablet 60 mg 60 mg, oral, Nightly, First dose on Sat07/16/23 at 2100, Do not crush, chew, cut, dissolve, open or otherwise manipulate tablet/capsule. 2022 (Given - Provider: Augusta Win RN) 2126 (Given - Provider: Karen Bailey, NATA) rosuvastatin (CRESTOR) tablet 20 mg 20 mg, oral, Daily, First dose on Sat07/16/23 at 0900 0836 (Given - Provider: Livia Gutierrez RN) 0849 (Given - Provider: Livia Gutierrez RN) 08 (Given - Provider: Lesli Nunez, NATA) senna-docusate (PERICOLACE) 8.6-50 mg per tablet 1 tablet 1 tablet, oral, 2 times daily, First dose on Sat07/16/23 at 0900, Hold for diarrhea., Indications: constipation 0836 (Given - Provider: Livia Gutierrez RN)2033 (Not Given - Provider: Augusta Win RN - Reason: Patient/family refused) 0849 (Given - Provider: Livia Gutierrez RN)2126 (Given - Provider: Karen Bailey, NATA) 0822 (Given - Provider: Lesli Nunez RN) sodium chloride 0.9% flush 0.5-20 mL 0.5-20 mL, intra-catheter, Every 8 hours scheduled, First dose on Sat07/16/23 at 0830, Flush volume based on line type and size. 0836 (Given - Provider: Livia Gutierrez RN)1555 (Not Given - Provider: Livia Gutierrez RN - Reason: Other)2158 (Not Given - Provider: Augusta Win RN - Reason: IV Infusing) 0523 (Not Given - Provider: Augusta Win RN - Reason: IV Infusing)1400 (Given - Provider: Livia Gutierrez RN)2216 (Canceled Entry - Provider: Karen Bailey RN) 0630 (Canceled Entry - Provider: Rickey York RN)1400 (Canceled Entry - Provider: Rickey York RN) tamsulosin (FLOMAX) extended release capsule 0.4 mg 0.4 mg, oral, Daily with dinner, First dose on Sat07/16/23 at 1800, Do not crush, chew, cut, dissolve, open or otherwise manipulate tablet/capsule. 1719 (Given - Provider: Livia Gutierrez RN) 1707 (Given - Provider: Livia Gutierrez, NATA) Continuous Medication Order 07/16/2023 07/17/2023 07/18/2023 dextrose 5% and Lactated Ringer's infusion (CANCELED) 50 mL/hr, intravenous, Continuous, Starting on Sat07/16/23 at 0830 0836 (New Bag - Provider: Livia Gutierrez, NATA) 0601 (New Bag - Provider: Augusta Win RN)0855 (Stopped - Provider: Livia Gutierrez RN) PRN Medication Order 07/16/2023 07/17/2023 07/18/2023 Carrier Fluids for Secondary Infusion - 0.9% Sodium Chloride 30 mL, intravenous, As needed, For priming tubing and/or flushing, Starting on Sat07/16/23 at 0750, 0-250 ml/hr to flush line after IV infusions when no maintenance IV ordered. Infuse 30mL at the same rate as the secondary infusion. Run as primary IV, not intended for KVO. HYDROmorphone (DILAUDID) injection 0.5 mg (CANCELED) 0.5 mg, intravenous, Administer over 2 Minutes, Every 3 hours PRN, 1st line for pain, Starting on Sat07/16/23 at 0137 0144 (Given - Provider: Porsha Patiño RN)0546 (Given - Provider: Porsha Patiño RN) ioversoL (OPTIRAY 350) syringe 125 mL (COMPLETED) 125 mL, intravenous, Once in imaging, contrast, Starting on Sat07/16/23 at 0213, For 1 dose 0213 (Contrast Given - Provider: Crystal Armas RT) metoprolol (LOPRESSOR) injection 5 mg (COMPLETED) 5 mg, intravenous, Administer over 1 Minutes, Every 5 min PRN, afib w RVR, Starting on Sat07/17/23 at 0738, For 2 doses, Hold for heart rate 100 or less, Indications: Ventricular Rate Control in Atrial Fibrillation 0750 (Given - Provider: Livia Gutierrez RN)0849 (Given - Provider: Livia Gutierrez RN) oxyCODONE (ROXICODONE) tablet 5 mg 5 mg, oral, Every 4 hours PRN, 1st line for pain, Starting on Sat07/17/23 at 1003, Indications: Pain sodium chloride 0.9% flush 0.5-20 mL 0.5-20 mL, intra-catheter, As needed, line care, Starting on Sat07/16/23 at 0750, Flush volume based on line type and size. Flush before and after each use. documented in this encounter Orders Medications Ordered That Uziel ht Not Have Been Administered Count Last Ordered Date First Ordered Date oxyCODONE (ROXICODONE) tablet 5 mg 2023 Carrier Fluids for Secondary Infusion - 0.9% Sodium Chloride 07/16/2023 HYDROmorphone (DILAUDID) injection 0.5 mg 07/16/2023 metoprolol (LOPRESSOR) injection 5 mg metoprolol tartrate (LOPRESS OR) immediate release tablet 25 mg 1 07/16/2023 sodium chloride 0.9% flush 0.5-20 mL 1 06/30 Lab Orders Without Results Count Last Ordered D ate First Ordered Date POCT GLUCOSE DEVICE 16 07/18/2023 07/15/19 24 Diet Count Last Ordered Date First Orde red Date ADULT DISCHARGE DIET 1 07/18/2023 Nursing Count Last Ordered Date First Orde red Date DISCHARGE ACTIVITY 4 07/18/2023 DISCHARGE CALL PROVIDER 6 07/18/2023 DISCHARGE DRESSING 2 07/18/2023 WEIGH PATIENT 1 07/16/2023 MISCELLANEOUS NURSING CARE ORDER (SPECIFY) 1 07/15/2023 Consult Count Last Ordered Date First Orde red Date IP CONSULT TO SOCIAL WORK 1 07/16/2023 IP CONSULT TO NEUROSURGERY 1 07/15/2023 Admission Count Last Ordered Date First Orde red Date ADMIT TO INPATIENT 1 07/16/2023 Discharge Count Last Ordered Date First Orde red Date DISCHARGE PATIENT 1 07/18/2023 CORE MEASURES Count Last Ordered Date First Ord ered Date REASON FOR NO VTE PROPHYLAXI S - HOSPITAL ADMISSION - MEDICATIONS 1 07/16/2023 documented in this encounter Care Teams Electric Motor Assembler And Tester Relationship Specialty Start Date End Date Ashok Gaffney MD PCP - General 08/23/11 documented as of this encounter
--- OUTSIDE RECORDS SUMMARY | 2024-04-01 21:14 | XMS_ITS | Encounter Summary ---
Author Organization [facility] Address [address] [place] [address] Care Team Providers Care Medical Manager Name Role Phone Ashok Gaffney MD Primary Care Provider [phone] Reason for Visit * Reason Onset Date Comments Prior Auth 03/09/2022 Xarelto Encounter Details Date Type Department Care Team (Late st Contact Info) Description 03/09/2022 Telephone [facility] [address] [address] Eze Mcdaniel MD [address] [facility] [address] [address] Prior Auth (Xarelto) Social History Tobacco Use Types Packs/Day Years Used Date Smoking Tobacco: Never Smokeless Tobacco: Never Alcohol Use Standard Drinks/Week Comments Yes 2 (1 standard drink = 0.6 oz pur e alcohol) Sex and Gender Information Value Date Recorded Sex Assigned at Not on file Legal Sex Male 1:22 AM METALLURGY LABORATORY TECHNICIAN Gender Identity Male 02/12/2020 11:14 AM METALLURGY LABORATORY TECHNICIAN Sexual Orientation Straight 02/12/2020 11 :14 AM METALLURGY LABORATORY TECHNICIAN documented as of this encounter Miscellaneous Notes * Telephone Encounter - Mraia Elena Hassan MA - 03/09/2022 9:24 AM CST Images from the original note were not included. Prior Auth request received from pharmacy. Completed on Cover My Meds. APPROVED LLURGY LABORATORY TECHNICIAN documented in this encounter Plan of Treatment Not on file documented as of this encounter Visit Diagnoses Not on filedocumented in this encounter Care Teams Medical Manager Relationship Specialty Start Date End Date Ashok Gaffney MD PCP - General 08/23/11 documented as of this encounter
--- OUTSIDE RECORDS SUMMARY | 2024-04-01 21:14 | XMS_ITS | Encounter Summary ---
Author Organization [facility] Address [address] [place] [address] Phone Care Team Providers Care Electric Locomotive Firer/Fireman Name Role Phone Ashok Gaffney MD Primary Care Provider Encounter Details Date Type Department Care Team (Late st Contact Info) Description 08/05/2023 Telephone [facility] Neurosurgery [address] 6[address] [place] [address] [place] [id number] aPrmjit Diop MD [address] [place] [address] Social History Tobacco Use Types Packs/Day Years Used Date Smoking Tobacco: Never Smokeless Tobacco: Never Alcohol Use Standard Drinks/Week Comments Yes 2 (1 standard drink = 0.6 oz pur e alcohol) [facility] Utilities Answer Date Recorded In the past 12 months has [employer], gas, oil, or water [employer] threatened to shut off services in your [...] How often do you attend chur or roman catholic services? Never 07/16/2023 Do you belong to [...] and heating? Not hard at all 07/16/2023 [facility] - [...] on file Legal Sex Male 1:22 AM SALES PROPERTY MANAGER Gender Identity Male 02/12/2020 11:14 AM SALES PROPERTY MANAGER Sexual Orientation Straight 02/12/2020 11 :14 AM SALES PROPERTY MANAGER documented as of this encounter Miscellaneous Notes * Telephone Encounter - Tori Zayas - 08/05/2023 2:15 PM CDT ----- Message from Sánchez Castano MD PhD sent at 07/17/2023 5:34 PM CDT ----- Regarding: Follow-up Please task follow-up for this patient in 4-6 weeks in the [facility] neurosurgery clinic with a non-contrast CT scan of the head. documented in this encounter Plan of Treatment Not on file documented as of this encounter Visit Diagnoses Not on filedocumented in this encounter Care Teams Electric Locomotive Firer/Fireman Relationship Specialty Start Date End Date Ashok Gaffney MD PCP - General 08/23/11 documented as of this encounter
--- OUTSIDE RECORDS SUMMARY | 2024-04-01 21:14 | XMS_ITS | Encounter Summary ---
Author Organization [facility] Healthcare Address [address] [place] [address] Care Team Providers Care Geophysical Computer Name Role Phone Ashok Gaffney MD Primary Care Provider Reason for Visit * Reason Comments Irregular Heart Beat Encounter Details Date Type Department Care Team (Late st Contact Info) Description 04/02/2023 1:45 PM PROCESS LEAD Office Visit Ar[facility]ia Center [address] [facility] [address], [place] [address] Caitlyn Muir, NAVID [address] [facility] [address], [place] [address] Atrial fibrillation, unspecified type (HCC) (Primary Dx) Social History Tobacco Use Types Packs/Day Years Used Date Smoking Tobacco: Never Smokeless Tobacco: Never Tobacco Cessation:Counseling Given: Not Answered Alcohol Use Standard Drinks/Week Comments Yes 2 (1 standard drink = 0.6 oz pur e alcohol) Personal Safety Answer Date Recorded Getting School Help Needed Denies 03/20 Sex and Gender Information Value Date Recorded Sex Assigned at Not on file Legal Sex Male 1:22 AM PROCESS LEAD Gender Identity Male 02/12/2020 11:14 AM PROCESS LEAD Sexual Orientation Straight 02/12/2020 11 :14 AM PROCESS LEAD documented as of this encounter Last Filed Vital Signs Vital Sign Reading Time Taken Comments Blood Pressure 130/60 04/02/2023 1:57 PM PROCESS LEAD Pulse 66 04/02/2023 1:57 PM PROCESS LEAD Temperature - - Respiratory Rate - - Oxygen Saturation 93% 04/02/2023 1:57 PM PROCESS LEAD Inhaled Oxygen Concentration - - Weight 161.3 kg (355 lb 8 oz) 04/02/2023 1:57 PM PROCESS LEAD Height 177.8 cm (5' 10 ) 04/02/2023 1:57 PM PROCESS LEAD Body Mass Index 51.01 04/02/2023 1:57 PM PROCESS LEAD documented in this encounter Progress Notes * Caitlyn Muir, AUTOMATIC OPERATOR - 04/02/2023 1:45 PM CST Images from the original note were not included. Patient ID: Vikas Banda is a 62 y.o. male Chief Complaint Atrial fibrillation HPI Mr. Banda is evaluated at the [facility] today for follow up on 04/02/2023 for follow-up of his atrial fibrillation. He was recently seen in the [facility] on 03/13/2023. During that time a stress echocardiogram is ordered. He was also on flecainide at that time. He underwent transesophageal echo on August 05, [...] at that time. He presents today in sinus rhythm but reports symptoms related to his AF. 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 EKG on my review today demonstrates sinus rhythm (62) right bundle-branch block Current Outpatient Medications: albuterol HFA (PROVENTIL HFA,VENTOLIN HFA,PROAIR HFA) 90 mcg/actuation inhaler, Inhale 2 puffs every 6 (six) hours as needed for wheezing or shortness of breath, Disp: , Rfl: metoprolol XL (TOPROL-XL) 100 mg 24 hr tablet, Take 0.5 tablets (50 mg total) by mouth 2 (two) times a day, Disp: , Rfl: NIFEdipine (NIFEdipine CC) 60 mg 24 hr tablet, Take 1 tablet (60 mg total) by mouth nightly, Disp: , Rfl: rivaroxaban (XARELTO) 20 mg tablet, Take 1 tablet (20 mg total) by mouth daily with dinner, Disp: ,Rfl: tirzepatide (Mounjaro) 2.5 mg/0.5 mL pen injector, Inject 0.5 mL (2.5 mg total) under the skin every 7 days Fridays, Disp: , Rfl: flecainide (TAMBOCOR) 150 mg tablet, Take 1 tablet (150 mg total) by mouth 2 (two) times a day (Patient not taking: Reported on 04/02/2023), Disp: , Rfl: Past Medical History: Diagnosis Date HX OTHER MEDICAL 2012 Hypogonadism HX OTHER MEDICAL Obesity, Morbid HX OTHER MEDICAL Sleep Apnea, CPAP History reviewed. No pertinent family history. Social History Tobacco Use Smoking status: Never [...] cocaine. He does report continued use 2. Encounter for anticoagulation management. He remains on Xarelto 20 mg daily. He denies any issues with bleeding or bruising 3. Normal LV function Plan: Had a thorough discussion with the patient today regarding options for his atrial fibrillation. At this time options are very limited due to his continued use of illicit drugs. Antiarrhythmic therapy is contraindicated with the use of methamphetamine due to risk for QT prolongation. Also discussed with him the risks of cocaine use and beta-blockade. He will continue to follow with us. He can follow up in 6 months for an office visit and 12 lead EKG Caitlyn Muir NP [facility] Ar[facility] ESS LEAD documented in this encounter Plan of Treatment Not on file documented as of this encounter Procedures Procedure Name Priority Date/Time Associated Diagnosis Comments ECG 12-LEAD Routine 04/02/2023 Atrial fibrillation, unspecified type (HCC) documented in this encounter Results * ECG 12 lead (04/02/2023) us Caitlyn Muir NP ECG ORDERABLES Final Resu lt documented in this encounter Visit Diagnoses Diagnosis Atrial fibrillation, unspecified type (HCC)- Primary documented in this encounter Care Teams Geophysical Computer Relationship Specialty Start Date End Date Ashok Gaffney MD PCP - General 08/23/11 documented as of this encounter
--- OUTSIDE RECORDS SUMMARY | 2024-04-01 21:14 | XMS_ITS | Encounter Summary ---
Author Organization [facility] Healthcare Address [address] [place] [address] Care Team Providers Care Cook Ship Name Role Phone Ashok Gaffney MD Primary Care Provider [phone] Reason for Visit * Reason Onset Date Comments Med Management 07/26/2023 Encounter Details Date Type Department Care Team (Late st Contact Info) Description 07/26/2023 Telephone Arrhythmia Center [address] [facility] [address] [place] [phone] Caitlyn Muir, NAVID [address] [facility] [address], [place] [address] Med Management Social History Tobacco Use Types Packs/Day Years Used Date Smoking Tobacco: Never Smokeless Tobacco: Never Alcohol Use Standard Drinks/Week Comments Yes 2 (1 standard drink = 0.6 oz pur e alcohol) [facility] Utilities Answer Date Recorded In the past 12 months has [facility] Traveler | VIP, gas, oil, or water [employer] threatened to shut off services in your [...] How often do you attend chur or yazdanism services? Never 07/16/2023 Do you belong to any clubs o r organizations such as protestant groups, unions, fraternal or athletic groups, or [...] place to sleep or slept in a detention (including now)? No 07/16/2023 Personal Safety Answer Date Recorded Have you ever been in or are you currently in a harmful physical or emotional relationship or is someone making you feel afraid or unsafe? Denies 07/15/2023 Sex and Gender Information Value Date Recorded Sex Assigned at Not on file Legal Sex Male 1:22 AM TWISTER IN Gender Identity Male 02/12/2020 11:14 AM TWISTER IN Sexual Orientation Straight 02/12/2020 11 :14 AM TWISTER IN documented as of this encounter Miscellaneous Notes * Telephone Encounter - Katrin Mar - 07/26/2023 12:50 PM CDT Called pt and let him what Caitlyn responded. He will continue on the medicine that Wheeler sent saul on. * Telephone Encounter - Caitlyn Muir NP - 07/26/2023 12:18 PM CDT Please let him know to continue the medications he was discharged home on from [place] * Telephone Encounter - Katrin Mar - 07/26/2023 11:57 AM CDT Pt called asking if he should continue to take the medicines our office put him on and now that he is discharged from the hospital (07/15/23 ER [facility]) he needs to know if he should go back on it. Pleaseadvise. Thank You documented in this encounter Plan of Treatment Not on file documented as of this encounter Visit Diagnoses Not on filedocumented in this encounter Care Teams Cook Ship Relationship Specialty Start Date End Date Ashok Gaffney MD PCP - General 08/23/11 documented as of this encounter"
--- OUTSIDE RECORDS SUMMARY | 2024-04-01 21:14 | XMS_ITS | Encounter Summary ---
Author Organization [facility] Healthcare Address [address] [place] [address] Care Team Providers Care Embossing Press Operator Molded Goods Name Role Phone Ashok Gaffney MD Primary Care Provider [phone] Reason for Visit * Reason Comments Atrial Fibrillation Encounter Details Date Type Department Care Team (Latest Contact Info) Description 03/13/2023 1:00 PM TOUR COORDINATOR Office Visit Ar[facility]ia Center [address] [facility] [address] [place] [phone] Caitlyn Muir, NAVID [address] [facility] [address] [address] Cardiac arrhythmia, unspecified cardiac arrhythmia type (Primary Dx); Paroxysmal atrial fibrillation (CMS/HCC) (HCC); Anticoagulation management encounter; retirement current use of antiarrhythmic drug Social History Tobacco Use Types Packs/Day Years Used Date Smoking Tobacco: Never Smokeless Tobacco: Never Tobacco Cessation:Counseling Given: Not Answered Alcohol Use Standard Drinks/Week Comments Yes 2 (1 standard drink = 0.6 oz pur e alcohol) Sex and Gender Information Value Date Recorded Sex Assigned at Not on file Legal Sex Male 1:22 AM TOUR COORDINATOR Gender Identity Male 02/12/2020 11:14 AM TOUR COORDINATOR Sexual Orientation Straight 02/12/2020 11 :14 AM TOUR COORDINATOR documented as of this encounter Last Filed Vital Signs Vital Sign Reading Time Taken Comments Blood Pressure 140/70 03/13/2023 1:08 PM TOUR COORDINATOR Pulse 64 03/13/2023 1:08 PM TOUR COORDINATOR Temperature - - Respiratory Rate - - Oxygen Saturation 95% 03/13/2023 1:08 PM TOUR COORDINATOR Inhaled Oxygen Concentration - - Weight 161.6 kg (356 lb 4.8 oz) 03/13/2023 1:08 PM TOUR COORDINATOR Height 177.8 cm (5' 10 ) 03/13/2023 1:08 PM TOUR COORDINATOR Body Mass Index 51.12 03/13/2023 1:08 PM TOUR COORDINATOR documented in this encounter Progress Notes * Deandra Kelsey, BOTTOM BRUSHER - 03/13/2023 1:00 PM CST Images from the original note were not included. [facility] [address] [place] [address], [address] [place], [place] [address] Office Visit Note Patient Name: Vikas Banda Date of : 1960 Primary Physician: Ashok Gaffney MD Chief Complaint Atrial Fibrillation HPI Vikas Banda is a 62 y.o. male seen today for follow-up of his paroxysmal atrial fibrillation for which he is maintained on apixaban, flecainide, and metoprolol. He was last seen in our office on 03/15/2021. The patient states that he had increased breakthroughs of atrial fibrillation over the summer. Has had increased stress due to recent divorce and admits that he was drinking alcohol frequently over the summer but has significantly decreased the amount he drinks and noticed a continued decrease in his breakthroughs. The patient states that he does have sleep apnea- admits to not always being compliant with his CPAP. Reports that he does have an appointment with his PCP next week to re-establish care and for preventive care. He denies chest pain, dyspnea, syncope, near-syncope, dizziness, TIA, stroke-like symptoms, hematochezia, melena or other symptoms or concerns not stated above. Past Medical History Past Medical History: Diagnosis Date HX OTHER MEDICAL 2012 Hypogonadism HX OTHER MEDICAL Obesity, Morbid HX OTHER MEDICAL Sleep Apnea, CPAP Past Surgical History Past Surgical History: Procedure Laterality Date OTHER SURGICAL HISTORY Achilles tendon OR TONSILLECTOMY Tonsillectomy Medications Current Outpatient Medications Medication Instructions albuterol HFA (PROVENTIL HFA,VENTOLIN HFA,PROAIR HFA) 90 mcg/actuation inhaler 2 puffs, inhalation,Every 6 hours PRN flecainide (TAMBOCOR) 150 mg tablet TAKE 1 TABLET BY MOUTH TWICE A DAY metoprolol XL (TOPROL-XL) 100 mg 24 hr tablet TAKE 1/2 TABLET BY MOUTH TWICE DAILY NIFEdipine (PROCARDIA XL/ADALAT CC) 60 mg, oral, Daily Xarelto 20 mg tablet TAKE 1 TABLET BY MOUTH EVERY DAY Allergies No Known Allergies Family History History reviewed. No pertinent family history. Social History Social History Tobacco Use Smoking status: Never Smokeless tobacco: Never Substance and Sexual Activity Drug use: No Sexual activity: None Alcohol Use: Not on file Objective ROS Review of systems negative except as per the HPI. Physical Exam Constitutional: Appearance: He is well-developed. HENT: Head: Normocephalic and atraumatic. Right Ear: External ear normal. Left Ear: External ear normal. Nose: Nose normal. Mouth/Throat: Mouth: Mucous membranes are moist. Pharynx: Oropharynx is clear. Eyes: Conjunctiva/sclera: Conjunctivae normal. Pupils: Pupils are equal, round, and reactive to light. Cardiovascular: Rate and Rhythm: Normal rate and regular rhythm. Pulses: Normal pulses. Heart sounds: Normal heart sounds. Pulmonary: Effort: Pulmonary effort is normal. Breath sounds: Normal breath sounds. Abdominal: General: Bowel sounds are normal. Palpations: Abdomen is soft. Musculoskeletal: General: Normal range of motion. Cervical back: Normal range of motion. Skin: General: Skin is warm and dry. Neurological: General: No focal deficit present. Mental Status: He is alert and oriented to person, place, and time. Psychiatric: Behavior: Behavior normal. Thought Content: Thought content normal. Judgment: Judgment normal. BP 140/70 Pulse 64 Ht 177.8 cm (5' 10 ) Wt (!) 161.6 kg (356 lb 4.8 oz) SpO2 95% BMI 51.12 kg/m?? Assessment/Plan Diagnoses and all orders for this visit: Cardiac arrhythmia, unspecified cardiac arrhythmia type (Primary) - ECG 12 lead Paroxysmal atrial fibrillation (CMS/HCC) (HCC) Assessment & Plan: EKG reveals sinus rhythm with first-degree AV block and IVCD. He is maintained on rivaroxaban for CVA prophylaxis and flecainide for rhythm control and metoprolol succinate for rate control. Encouraged lifestyle modifications including compliance with his CPAP and continued decreased alcohol intake. Given his age and risk factors for CAD including morbid obesity, hypertension we will get a stressechocardiogram to ensure that it is safe to continue his class IC antiarrhythmic. Will continue hiscurrent medical therapy pending the results of this and have him follow-up in 3 months or sooner ifneeded. Anticoagulation management encounter Assessment & Plan: The patient is maintained on rivaroxaban. He states compliance with this. He denies any bleeding issues. 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 [...] disease. Plan tentative follow-up in 3 months. 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 [...] disease. Plan tentative follow-up in 3 months. COORDINATOR * Assessment & Plan Note - Deandra Kelsey NP - 03/13/2023 1:39 PM CSTAssociated Problem(s): Anticoagulation management encounter The patient is maintained on rivaroxaban. He states compliance with this. He denies any bleeding issues. COORDINATOR * Assessment & Plan Note - Deandra Kelsey NP - 03/13/2023 1:39 PM CSTAssociated Problem(s): Paroxysmal atrial fibrillation (CMS/HCC) (HCC) EKG reveals sinus rhythm with first-degree AV block and IVCD. He is maintained on rivaroxaban for CVA prophylaxis and flecainide for rhythm control and metoprolol succinate for rate control. Encouraged lifestyle modifications including compliance with his CPAP and continued decreased alcohol intake. Given his age and risk factors for CAD including morbid obesity, hypertension we will get a stressechocardiogram to ensure that it is safe to continue his class IC antiarrhythmic. Will continue hiscurrent medical therapy pending the results of this and have him follow-up in 3 months or sooner ifneeded. COORDINATOR documented in this encounter Plan of Treatment Not on file documented as of this encounter Procedures Procedure Name Priority Date/Time Associated Diagnosis Comments ECG 12-LEAD Routine 03/13/2023 Cardiac arrhythmia, unspecified cardiac arrhythmia type documented in this encounter Results * ECG 12 lead (03/13/2023) Caitlyn Muir NP ECG ORDERABLES Final Resu lt documented in this encounter Visit Diagnoses Diagnosis Cardiac arrhythmia, unspecified cardiac arrhythmia type- Primary Paroxysmal atrial fibrillation (CMS/HCC) (HCC) Atrial fibrillation Anticoagulation management encounter Encounter for therapeutic drug monitoring retirement current use of antiarrhythmic drug documented in this encounter Discontinued Medications Medication Sig Discontinue Reason Start Date End Da te amoxicillin-clavulanate (AUGMENTIN) 875-125 mg per tablet TAKE 1 TABLET ORALLY TWICE A DAY FOR 7 DAYS Therapy completed 03/06/2022 03/13/2023 documented as of this encounter Historical Medications * This list may reflect changes made after this encounter. albuterol HFA (PROVENTIL HFA,VENTOLIN HFA,PROAIR HFA) 90 mcg/actuation inhaler Inhale 2 puffs every 6 (six) hours as needed for wheezing or shortness of breath 03/08/2023 4 added in this encounter Care Teams Embossing Press Operator Molded Goods Relationship Specialty Start Date End Date Ashok Gaffney MD PCP - General 08/23/11 documented as of this encounter
--- OUTSIDE RECORDS SUMMARY | 2024-04-01 21:14 | XMS_ITS | Encounter Summary ---
Author Organization [facility] Address [address] [facility] [address] [place] [address] Care Team Providers Care Warper Fixer Name Role Phone Ashok Gaffney MD Primary Care Provider [phone] Reason for Visit * Reason Comments Abnormal Cardiac Testing Encounter Details Date Type Department Care Team (Late st Contact Info) Description 03/14/2022 11:00 AM FURNITURE DESIGNER Office Visit Ar[facility]hythmia Center [address] [facility] [address] [phone] Caitlyn Muir, ECONOMICS FACULTY MEMBER [address] [facility] [address], [place] [id number] Cardiac arrhythmia, unspecified cardiac arrhythmia type (Primary Dx) Social History Tobacco Use Types Packs/Day Years Used Date Smoking Tobacco: Never Smokeless Tobacco: Never Alcohol Use Standard Drinks/Week Comments Yes 2 (1 standard drink = 0.6 oz pur e alcohol) Sex and Gender Information Value Date Recorded Sex Assigned at Not on file Legal Sex Male 1:22 AM FURNITURE DESIGNER Gender Identity Male 02/12/2020 11:14 AM FURNITURE DESIGNER Sexual Orientation Straight 02/12/2020 11 :14 AM FURNITURE DESIGNER documented as of this encounter Last Filed Vital Signs Vital Sign Reading Time Taken Comments Blood Pressure - - Pulse - - Temperature - - Respiratory Rate - - Oxygen Saturation - - Inhaled Oxygen Concentration - - Weight 159.6 kg (351 lb 12.8 oz) 2021 10:54 AM FURNITURE DESIGNER Height 177.8 cm (5' 10 ) 03/14/2022 10: 54 AM FURNITURE DESIGNER Body Mass Index 50.48 03/14/2022 10:54 AM FURNITURE DESIGNER documented in this encounter Progress Notes * Wood Caitlyn Rodolfo, ECONOMICS FACULTY MEMBER - 03/14/2022 11:00 AM CST Images from the original note were not included. Patient ID: Vikas Banda is a 61 y.o. male Chief Complaint Atrial fibrillation HPI Mr. Banda is evaluated at the [facility]ia Center today for follow up on 03/14/2022 for follow-up of his atrial fibrillation. He underwent transesophageal echo on August 05, 2017 that showed no thrombus normal LV function no wallmotion abnormalities EF 60% moderate left atrial enlargement. He was started on flecainide then hadspontaneous conversion. Since he was seen 1 year ago he has been doing well. No recent episodes atrial fibrillation. No recent hospitalizations or major medical events. No orthopnea or PND EKG on my review today demonstrates sinus rhythm (55) with normal QRS duration and QT interval Current Outpatient Medications: amoxicillin-clavulanate (AUGMENTIN) 875-125 mg per tablet, TAKE 1 TABLET ORALLY TWICE A DAY FOR 7 DAYS, Disp: , Rfl: flecainide (TAMBOCOR) 150 mg tablet, TAKE 1 TABLET BY MOUTH TWICE A DAY, Disp: 180 tablet, Rfl: 3 metoprolol XL (TOPROL-XL) 100 mg 24 hr tablet, TAKE 1/2 TAB BY MOUTH TWICE DAILY, Disp: 30 tablet, Rfl: 11 NIFEdipine CC 60 mg 24 hr tablet, TAKE 1 TABLET BY MOUTH EVERY DAY, Disp: 90 tablet, Rfl: 3 Xarelto 20 mg tablet, TAKE 1 TABLET BY MOUTH EVERY DAY, Disp: 30 tablet, Rfl: 11 Past Medical History: Diagnosis Date HX OTHER [...] joint inflammation Impression: 1. Atrial fibrillation with good suppression on flecainide. Denies any recent episodes. Remains on 150 mg twice daily 2. Encounter for anticoagulation management. He remains on Xarelto 20 mg daily. He denies any issues with bleeding or bruising 3. Normal LV function Plan: No changes to his medications are made at this office visit He can follow up in 1 year for an office visit and 12 lead EKG Caitlyn Muir NP [facility] Ar[facility]ia [facility] ITURE DESIGNER documented in this encounter Plan of Treatment Not on file documented as of this encounter Procedures Procedure Name Priority Date/Time Associated Diagnosis Comments ECG 12-LEAD Routine 03/14/2022 Cardiac arrhythmia, unspecified cardiac arrhythmia type documented in this encounter Results * ECG 12 lead (03/14/2022) Caitlyn Muir NP ECG ORDERABLES Final Resu lt documented in this encounter Visit Diagnoses Diagnosis Cardiac arrhythmia, unspecified cardiac arrhythmia type- Primary documented in this encounter Historical Medications * This list may reflect changes made after this encounter. amoxicillin-clavu lanate (AUGMENTIN) 875-125 mg per tablet TAKE 1 TABLET ORALLY TWICE A DAY FOR 7 DAYS 03/06/2022 03/13/2023 added in this encounter Care Teams Warper Fixer Relationship Specialty Start Date End Date Ashok Gaffney MD PCP - General 08/23/11 documented as of this encounter
--- OUTSIDE RECORDS SUMMARY | 2024-04-01 21:14 | XMS_ITS | Encounter Summary ---
Author Organization [facility] Healthcare Address [address] [place] [address] Care Team Providers Care Manager Provider Relations Name Role Phone Ashok Gaffney MD Primary Care Provider [phone] Reason for Visit * Reason Onset Date Comments Xarelto Rx PA 02/26/2023 Encounter Details Date Type Department Care Team (Late st Contact Info) Description 02/26/2023 Telephone [facility] [address] [address] Ottoniel Walsh III, [place] [address] [address] Xarelto Rx PA Social History Tobacco Use Types Packs/Day Years Used Date Smoking Tobacco: Never Smokeless Tobacco: Never Alcohol Use Standard Drinks/Week Comments Yes 2 (1 standard drink = 0.6 oz pur e alcohol) Sex and Gender Information Value Date Recorded Sex Assigned at Not on file Legal Sex Male 1:22 AM BROOD STATION MANAGER Gender Identity Male 02/12/2020 11:14 AM BROOD STATION MANAGER Sexual Orientation Straight 02/12/2020 11 :14 AM BROOD STATION MANAGER documented as of this encounter Miscellaneous Notes * Telephone Encounter - Ana Lozano MA - 02/26/2023 2:38 PM CST Called [facility] pharmacy [phone] and explained to pharmacist that PA was approved for patient's Xarelto 20 mg. He reran the Rx through and it was able to process. He stated he will get started on it and it should be done today. Explained to him that pt has been out of medication and needs it today. Called pt back to explain that [facility] is getting Rx processed now and was informed pt is out of medication and needs it today. Informed pt to contact [facility] if they have not contacted him an it gets close to closing time for the pharmacy so he is not without anymore. Pt agreed. D STATION MANAGER * Telephone Encounter - Ana Lozano MA - 02/26/2023 2:15 PM CST Received VM from pt regarding issue with needing a PA each time for his Xarelto 20 mg Rx. Called ptback and explained that PA was requested and approved for 02/19/23-02/19/24 for 30 day supply. Explained we will contact his pharmacy to explain and get it filled because pt stated he is out of medication. Pt provided [facility] pharmacy phone number [phone]. D STATION MANAGER documented in this encounter Plan of Treatment Not on file documented as of this encounter Visit Diagnoses Not on filedocumented in this encounter Care Teams Manager Provider Relations Relationship Specialty Start Date End Date Ashok Gaffney MD PCP - General 08/23/11 documented as of this encounter
--- OUTSIDE RECORDS SUMMARY | 2024-04-01 21:14 | XMS_ITS | Encounter Summary ---
Author Organization [facility] Address [address] [place] [address] Care Team Providers Care Switch Technician Name Role Phone Ashok Gaffney MD Primary Care Provider [phone] Encounter Details Date Type Department Care Team (Late st Contact Info) Description 12/20/2022 Telephone [facility] [address] [facility] [address] [address] Olga Liu Social History Tobacco Use Types Packs/Day Years Used Date Smoking Tobacco: Never Smokeless Tobacco: Never Alcohol Use Standard Drinks/Week Comments Yes 2 (1 standard drink = 0.6 oz pur e alcohol) Sex and Gender Information Value Date Recorded Sex Assigned at Not on file Legal Sex Male 1:22 AM SUPERVISOR RIDE ASSEMBLY Gender Identity Male 02/12/2020 11:14 AM SUPERVISOR RIDE ASSEMBLY Sexual Orientation Straight 02/12/2020 11 :14 AM SUPERVISOR RIDE ASSEMBLY documented as of this encounter Ordered Prescriptions Prescription Sig Dispense Quantity Refills Last Filled Start Date End Date NIFEdipine (NIFEdipine CC) 60 mg 24 hr tablet Take 1 tablet (60 mg total) by mouth daily 90 tablet 3 12/20/2022 03/20/2023 documented in this encounter Miscellaneous Notes * Telephone Encounter - Olga Liu - 12/20/2022 9:15 AM CDT Electronically refilled script documented in this encounter Plan of Treatment Not on file documented as of this encounter Visit Diagnoses Not on filedocumented in this encounter Discontinued Medications Medication Sig Discontinue Reason Start Date End Da te NIFEdipine CC 60 mg 24 hr tablet TAKE 1 TABLET BY MOUTH EVERY DAY Reorder 04/03/2022 12/20/2022 documented as of this encounter Care Teams Switch Technician Relationship Specialty Start Date End Date Ashok Gaffney MD PCP - General 08/23/11 documented as of this encounter
--- OUTSIDE RECORDS SUMMARY | 2024-04-01 21:14 | XMS_ITS | Encounter Summary ---
Author Organization [facility] Healthcare Address [address] [place] [address] Care Team Providers Care Manager Games Name Role Phone Ashok Gaffney MD Primary Care Provider [phone] Encounter Details Date Type Department Care Team (Late st Contact Info) Description 03/21/2023 Telephone [facility] [address] [facility] [address], [place] [address] Deandra Kelsey NP [address] [facility] [address], [place] [address] Social History Tobacco Use Types Packs/Day Years Used Date Smoking Tobacco: Never Smokeless Tobacco: Never Alcohol Use Standard Drinks/Week Comments Yes 2 (1 standard drink = 0.6 oz pur e alcohol) Personal Safety Answer Date Recorded Getting School Help Needed Denies 03/20 Sex and Gender Information Value Date Recorded Sex Assigned at Not on file Legal Sex Male 1:22 AM AUTOMOTIVE SPECIALTY TECHNICIAN Gender Identity Male 02/12/2020 11:14 AM AUTOMOTIVE SPECIALTY TECHNICIAN Sexual Orientation Straight 02/12/2020 11 :14 AM AUTOMOTIVE SPECIALTY TECHNICIAN documented as of this encounter Miscellaneous Notes * Telephone Encounter - eDandra Kelsey NP - 03/21/2023 8:44 AM AUTOMOTIVE SPECIALTY TECHNICIAN Please call patient to make an appointment to be seen with me in 2-3 weeks for follow-up of an ER visit 03/20/23 for rapid atrial fibrillation, dizziness. Thank you! MOTIVE SPECIALTY TECHNICIAN documented in this encounter Plan of Treatment Not on file documented as of this encounter Visit Diagnoses Not on filedocumented in this encounter Care Teams Manager Games Relationship Specialty Start Date End Date Ashok Gaffney MD PCP - General 08/23/11 documented as of this encounter
--- OUTSIDE RECORDS SUMMARY | 2024-04-01 21:14 | XMS_ITS | Encounter Summary ---
Author Organization [facility] Healthcare Address [address] [place] [address] Care Team Providers Care Head Of Talent Management Name Role Phone Ashok Gaffney MD Primary Care Provider [phone] Reason for Visit * Reason Comments Palpitations Shortness of Breath Encounter Details Date Type Department Care Team (Late st Contact Info) Description 06/10/2023 10:41 AM CDT - 06/10/2023 3:30 PM CDT Emergency [facility] Emergency Department [address] [place] [address] José Cesar, DO [address] [employer] [facility] [address] [place] [address] Paroxysmal atrial fibrillation (CMS/HCC) (HCC) (Primary Dx) Discharge Disposition: Discharge to home or self care Social History Tobacco Use Types Packs/Day Years Used Date Smoking Tobacco: Never Smokeless Tobacco: Never Alcohol Use Standard Drinks/Week Comments Yes 2 (1 standard drink = 0.6 oz pur e alcohol) Personal Safety Answer Date Recorded Have you ever been in or are you currently in a harmful physical or emotional relationship or is someone making you feel afraid or unsafe? 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 APPLICATIONS DESIGNER Gender Identity Male 02/12/2020 11:14 AM SOFTWARE APPLICATIONS DESIGNER Sexual Orientation Straight 02/12/2020 11 :14 AM SOFTWARE APPLICATIONS DESIGNER documented as of this encounter Last Filed Vital Signs Vital Sign Reading Time Taken Comments Blood Pressure 145/90 06/10/2023 3:20 PM CDT Pulse 88 06/10/2023 3:20 PM CDT Temperature 36.4 ??C (97.6 ??F) 06/10/2023 10:40 AM C DT Respiratory Rate 26 06/10/2023 10:40 AM CDT Oxygen Saturation 98% 06/10/2023 3:20 PM CDT Inhaled Oxygen Concentration - - Weight 154.2 kg (340 lb) 06/10/2023 10:40 AM CDT Height 177.8 cm (5' 10 ) 06/10/2023 10:40 AM CDT Body Mass Index 48.78 06/10/2023 10:40 AM CDT documented in this encounter Discharge Instructions * Discharge Instructions* José Cesar DO - 06/10/2023 1:55 PM CDT You have been evaluated for palpitations in the setting of atrial fibrillation. Your heart rate is well controlled and there is no evidence of recent heart attack or severe strain to your heart. Though atrial fibrillation can be uncomfortable at this time it does not appear to require additional treatment such as electrical cardioversion but if it remains persistent and you continue to have symptoms this may be arranged as an outpatient by your varnisher plasticoater. Please stay on your regular medications and follow-up with the varnisher plasticoater within the next week. Return here for any severe chest pain or other concerning symptoms. * Attachments The following attachments cannot be sent through Care Everywhere. * Fibrillation, Atrial (Mosotho) documented in this encounter Medications at Time of Discharge metoprolol XL (TOPROL-XL) 100 mg 24 hr tablet Take 0.5 tablets (50 mg total) by mouth 2 (two) times a day 30 tablet 11 04/17/2023 04/16/2024 NIFEdipine (NIFEdipine CC) 60 mg 24 hr tablet Take 1 tablet (60 mg total) by mouth nightly 03/02/2024 rivaroxaban (XARELTO) 20 mg tablet Take 1 tablet (20 mg total) by mouth daily with dinner 07/18/2023 tirzepatide (Mounjaro) 2.5 mg/0.5 mL pen injector Inject 0.5 mL (2.5 mg total) under the skin every 7 days Sundays07/15/2023 documented as of this encounter Discharge Disposition Disposition Code Departure Means Destination Comment s Discharge to home or self care documented in this encounter ED Notes * José Cesar, DO - 06/10/2023 11:34 AM CDT HPI Chief Complaint Patient presents with Palpitations Shortness of Breath HPI 62-year-old male with a history of paroxysmal atrial fibrillation for 20 years currently on Xarelto, hypertension, and MIRTA who presents with 4 days of nearly constant irregular heartbeat/palpitationswith worsening exertional dyspnea since yesterday. He admits that while in the ED he feels better than he has felt days and he gave 2nd thoughts to coming to the ER at all. He denies chest pain, fever or chills, productive cough, abdominal pain, or vomiting. He is compliant with Xarelto. He admits to having been cardioverted 3 times in his life, but has been several years since the last procedure. He states that he is often ???in and out of AFib?? but never consistently in AFib for days at a time like this past weekend. He denies any obvious triggers but admits to minor alcohol intake over the weekend after his AFib symptoms started. 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 Physical Exam ED Triage Vitals [06/10/23 1040] Temp Pulse Resp BP SpO2 36.4 ??C (97.6 ??F) 95 26 (!) 155/101 99 % Temp src Heart Rate Source Patient Position BP Location FiO2 (%) Oral -- -- -- -- Height Height Method Weight Weight Method 1.778 m (5' 10 ) -- (!) 154.2 kg (340 lb) -- Physical Exam Vitals and nursing note reviewed. Constitutional: General: He is not in acute distress. Appearance: He is well-developed. He is not ill-appearing. HENT: Head: Normocephalic and atraumatic. Nose: Nose normal. Mouth/Throat: Mouth: Mucous membranes are moist. Pharynx: Oropharynx is clear. Eyes: Extraocular Movements: Extraocular movements intact. Conjunctiva/sclera: Conjunctivae normal. Pupils: Pupils are equal, round, and reactive to light. Neck: Thyroid: No thyromegaly. Cardiovascular: Rate and Rhythm: Normal rate. Rhythm irregular. Pulses: Normal pulses. Heart sounds: Normal heart sounds. Pulmonary: Effort: Pulmonary effort is normal. No tachypnea, accessory muscle usage or respiratory distress. Breath sounds: Normal breath sounds. No wheezing or rales. Chest: Chest wall: No tenderness or edema. Abdominal: General: Bowel sounds are normal. Palpations: Abdomen is soft. There is no mass. Tenderness: There is no abdominal tenderness. Musculoskeletal: General: No tenderness. Normal range of motion. Cervical back: Normal range of motion and neck supple. Right lower leg: No tenderness. No edema. Left lower leg: No tenderness. No edema. Skin: General: Skin is warm and dry. Capillary Refill: Capillary refill takes less than 2 seconds. Neurological: General: No focal deficit present. Mental Status: He is alert and oriented to person, place, and time. Cranial Nerves: No cranial nerve deficit. Sensory: No sensory deficit. Deep Tendon Reflexes: Reflexes normal. Psychiatric: Mood and Affect: Mood normal. Behavior: Behavior normal. MDM Heart Score History (Anamnesis): 0 EC Age: 1 Risk factors: 1 Troponin: 0 Heart Score Total: 3 Medical Decision Making 62-year-old male with a longstanding history of paroxysmal atrial fibrillation anticoagulated on Xarelto who presents with atrial fibrillation constantly for the last 4 days, different from his norm which is typically short runs of atrial fibrillation that spontaneously resolve. He takes a beta-maurisio but did not take an extra dose today. He has been compliant with Xarelto. Amount and/or Complexity of Data Reviewed Radiology: ordered. ECG/medicine tests: ordered and independent interpretation performed. Details: AFib, 96, RVH Discussion of management or test interpretation with external provider(s): This patient's care has been discussed with THI Licea for the Cardiology Service who knows this patient. She agrees with avoiding cardioversion in this stable patient who may be questionably compliant given his history, so he will be discharged home with a plan for close outpatient follow-up and if he is still inatrial fib at the time of his visit next week he will likely be scheduled for outpatient cardioversion. Both he and his spouse are in agreement with the plan at this time. Final diagnoses: Paroxysmal atrial fibrillation (CMS/HCC) (HCC) José Cesar DO 06/10/23 1505 * Mayuri Castañeda RN - 06/10/2023 10:37 AM CDT Pt c/o SOB and palpitations since Saturday, hx afib. Reports some discomfort to RUQ/ chest. Reports taking metoprolol as prescribed. documented in this encounter Plan of Treatment Not on file documented as of this encounter Procedures Procedure Name Priority Date/Time Associated Diagnosis Comments TROPONIN T HIGH-SENSITIVITY 2-HOUR Timed 06/10/2023 12:27 PM CDT XR CHEST PA LATERAL 2 VIEWS ED 06/10/2023 11:12 AM CDT TROPONIN T HIGH-SENSITIVITY SERIES (BASELINE, 2HR, 4HR, 6HR) STAT 06/10/2023 10:51 AM CDT EGFR STAT 06/10/2023 10:51 AM CDT DIFFERENTIAL AUTO STAT 06/10/2023 10: 51 AM CDT PRO B-TYPE NATRIURETIC PEPTIDE STAT 06/10/2023 10:51 AM CDT CBC WITH AUTO DIFFERENTIAL STAT 06/10/2023 10:51 AM CDT COMPREHENSIVE METABOLIC PANEL STAT 06/10/2023 10:51 AM CDT ECG 12-LEAD STAT 06/10/2023 10:30 AM CDT documented in this encounter Results * Troponin T high-sensitivity 2-hour (06/10/2023 12:27 PM CDT) Trop T hs 12 <=22 ng/L Comment: Interpretive Data For further hscTnT resources including the diagnostic algorithm and an aid in interpretation, copy and paste this link: https://nrl.testcatalog.org/show/hsTrop Current Interpretive Data last revised 2020. Trop T hs delta -3 ng/L [facility] Trop T hs interp Insignificant [facility] Blood 06/10/2023 12:2 7 PM CDT 06/10/2023 12:43 PM CDT us Domenico Tubbs MD LAB BLOOD ORDERABLES Final Result [facility] [address] [place] [address] * XR Chest PA Lateral 2 Views (06/10/2023 11:12 AM CDT) Anatomical Region Laterality Modality Body, Chest N/A Computed Radiogr aphy 06/10/2023 11:1 6 AM CDT Impressions 06/10/2023 11:16 AM CDT 1. Negative chest radiograph without significant interval change. COMMENT: Please see above for additional findings. Electronically signed by: Frandy Chery M.D. Narrative 06/10/2023 11:16 AM CDT Chest Radiograph, 2 views HISTORY: Shortness of breath COMPARISON: PA and lateral chest radiograph 03/20/2023 A chest radiographic examination including views in the PA and lateral projections was presented. FINDINGS: There is no evidence of pneumothorax. The mediastinum is within expected limits. The cardiac silhouette within normal size limits. The lateral and posterior costophrenic angles are preserved bilaterally. No confluent infiltrates are appreciated. The osseous structures and chest wall are grossly within expected limits. The included portion of the upper abdomen is within expected limits. Procedure Note Frandy Chery MD - 06/10/2023 Chest Radiograph, 2 views HISTORY: Shortness of breath COMPARISON: PA and lateral chest radiograph 03/20/2023 A chest radiographic examination including views in the PA and lateral projections was presented. FINDINGS: There is no evidence of pneumothorax. The mediastinum is within expected limits. The cardiac silhouette within normal size limits. The lateral and posterior costophrenic angles are preserved bilaterally. No confluent infiltrates are appreciated. The osseous structures and chest wall are grossly within expected limits. The included portion of the upper abdomen is within expected limits. IMPRESSION: 1. Negative chest radiograph without significant interval change. COMMENT: Please see above for additional findings. Electronically signed by: Frandy Chery M.D. us José Cesar DO IMG XR PROCEDURES Final Resu lt * eGFR (06/10/2023 10:51 AM CDT) eGFR 94 mL/min/1. 73 m2 Comment: Interpretive Data Reference [...] interpretive data was last reviewed 2021. Blood 06/10/2023 10:5 1 AM CDT 06/10/2023 10:55 AM CDT us Domenico Tubbs MD LAB BLOOD ORDERABLES Final Result [facility] [address] [place] [address] * Differential, auto (06/10/2023 10:51 AM CDT) Neutrophil abs 5.0 1.5 - 6.5 K/cumm Imm gran abs 0.1 0.0 - 0.1 K/cumm [facility] Lymphocyte abs 1.3 0.8 - 3.3 K/cumm [facility] Monocyte abs 0.8 0.2 - 0.8 K/cumm [facility] Eosinophil abs 0.0 0.0 - 0.5 K/cumm [facility] Basophil abs 0.0 0.0 - 0.1 K/cumm [facility] Neutrophil pct 69.7 % [facility] Comment: Interpretive Data Percent cell count reference ranges are not reported, since discordance with absolute values may lead to misinterpretation of CBC data. Current Interpretive Data was last revised on 2017. Imm gran pct 0.7 % [facility] Comment: Interpretive Data Percent cell count reference ranges are not reported, since discordance with absolute values may lead to misinterpretation of CBC data. Current Interpretive Data was last revised on 2017. Lymphocyte pct 17.4 % [facility] Comment: Interpretive Data Percent cell count reference ranges are not reported, since discordance with absolute values may lead to misinterpretation of CBC data. Current Interpretive Data was last revised on 2017. Monocyte pct 11.0 % [facility] Comment: Interpretive Data Percent cell count reference ranges are not reported, since discordance with absolute values may lead to misinterpretation of CBC data. Current Interpretive Data was last revised on 2017. Eosinophil pct 0.6 % [facility] Comment: Interpretive Data Percent cell count reference ranges are not reported, since discordance with absolute values may lead to misinterpretation of CBC data. Current Interpretive Data was last revised on 2017. Basophil pct 0.6 % [facility] Comment: Interpretive Data Percent cell count reference ranges are not reported, since discordance with absolute values may lead to misinterpretation of CBC data. Current Interpretive Data was last revised on 2017. Blood 06/10/2023 10:5 1 AM CDT 06/10/2023 10:55 AM CDT us José Cesar DO LAB BLOOD ORDERABLES Final R esult [facility] [address] [place] [address] * (ABNORMAL) Pro B-type natriuretic peptide (06/10/2023 10:51 AM CDT) NT-proBNP 1,006(H) <=300 pg/mL Comment: Interpretive Comments: A. Dyspnea in Acute Care Setting All Ages: ?< 300 pg/ml, acute heart failure unlikely. < 50 yrs: ?300 - 450 pg/ml, further investigation warranted. ? > 450 pg/ml, acute heart failure likely. 50 - 74 yrs: ? 300 - 900 pg/ml, further investigation warranted. ? > 900 pg/ml, acute heart failure likely . > or = 75 yrs: ? 450 - 1800 pg/ml, further investigation warranted. ? > 1800 pg/ml, acute heart failure likely. B. Non-acute Setting < 75 yrs ? < 125 pg/ml, rules out heart failure. ? > or = 125 pg/ml, further investigation warranted. > or = 75 yrs ?< 450 pg/ml, rules out heart failure. ? > or = 450 pg/ml, further investigation warranted. - Knowledge of each individual patient's NT-proBNP range may be more useful than using similar cut-points for every patient. Please note that marked elevations in NT-proBNP levels may be observed in state other than Left Ventricular Congestive Failure, including: acute coronary syndromes, right heart strain/failure (including pulmonary embolism and cor pulmonale), critical illness, renal failure, as well as advanced age. - References: 1. Iliana LOVE et.al. Eur Heart J. 2006:27:330-337. 2. Raúl RW, Jasmina YANES. J. AM Alma Cardiol: Cardiovasc Imag. 2009;2: 216- 225. Interpretive Data Last Revised Date: 2017. Blood 06/10/2023 10:5 1 AM CDT 06/10/2023 10:55 AM CDT us José Cesar DO LAB BLOOD ORDERABLES Final R esult [facility] [address] Department of Laboratories [place] [id number] * Troponin T high-sensitivity series (baseline, 2hr, 4hr, 6hr) (06/10/2023 10:51 AM CDT) [facility] Trop T hs 15 <=22 ng/L Comment: Interpretive Data For further hscTnT resources including the diagnostic algorithm and an aid in interpretation, copy and paste this link: https://nrl.testcatalog.org/show/hsTrop Current Interpretive Data last revised 2020. Blood 06/10/2023 10:5 1 AM CDT 06/10/2023 10:55 AM CDT us José Cesar DO LAB BLOOD ORDERABLES Final R esult [facility] [address] [place] [address] * (ABNORMAL) CBC with auto differential (06/10/2023 10:51 AM CDT) [facility] WBC 7.2 3.8 - 9.9 K/cumm Hgb 14.2 13.0 - 17.5 g/dL [facility] Hct 43.4 38.9 - 50.3 % [facility] Plt 213 150 - 400 K/cumm [facility] MPV 10.1 9.1 - 12.3 fL [facility] RBC 4.83 4.30 - 5.80 M/cumm [facility] MCV 89.9 81.3 - 96.4 fL [facility] MCH 29.4 27.1 - 33.3 pg [facility] MCHC 32.7 32.3 - 35.7 g/dL [facility] RDW CV 13.7 11.1 - 14.9 % [facility] RDW SD 44.8 35.7 - 48.1 fL [facility] NRBC abs 0.02(H) 0.00 - 0.01 K/cumm [facility] Blood 06/10/2023 10:5 1 AM CDT 06/10/2023 10:55 AM CDT us José Cesar DO LAB BLOOD ORDERABLES Final R esult [facility] [address] [place] [address] * Comprehensive metabolic panel (06/10/2023 10:51 AM CDT) Sodium 137 135 - 145 mmol/L Potassium, pl 4.3 3.3 - 4.9 mmol/L [facility] Chloride 102 97 - 110 mmol/L [facility] CO2 24 22 - 32 mmol/L [facility] Anion gap 11 2 - 15 mmol/L [facility] BUN 16 6 - 25 mg/dL [facility] Creatinine 0.93 0.80 - 1.30 mg/dL [facility] Glucose 142 70 - 199 mg/dL [facility] Comment: Interpretive Data Fasting glucose >/= [...] interpretive data was last revised 2022. Calcium 8.9 8.5 - 10.3 mg/dL [facility] Bilirubin, total 0.2 0.1 - 1.2 mg/dL [facility] Protein, pl 6.5 6.5 - 8.5 g/dL [facility] Albumin 3.7 3.5 - 5.0 g/dL [facility] Alk phos 74 40 - 130 Units/L [facility] ALT 19 7 - 55 Units/L [facility] AST 24 10 - 50 Units/L [facility] Comment:Slightly Hemolyzed S pecimen Blood 06/10/2023 10:5 1 AM CDT 06/10/2023 10:55 AM CDT us José Cesar DO LAB BLOOD ORDERABLES Final R esult [facility] [address] [place] [address] * ECG 12 lead (06/10/2023 10:30 AM CDT) 06/10/2023 10:3 0 AM CDT Narrative [facility] - 06/10/2023 7:46 PM CDT Vent Rate: 96 bpm RR Interval: 619 msec W[place] Interval: 0 msec QRS Duration: 125 msec QT Interval: 375 msec QTC Interval: 429 msec P-R-T [place]: 0 - 135 - -12 degrees IMPRESSION: ATRIAL FIBRILLATION POSSIBLE RIGHT VENTRICULAR HYPERTROPHY ??[SOME/ALL OF: PROMINENT R IN V1, LATE TRANSITION, RAD, DARLING, SSS] SEPTAL MYOCARDIAL INFARCTION , OF INDETERMINATE AGE [40+ ms Q WAVE IN V1/V2] ABNORMAL ECG Electronically Signed By: Roe Richard MD, [facility] José Cesar DO ECG ORDERABLES Final Result Performing Organization Address [facility]/ZIP Co de Phone Number [facility] documented in this encounter Visit Diagnoses Diagnosis Paroxysmal atrial fibrillation (CMS/HCC) (HCC)- Primary Atrial fibrillation documented in this encounter Administered Medications Inactive Administered Medications - up to 3 most recent administrations Medication Order MAR Action Action Date Dose Rate Site sodium chloride 0.9% bolus 1,000 mL 1,000 mL, intravenous, Once, On 06/10/23 at 1251, For 1 dose New Bag 06/10/2023 1:00 PM CDT 1,000 mL documented in this encounter Discontinued Medications Medication Sig Discontinue Reason Start Date End Da te albuterol HFA (PROVENTIL HFA,VENTOLIN HFA,PROAIR HFA) 90 mcg/actuation inhaler Inhale 2 puffs every 6 (six) hours as needed for wheezing or shortness of breath 03/08/2023 06/10/2023 flecainide (TAMBOCOR) 150 mg tablet Take 1 tablet (150 mg total) by mouth 2 (two) times a day 06/10/2023 documented as of this encounter Active and Recently Administered Medications Due to Daylight Saving Time, this section may contain times in both SOFTWARE APPLICATIONS DESIGNER and CDT. Scheduled Medication Order 06/08/2023 06/09/2023 06/10/2023 sodium chloride 0.9% bolus 1,000 mL (COMPLETED) 1,000 mL, intravenous, Once, On 06/10/23 at 1251, For 1 dose 1300 (New Bag - Prov ider: Raven Tomlinson, NATA)[id number] (Stopped - Provider: Vickie Barroso RN) documented in this encounter Orders Medications Ordered That Uziel ht Not Have Been Administered Count Last Ordered Date First Ordered Date sodium chloride 0.9% bolus 1,000 mL 1 06/09 Lab Orders Without Results Count Last Ordered D ate First Ordered Date POCT GLUCOSE DEVICE 1 06/10/2023 IV Count Last Ordered Date First Orde red Date SALINE LOCK IV 1 06/10/2023 documented in this encounter Care Teams Head Of Talent Management Relationship Specialty Start Date End Date Ashok Gaffney MD PCP - General 08/23/11 documented as of this encounter
--- OUTSIDE RECORDS SUMMARY | 2024-04-01 21:14 | XMS_ITS | Encounter Summary ---
Author Organization [facility] Healthcare Address [address] [place] [address] Care Team Providers Care Environmental Permitting Specialist Name Role Phone Ashok Gaffney MD Primary Care Provider Reason for Visit * Reason Comments Dizziness Shortness of Breath Encounter Details Date Type Department Care Team (Late st Contact Info) Description 03/20/2023 11:28 AM GAS PUMPING STATION OPERATOR - 03/20/2023 7:04 PM GAS PUMPING STATION OPERATOR Emergency [facility] Emergency Department [address] [place] [address] Saul Edwards MD [address] [facility] [address] [place] [address] Paroxysmal atrial fibrillation (CMS/HCC) (HCC) (Primary Dx); Methamphetamine use (CMS/HCC) (HCC); Persistent atrial fibrillation (HCC) Discharge Disposition: Discharge to home or self [...] on file Legal Sex Male 1:22 AM GAS PUMPING STATION OPERATOR Gender Identity Male 02/12/2020 11:14 AM GAS PUMPING STATION OPERATOR Sexual Orientation Straight 02/12/2020 11 :14 AM GAS PUMPING STATION OPERATOR documented as of this encounter Last Filed Vital Signs Vital Sign Reading Time Taken Comments Blood Pressure 139/110 03/20/2023 6:30 PM GAS PUMPING STATION OPERATOR Pulse 90 03/20/2023 6:30 PM GAS PUMPING STATION OPERATOR Temperature 36.3 ??C (97.4 ??F) 03/20/2023 1 1:10 AM GAS PUMPING STATION OPERATOR Respiratory Rate 13 03/20/2023 6:30 PM GAS PUMPING STATION OPERATOR Oxygen Saturation 98% 03/20/2023 6:30 PM GAS PUMPING STATION OPERATOR Inhaled Oxygen Concentration - - Weight 161.6 kg (356 lb 4.2 oz) 023 11:10 AM GAS PUMPING STATION OPERATOR Height - - Body Mass Index 51.12 03/13/2023 1:08 PM GAS PUMPING STATION OPERATOR documented in this encounter Discharge Instructions * Discharge Instructions* Saul Edwards MD - 03/20/2023 6:55 PM GAS PUMPING STATION OPERATOR Discontinue flecainide, continue your other medications. Avoid any medications with stimulant side effects, including illicit drugs. Return without hesitation if you experience worsening chest pain, shortness of breath, or faintness. PUMPING STATION OPERATOR documented in this encounter Medications at Time of Discharge albuterol HFA (PROVENTIL HFA,VENTOLIN HFA,PROAIR HFA) 90 mcg/actuation inhaler Inhale 2 puffs every 6 (six) hours as needed for wheezing or shortness of breath 03/08/2023 4 flecainide (TAMBOCOR) 150 mg tablet Take 1 tablet (150 mg total) by mouth 2 (two) times a day 4 metoprolol XL (TOPROL-XL) 100 mg 24 hr tablet Take 0.5 tablets (50 mg total) by mouth 2 (two) times a day 4 NIFEdipine (NIFEdipine CC) 60 mg 24 hr tablet Take 1 tablet (60 mg total) by mouth nightly 4 rivaroxaban (XARELTO) 20 mg tablet Take 1 tablet (20 mg total) by mouth daily with dinner 4 tirzepatide (Mounjaro) 2.5 mg/0.5 mL pen injector Inject 0.5 mL (2.5 mg total) under the skin every 7 days Sundays 4 documented as of this encounter Discharge Disposition Disposition Code Departure Means Destination Comment s Discharge to home or self care documented in this encounter Consult Notes * Deandra Kelsey NP - 03/20/2023 3:46 PM CST Consult Note Patient Name: Meena Andrade Date of : 1960 Primary Physician: Ashok Gaffney MD Chief Complaint Consult for dizziness, atrial fibrillation. HPI Meena Andrade is a 62 y.o. male seen in consultation for dizziness, atrial fibrillation. The patientpresented to ER for complaints of dizziness/lightheadedness onset around 0700 this morning. He states he was sitting down when it occurred. Reports accompanying symptoms of shortness of breath, neck/back pain. He has history of paroxysmal atrial fibrillation for which he is maintained on flecainide. Comorbidities include morbid obesity, hypertension, untreated sleep apnea. The patient admits that he does snort methamphetamine and cocaine with his last use being on Saturday. He denies chest pain, syncope, orthopnea, PND, edema or other symptoms or concerns not stated above. Past Medical History Past Medical History: Diagnosis Date HX OTHER MEDICAL 2012 Hypogonadism HX OTHER MEDICAL Obesity, Morbid HX OTHER MEDICAL Sleep Apnea, CPAP Past Surgical History Past Surgical History: Procedure Laterality Date OTHER SURGICAL HISTORY Achilles tendon OR TONSILLECTOMY Tonsillectomy Medications (Not in a hospital admission) Allergies No Known Allergies Family History No family history on file. Social History Social History Tobacco Use Smoking status: Never Smokeless tobacco: Never Substance and Sexual Activity Drug use: No Sexual activity: Not on file Alcohol Use: Not on file Objective ROS Review of systems negative except as per the HPI. Physical Exam BP 133/83 Pulse 73 Temp 36.3 ??C (97.4 ??F) (Oral) Resp 20 Wt (!) 161.6 kg (356 lb 4.2 oz) SpO2 97% BMI 51.12 kg/m?? GENERAL: No distress. Pleasant and cooperative with the examination and interview HEENT: Pupils are equal and round. Moist mucous membranes. NECK: No JVD. Trachea midline. Normal range of motion. PULMONARY: Respirations even and non-labored. EXTREMITIES: No edema. NEURO: Alert and oriented x3. Cranial nerves II-XII intact and symmetric. No focal findings. PSYCHIATRIC: Normal mood and affect. Diagnostics Recent Labs Lab Units 03/20/23 1140 WBC K/cumm 8.1 HEMOGLOBIN g/dL 16.2 HEMATOCRIT % 46.7 Recent Labs Lab Units 03/20/23 1140 CO2 mmol/L 25 CREATININE mg/dL 1.09 GLUCOSE mg/dL 187 CALCIUM mg/dL 9.5 Assessment/Plan 62 y.o. male seen in consultation for dizziness, atrial fibrillation. I am certainly concerned about his admission of use of methamphetamine and cocaine. Had a long discussion with the patient about the dangers of this. He knows to stop his flecainide as he is now too high risk to be on this medication going forward. He was advised to continue his rivaroxaban and metoprolol as prescribed for now.We will get a stat echocardiogram while he is in ER to evaluate his underlying function. PLAN: Paroxysmal atrial fibrillation Dizziness Methamphetamine use Cocaine use Discontinue flecainide. Continue rivaroxaban and metoprolol. Echocardiogram ordered to evaluate hisunderlying function. We will continue to follow. Cosigned by Raffy Blas MD at 03/24/2023 3:02 PM GAS PUMPING STATION OPERATOR PUMPING STATION OPERATOR PUMPING STATION OPERATOR PUMPING STATION OPERATOR PUMPING STATION OPERATOR documented in this encounter ED Notes * Saul Edwards MD - 03/20/2023 12:38 PM CST HPI Chief Complaint Patient presents with Dizziness Shortness of Breath 62-year-old man with history of paroxysmal atrial fibrillation on Xarelto, metoprolol, and flecainide, hyperlipidemia, sleep apnea, hypertension, recently diagnosed diabetes, presents with dizziness and dyspnea. States that he has atrial fibrillation frequently, recently at least once per week. He typically has episodes last about 1 hour and are accompanied by a feeling of shortness of breath. This morning around 7:00 a.m. he noted acute palpitations and uncharacteristic dizziness, as well as shortness of breath. He also had some short-lived mild chest discomfort, as well as upper back and neck pain. Because of the duration of the episode and the fact that he experienced dizziness, he presented to the emergency department. He started a new medication for diabetes and received his 1st injection 5 days ago (Mounjaro? ). No other new medications. He was out of his Xarelto for a period of 3days approximately 3 weeks ago, but otherwise has been compliant. Did not volunteer this to me, but per the nurse's notes, used cocaine and methamphetamines 3 days ago. 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 BP 133/83, pulse 73, temperature 97.4??. Oxygen saturation 97% on room air. Atrial fibrillation on the monitor. CONSTITUTIONAL: Nontoxic-appearing, presently in no apparent distress HEAD: Normocephalic; atraumatic EYES: Conjunctiva and sclera are clear bilaterally. NECK: Supple; non-tender; no cervical lymphadenopathy CARD: Variable intensity S1, S2; no murmurs, rubs, or gallops. Irregular. RESP: Normal respiratory effort; breath sounds clear and equal bilaterally; no wheezes, rhonchi, orrales. ABD: Normal bowel sounds; non-distended; soft and non-tender; no palpable organomegaly, no masses, no bruits. BACK: No spinous or CVA tenderness. EXT: Normal ROM in all four extremities; non-tender to palpation; distal pulses are normal, no edema. Dallas???s sign negative. SKIN: Normal for age and race; warm; dry; good turgor; no apparent lesions or exudate, rashes or ulcers. Physical Exam MDM Medical Decision Making Amount and/or Complexity of Data Reviewed Labs: ordered. ECG/medicine tests: ordered. Very nice 62-year-old man with multiple comorbid conditions including paroxysmal atrial fibrillation, now presents with atrial fibrillation. He believes that his heart rate was much faster earlier, but now is rate controlled. States that he feels significantly better now that his heart is not beating rapidly. I personally reviewed his EKG, and my independent interpretation is atrial fibrillation at 79 beatsper minute, IVCD, nonspecific T-wave changes, U-waves noted in leads V2 and V3. Labs reviewed, notable for normal CBC, normal CMP with the exception of AST 66. Initial troponin was 19. Magnesium level and TSH reflex pending. TSH was 2.5, magnesium 2.2. Second troponin without a significant delta. I personally reviewed his chest x-ray and there is no evidence of acute cardiopulmonary disease. Patient was seen in the ED by Cardiology after I spoke with ECONOMIC ANALYSIS DIRECTOR Caitlyn Muir. They ordered an echocardiogram which demonstrated normal function, no significant abnormalities. Because of his recent illicit drug use, he was advised to discontinue the flecainide due to concerns for QT prolongation. He will follow up with his arrhythmia specialist. Final diagnoses: Persistent atrial fibrillation (HCC) Saul Edwards MD 03/20/231934 PUMPING STATION OPERATOR * Liya Mckinney, NATA - 03/20/2023 11:07 AM CST To er w complaints of feeling lightheaded since 0700 this AM. States he has afib. Endorses SOB, neck/back pain, and dizziness. PUMPING STATION OPERATOR documented in this encounter Miscellaneous Notes * Assessment & Plan Note - Deandra Kelsey NP - 03/20/2023 4:02 PM CSTAssociated Problem(s): Paroxysmal atrial fibrillation (CMS/HCC) (HCC) The patient is in rate controlled atrial fibrillation in the ER. Will stop his flecainide as above and continue his rivaroxaban and metoprolol. PUMPING STATION OPERATOR * Assessment & Plan Note - Deandra Kelsey NP - 03/20/2023 4:02 PM CSTAssociated Problem(s): Methamphetamine use (CMS/HCC) (HCC) Had a long discussion about the dangers of this and he was counseled to stop using. Will stop the flecainide as above. PUMPING STATION OPERATOR documented in this encounter Plan of Treatment Pending Results Name Type Priority Associated Diagnoses Date /Time TSH reflex to free T4 Lab STAT 11:40 AM GAS PUMPING STATION OPERATOR Magnesium Lab STAT 03/20/2023 11: 40 AM GAS PUMPING STATION OPERATOR Scheduled Orders Name Type Priority Associated Diagnoses Orde r Schedule TSH reflex to free T4 Lab STAT Onc e for 1 Occurrences starting 03/20/2023 until 03/20/2023 Magnesium Lab STAT Once for 1 Occ urrences starting 03/20/2023 until 03/20/2023 documented as of this encounter Procedures Procedure Name Priority Date/Time Associated Diagnosis Comments TRANSTHORACIC ECHO (TTE) COMPLETE W DOPPLER/CF WO CONTRAST STAT 03/20/2023 5:08 PM GAS PUMPING STATION OPERATOR TROPONIN T HIGH-SENSITIVITY 2-HOUR STAT 03/20/2023 2:38 PM GAS PUMPING STATION OPERATOR XR CHEST PA LATERAL 2 VIEWS ED 03/20/2023 1:24 PM GAS PUMPING STATION OPERATOR TROPONIN T HIGH-SENSITIVITY SERIES (BASELINE, 2HR, 4HR, 6HR) STAT 03/20/2023 11:40 AM GAS PUMPING STATION OPERATOR ADD ON LAB TEST Add-On 03/20/2023 11:40 AM GAS PUMPING STATION OPERATOR ADD ON LAB TEST Add-On 03/20/2023 11:40 AM GAS PUMPING STATION OPERATOR EGFR STAT 03/20/2023 11:40 AM GAS PUMPING STATION OPERATOR DIFFERENTIAL AUTO STAT 03/20/2023 11: 40 AM GAS PUMPING STATION OPERATOR THYROID FUNCTION CASCADE STAT 03/20/2023 11:40 AM GAS PUMPING STATION OPERATOR CBC WITH AUTO DIFFERENTIAL STAT 03/20/2023 11:40 AM GAS PUMPING STATION OPERATOR MAGNESIUM STAT 03/20/2023 11:40 AM GAS PUMPING STATION OPERATOR COMPREHENSIVE METABOLIC PANEL STAT 03/20/2023 11:40 AM GAS PUMPING STATION OPERATOR ECG 12-LEAD STAT 03/20/2023 11:11 AM GAS PUMPING STATION OPERATOR documented in this encounter Results * TRANSTHORACIC ECHO (TTE) COMPLETE W DOPPLER/CF WO CONTRAST (03/20/2023 5:08 PM GAS PUMPING STATION OPERATOR) Anatomical Region Laterality Modality Ultrasound 03/20/2023 4:23 PM GAS PUMPING STATION OPERATOR Narrative 03/20/2023 6:17 PM GAS PUMPING STATION OPERATOR [facility] [address] [place] [address] ECHOCARDIOGRAM Patient Name: MEENA ANDRADE : 1960 Study Date: 03/20/2023 4:23:19 PM Gender: M Tech: Location: 02 Ref Provider: DEANDRA KELSEY ?Height(Cm): 178 BSA: 2.83 Weight(Kg): 161.5 BP: 133/83 ?Order Provider: DEANDRA KELSEY - PROCEDURES: Echocardiographic Report: Transthoracic Echocardiogram with complete 2D, M-Mode, Spectral and Color Flow Doppler examination. INDICATIONS: Near Syncope. Measurements: 2D/M Mode ? Doppler Measurement ?Value ?Normal Range ?Measurement ? Value ?Normal Range IVSd 2D ?1.53 ? [ 0.60 - 1.00 ] cm ?AV Peak Frank ? 1.1 ?[ 1.0 - 1.7 ] m/s LVIDd 2D ? 5.46 ? [ 4.20 - 5.80 ] cm ?AV Peak PG ?5 ?mmHg LVIDs 2D ? 3.55 ? [ 2.50 - 4.00 ] cm ?AV Mean PG ?3 ?mmHg LVPWd 2D ? 1.48 ? [ 0.60 - 1.00 ] cm ?AV VTI ?18.4 ? cm LA Dimension 2D ?4.43 ? [ 3.00 - 4.00 ] cm ?TEDDY VTI ? 3.1 ?cm2 AoR Diam 2D ?3.83 ? [ 3.10 - 3.70 ] cm ?LVOT Peak Frank ? 0.91 ? [ 0.70 - 1.10 ] m/s TAPSE ?2.42 ? [ >= 1.71 ] cm ?LVOT Diam ? 2.1 ?cm LVOT VTI ? 17.3 ?cm MV Peak PG ? 3 ? mmHg MV Mean PG ? 1 ? mmHg MV E Peak Frank ?0.8 ? [ 0.6 - 1.3 ] m/s MV PHT ? 63.8 ?[ 20.0 - 100.0 ] ms MV Decel Time ?226.7 ? [ 104.0 - 258.0 ] ms MVA PHT ?3.5 ? ms TR Peak Frank ?2.6 ? [ 1.0 - 2.8 ] m/s TR Peak PG ? 27 ?mmHg RVSP ? 30.2 ?[ 10.0 - 36.0 ] mmHg RA Pressure ?3.0 ? mmHg PV Peak Frank ?1.0 ? [ 0.4 - 0.8 ] m/s PV Peak PG ? 4 ? mmHg Lat E` Frank ? 0.06 ?[ 0.10 - 0.15 ] m/s Sept E' Frank ?0.06 ?[ 0.08 - 0.15 ] m/s E/E` ? 13.33 RV S' ?0.12 ?m/s Measurement ?Value ?Normal Range ?Measurement ? Value ?Normal Range 2D/M Mode ? Doppler - FINDINGS: Study Quality: The study was technically adequate. BP: Blood pressure: 133/83 mmHg. Left Ventricle: Normal global and regional left ventricular systolic function. Ejection Fraction is estimated at 60-65 %. Normal left ventricular cavity size. Moderate concentric left ventricular hypertrophy. Right Ventricle: Normal right ventricular systolic function. Normal right ventricular size. Left Atrium: The left atrium is normal in size. Right Atrium: The right atrium is normal in size. Atrial Septum: Normal appearing atrial septum. Mitral Valve: Normal mitral valve appearance and function. Aortic Valve: Normal aortic valve appearance and function. Tricuspid Valve: Normal appearance of the tricuspid leaflets. Trace tricuspid regurgitation. Normal right ventricular systolic pressure. Pulmonic Valve: Grossly normal appearing pulmonic valve. Pericardium: Normal appearing pericardial thickness. Trivial pericardial effusion. Aortic Root and Aorta: Normal caliber aortic root. Aortic Arch: Normal caliber aortic arch. IVC: Normal appearance of the inferior vena cava. CONCLUSIONS: 1. Normal global and regional left ventricular systolic function. Ejection Fraction is estimated at 60-65 %. Normal left ventricular cavity size. Moderate concentric left ventricular hypertrophy. 2. Normal appearance of the tricuspid leaflets. Trace tricuspid regurgitation. Normal right ventricular systolic pressure. 3. Normal appearing pericardial thickness. Trivial pericardial effusion. Electronically Signed By: Leonidas Nunn MD 2023-03-20 18:16:37 GAS PUMPING STATION OPERATOR Procedure Note Leonidas Nunn MD - 03/20/2023 [facility] [address] [place] [address] ECHOCARDIOGRAM Patient Name: MEENA ANDARDE : 1960 Study Date: 03/20/2023 4:23:19 PM Gender: M Tech: Location: [facility] Ref Provider: DEANDRA KELSEY Height(Cm): 178 BSA: 2.83 Weight(Kg): 161.5 BP: 133/83 Order Provider: DEANDRA KELSEY - PROCEDURES: Echocardiographic Report: Transthoracic Echocardiogram with complete 2D, M-Mode, Spectral and ColorFlow Doppler examination. INDICATIONS: Near Syncope. Measurements: 2D/M ModeDoppler Measurement Value Normal Range MeasurementValue Normal Range IVSd 2D 1.53 [ 0.60 - 1.00 ] cm AV Peak Vel1.1 [ 1.0 - 1.7 ] m/s LVIDd 2D 5.46 [ 4.20 - 5.80 ] cm AV Peak PG5 mmHg LVIDs 2D 3.55 [ 2.50 - 4.00 ] cm AV Mean PG3 mmHg LVPWd 2D 1.48 [ 0.60 - 1.00 ] cm AV VTI18.4 cm LA Dimension 2D 4.43 [ 3.00 - 4.00 ] cm TEDDY VTI3.1 cm2 AoR Diam 2D 3.83 [ 3.10 - 3.70 ] cm LVOT Peak Vel0.91 [ 0.70 - 1.10 ] m/s TAPSE 2.42 [ >= 1.71 ] cm LVOT Diam2.1 cm LVOT VTI 17.3 cm MV Peak PG 3 mmHg MV Mean PG 1 mmHg MV E Peak Frank 0.8 [ 0.6 - 1.3 ] m/s MV PHT 63.8 [ 20.0 - 100.0 ] ms MV Decel Time 226.7 [ 104.0 - 258.0 ] ms MVA PHT 3.5 ms TR Peak Frank 2.6 [ 1.0 - 2.8 ] m/s TR Peak PG 27 mmHg RVSP 30.2 [ 10.0 - 36.0 ] mmHg RA Pressure 3.0 mmHg PV Peak Frank 1.0 [ 0.4 - 0.8 ] m/s PV Peak PG 4 mmHg Lat E` Frank 0.06 [ 0.10 - 0.15 ] m/s Sept E' Frank 0.06 [ 0.08 - 0.15 ] m/s E/E` 13.33 RV S' 0.12 m/s Measurement Value Normal Range MeasurementValue Normal Range 2D/M ModeDoppler - FINDINGS: Study Quality: The study was technically adequate. BP: Blood pressure: 133/83 mmHg. Left Ventricle: Normal global and regional left ventricular systolic function. EjectionFraction is estimated at 60-65 %. Normal left ventricular cavity size. Moderateconcentric left ventricular hypertrophy. Right Ventricle: Normal right ventricular systolic function. Normal right ventricularsize. Left Atrium: The left atrium is normal in size. Right Atrium: The right atrium is normal in size. Atrial Septum: Normal appearing atrial septum. Mitral Valve: Normal mitral valve appearance and function. Aortic Valve: Normal aortic valve appearance and function. Tricuspid Valve: Normal appearance of the tricuspid leaflets. Trace tricuspidregurgitation. Normal right ventricular systolic pressure. Pulmonic Valve: Grossly normal appearing pulmonic valve. Pericardium: Normal appearing pericardial thickness. Trivial pericardial effusion. Aortic Root and Aorta: Normal caliber aortic root. Aortic Arch: Normal caliber aortic arch. IVC: Normal appearance of the inferior vena cava. CONCLUSIONS: 1. Normal global and regional left ventricular systolic function. EjectionFraction is estimated at 60-65 %. Normal left ventricular cavity size. Moderateconcentric left ventricular hypertrophy. 2. Normal appearance of the tricuspid leaflets. Trace tricuspidregurgitation. Normal right ventricular systolic pressure. 3. Normal appearing pericardial thickness. Trivial pericardial effusion. Electronically Signed By: Leonidas Nunn MD 2023-03-20 18:16:37 GAS PUMPING STATION OPERATOR Deandra Kelsey NP CV ECHO PROCEDURES F inal Result * Troponin T high-sensitivity 2-hour (03/20/2023 2:38 PM GAS PUMPING STATION OPERATOR) Trop T hs 16 <=22 ng/L [facility] Comment: Interpretive Data For further hscTnT resources including the diagnostic algorithm and an aid in interpretation, copy and paste this link: https://nrl.testcatalog.org/show/hsTrop Current Interpretive Data last revised 2020. Trop T hs delta -3 ng/L [facility] Trop T hs interp Insignificant [facility] Blood 03/20/2023 2:38 PM GAS PUMPING STATION OPERATOR 03/20/2023 3:03 PM GAS PUMPING STATION OPERATOR us Saul Edwards MD LAB BLOOD ORDERABLES Final R esult [facility] [address] [place] [address] 435 * XR Chest PA Lateral 2 Views (03/20/2023 1:24 PM GAS PUMPING STATION OPERATOR) Anatomical Region Laterality Modality Body, Chest N/A Computed Radiogr aphy 03/20/2023 1:26 PM GAS PUMPING STATION OPERATOR Impressions 03/20/2023 1:26 PM GAS PUMPING STATION OPERATOR 1. Negative chest radiograph. COMMENT: Please see above for additional findings. Electronically signed by: Frandy Chery M.D. Narrative 03/20/2023 1:26 PM GAS PUMPING STATION OPERATOR Chest Radiograph, 2 views HISTORY: Shortness of breath COMPARISON: None available A chest radiographic examination including views in [...] limits. Procedure Note Frandy Chery MD - 03/20/2023 Chest Radiograph, 2 views HISTORY: Shortness of breath COMPARISON: None available A chest radiographic examination including views in [...] within expected limits. IMPRESSION: 1. Negative chest radiograph. COMMENT: Please see above for additional findings. Electronically signed by: Frandy Chery M.D. Chandra Beebe MD IMG XR PROCEDURES Kimberley l Result * TSH reflex to free T4 (03/20/2023 11:40 AM GAS PUMPING STATION OPERATOR) TSH 2.50 0.30 - 4.20 mcIUnit/mL [facility] Blood 03/20/2023 11:4 0 AM GAS PUMPING STATION OPERATOR 03/20/2023 11:48 AM GAS PUMPING STATION OPERATOR us Saul Edwards MD LAB BLOOD ORDERABLES Final R esult Performing Organization Address [facility] Co de Phone Number [facility] [address] [facility] [employer] [place] [address] * Magnesium (03/20/2023 11:40 AM GAS PUMPING STATION OPERATOR) Magnesium 2.2 1.4 - 2.5 mg/dL [facility] Blood 03/20/2023 11:4 0 AM GAS PUMPING STATION OPERATOR 03/20/2023 11:48 AM GAS PUMPING STATION OPERATOR us Saul Edwards MD LAB BLOOD ORDERABLES Final R esult Performing Organization Address [facility] Co de Phone Number [facility] [address] [facility] [employer] [place] [address] * Magnesium - Add on lab test (03/20/2023 11:40 AM GAS PUMPING STATION OPERATOR) Acceptable Yes [facility] Blood 03/20/2023 11:4 0 AM GAS PUMPING STATION OPERATOR 03/20/2023 12:48 PM GAS PUMPING STATION OPERATOR Narrative [facility] - 03/20/2023 12:48 PM GAS PUMPING STATION OPERATOR Name of Test->Magnesium us Saul Edwards MD LAB BLOOD ORDERABLES Final R esult Performing Organization Address [facility] Co de Phone Number [facility] [address] [facility] [employer] [place] [address] * TSH reflex Free T4 - Add on lab test (03/20/2023 11:40 AM GAS PUMPING STATION OPERATOR) Acceptable Yes [facility] Blood 03/20/2023 11:4 0 AM GAS PUMPING STATION OPERATOR 03/20/2023 12:45 PM GAS PUMPING STATION OPERATOR Narrative [facility] - 03/20/2023 12:45 PM GAS PUMPING STATION OPERATOR Name of Test->TSH reflex Free T4 us Saul Edwards MD LAB BLOOD ORDERABLES Final R esult Performing Organization Address [facility]/ZIP Co de Phone Number [facility] [address] [employer] [place] [address] * eGFR (03/20/2023 11:40 AM GAS PUMPING STATION OPERATOR) [facility] eGFR 78 mL/min/1. 73 m2 [facility] Comment: Interpretive Data Reference Interval Normal ?>/= [...] interpretive data was last reviewed 2021. Blood 03/20/2023 11:4 0 AM GAS PUMPING STATION OPERATOR 03/20/2023 11:48 AM GAS PUMPING STATION OPERATOR us Chandra Beebe MD LAB BLOOD ORDERABLES F inal Result Performing Organization Address [facility]/ZIP Co de Phone Number [facility] [address] Department of [employer] [place], [place] [id number] * Differential, auto (03/20/2023 11:40 AM GAS PUMPING STATION OPERATOR) Neutrophil abs 5.3 1.5 - 6.5 K/cumm [facility] Imm gran abs 0.0 0.0 - 0.1 K/cumm [facility] Lymphocyte abs 2.1 0.8 - 3.3 K/cumm [facility] Monocyte abs 0.5 0.2 - 0.8 K/cumm [facility] Eosinophil abs 0.1 0.0 - 0.5 K/cumm [facility] Basophil abs 0.1 0.0 - 0.1 K/cumm [facility] Neutrophil pct 66.0 % [facility] Comment: Interpretive Data Percent cell count reference ranges are not reported, since discordance with absolute values may lead to misinterpretation of CBC data. Current Interpretive Data was last revised on 2017. Imm gran pct 0.4 % [facility] Comment: Interpretive Data Percent cell count reference ranges are not reported, since discordance with absolute values may lead to misinterpretation of CBC data. Current Interpretive Data was last revised on 2017. Lymphocyte pct 25.6 % [facility] Comment: Interpretive Data Percent cell count reference ranges are not reported, since discordance with absolute values may lead to misinterpretation of CBC data. Current Interpretive Data was last revised on 2017. Monocyte pct 6.7 % [facility] Comment: Interpretive Data Percent cell count reference ranges are not reported, since discordance with absolute values may lead to misinterpretation of CBC data. Current Interpretive Data was last revised on 2017. Eosinophil pct 0.7 % [facility] Comment: Interpretive Data Percent cell count reference ranges are not reported, since discordance with absolute values may lead to misinterpretation of CBC data. Current Interpretive Data was last revised on 2017. Basophil pct 0.6 % [facility] Comment: Interpretive Data Percent cell count reference ranges are not reported, since discordance with absolute values may lead to misinterpretation of CBC data. Current Interpretive Data was last revised on 2017. Blood 03/20/2023 11:4 0 AM GAS PUMPING STATION OPERATOR 03/20/2023 11:48 AM GAS PUMPING STATION OPERATOR us Chandra Beebe MD LAB BLOOD ORDERABLES F inal Result Performing Organization Address [facility] Co de Phone Number [facility] [address] [place] [address] * Troponin T high-sensitivity series (baseline, 2hr, 4hr, 6hr) (03/20/2023 11:40 AM GAS PUMPING STATION OPERATOR) [facility] Trop T hs 19 <=22 ng/L [facility] Comment: Interpretive Data For further hscTnT resources including the diagnostic algorithm and an aid in interpretation, copy and paste this link: https://nrl.testcatalog.org/show/hsTrop Current Interpretive Data last revised 2020. Blood 03/20/2023 11:4 0 AM GAS PUMPING STATION OPERATOR 03/20/2023 11:48 AM GAS PUMPING STATION OPERATOR Chandra Beebe MD LAB BLOOD ORDERABLES F inal Result Performing Organization Address [facility] Co de Phone Number [facility] [address] [place] [address] * CBC with auto differential (03/20/2023 11:40 AM GAS PUMPING STATION OPERATOR) [facility] WBC 8.1 3.8 - 9.9 K/cumm [facility] Hgb 16.2 13.0 - 17.5 g/dL [facility] Hct 46.7 38.9 - 50.3 % [facility] Plt 339 150 - 400 K/cumm [facility] MPV 10.2 9.1 - 12.3 fL [facility] RBC 5.09 4.30 - 5.80 M/cumm [facility] MCV 91.7 81.3 - 96.4 fL [facility] MCH 31.8 27.1 - 33.3 pg [facility] MCHC 34.7 32.3 - 35.7 g/dL [facility] RDW CV 13.4 11.1 - 14.9 % [facility] RDW SD 43.8 35.7 - 48.1 fL [facility] NRBC abs 0.00 0.00 - 0.01 K/cumm [facility] Blood 03/20/2023 11:4 0 AM GAS PUMPING STATION OPERATOR 03/20/2023 11:48 AM GAS PUMPING STATION OPERATOR Chandra Beebe MD LAB BLOOD ORDERABLES F inal Result [facility] [address] [place] [address] * (ABNORMAL) Comprehensive metabolic panel (03/20/2023 11:40 AM GAS PUMPING STATION OPERATOR) Sodium 138 135 - 145 mmol/L [facility] Potassium, pl 3.9 3.3 - 4.9 mmol/L [facility] Chloride 100 97 - 110 mmol/L [facility] CO2 25 22 - 32 mmol/L [facility] Anion gap 13 2 - 15 mmol/L [facility] BUN 19 6 - 25 mg/dL [facility] Creatinine 1.09 0.80 - 1.30 mg/dL [facility] Glucose 187 70 - 199 mg/dL [facility] Comment: Interpretive Data Fasting glucose [...] interpretive data was last revised 2022. Calcium 9.5 8.5 - 10.3 mg/dL [facility] Bilirubin, total 0.4 0.1 - 1.2 mg/dL [facility] Protein, pl 7.8 6.5 - 8.5 g/dL [facility] Albumin 4.1 3.5 - 5.0 g/dL [facility] Alk phos 86 40 - 130 Units/L [facility] ALT 55 7 - 55 Units/L [facility] AST 66(H) 10 - 50 Units/L [facility] Comment:Slightly Hemolyzed S pecimen Blood 03/20/2023 11:4 0 AM GAS PUMPING STATION OPERATOR 03/20/2023 11:48 AM GAS PUMPING STATION OPERATOR Chandra Beebe MD LAB BLOOD ORDERABLES F inal Result [facility] [address] [place] [address] * ECG 12 lead (03/20/2023 11:11 AM GAS PUMPING STATION OPERATOR) 03/20/2023 11:1 1 AM GAS PUMPING STATION OPERATOR Narrative [facility] - 03/21/2023 7:07 AM GAS PUMPING STATION OPERATOR Vent Rate: 79 bpm RR Interval: 757 msec TX Interval: 0 msec QRS Duration: 116 msec QT Interval: 438 msec QTC Interval: 472 msec P-R-T [place]: 0 - -79 - 68 degrees IMPRESSION: ATRIAL FIBRILLATION LEFT AXIS DEVIATION SEPTAL MYOCARDIAL INFARCTION , OF INDETERMINATE AGE ABNORMAL ECG Electronically Signed By: Ino Vallecillo MD [facility] Saul Edwards MD ECG ORDERABLES Final Result Performing Organization Address [facility] de Phone Number [facility] [employer] [facility] documented in this encounter Visit Diagnoses Diagnosis Paroxysmal atrial fibrillation (CMS/HCC) (HCC)- Primary Atrial fibrillation Paroxysmal atrial fibrillation (CMS/HCC) (HCC) Atrial fibrillation 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, unspecified Persistent atrial fibrillation (HCC) Atrial fibrillation 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, unspecified documented in this encounter Discontinued Medications Medication Sig Discontinue Reason Start Date End Da te flecainide (TAMBOCOR) 150 mg tablet TAKE 1 TABLET BY MOUTH TWICE A DAY 04/03/2022 03/20/2023 Xarelto 20 mg tablet TAKE 1 TABLET BY MOUTH EVERY DAY 04/03/2022 03/20/2023 metoprolol XL (TOPROL-XL) 100 mg 24 hr tablet TAKE 1/2 TABLET BY MOUTH TWICE DAILY 04/03/2022 03/20/2023 NIFEdipine (NIFEdipine CC) 60 mg 24 hr tablet Take 1 tablet (60 mg total) by mouth daily 12/20/2022 03/20/2023 documented as of this encounter Historical Medications * This list may reflect changes made after this encounter. flecainide (TAMBOCOR) 150 mg tablet Take 1 tablet (150 mg total) by mouth 2 (two) times a day 06/10/2023 metoprolol XL (TOPROL-XL) 100 mg 24 hr tablet Take 0.5 tablets (50 mg total) by mouth 2 (two) times a day 04/17/2023 NIFEdipine (NIFEdipine CC) 60 mg 24 hr tablet Take 1 tablet (60 mg total) by mouth nightly 03/02/2024 rivaroxaban (XARELTO) 20 mg tablet Take 1 tablet (20 mg total) by mouth daily with dinner 07/18/2023 tirzepatide (Mounjaro) 2.5 mg/0.5 mL pen injector Inject 0.5 mL (2.5 mg total) under the skin every 7 days Sundays07/15/2023 added in this encounter Orders Nursing Count Last Ordered Date First Orde red Date MISCELLANEOUS NURSING CARE ORDER (SPECIFY) 3 03/20/2023 IV Count Last Ordered Date First Orde red Date SALINE LOCK IV 1 03/20/2023 documented in this encounter Care Teams Environmental Permitting Specialist Relationship Specialty Start Date End Date Ashok Gaffney MD PCP - General 08/23/11 documented as of this encounter
--- OUTSIDE RECORDS SUMMARY | 2024-04-01 21:14 | XMS_ITS | Encounter Summary ---
Author Organization [facility] Healthcare Address [address] [place] [address] Care Team Providers Care Classified Advertising Supervisor Name Role Phone Ashok Gaffney MD Primary Care Provider [phone] Reason for Referral * Cardiology (Routine) - Pending Review Specialty Diagnoses / Procedures Referred By Contac t Referred To Contact Diagnoses Paroxysmal atrial fibrillation (CMS/HCC) (HCC) Procedures Stress Echo Exercise W Doppler/CF Caitlyn Muir NP [address] [address] Phone: tel: fax: [facility] [address] [place] [address] Referral ID Status Reason Start Date Expiration Date V isits Requested Visits Authorized [id number] Pending Review 07/10/2023 08/08/2024 1 1 Encounter Details Date Type Department Care Team (Late st Contact Info) Description 07/10/2023 1:00 PM CDT Office Visit [facility] [address] [facility] [address] [place] [id number] Caitlyn Muir NP [address] [address] Paroxysmal atrial fibrillation (CMS/HCC) (HCC) (Primary Dx) Social History Tobacco Use [...] on file Legal Sex Male 1:22 AM HOT DIPPER Gender Identity Male 02/12/2020 11:14 AM HOT DIPPER Sexual Orientation Straight 02/12/2020 11 :14 AM HOT DIPPER documented as of this encounter Last Filed Vital Signs Vital Sign Reading Time Taken Comments Blood Pressure 139/90 07/10/2023 1:28 PM CDT Pulse 102 07/10/2023 1:28 PM CDT Temperature - - Respiratory Rate - - Oxygen Saturation 98% 07/10/2023 1:28 PM CDT Inhaled Oxygen Concentration - - Weight 157.9 kg (348 lb) 07/10/2023 1:28 PM CDT Height 177.8 cm (5' 10 ) 07/10/2023 1:28 PM CDT Body Mass Index 49.93 07/10/2023 1:28 PM CDT documented in this encounter Progress Notes * Caitlyn Muir, NAVID - 07/10/2023 1:00 PM CDT Images from the original note were not included. Patient ID: Vikas Banda is a 62 y.o. male Chief Complaint Atrial fibrillation HPI Mr. Banda is evaluated [facility] today for follow up on 07/10/2023 for follow-up ofhis atrial fibrillation. He was seen in the [facility] on 03/13/2023. [...] reports symptoms related to his AF. He states he has not used illicit drugs in 1 month. He presents today in atrial fibrillation. He states he feels okay today but at times his rates get rapid and he reports shortness of breath with exertion. EKG on my review today demonstrates atrial fibrillation with a ventricular rate of 102 beats per minute Current Outpatient Medications: metoprolol XL (TOPROL-XL) 100 mg 24 hr [...] total) under the skin every 7 days Sundays, [...] today regarding options for his atrial fibrillation. If he can continue to abstain from the use of illicit drugs, could consider reinitiating antiarrhythmictherapy. He will need to reschedule his stress test prior. Antiarrhythmic therapy is contraindicated with the use of methamphetamine due to risk for QT prolongation. Also discussed with him the risks of cocaine use and beta-blockade. Ablation could be considered with weight loss. Have instructed him he can take an extra 50 mg of metoprolol if he has symptoms or rapid rates fromhis atrial fibrillation. Will call patient with update and results of stress testing when available He will continue to follow with us. He can follow up in 3 months for an office visit and 12 lead EKG Caitlyn Muir NP [facility] documented in this encounter Plan of Treatment Scheduled Orders Name Type Priority Associated Diagnoses Orde r Schedule Stress Echo Exercise W Doppler/CF Stress Echocardiography Routine Paroxysmal atrial fibrillation (CMS/HCC) (HCC) Expected: 07/10/2023, Expires: 10/08/2024 documented as of this encounter Visit Diagnoses Diagnosis Paroxysmal atrial fibrillation (CMS/HCC) (HCC)- Primary Atrial fibrillation documented in this encounter Care Teams Classified Advertising Supervisor Relationship Specialty Start Date End Date Ashok Gaffney MD PCP - General 08/23/11 documented as of this encounter
--- OUTSIDE RECORDS SUMMARY | 2024-04-01 21:14 | XMS_ITS | Encounter Summary ---
Author Organization [facility] Medical Group Address [address] [place] [address] Care Team Providers Care Crutcher Helper Name Role Phone Ashok Gaffney MD Primary Care Provider Reason for Visit * Reason Onset Date Comments Hold AC 06/22/2021 Encounter Details Date Type Department Care Team (Late st Contact Info) Description 06/22/2021 Telephone [facility] [address] [facility] [address] [place] [address] Eze Mcdaniel MD [address] [facility] [address] [place] [address] Hold AC Social History Tobacco Use Types Packs/Day Years Used Date Smoking Tobacco: Never Smokeless Tobacco: Never Alcohol Use Standard Drinks/Week Comments Yes 2 (1 standard drink = 0.6 oz pur e alcohol) Sex and Gender Information Value Date Recorded Sex Assigned at Not on file Legal Sex Male 1:[address]ER Gender Identity Male 02/12/2020 11:[address]ER Sexual Orientation Straight 02/12/2020 11 :[address]ER documented as of this encounter Miscellaneous Notes * Telephone Encounter - Shiloh Greene - 06/23/2021 12:27 PM CDT LM to notify. * Telephone Encounter - Caitlyn Muir NP - 06/23/2021 9:47 AM CDT Ok to hold for 2-3 doses * Telephone Encounter - Shiloh Greene - 06/22/2021 3:06 PM CDT Pt scheduled for colonoscopy on 07/03, needs ok to hold Xarelto prior. documented in this encounter Plan of Treatment Not on file documented as of this encounter Visit Diagnoses Not on filedocumented in this encounter Care Teams Crutcher Helper Relationship Specialty Start Date End Date Ashok Gaffney MD PCP - General 08/23/11 documented as of this encounter
--- OUTSIDE RECORDS SUMMARY | 2024-04-01 21:14 | XMS_ITS | Encounter Summary ---
Author Organization [facility] Healthcare Address [address] [place] [address] Care Team Providers Care Basting Puller Name Role Phone Ashok Gaffney MD Primary Care Provider Encounter Details Date Type Department Care Team (Late st Contact Info) Description 07/17/2023 Telephone [facility] [address] [facility] [address], [place] [address] Ottoniel Walsh III, MD [address] [facility] [address] [address] Social History Tobacco Use Types Packs/Day Years Used Date Smoking Tobacco: Never Smokeless Tobacco: Never Alcohol Use Standard Drinks/Week Comments Yes 2 (1 standard drink = 0.6 oz pur e alcohol) [facility] Utilities Answer Date Recorded In the past 12 months has [facility] [employer], gas, oil, or water [email or web address] threatened to shut off services in your [...] How often do you attend chur or latter-day services? Never 07/16/2023 Do you belong to any clubs o r organizations such as confucianist groups, unions, fraternal or athletic groups, or [...] and heating? Not hard at all 07/16/2023 [facility]ma [facility] - Occupational Stress Questionnaire Answer Date [...] place to sleep or slept in a residential (including now)? No 07/16/2023 Personal Safety Answer Date Recorded Have you ever been in or are you currently in a harmful physical or emotional relationship or is someone making you feel afraid or unsafe? Denies 07/15/2023 Sex and Gender Information Value Date Recorded Sex Assigned at Not on file Legal Sex Male 1:22 AM FILM SORTER Gender Identity Male 02/12/2020 11:14 AM FILM SORTER Sexual Orientation Straight 02/12/2020 11 :14 AM FILM SORTER documented as of this encounter Miscellaneous Notes * Telephone Encounter - Katrin Mar - 08/22/2023 3:05 PM CDT Per WQ Stress Echo needs to be scheduled which was ordered 07/10/23 by Caitlyn. Pt's next appt is 10/07/23 w/Caitlyn Muir. Can we contact pt to have this test done possibly before next office visit? Thank You * Telephone Encounter - Deandra Millan RMA - 07/19/2023 11:13 AM CDT Pt was discharged yesterday and will call back to reschedule stress Echo when he is doing better * Telephone Encounter - Caitlyn Muir NP - 07/17/2023 1:06 PM CDT Will review, thank you for the update * Telephone Encounter - Deandra Millan RMA - 07/17/2023 12:29 PM CDT FYI: pt in [facility] with [facility] documented in this encounter Plan of Treatment Not on file documented as of this encounter Visit Diagnoses Not on filedocumented in this encounter Care Teams Basting Puller Relationship Specialty Start Date End Date Ashok Gaffney MD PCP - General 08/23/11 documented as of this encounter
--- OUTSIDE RECORDS SUMMARY | 2024-04-01 21:15 | XMS_ITS | Encounter Summary ---
Author Organization [facility] Medical Group Address [address] [facility] [place] [address] Care Team Providers Care Sql Etl Developer Name Role Phone Ashok Gaffney MD Primary Care Provider Encounter Details Date Type Department Care Team (Late st Contact Info) Description 10/07/2020 Telephone [facility] [address] [facility] [address] [place] [address] Eze Mcdaniel MD [address] [facility] [address] [place] [address] Social History Tobacco Use Types Packs/Day Years Used Date Smoking Tobacco: Never Smokeless Tobacco: Never Alcohol Use Standard Drinks/Week Comments Yes 2 (1 standard drink = 0.6 oz pur e alcohol) Sex and Gender Information Value Date Recorded Sex Assigned at Not on file Legal Sex Male 1:22 AM SENIOR DRUPAL DEVELOPER Gender Identity Male 02/12/2020 11:14 AM SENIOR DRUPAL DEVELOPER Sexual Orientation Straight 02/12/2020 11 :14 AM SENIOR DRUPAL DEVELOPER documented as of this encounter Ordered Prescriptions Prescription Sig Dispense Quantity Refills Last Filled Start Date End Date metoprolol XL (TOPROL-XL) 100 mg 24 hr tablet Take 0.5 tablets (50 mg total) by mouth 2 (two) times a day 30 tablet 11 10/10/2020 1 documented in this encounter Miscellaneous Notes * Telephone Encounter - Maria Elena Hassan MA - 10/10/2020 10:13 AM CDT Spoke to Raven @ pharmacy, states that Insurance will not cover 50 mg BID dosing, they are requiring 100 mg tabs, 1/2 tab BID. PT's has told pharmacy several times they refuse to cut the tabs, they want 50 mg tabs. PA was obtained previously for a #30 day supply only, insurance still requiring increased mg tabs. Informed pharmacy, PT will have to either pay for the 50 mg BID, or cut the 100 mg tabs so insurance will cover cost. * Telephone Encounter - Shiloh Greene - 10/07/2020 9:30 AM CDT Pharmacy has question about new Metoprolol Rx. Was for 50mg BID, new script written 100mg every day. Please clarify, Pt can not have extended release per pharmacy. documented in this encounter Plan of Treatment Not on file documented as of this encounter Visit Diagnoses Not on filedocumented in this encounter Discontinued Medications Medication Sig Discontinue Reason Start Date End Da te metoprolol (LOPRESSOR) 100 mg tablet Take 1 tablet (100 mg total) by mouth daily Dose adjustment 10/04/2020 10/10/2020 documented as of this encounter Care Teams Sql Etl Developer Relationship Specialty Start Date End Date Ashok Gaffney MD PCP - General 08/23/11 documented as of this encounter
--- OUTSIDE RECORDS SUMMARY | 2024-04-01 21:15 | XMS_ITS | Encounter Summary ---
Author Organization [facility] Care Team Providers Care Rougher Helper Name Role Phone Ashok Gaffney MD Primary Care Provider [phone] Encounter Details Date Type Department Care Team (Latest Contact Info) Description 08/06/2018 Travel Social History Tobacco Use Types Packs/Day Years Used Date Smoking Tobacco: Never Smokeless Tobacco: Never Alcohol Use Standard Drinks/Week Comments Yes 2 (1 standard drink = 0.6 oz pur e alcohol) Sex and Gender Information Value Date Recorded Sex Assigned at Not on file Legal Sex Male 1:22 AM TELEPHONE INSTRUMENT SUPERVISOR Gender Identity Male 02/12/2020 11:14 AM TELEPHONE INSTRUMENT SUPERVISOR Sexual Orientation Straight 02/12/2020 11 :14 AM TELEPHONE INSTRUMENT SUPERVISOR documented as of this encounter Plan of Treatment Not on file documented as of this encounter Visit Diagnoses Not on filedocumented in this encounter Care Teams Rougher Helper Relationship Specialty Start Date End Date Ashok Gaffney MD PCP - General 08/23/11 documented as of this encounter
--- OUTSIDE RECORDS SUMMARY | 2024-04-01 21:15 | XMS_ITS | Encounter Summary ---
Author Organization [facility] Medical Group Address [address] [place] [address] Care Team Providers Care Locomotive Observer Name Role Phone Ashok Gaffney MD Primary Care Provider [phone] Encounter Details Date Type Department Care Team (Late st Contact Info) Description 06/25/2017 Telephone [facility] [address] [facility] [address], [place] [address] Petar Do MD [address] [place] [address] [address] [facility] [address] [place] [address] Social History Tobacco Use Types Packs/Day Years Used Date Smoking Tobacco: Never Smokeless Tobacco: Never Alcohol Use Standard Drinks/Week Comments Yes 2 (1 standard drink = 0.6 oz pur e alcohol) Sex and Gender Information Value Date Recorded Sex Assigned at Not on file Legal Sex Male 1:22 AM INFORMATION ASSURANCE Gender Identity Male 02/12/2020 11:14 AM INFORMATION ASSURANCE Sexual Orientation Straight 02/12/2020 11 :14 AM INFORMATION ASSURANCE documented as of this encounter Miscellaneous Notes * Telephone Encounter - Aaliyah Hyman RN - 06/25/2017 2:24 PM CDT ----- Message from Petar Do MD sent at 06/18/2017 5:27 PM CDT ----- Normal ejection fraction. Mild pulmonary hypertension. Unfortunately back in Af[place] I called the patient and reviewed Dr. Do's message with him. He agrees to keep his upcoming appt in June with Dr. Do. documented in this encounter Plan of Treatment Not on file documented as of this encounter Visit Diagnoses Not on filedocumented in this encounter Care Teams Locomotive Observer Relationship Specialty Start Date End Date Ashok Gaffney MD PCP - General 08/23/11 documented as of this encounter
--- OUTSIDE RECORDS SUMMARY | 2024-04-01 21:15 | XMS_ITS | Encounter Summary ---
Author Organization [facility] Address [address] [place] [address] Care Team Providers Care Forestry Aide Name Role Phone Ashok Gaffney MD Primary Care Provider [phone] Encounter Details Date Type Department Care Team (Late st Contact Info) Description 05/17/2017 Telephone [facility] [address] [place] [address] Petar Do MD [address] [id number] Social History Tobacco Use Types Packs/Day Years Used Date Smoking Tobacco: Never Alcohol Use Standard Drinks/Week Comments Yes 0 (1 standard drink = 0.6 oz pur e alcohol) Sex and Gender Information Value Date Recorded Sex Assigned at Not on file Legal Sex Male 1:22 AM TRAVELING CRANE OPERATOR Gender Identity Male 02/12/2020 11:14 AM TRAVELING CRANE OPERATOR Sexual Orientation Straight 02/12/2020 11 :14 AM TRAVELING CRANE OPERATOR documented as of this encounter Ordered Prescriptions Prescription Sig Dispense Quantity Refills Last Filled Start Date End Date rivaroxaban (XARELTO) 20 mg tablet Take 1 tablet (20 mg total) by mouth daily. 90 tablet 2 05/17/2017 07/31/2017 documented in this encounter Miscellaneous Notes * Addendum Note - Laly William MA - 05/17/2017 9:56 AM CSTAddended by: LALY WILLIAM on: 05/17/2017 09:56 AM Modules accepted: Orders ELING CRANE OPERATOR * Telephone Encounter - Laly William MA - 05/17/2017 9:56 AM CST Spoke with pt. Informed rx for xarelto is at the front window cashier with samples. Pt states that he will burr picker today. ELING CRANE OPERATOR * Telephone Encounter - Sami Gann MA - 05/17/2017 9:26 AM CST Patient needs a script for Xarelto printed to take to his insurance, please print and give to pt when he comes to burr picker samples ELING CRANE OPERATOR documented in this encounter Plan of Treatment Not on file documented as of this encounter Visit Diagnoses Not on filedocumented in this encounter Discontinued Medications Medication Sig Discontinue Reason Start Date End Da te rivaroxaban (XARELTO) 20 mg tablet Take 1 tablet (20 mg total) by mouth daily. Reorder 05/17/2017 05/17/2017 documented as of this encounter Care Teams Forestry Aide Relationship Specialty Start Date End Date Ashok Gaffney MD PCP - General 08/23/11 documented as of this encounter
--- OUTSIDE RECORDS SUMMARY | 2024-04-01 21:15 | XMS_ITS | Encounter Summary ---
Author Organization [facility] Address [address] [place] [address] Care Team Providers Care Bindery Library Technical Assistant Name Role Phone Ashok Gaffney MD Primary Care Provider Reason for Visit * Reason Comments Atrial Fibrillation Encounter Details Date Type Department Care Team (Late st Contact Info) Description 07/31/2017 2:15 PM CDT Office Visit [facility] [address] [place] [address] Eze Mcdaniel MD [address] [place] [address] Paroxysmal atrial fibrillation (CMS/HCC) (Primary Dx); Body mass index 40.0-44.9, adult (CMS/HCC); Morbid obesity (CMS/HCC) Social History Tobacco Use Types Packs/Day Years Used Date Smoking Tobacco: Never Smokeless Tobacco: Never Alcohol Use Standard Drinks/Week Comments Yes 2 (1 standard drink = 0.6 oz pur e alcohol) Sex and Gender Information Value Date Recorded Sex Assigned at Not on file Legal Sex Male 1:22 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 DESIGNER Gender Identity Male 02/12/2020 11:14 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 DESIGNER Sexual Orientation Straight 02/12/2020 11 :14 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 DESIGNER documented as of this encounter Last Filed Vital Signs Vital Sign Reading Time Taken Comments Blood Pressure 124/88 07/31/2017 2:40 PM CDT Pulse 72 07/31/2017 2:40 PM CDT Temperature - - Respiratory Rate - - Oxygen Saturation - - Inhaled Oxygen Concentration - - Weight 140.3 kg (309 lb 6.4 oz) 07/31/2017 2:40 PM CDT Height 177.8 cm (5' 10 ) 07/31/2017 2:40 PM CDT Body Mass Index 44.39 07/31/2017 2:40 PM CDT documented in this encounter Progress Notes * Eze Mcdaniel MD - 07/31/2017 2:15 PM CDT Patient ID: Vikas Banda is a 56 y.o. male Chief Complaint Atrial Fibrillation Patient seen in consultation to Dr. Do for evaluation of atrial fibrillation. Patient has a long history of atrial fibrillation. He has been on Multaq for many years. Last year he states he was predominantly in sinus rhythm and did well. He reports that he had a paroxysm of AF lasting about 2 weeks but then had spontaneous conversion. This year however the patient has had early recurrence of atrial fibrillation after cardioversion. About 2 months ago he underwent cardioversion on Multaq forrecurrent AF. Following cardioversion he felt better but believes he had recurrence of AF about 5-6days later. He reports symptoms of palpitations shortness of breath decreased exertional tolerance and fatigue when he is in AF. He states that he has always felt better after cardioversion and felt better after the recent cardioversion for few days. Echo June 17, 2017 left atrium 5.4 EF 57% mild LVH normal RV size and function mild pulmonary hypertension no significant valvular disease EKG today my interpretation to monitor Multaq shows atrial fibrillation ventricular rate 72 narrow QRS Patient is on Xarelto but has missed a few doses a few days ago Patient has a past history significant for hypertension. No diabetes stroke or NV. Social history-- Minimal alcohol. He has sleep apnea and uses CPAP though not consistently. Family history. No history of atrial fibrillation or sudden HPI Mr. [facility] Past Medical History: Diagnosis Date ??? HX OTHER MEDICAL 2012 Hypogonadism ??? HX OTHER MEDICAL Obesity, Morbid ??? HX OTHER MEDICAL Sleep Apnea, CPAP Social History Substance Use Topics ??? Smoking status: Never Smoker ??? Smokeless tobacco: Never Used ??? Alcohol use 1.2 oz/week 2 Cans of beer per week Current Outpatient Prescriptions: ??? dronedarone (MULTAQ) 400 mg tablet, Take 1 tablet (400 mg total) by mouth 2 (two) times a day with meals., Disp: 180 tablet, Rfl: 3 ??? metoprolol XL (TOPROL-XL) 50 mg 24 hr tablet, TAKE 1 TABLET (50MG) BY ORAL ROUTE TWICE A DAY, Disp: 60 tablet, Rfl: 3 ??? NIFEdipine (NIFEdipine XL) 60 mg 24 hr tablet, Take 1 tablet (60 mg total) by mouth daily., Disp: 30 tablet, Rfl: 0 ??? rivaroxaban (XARELTO) 20 mg tablet, Take 1 tablet (20 mg total) by mouth daily., Disp: 28 tablet, Rfl: 0 Review of Systems Constitutional: Negative. HENT: Negative. Eyes: Negative. Respiratory: Negative. Cardiovascular: Negative. Gastrointestinal: Negative. Endocrine: Negative. Genitourinary: Negative. Skin: Negative. Neurological: Negative. Hematological: Negative. Psychiatric/Behavioral: Negative. BP 124/88 (BP Location: Right arm, Patient Position: Sitting) Pulse 72 Ht 177.8 cm (5' 10 ) Wt (!) 140.3 kg (309 lb 6.4 oz) BMI 44.39 kg/m?? Physical Exam Constitutional: No distress. Head: Normocephalic. Nose: Nose normal. Mouth/Throat: Mucous membranes are normal. Eyes: EOM are normal. Neck: Normal range of motion. Cardiovascular: Irregular rhythm, S1 normal and S2 normal. Pulmonary/Chest: Effort normal and breath sounds normal. Abdominal: Soft. Normal appearance. Neurological: alert, oriented to person, place, and time and easily aroused. Skin: warm and dry. Psychiatric: normal mood and affect. Musculoskeletal: No joint inflammation Assessment/Plan Diagnoses and all orders for this visit: Paroxysmal atrial fibrillation (CMS/HCC) (Primary) - ECG 12 lead Body mass index 40.0-44.9, adult (CMS/HCC) Morbid obesity (CMS/HCC) Impression: 1. Persistent atrial fibrillation. Early recurrence after cardioversion. Symptomatic. I recommend catheter ablation/PVI. I had a detailed discussion with the patient regarding risks and benefits, follow-up, details of the procedure, and the role of catheter ablation. Patient is reluctant to pursue at this time. He requests a trial of alternative antiarrhythmic drug. This is not unreasonable. 2. Hypertension. 3. Chads 2 equals 1. Patient on anticoagulation. He has missed a few doses recently however. Importance of compliance re-emphasized. 4. Sleep apnea. On CPAP. 5. Morbid obesity. 6. Encounter for therapeutic drug level monitoring. Satisfactory EKG on Multaq Plan: 1. Stop Multaq 2. Continue anticoagulation 3. KATHERINE. If negative then start flecainide 150 mg b.i.d. 4. Cardioversion after 5 days of flecainide 5. Follow-up with me 6. PVI remains an option Eze Mcdaniel MD 07/31/2017 documented in this encounter Plan of Treatment Not on file documented as of this encounter Procedures Procedure Name Priority Date/Time Associated Diagnosis Comments ECG 12-LEAD Routine 07/31/2017 Paroxysmal atrial fibrillation (CMS/HCC) documented in this encounter Results * ECG 12 lead (07/31/2017) us Eze Mcdaniel MD ECG ORDERABLES Final Resul t documented in this encounter Visit Diagnoses Diagnosis Paroxysmal atrial fibrillation (CMS/HCC) (HCC)- Primary Atrial fibrillation Body mass index 40.0-44.9, adult (HCC) Body Mass Index 40.0-44.9, adult Morbid obesity (HCC) Morbid obesity documented in this encounter Care Teams Bindery Library Technical Assistant Relationship Specialty Start Date End Date Ashok Gaffney MD PCP - General 08/23/11 documented as of this encounter
--- OUTSIDE RECORDS SUMMARY | 2024-04-01 21:15 | XMS_ITS | Encounter Summary ---
Author Organization [facility] Medical [facility] Address [address] [place] [address] Care Team Providers Care Supervisor Shellfish Farming Name Role Phone Ashok Gaffney MD Primary Care Provider [phone] Encounter Details Date Type Department Care Team (Latest Contact Info) Description 06/17/2017 9:45 AM CDT Procedure visit [facility] [address] [facility] [address] [place] [address] PAF (paroxysmal atrial fibrillation) (CMS/HCC) (Primary Dx) Social History Tobacco Use Types Packs/Day Years Used Date Smoking Tobacco: Never Smokeless Tobacco: Never Alcohol Use Standard Drinks/Week Comments Yes 2 (1 standard drink = 0.6 oz pur e alcohol) Sex and Gender Information Value Date Recorded Sex Assigned at Not on file Legal Sex Male 1:22 AM TERRITORY OUTSIDE SALES MANAGER Gender Identity Male 02/12/2020 11:14 AM TERRITORY OUTSIDE SALES MANAGER Sexual Orientation Straight 02/12/2020 11 :14 AM TERRITORY OUTSIDE SALES MANAGER documented as of this encounter Progress Notes * Mayuri Dobbins MA - 06/17/2017 9:45 AM CDT Patient was here for an echo, per [employer] patient recently had a CV and was asked to do an EKG. EKG done and reviewed by ELU. documented in this encounter Plan of Treatment Not on file documented as of this encounter Procedures Procedure Name Priority Date/Time Associated Diagnosis Comments ECG 12-LEAD Routine 06/17/2017 PAF (paroxysmal atrial fibrillation) (CMS/HCC) documented in this encounter Results * ECG 12 lead (06/17/2017) us Allyson Jones MD ECG ORDERABLES Final Resul t documented in this encounter Visit Diagnoses Diagnosis PAF (paroxysmal atrial fibrillation) (CMS/HCC) (HCC)- Primary Atrial fibrillation documented in this encounter Care Teams Supervisor Shellfish Farming Relationship Specialty Start Date End Date Ashok Gaffney MD PCP - General 08/23/11 documented as of this encounter
--- OUTSIDE RECORDS SUMMARY | 2024-04-01 21:15 | XMS_ITS | Encounter Summary ---
Author Organization [facility] Medical [facility] Address [address] [place] [address] Care Team Providers Care Counter Control Operator Name Role Phone Ashok Gaffney MD Primary Care Provider [phone] Reason for Visit * Reason Onset Date Comments Medication Refills 02/17/2019 Encounter Details Date Type Department Care Team (Late st Contact Info) Description 02/17/2019 Telephone [facility] [address] [place] [address] Eze Mcdaniel MD [address] [facility] [address] [place] [address] Medication Refills Social History Tobacco Use Types Packs/Day Years Used Date Smoking Tobacco: Never Smokeless Tobacco: Never Alcohol Use Standard Drinks/Week Comments Yes 2 (1 standard drink = 0.6 oz pur e alcohol) Sex and Gender Information Value Date Recorded Sex Assigned at Not on file Legal Sex Male 1:22 AM PROFESSOR OF LEGAL STUDIES Gender Identity Male 02/12/2020 11:14 AM PROFESSOR OF LEGAL STUDIES Sexual Orientation Straight 02/12/2020 11 :14 AM PROFESSOR OF LEGAL STUDIES documented as of this encounter Ordered Prescriptions Prescription Sig Dispense Quantity Refills Last Filled Start Date End Date rivaroxaban (XARELTO) 20 mg tablet Take 1 tablet (20 mg total) by mouth daily 90 tablet 3 02/17/2019 03/13/2019 metoprolol XL (TOPROL-XL) 50 mg 24 hr tablet Take 1 tablet (50 mg total) by mouth 2 (two) times a day 180 tablet 3 02/17/2019 12/04/2019 flecainide (TAMBOCOR) 150 mg tablet Take 1 tablet (150 mg total) by mouth 2 (two) times a day 180 tablet 3 02/17/2019 12/04/2019 documented in this encounter Miscellaneous Notes * Telephone Encounter - Manisha Stallworth MA - 02/17/2019 11:39 AM PROFESSOR OF LEGAL STUDIES LVM for pts advising RX's sent in. ESSOR OF LEGAL STUDIES * Telephone Encounter - Livia Beltran - 02/17/2019 11:07 AM CST Pts calls to see if we can send in 90 day refills for Xarelto, Flecainide and metoprolol. She requested pt receive a 90 day supply as their benefits will be cancelled at the end of this month since her contracted ended. Pharmacy is still [facility] in [place]. ESSOR OF LEGAL STUDIES documented in this encounter Plan of Treatment Not on file documented as of this encounter Visit Diagnoses Not on filedocumented in this encounter Discontinued Medications Medication Sig Discontinue Reason Start Date End Da te flecainide (TAMBOCOR) 150 mg tablet Take 1 tablet (150 mg total) by mouth 2 (two) times a day. Reorder 02/24/2018 02/17/2019 metoprolol XL (TOPROL-XL) 50 mg 24 hr tablet Take 1 tablet (50 mg total) by mouth 2 (two) times a day. Reorder 10/17/2017 02/17/2019 XARELTO 20 mg tablet TAKE 1 TABLET(20 MG) BY MOUTH DAILY Reorder 12/02/2018 02/17/2019 documented as of this encounter Care Teams Counter Control Operator Relationship Specialty Start Date End Date Ashok Gaffney MD PCP - General 08/23/11 documented as of this encounter
--- OUTSIDE RECORDS SUMMARY | 2024-04-01 21:15 | XMS_ITS | Encounter Summary ---
Author Organization [facility] Medical [facility] Address [address] [place] [address] Care Team Providers Care Technician Semiconductor Development Name Role Phone Ashok Gaffney MD Primary Care Provider Encounter Details Date Type Department Care Team (Late st Contact Info) Description 07/31/2017 Telephone [facility] [address] [place] [address] Eze Mcdaniel MD [address] [facility] [facility] [address] [place] [address] Social History Tobacco Use Types Packs/Day Years Used Date Smoking Tobacco: Never Smokeless Tobacco: Never Alcohol Use Standard Drinks/Week Comments Yes 2 (1 standard drink = 0.6 oz pur e alcohol) Sex and Gender Information Value Date Recorded Sex Assigned at Not on file Legal 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 Do's office to notify that patient needs a KATHERINE w Dr. Do and if negative pt needs to start Flecainide 150 mg bid then he will need a DCCV 5 days after starting Flecainide. documented in this encounter Plan of Treatment Not on file documented as of this encounter Visit Diagnoses Not on filedocumented in this encounter Care Teams Technician Semiconductor Development Relationship Specialty Start Date End Date Ashok Gaffney MD PCP - General 08/23/11 documented as of this encounter
--- OUTSIDE RECORDS SUMMARY | 2024-04-01 21:15 | XMS_ITS | Encounter Summary ---
Author Organization [facility] Address [address] [place] [address] Care Team Providers Care Lean Specialist Name Role Phone Ashok Gaffney MD Primary Care Provider [phone] Reason for Visit * Reason Comments Atrial Fibrillation Encounter Details Date Type Department Care Team (Late st Contact Info) Description 10/09/2017 1:45 PM CDT Office Visit [facility] [address] [place] [address] Eze Mcdaniel MD [address] [place] [address] Persistent atrial fibrillation (CMS/HCC) (Primary Dx); BMI 40.0-44.9, adult (CMS/HCC); Morbid obesity (CMS/HCC) Social History Tobacco Use Types Packs/Day Years Used Date Smoking Tobacco: Never Smokeless Tobacco: Never Alcohol Use Standard Drinks/Week Comments Yes 2 (1 standard drink = 0.6 oz pur e alcohol) Sex and Gender Information Value Date Recorded Sex Assigned at Not on file Legal Sex Male 1:22 AM INSPECTOR PENETRANT Gender Identity Male 02/12/2020 11:14 AM INSPECTOR PENETRANT Sexual Orientation Straight 02/12/2020 11 :14 AM INSPECTOR PENETRANT documented as of this encounter Last Filed Vital Signs Vital Sign Reading Time Taken Comments Blood Pressure 130/78 10/09/2017 1:59 PM CDT Pulse 56 10/09/2017 1:59 PM CDT Temperature - - Respiratory Rate - - Oxygen Saturation - - Inhaled Oxygen Concentration - - Weight 138.8 kg (306 lb) 10/09/2017 1:59 PM CDT Height 177.8 cm (5' 10 ) 10/09/2017 1:59 PM CDT Body Mass Index 43.91 10/09/2017 1:59 PM CDT documented in this encounter Patient Instructions * Patient Instructions* Manisha Stallworth MA - 10/09/2017 1:45 PM CDT Images from the original note were not included. Patient Education A-fib (Atrial Fibrillation) PROPERTY INSURANCE AGENT: Atrial fibrillation (a-fib) is an irregular heartbeat. It reduces your heart's ability to pump blood through your body. A-fib may come and go, or it may be a long-term condition. A-fib can cause life-threatening blood clots, stroke, or heart failure. It is important to treat and manage a-fib to help prevent these problems. Common signs and symptoms include the following: ?? A heartbeat that races, pounds, or flutters ?? Weakness, severe tiredness, or confusion ?? Feeling lightheaded, sweaty, dizzy, or faint ?? Shortness of breath or anxiety ?? Chest pain or pressure Call 911 for any of the following: ?? You have any of the following signs of a heart attack: ?? Squeezing, pressure, or pain in your chest that lasts longer than 5 minutes or returns ?? Discomfort or pain in your back, neck, jaw, stomach, or arm ?? Trouble breathing ?? Nausea or vomiting ?? Lightheadedness or a sudden cold sweat, especially with chest pain or trouble breathing ?? You have any of the following signs of a stroke: ?? Numbness or drooping on one side of your face ?? Weakness in an arm or leg ?? Confusion or difficulty speaking ?? Dizziness, a severe headache, or vision loss Seek care immediately if: You have any of the following signs of a blood clot: ?? You feel lightheaded, are short of breath, and have chest pain. ?? You cough up blood. ?? You have swelling, redness, pain, or warmth in your arm or leg. Contact your dental equipment installer and servicer or healthcare provider if: ?? Your target heart rate is not in the range it should be. ?? You have new or worsening swelling in your legs, feet, ankles, or abdomen. ?? You are short of breath, even at rest. ?? You have questions or concerns about your condition or care. Treatment for A-fib: Conditions that cause a-fib, such as thyroid disease, will be treated. You mayalso need any of the following: ?? Heart medicines help control your heart rate and rhythm. You may need more than one medicine to treat your symptoms. ?? Antiplatelet and blood thinner medicines help prevent blood clots. ?? Cardioversion is a procedure to return your heart rate and rhythm to normal. It can be done using medicines or electric shock. ?? A-fib ablation is a procedure that uses energy to burn a small area of heart tissue. This creates scar tissue and prevents electrical signals that cause a- fib. You may need this procedure more than once. Ask for more information on a- fib ablation. ?? A pacemaker may be inserted into your heart. A pacemaker is a device that controls your heartbeat. A pacemaker may be inserted during an ablation procedure or surgery. Ask your healthcare providerfor more information on pacemakers. ?? Surgery may be needed if other procedures do not work. During surgery your healthcare provider will make cuts in the upper part of your heart. The provider will stitch the cuts together to create scar tissue. The scar tissue will prevent electrical signals that cause a-fib. Manage A-fib: ?? Know your target heart rate. Learn how to take your pulse and monitor your heart rate. ?? Manage other health conditions. This includes high blood pressure, sleep apnea, thyroid disease,diabetes, and other heart conditions. Take medicine as directed and follow your treatment plan. ?? Limit or do not drink alcohol. Alcohol can make a-fib hard to manage. Ask your healthcare provider if it is safe for you to drink alcohol. A drink of alcohol is 12 ounces of beer, 5 ounces of wine, or 1?? ounces of liquor. ?? Do not smoke. Nicotine and other chemicals in cigarettes and cigars can cause heart and lung damage. Ask your healthcare provider for information if you currently smoke and need help to quit. E-cigarettes or smokeless tobacco still contain nicotine. Talk to your healthcare provider before you use these products. ?? Eat heart-healthy foods. Heart healthy foods will help keep your cholesterol low. These include fruits, vegetables, whole-grain breads, low-fat dairy products, beans, lean meats, and fish. Replacebutter and margarine with heart- healthy oils such as olive oil and canola oil. ?? Maintain a healthy weight. Ask your healthcare provider how much you should weigh. Ask him to help you create a weight loss plan if you are overweight. ?? Exercise for 30 minutes most days of the week. Ask your healthcare provider about the best exercise plan for you. Follow up with your dental equipment installer and servicer as directed: You will need regular blood tests and monitoring. Write down your questions so you remember to ask them during your visits. ?? 2016 [employer]. Information is for End User's use only and may not be sold, redistributed or otherwise used for commercial purposes. All illustrations and images included in CareNotes?? are the copyrighted property of [employer]. or [employer] The above information is an educational paraprofessional only. It is not intended as medical advice for individual conditions or treatments. Talk to your doctor, nurse or pharmacist before following any medical regimen to see if it is safe and effective for you. documented in this encounter Progress Notes * Eze Mcdaniel MD - 10/09/2017 1:45 PM CDT Patient ID: Vikas Banda is a 57 y.o. male Chief Complaint Atrial Fibrillation HPI Mr. Banda [facility] 10[facility]2017 patient seen for follow-up of AF. He underwent transesophageal echo on August 05, 2017 that showed no thrombus normal LV function no wall motion abnormalities EF 60% moderate left atrial enlargement. He was started on flecainide then had spontaneous conversion. He returns in follow-up in states he is doing well. No recurrent AF no palpitations he feels better compliant anticoagulation. EKG today my interpretation sinus rhythm left anteriorfascicular block first-degree AV delay EKG performed to monitor flecainide. Patient is not on Multaq. Med list below is incorrect. Patient seen in consultation to Dr. Do [...] significant for hypertension. No diabetes stroke or OR. Social history-- Minimal alcohol. He has sleep apnea and uses CPAP though not consistently. Family history. No history of atrial fibrillation or sudden Past Medical History: Diagnosis Date ??? HX OTHER MEDICAL 2012 Hypogonadism ??? HX OTHER MEDICAL Obesity, Morbid ??? HX OTHER MEDICAL Sleep Apnea, CPAP History reviewed. No pertinent family history. Social History Substance Use Topics ??? Smoking status: Never Smoker ??? Smokeless tobacco: Never Used ??? Alcohol use 1.2 oz/week 2 Cans of beer per week Current Outpatient Prescriptions: ??? dronedarone (MULTAQ) 400 mg tablet, Take 1 tablet (400 mg total) by mouth 2 (two) times a day with meals., Disp: 180 tablet, Rfl: 3 ??? flecainide (TAMBOCOR) 150 mg tablet, Take 1 tablet (150 mg total) by mouth 2 (two) times a day., Disp: 60 tablet, Rfl: 3 ??? metoprolol XL (TOPROL-XL) 50 mg 24 hr tablet, Take 1 tablet by mouth 2 (two) times a day., Disp: , Rfl: 3 ??? NIFEDIPINE XL 60 mg 24 hr tablet, TAKE 1 TABLET BY MOUTH EVERY DAY, Disp: 30 tablet, Rfl: 3 ??? rivaroxaban (XARELTO) 20 mg tablet, Take 1 tablet (20 mg total) by mouth daily., Disp: 30 tablet, Rfl: 6 Review of Systems Constitutional: Negative. HENT: Negative. Eyes: Negative. Respiratory: Negative. Cardiovascular: Negative. Gastrointestinal: Negative. Endocrine: Negative. Genitourinary: Negative. Skin: Negative. Neurological: Negative. Hematological: Negative. Psychiatric/Behavioral: Negative. BP 130/78 (BP Location: Left arm, Patient Position: Sitting) Pulse 56 Ht 177.8 cm (5' 10 ) Wt(!) 138.8 kg (306 lb) BMI 43.91 kg/m?? Physical Exam Constitutional: No distress. Head: [...] Diagnoses and all orders for this visit: Persistent atrial fibrillation (CMS/HCC) (Primary) - ECG 12 lead BMI 40.0-44.9, adult (CMS/HCC) Morbid obesity (CMS/HCC) Impression: 1. Persistent atrial fibrillation. Early recurrence after cardioversion. Now maintaining sinus rhythm on flecainide. Catheter ablation is an option but patient does not wish to pursue 2. Hypertension. 3. Chads 2 equals 1. Patient on anticoagulation. 4. Sleep apnea. On CPAP. 5. Morbid obesity. 6. Encounter for therapeutic drug level monitoring. Satisfactory EKG on flecainide Plan: 1. Continue flecainide 2. Continue anticoagulation 3. Follow-up with me 4. PVI remains an option Eze Mcdaniel MD 10/09/2017 documented in this encounter Plan of Treatment Not on file documented as of this encounter Procedures Procedure Name Priority Date/Time Associated Diagnosis Comments ECG 12-LEAD Routine 10/09/2017 Persistent atrial fibrillation (CMS/HCC) documented in this encounter Results * ECG 12 lead (10/09/2017) Eze Mcdaniel MD ECG ORDERABLES Final Resul t documented in this encounter Visit Diagnoses Diagnosis Persistent atrial fibrillation (HCC)- Primary Atrial fibrillation BMI 40.0-44.9, adult (HCC) Morbid obesity (HCC) Morbid obesity documented in this encounter Discontinued Medications Medication Sig Discontinue Reason Start Date End Da te metoprolol XL (TOPROL-XL) 50 mg 24 hr tablet TAKE 1 TABLET (50MG) BY ORAL ROUTE TWICE A DAY Discontinued by another clinician 04/02/2017 10/09/2017 documented as of this encounter Historical Medications * This list may reflect changes made after this encounter. metoprolol XL (TOPROL-XL) 50 mg 24 hr tablet Take 1 tablet by mouth 2 (two) times a day. 3 09/10/2017 10/17/2017 added in this encounter Care Teams Lean Specialist Relationship Specialty Start Date End Date Ashok Gaffney MD PCP - General 08/23/11 documented as of this encounter
--- OUTSIDE RECORDS SUMMARY | 2024-04-01 21:15 | XMS_ITS | Encounter Summary ---
Author Organization [facility] Address [address] [place] [address] Care Team Providers Care Amusement Park Worker Name Role Phone Ashok Gaffney MD Primary Care Provider [phone] Encounter Details Date Type Department Care Team (Late st Contact Info) Description 03/01/2021 Telephone Ar[facility]hythmia Center [address] [place] [address] Eze Mcdaniel MD [address] [place] [address] Social History Tobacco Use Types Packs/Day Years Used Date Smoking Tobacco: Never Smokeless Tobacco: Never Alcohol Use Standard Drinks/Week Comments Yes 2 (1 standard drink = 0.6 oz pur e alcohol) Sex and Gender Information Value Date Recorded Sex Assigned at Not on file Legal Sex Male 1:22 AM CORPORATE QUALITY MANAGER Gender Identity Male 02/12/2020 11:14 AM CORPORATE QUALITY MANAGER Sexual Orientation Straight 02/12/2020 11 :14 AM CORPORATE QUALITY MANAGER documented as of this encounter Miscellaneous Notes * Telephone Encounter - Mayuri Morales MA - 03/01/2021 11:41 AM CORPORATE QUALITY MANAGER PA was received from pharmacy, will submit to insurance as soon as we can. ORATE QUALITY MANAGER * Telephone Encounter - Shiloh Greene - 03/01/2021 11:24 AM CST States Xarelto is in need of PA per pharmacy. ORATE QUALITY MANAGER documented in this encounter Plan of Treatment Not on file documented as of this encounter Visit Diagnoses Not on filedocumented in this encounter Care Teams Amusement Park Worker Relationship Specialty Start Date End Date Ashok Gaffney MD PCP - General 08/23/11 documented as of this encounter
--- OUTSIDE RECORDS SUMMARY | 2024-04-01 21:15 | XMS_ITS | Encounter Summary ---
Author Organization [facility] Address [address] [place] [address] Care Team Providers Care Product Marketing Intern Name Role Phone Ashok Gaffney MD Primary Care Provider Reason for Visit * Reason Comments Atrial Fibrillation Encounter Details Date Type Department Care Team (Late st Contact Info) Description 02/15/2020 11:30 AM DIRECTOR OF WOMEN'S SERVICES Office Visit [facility] [address] [place] [address] Caitlyn Muir, NAVID [address] [place] [address] Paroxysmal atrial fibrillation (CMS/HCC) (Primary Dx) Social History Tobacco Use Types Packs/Day Years Used Date Smoking Tobacco: Never Smokeless Tobacco: Never Alcohol Use Standard Drinks/Week Comments Yes 2 (1 standard drink = 0.6 oz pur e alcohol) Sex and Gender Information Value Date Recorded Sex Assigned at Not on file Legal Sex Male 1:22 AM DIRECTOR OF WOMEN'S SERVICES Gender Identity Male 02/12/2020 11:14 AM DIRECTOR OF WOMEN'S SERVICES Sexual Orientation Straight 02/12/2020 11 :14 AM DIRECTOR OF WOMEN'S SERVICES documented as of this encounter Last Filed Vital Signs Vital Sign Reading Time Taken Comments Blood Pressure 154/80 02/15/2020 11:33 AM DIRECTOR OF WOMEN'S SERVICES Pulse 60 02/15/2020 11:33 AM DIRECTOR OF WOMEN'S SERVICES Temperature - - Respiratory Rate - - Oxygen Saturation - - Inhaled Oxygen Concentration - - Weight 156.8 kg (345 lb 9.6 oz) 020 11:33 AM DIRECTOR OF WOMEN'S SERVICES Height 177.8 cm (5' 10 ) 02/15/2020 11: 33 AM DIRECTOR OF WOMEN'S SERVICES Body Mass Index 49.59 02/15/2020 11:33 AM DIRECTOR OF WOMEN'S SERVICES documented in this encounter Progress Notes * Caitlyn Muir, RN ACUTE DIALYSIS - 02/15/2020 11:30 AM CST Patient ID: Vikas Banda is a 59 y.o. male Chief Complaint Atrial fibrillation HPI Mr. Banda is evaluated at the [facility] today for follow up on 02/15/2020 for follow-up of his atrial fibrillation. He underwent transesophageal echo on August 05, 2017 that showed no thrombus normal LV function no wallmotion abnormalities EF 60% moderate left atrial enlargement. He was started on flecainide then hadspontaneous conversion. He was last seen 1 year ago. Since that time he denies any recent hospitalizations or major medicalevents. He feels well and denies any episodes of atrial fibrillation. Remains compliant with his medications. He remains active without difficulty. No bleeding on anticoagulation. He denies any recent episodes of atrial fibrillation. No shortness of breath, dizziness, or syncope. EKG on my review today demonstrates sinus rhythm (60) IVCD, normal QT. Current Outpatient Medications: ??? flecainide (TAMBOCOR) 150 mg tablet, Take 1 tablet (150 mg total) by mouth 2 (two) times a day,Disp: 180 tablet, Rfl: 0 ??? metoprolol XL (TOPROL-XL) 50 mg extended release tablet, Take 1 tablet (50 mg total) by mouth 2(two) times a day, Disp: 180 tablet, Rfl: 0 ??? NIFEdipine (NIFEdipine XL) 60 mg 24 hr tablet, Take 1 tablet (60 mg total) by mouth daily, Disp: 90 tablet, Rfl: 0 ??? rivaroxaban (XARELTO) 20 mg tablet, Take 1 tablet (20 mg total) by mouth daily, Disp: 28 tablet, Rfl: 0 Past Medical History: Diagnosis Date ??? HX OTHER MEDICAL 2012 Hypogonadism ??? HX OTHER MEDICAL Obesity, Morbid ??? HX OTHER MEDICAL Sleep Apnea, CPAP History reviewed. No pertinent family history. Social History Tobacco Use ??? Smoking status: Never Smoker ??? Smokeless tobacco: Never Used Substance Use Topics ??? Alcohol use: Yes Alcohol/week: 2.0 standard drinks [...] good suppression on flecainide. Denies any recent episodes 2. Encounter for anticoagulation management. He remains on Xarelto 20 mg daily. He denies any issues with bleeding or bruising 3. Normal LV function Plan: Continue current medications Follow-up in 6 months for an office visit and 12 lead EKG Caitlyn Muir NP 02/15/2020 CTOR OF WOMEN'S SERVICES documented in this encounter Plan of Treatment Not on file documented as of this encounter Procedures Procedure Name Priority Date/Time Associated Diagnosis Comments ECG 12-LEAD Routine 02/15/2020 Paroxysmal atrial fibrillation (CMS/HCC) documented in this encounter Results * ECG 12 lead (02/15/2020) Caitlyn Muir NP ECG ORDERABLES Final Resu lt documented in this encounter Visit Diagnoses Diagnosis Paroxysmal atrial fibrillation (CMS/HCC) (HCC)- Primary Atrial fibrillation documented in this encounter Care Teams Product Marketing Intern Relationship Specialty Start Date End Date Ashok Gaffney MD PCP - General 08/23/11 documented as of this encounter
--- OUTSIDE RECORDS SUMMARY | 2024-04-01 21:15 | XMS_ITS | Encounter Summary ---
Author Organization [facility] Address [address] [place] [address] Care Team Providers Care Bag Tester Name Role Phone Kashif Gaffney MD Primary Care Provider [phone] Reason for Referral * Cardiology (Routine) - Closed Specialty Diagnoses / Procedures Referred By Contac t Referred To Contact Diagnoses Paroxysmal atrial fibrillation (CMS/HCC) (HCC) Essential hypertension Left ventricular hypertrophy Procedures Transthoracic Echo Complete W Doppler/CF Tequila Joyce MD Phone: tel: fax: Referral ID Status Reason Start Date Expiration Date Visits Re quested Visits Authorized [id number] Closed 06/06/2017 12/03/2017 1 1 PHONE APPOINTMENT CLERK Reason for Visit * Reason Comments Atrial Fibrillation Hypertension Shortness of Breath annual f/u Encounter Details Date Type Department Care Team (Late st Contact Info) Description 06/06/2017 8:45 AM TELEPHONE APPOINTMENT CLERK Office Visit [facility] [address] [place] [phone] Tequila Joyce MD [address] [address] Paroxysmal atrial fibrillation (CMS/HCC) (Primary Dx); Morbid obesity with BMI of 45.0-49.9, adult (CMS/HCC); Essential hypertension; Obstructive sleep apnea syndrome; Chronic anticoagulation; Left ventricular hypertrophy Social History Tobacco Use Types Packs/Day Years Used Date Smoking Tobacco: Never Smokeless Tobacco: Never Alcohol Use Standard Drinks/Week Comments Yes 2 (1 standard drink = 0.6 oz pur e alcohol) Sex and Gender Information Value Date Recorded Sex Assigned at Not on file Legal Sex Male 1:22 AM TELEPHONE APPOINTMENT CLERK Gender Identity Male 02/12/2020 11:14 AM TELEPHONE APPOINTMENT CLERK Sexual Orientation Straight 02/12/2020 11 :14 AM TELEPHONE APPOINTMENT CLERK documented as of this encounter Last Filed Vital Signs Vital Sign Reading Time Taken Comments Blood Pressure 120/90 06/06/2017 9:03 AM TELEPHONE APPOINTMENT CLERK Pulse 81 06/06/2017 9:03 AM TELEPHONE APPOINTMENT CLERK Temperature - - Respiratory Rate - - Oxygen Saturation 97% 06/06/2017 9:03 AM TELEPHONE APPOINTMENT CLERK Inhaled Oxygen Concentration - - Weight 142.9 kg (315 lb) 06/06/2017 9:03 AM TELEPHONE APPOINTMENT CLERK Height 177.8 cm (5' 10 ) 06/06/2017 9:03 AM TELEPHONE APPOINTMENT CLERK Body Mass Index 45.2 06/06/2017 9:03 AM TELEPHONE APPOINTMENT CLERK documented in this encounter Progress Notes * Tequila Joyce MD - 06/06/2017 8:45 AM CST [facility] DATE OF VISIT: 06/06/2017 CHIEF COMPLAINT Chief Complaint Patient presents with ??? Atrial Fibrillation ??? Hypertension ??? Shortness of Breath annual f/u HPI Meena Andrade is a 56 y.o. male with a history of paroxysmal atrial fibrillation. He has undergone successful cardioversion. I originally started seeing him in 2009. He has not been seen in about a year. He last saw our nurse practitioner because of some intermittent episodes of atrial fibrillation. He returns today feeling okay. He denies any chest pain, syncope, unusual shortness of breath. He does have some mild swelling which is not new or different. He denies any paroxysmal nocturnal dyspnea, orthopnea. He has been weak and tired as of late and fatigued and he has felt his atrial fibrillation revert and returned about 3 weeks ago. He has had increasing episodes of atrial fibrillation over the past couple of months. Last year he only had 1 episode of atrial fibrillation. These have spontaneously converted back to sinus rhythm. MEDICAL HISTORY Past Medical History: Diagnosis Date ??? HX OTHER MEDICAL 2012 Hypogonadism ??? HX OTHER MEDICAL Obesity, Morbid ??? HX OTHER MEDICAL Sleep Apnea, CPAP Social History Substance Use Topics ??? Smoking status: Never Smoker ??? Smokeless tobacco: Never Used ??? Alcohol use 1.2 oz/week 2 Cans of beer per week No family history on file. MEDICATIONS Home Medications DRONEDARONE (MULTAQ) 400 MG TABLET Take 1 tablet (400 mg total) by mouth 2 (two) times a day with meals. METOPROLOL XL (TOPROL-XL) 50 MG 24 HR TABLET TAKE 1 TABLET (50MG) BY ORAL ROUTE TWICE A DAY NIFEDIPINE XL 60 MG 24 HR TABLET TAKE 1 TABLET BY MOUTH EVERY DAY RIVAROXABAN (XARELTO) 20 MG TABLET Take 1 tablet (20 mg total) by mouth daily. ALLERGIES No Known Allergies REVIEW OF SYSTEMS Review of Systems Constitution: Negative for weakness, weight gain and weight loss. HENT: Negative for hearing loss. Eyes: Negative for blurred vision and visual disturbance. Cardiovascular: Positive for palpitations. Negative for chest pain, claudication, dyspnea on exertion, irregular heartbeat, leg swelling, near- syncope, orthopnea, paroxysmal nocturnal dyspnea and syncope. Respiratory: Negative for cough, hemoptysis, shortness of breath, snoring, sputum production and wheezing. Endocrine: Negative for cold intolerance, heat intolerance and polyuria. Hematologic/Lymphatic: Does not bruise/bleed easily. Skin: Negative for color change and rash. Musculoskeletal: Negative for falls, joint pain, joint swelling and myalgias. Gastrointestinal: Negative for abdominal pain, heartburn, nausea and vomiting. Genitourinary: Negative for dysuria. Neurological: Negative for dizziness, focal weakness, headaches, light- headedness and numbness. Psychiatric/Behavioral: Negative for depression. The patient is not nervous/anxious. Allergic/Immunologic: Negative for environmental allergies. PHYSICAL EXAM Blood pressure 120/90, pulse 81, height 177.8 cm (5' 10 ), weight (!) 142.9 kg (315 lb), SpO2 97 %. Body mass index is 45.2 kg/m??. Physical Exam Constitutional: He is oriented to person, place, and time. He appears well-nourished. HENT: Head: Normocephalic and atraumatic. Nose: Nose normal. Eyes: Conjunctivae and EOM are normal. No scleral icterus. Neck: Neck supple. Cardiovascular: Normal rate, normal heart sounds and intact distal pulses. An irregularly irregularrhythm present. Exam reveals no gallop and no friction rub. No murmur heard. Pulmonary/Chest: Effort normal and breath sounds normal. No respiratory distress. He has no wheezes. He has no rales. He exhibits no tenderness. Abdominal: Soft. Bowel sounds are normal. He exhibits no distension. There is no tenderness. Musculoskeletal: Normal range of motion. He exhibits edema. 1+ bilateral lower extremity edema Neurological: He is alert and oriented to person, place, and time. Skin: Skin is warm and dry. Psychiatric: He has a normal mood and affect. LABS AND OTHER DIAGNOSTIC TESTS No results found for: WBC, HGB, HCT, MCV, PLT Chemistry No results found for: SODIUM, POTASSIUM, CHLORIDE, CO2, BUNSER, CREATININE, GLUCOSE Component Value Date/Time AST 35 07/07/2012 0916 ALT 44 07/07/2012 0916 Lab Results Component Value Date CHOL 209 (H) 07/07/2012 Lab Results Component Value Date HDL 25 (L) 07/07/2012 LDL Date Value Ref Range Status 07/07/2012 158 (H) <130 mg/dl Comment: Desirable range <100 mg/dL for patients with CHD or diabetes and <70 mg/dL for diabetic patients with known heart disease. ] No results found for: LDLCALC Lab Results Component Value Date TRIG 129 07/07/2012 Lab Results Component Value Date CHOLHDL 8.4 (H) 07/07/2012 EKG 06/06/2017: Atrial fibrillation. Left axis deviation, nonspecific T-wave abnormality, abnormal EKG Echo ASSESSMENT Diagnoses and all orders for this visit: Paroxysmal atrial fibrillation ([facility]) (Primary) On anticoagulation. Recurrent atrial fibrillation. Morbid obesity with BMI of 45.0-49.9, adult (CMS/HCC) Unfortunately worse Essential hypertension Generally at goal Obstructive sleep apnea syndrome Compliant with CPAP PLAN/RECOMMENDATIONS 1. EKG today 2. 2D echocardiogram Doppler 3. Elective outpatient cardioversion. We will schedule him for cardioversion next week restore sinus rhythm. He feels better in sinus rhythm. If he has frequent or recurring episodes of atrial fibrillation despite Multaq therapy, will consider switching him from Multaq to a different antiarrhythmic. Obviously weight loss is also important. 4. Follow-up in 6 weeks or sooner as clinically indicated Tequila Joyce MD, [facility] PHONE APPOINTMENT CLERK documented in this encounter Plan of Treatment Not on file documented as of this encounter Procedures Procedure Name Priority Date/Time Associated Diagnosis Comments ECG 12-LEAD Routine 06/06/2017 Paroxysmal atrial fibrillation (CMS/HCC) documented in this encounter Results * TRANSTHORACIC ECHO (TTE) COMPLETE W DOPPLER/CF WO CONTRAST (06/17/2017 10:58 AM CDT) Anatomical Region Laterality Modality Ultrasound 06/17/2017 9:08 AM CDT Narrative 06/17/2017 7:30 PM CDT [facility] [address], [place] [address] [address], [place] [address] P:[phone] P:[phone] Echocardiographic Report ADDENDUM Patient Name: MEENA ANDRADE : [id number] Study Date: 06/17/2017 9:08:44 AM Gender: M Tech: Location: [place] Ref.Physician: KASHIF GAFFNEY Height(Cm): 178 BSA: 2.53 Weight(Kg): 142.88 Heart Rate: 95 BP: 113/76 Quality: Good Order Physician: TEQUILA JOYCE Procedures: Echocardiographic Report: Transthoracic echocardiogram with complete 2D, M-Mode, and color Doppler examination. Indications: Hypertension, Paroxysmal atrial fibrillation, and Left Ventricular Hypertrophy. Measurements: 2D/M Mode ?Doppler ? Measurement ?Value ?Normal Range ? Measurement ?Value ?Normal Range ? EF Mod ? 57 ?AV Mean PG ? 3 ?mmHg ? EF MM ?77 ? [ 55 - 70 ] % ?AV Peak Frank ?1.16 ? m/s ? LVIDd MM ? 5.58 ? [ 3.90 - 5.30 ] cm ? AV Peak PG ? 5 ?mmHg ? LVIDs MM ? 3.00 ? [ 2.30 - 3.90 ] cm ? AV VTI ? 0.22 ? cm ? LVPWd MM ? 1.33 ? [ 0.60 - 1.00 ] cm ? LVOT Peak Frank ?0.89 ? [ 0.70 - 1.10 ] m/s ? IVSd MM ?1.33 ? [ 0.60 - 0.90 ] cm ? LVOT VTI ? 0.16 ? cm ? LA Dimension MM ?5.42 ? [ 2.70 - 3.80 ] cm ? MV E Peak Frank ?0.91 ? [ 0.60 - 1.30 ] m/s ? AoR Diam MM ?3.75 ? [ 2.60 - 3.70 ] cm ? MV Decel Time ?219 ?[ 150 - 200 ] msec ? LA Volume Index ?37.00 ?[ 16.00 - 28.00 ] cc/m2 ?PV Peak Frank ?1.05 ? [ 0.40 - 0.80 ] m/s ? ACS MM ? 2.08 ? cm ? TR Peak Frank ?2.77 ? [ 0.40 - 0.80 ] m/s ? TR Peak PG ? 31 ? mmHg ? RVSP ? 38.00 ?mmHg ? E' ? 0.11 ? E/E' ? 8 ? Findings: Interpretation Site: Exam was interpreted at [facility]. Left Ventricle: Mild concentric left ventricular hypertrophy. Left ventricle cavity is upper limits of normal in size. Left ventricular systolic function at the lower limit of normal. Impaired diastolic relaxation Grade I. Ejection fraction is measured at 57 %. Right Ventricle: Normal right ventricular size. Normal right ventricular systolic function. Left Atrium: There is moderate enlargement of left atrium. Right Atrium: The right atrium is normal in size. Atrial Septum: Normal atrial septum. Mitral Valve: Normal appearance of the mitral valve. Trivial regurgitation of the mitral valve. Aortic Valve: Normal appearance of the aortic valve. Tricuspid Valve: Normal appearance of the tricuspid valve. Mild pulmonary hypertension based on right ventricular systolic pressure. Estimated peak RVSP is 39 mmHg. Mild tricuspid regurgitation. Pulmonic Valve: Normal appearance of the pulmonic valve. Trivial regurgitation in the pulmonic valve. Pericardium: Normal pericardium with no significant pericardial effusion. Aorta: Normal aortic root. IVC: Normal size and normal respiratory collapse consistent with normal right atrial pressure (<5 mmHg). Pulmonary Artery: Normal pulmonary artery size. Conclusions: Mild concentric left ventricular hypertrophy. Left ventricle cavity is upper limits of normal in size. Left ventricular systolic function at the lower limit of normal. Impaired diastolic relaxation Grade I. Ejection fraction is measured at 57 %. Mild tricuspid regurgitation. Mild pulmonary hypertension based on right ventricular systolic pressure. Estimated peak RVSP is 39 mmHg. Unfortuantely, the patient underwent cardioversion last week and is back in atrial fibrillation today. Compared to the Echo of June 2012, the patient is in atrial fibrillation. Electronically Signed By: Allyson Jones MD, FACC 2017-06-17 19:32:42 CDT CC: CC: Procedure Note Allyson Jones MD - 06/17/2017 [facility] [address], [place] [address] [address], [place] [address] P:[phone] P:[phone] Echocardiographic Report ADDENDUM Patient Name: MEENA ANDRADEPatient ID: [id number] : [id number] Date: 06/17/2017 9:08:44 AM Gender: MAccession #: [id number] Tech: GMLocation: [place] Ref.Physician: Jose Luis GAFFNEYt(Cm): 178 BSA: 2.53Weight(Kg): 142.88 Heart Rate: 95BP: 113/76 Quality: GoodOrder Physician: TEQUILA JOYCE Procedures: Echocardiographic Report: Transthoracic echocardiogram with complete 2D, M-Mode, and color Dopplerexamination. Indications: Hypertension, Paroxysmal atrial fibrillation, and Left VentricularHypertrophy. Measurements: 2D/M Mode Doppler Measurement Value Normal Range MeasurementValue Normal Range EF Mod 57 AV Mean PG 3mmHg EF MM 77 [ 55 - 70 ] % AV Peak Vel1.16 m/s LVIDd MM 5.58 [ 3.90 - 5.30 ] cm AV Peak PG 5mmHg LVIDs MM 3.00 [ 2.30 - 3.90 ] cm AV VTI0.22 cm LVPWd MM 1.33 [ 0.60 - 1.00 ] cm LVOT Peak Vel0.89 [ 0.70 - 1.10 ] m/s IVSd MM 1.33 [ 0.60 - 0.90 ] cm LVOT VTI0.16 cm LA Dimension MM 5.42 [ 2.70 - 3.80 ] cm MV E Peak Vel0.91 [ 0.60 - 1.30 ] m/s AoR Diam MM 3.75 [ 2.60 - 3.70 ] cm MV Decel Bemn260 [ 150 - 200 ] msec LA Volume Index 37.00 [ 16.00 - 28.00 ] cc/m2 PV Peak Vel1.05 [ 0.40 - 0.80 ] m/s ACS MM 2.08 cm TR Peak Vel2.77 [ 0.40 - 0.80 ] m/s TR Peak PG 31mmHg RVSP38.00 mmHg E'0.11 E/E' 8 Findings: Interpretation Site: Exam was interpreted at [facility]. Left Ventricle: Mild concentric left ventricular hypertrophy. Left ventricle cavity isupper limits of normal in size. Left ventricular systolic function at the lower limit ofnormal. Impaired diastolic relaxation Grade I. Ejection fraction is measured at 57 %. Right Ventricle: Normal right ventricular size. Normal right ventricular systolicfunction. Left Atrium: There is moderate enlargement of left atrium. Right Atrium: The right atrium is normal in size. Atrial Septum: Normal atrial septum. Mitral Valve: Normal appearance of the mitral valve. Trivial regurgitation of the mitralvalve. Aortic Valve: Normal appearance of the aortic valve. Tricuspid Valve: Normal appearance of the tricuspid valve. Mild pulmonary hypertensionbased on right ventricular systolic pressure. Estimated peak RVSP is 39 mmHg. Mildtricuspid regurgitation. Pulmonic Valve: Normal appearance of the pulmonic valve. Trivial regurgitation in thepulmonic valve. Pericardium: Normal pericardium with no significant pericardial effusion. Aorta: Normal aortic root. IVC: Normal size and normal respiratory collapse consistent with normal rightatrial pressure (<5 mmHg). Pulmonary Artery: Normal pulmonary artery size. Conclusions: Mild concentric left ventricular hypertrophy. Left ventricle cavity isupper limits of normal in size. Left ventricular systolic function at the lower limit ofnormal. Impaired diastolic relaxation Grade I. Ejection fraction is measured at 57 %. Mild tricuspid regurgitation. Mild pulmonary hypertension based on right ventricular systolic pressure.Estimated peak RVSP is 39 mmHg. Unfortuantely, the patient underwent cardioversion last week and is backin atrial fibrillation today. Compared to the Echo of June 2012, the patient is in atrialfibrillation. Electronically Signed By: Allyson Jones MD, [facility] 2017-06-17 19:32:42 CDT CC: CC: Tequila Joyce MD CV ECHO PROCEDURES Edited Result - Final * ECG 12 lead (06/06/2017) Tequila Joyce MD ECG ORDERABLES Final Res ult documented in this encounter Visit Diagnoses Diagnosis Paroxysmal atrial fibrillation (CMS/HCC) (HCC)- Primary Atrial fibrillation Morbid obesity with BMI of 45.0-49.9, adult (HCC) Essential hypertension Unspecified essential hypertension Obstructive sleep apnea syndrome Obstructive sleep apnea (adult) (pediatric) Chronic anticoagulation Encounter for long-term (current) use of anticoagulants Left ventricular hypertrophy Cardiomegaly Paroxysmal atrial fibrillation (CMS/HCC) (HCC) Atrial fibrillation Essential hypertension Unspecified essential hypertension Left ventricular hypertrophy Cardiomegaly documented in this encounter Care Teams Bag Tester Relationship Specialty Start Date End Date Kashif Gaffney MD PCP - General 08/23/11 documented as of this encounter
--- OUTSIDE RECORDS SUMMARY | 2024-04-01 21:15 | XMS_ITS | Encounter Summary ---
Author Organization [facility] Address [address] [place] [address] Care Team Providers Care Patrol Sergeant Sheriff'S Office Name Role Phone Ashok Gaffney MD Primary Care Provider Encounter Details Date Type Department Care Team (Late st Contact Info) Description 09/06/2017 Telephone [facility] [address] [facility] [address] [phone] Petar Do MD [address] [place] [address] [address] [facility] [address] [place] [address] Social History Tobacco Use Types Packs/Day Years Used Date Smoking Tobacco: Never Smokeless Tobacco: Never Alcohol Use Standard Drinks/Week Comments Yes 2 (1 standard drink = 0.6 oz pur e alcohol) Sex and Gender Information Value Date Recorded Sex Assigned at Not on file Legal Sex Male 1:22 AM CONSTRUCTION HELPER Gender Identity Male 02/12/2020 11:14 AM CONSTRUCTION HELPER Sexual Orientation Straight 02/12/2020 11 :14 AM CONSTRUCTION HELPER documented as of this encounter Ordered Prescriptions Prescription Sig Dispense Quantity Refills Last Filled Start Date End Date rivaroxaban (XARELTO) 20 mg tablet Take 1 tablet (20 mg total) by mouth daily. 30 tablet 6 09/06/2017 10/17/2017 documented in this encounter Miscellaneous Notes * Telephone Encounter - Aaliyah Hyman RN - 09/06/2017 1:49 PM CDT Rx sent. * Telephone Encounter - Crystal Muir - 09/06/2017 1:36 PM CDT Pt's spouse called to have a refill on Xarelto sent to [facility] [address] in [place] [phone] documented in this encounter Plan of Treatment Not on file documented as of this encounter Visit Diagnoses Not on filedocumented in this encounter Discontinued Medications Medication Sig Discontinue Reason Start Date End Da te rivaroxaban (XARELTO) 20 mg tablet Take 1 tablet (20 mg total) by mouth daily. Reorder 07/31/2017 09/06/2017 documented as of this encounter Care Teams Patrol Sergeant Sheriff'S Office Relationship Specialty Start Date End Date Ashok Gaffney MD PCP - General 08/23/11 documented as of this encounter
--- OUTSIDE RECORDS SUMMARY | 2024-04-01 21:15 | XMS_ITS | Encounter Summary ---
Author Organization [facility] Address [address] [place] [address] Care Team Providers Care Neighborhood Conservation Officer Name Role Phone Ashok Gaffney MD Primary Care Provider Encounter Details Date Type Department Care Team (Late st Contact Info) Description 08/26/2020 Telephone [facility] [address] [place] [address] Eze Mcdaniel MD [address] [facility] [address] [place] [address] Social History Tobacco Use Types Packs/Day Years Used Date Smoking Tobacco: Never Smokeless Tobacco: Never Alcohol Use Standard Drinks/Week Comments Yes 2 (1 standard drink = 0.6 oz pur e alcohol) Sex and Gender Information Value Date Recorded Sex Assigned at Not on file Legal Sex Male 1:22 AM MARKETING MGR Gender Identity Male 02/12/2020 11:14 AM MARKETING MGR Sexual Orientation Straight 02/12/2020 11 :14 AM MARKETING MGR documented as of this encounter Ordered Prescriptions Prescription Sig Dispense Quantity Refills Last Filled Start Date End Date metoprolol XL (TOPROL-XL) 50 mg extended release tablet Take 1 tablet (50 mg total) by mouth 2 (two) times a day 60 tablet 11 08/30/2020 10/04/2020 documented in this encounter Miscellaneous Notes * Addendum Note - Genie Guadalupe MA - 08/30/2020 4:03 PM CDTAddended by: GENIE GUADALUPE on: 08/30/2020 04:03 PM Modules accepted: Orders * Telephone Encounter - Genie Guadalupe MA - 08/30/2020 4:02 PM CDT Spoke to Kathy Contreras Medication needed Quantity Limit Override. She processed this and it has been approved. Plan limitations will only cover 30 day supply at a time, previous script was for 90 day supply. Updated script entered and sent to pharmacy * Telephone Encounter - Sofy Velez CMA - 08/30/2020 10:39 AM CDT We received response. PA is approved no anything else should be done. Response is scanned to patient chart. * Telephone Encounter - Sofy Velez MA - 08/26/2020 11:50 AM CDT PA submitted to patients new insurance [employer] his ID:[id number]. PA zeng is [id number]. * Telephone Encounter - Sofy Velez MA - 08/26/2020 10:47 AM CDT We received aut request from pharmacy to start PA. Soon as it is done we will let them and pt know.We got request to do aut for 150 mg BID what is not prescribed by Dr Mcdaniel. I spoke with patient and he is aware of this. Patient stated that insurance company wants him to change his medicine. He is taking now metoprolol 50 mg BID not 150 BID. * Telephone Encounter - Alyson Santana MA - 08/26/2020 10:25 AM CDT Pt's insurance, [employer], is requiring a pre auth in order to maintain the dosage that's been prescribed for Metoprolol. Please call pt at [phone] documented in this encounter Plan of Treatment Not on file documented as of this encounter Visit Diagnoses Not on filedocumented in this encounter Discontinued Medications Medication Sig Discontinue Reason Start Date End Da te metoprolol XL (TOPROL-XL) 50 mg extended release tablet TAKE 1 TABLET BY MOUTH TWICE A DAY Reorder 06/22/2020 08/30/2020 documented as of this encounter Care Teams Neighborhood Conservation Officer Relationship Specialty Start Date End Date Ashok Gaffney MD PCP - General 08/23/11 documented as of this encounter
--- OUTSIDE RECORDS SUMMARY | 2024-04-01 21:15 | XMS_ITS | Encounter Summary ---
Author Organization [facility] Address [address] [place] [address] Care Team Providers Care Meteorology Professor Name Role Phone Ashok Gaffney MD Primary Care Provider Reason for Visit * Reason Comments Atrial Fibrillation Encounter Details Date Type Department Care Team (Late st Contact Info) Description 08/06/2018 1:45 PM CDT Office Visit [facility] [address] [place] [address] Eze Mcdaniel MD [address] [facility] [address] [place] [address] Persistent atrial fibrillation (CMS/HCC) (Primary Dx); BMI 45.0-49.9, adult (CMS/HCC); Morbid obesity (CMS/HCC) Social History Tobacco Use Types Packs/Day Years Used Date Smoking Tobacco: Never Smokeless Tobacco: Never Alcohol Use Standard Drinks/Week Comments Yes 2 (1 standard drink = 0.6 oz pur e alcohol) Sex and Gender Information Value Date Recorded Sex Assigned at Not on file Legal Sex Male 1:22 AM SUPERVISOR METAL FABRICATING Gender Identity Male 02/12/2020 11:14 AM SUPERVISOR METAL FABRICATING Sexual Orientation Straight 02/12/2020 11 :14 AM SUPERVISOR METAL FABRICATING documented as of this encounter Last Filed Vital Signs Vital Sign Reading Time Taken Comments Blood Pressure 132/80 08/06/2018 1:47 PM CDT Pulse 62 08/06/2018 1:47 PM CDT Temperature - - Respiratory Rate - - Oxygen Saturation - - Inhaled Oxygen Concentration - - Weight 148.3 kg (327 lb) 08/06/2018 1:47 PM CDT Height 177.8 cm (5' 10 ) 08/06/2018 1:47 PM CDT Body Mass Index 46.92 08/06/2018 1:47 PM CDT documented in this encounter Patient Instructions * Patient Instructions* Manisha Stallworth MA - 08/06/2018 1:45 PM CDT Images from the original note were not included. Patient Education A-fib (Atrial Fibrillation) MATRIX DRIER TENDER: Atrial fibrillation (a-fib) is an irregular heartbeat. [...] in your arm or leg. Contact your retail services professional or healthcare provider if: ?? Your heart rate is more than 110 beats per minute. ?? You have new or worsening swelling in your legs, feet, ankles, or abdomen. ?? You are short of breath, even at rest. ?? You have questions or concerns about your condition or care. Treatment for A-fib: Conditions that cause a-fib, such as thyroid disease, will be treated. You mayalso need any of the following: ?? Heart medicines help control your heart rate or rhythm. You may need more than one medicine to treat your symptoms. ?? Antiplatelet or blood thinner medicines help prevent blood clots. [...] plan for you. Follow up with your retail services professional as directed: You will need regular blood tests and monitoring. Write down your questions so you remember to ask them during your visits. ?? 2017 [employer] Information is for End User's use only and may not be sold, redistributed or otherwise used for commercial purposes. All illustrations and images included in CareNotes?? are the copyrighted property of [employer], [employer]. or [employer]. The above information is an physiotherapy aide only. It is not intended as medical advice for individual conditions or treatments. Talk to your doctor, nurse or pharmacist before following any medical regimen to see if it is safe and effective for you. documented in this encounter Progress Notes * Eze Mcdaniel MD - 08/06/2018 1:45 PM CDT Patient ID: Vikas Banda is a 57 y.o. male Chief Complaint Atrial Fibrillation HPI Mr. Banda [facility] on 08/06/2018 patient seen for follow-up of AF. He underwent transesophageal echo on August 05, 2017 that showed no thrombus normal LV function no wall motionabnormalities EF 60% moderate left atrial enlargement. He was started on flecainide then had spontaneous conversion. He returns in follow-up in states he is doing well. No recurrent AF no palpitations he feels better compliant anticoagulation. EKG today my interpretation sinus rhythm left anterior fascicular block / EKG performed to monitor flecainide. No bleeding problems. Takes Xarelto with meals as instructed. Patient seen in consultation to Dr. Do [...] significant for hypertension. No diabetes stroke or [place]. Social history-- Minimal alcohol. He has sleep [...] Use Topics ??? Alcohol use: Yes Alcohol/week: 1.2 oz Types: 2 Cans of beer per week Current Outpatient Medications: ??? flecainide (TAMBOCOR) 150 mg tablet, Take 1 tablet (150 mg total) by mouth 2 (two) times a day., Disp: 180 tablet, Rfl: 1 ??? metoprolol XL (TOPROL-XL) 50 mg 24 hr tablet, Take 1 tablet (50 mg total) by mouth 2 (two) times a day., Disp: 180 tablet, Rfl: 3 ??? NIFEdipine (NIFEdipine XL) 60 mg 24 hr tablet, Take 1 tablet (60 mg total) by mouth daily., Disp: 90 tablet, Rfl: 3 ??? rivaroxaban (XARELTO) 20 mg tablet, Take 1 tablet (20 mg total) by mouth daily., Disp: 90 tablet, Rfl: 3 Review of Systems Constitutional: Negative. HENT: Negative. Eyes: Negative. Respiratory: Negative. Cardiovascular: Negative. Gastrointestinal: Negative. Endocrine: Negative. Genitourinary: Negative. Skin: Negative. Neurological: Negative. Hematological: Negative. Psychiatric/Behavioral: Negative. BP 132/80 (BP Location: Left arm, Patient Position: Sitting) Pulse 62 Ht 177.8 cm (5' 10 ) Wt(!) 148.3 kg (327 lb) BMI 46.92 kg/m?? Physical Exam Constitutional: No distress. Head: [...] (CMS/HCC) (Primary) - ECG 12 lead BMI 45.0-49.9, adult (CMS/HCC) Morbid obesity (CMS/HCC) Impression: 1. Persistent atrial fibrillation. Early recurrence after cardioversion. Now maintaining sinus rhythm on flecainide. Catheter ablation remains an option 2. Hypertension. 3. Chads 2 equals 1. Patient on anticoagulation. 4. Sleep apnea. On CPAP. 5. Morbid obesity. 6. Encounter for therapeutic drug level monitoring. Satisfactory EKG on flecainide Plan: 1. Continue flecainide 2. Continue anticoagulation 3. PVI remains an option Eze Mcdaniel MD 08/06/2018 documented in this encounter Plan of Treatment Not on file documented as of this encounter Procedures Procedure Name Priority Date/Time Associated Diagnosis Comments ECG 12-LEAD Routine 08/06/2018 Persistent atrial fibrillation (CMS/HCC) documented in this encounter Results * ECG 12 lead (08/06/2018) us Eze Mcdaniel MD ECG ORDERABLES Edited Resu lt - Final documented in this encounter Visit Diagnoses Diagnosis Persistent atrial fibrillation (HCC)- Primary Atrial fibrillation BMI 45.0-49.9, adult (HCC) Morbid obesity (HCC) Morbid obesity documented in this encounter Care Teams Meteorology Professor Relationship Specialty Start Date End Date Ashok Gaffney MD PCP - General 08/23/11 documented as of this encounter
--- OUTSIDE RECORDS SUMMARY | 2024-04-01 21:15 | XMS_ITS | Encounter Summary ---
Author Organization [facility] Address [address] [place] [address] Care Team Providers Care Men'S Furnishings Salesperson Name Role Phone Ashok Gaffney MD Primary Care Provider [phone] Encounter Details Date Type Department Care Team (Late st Contact Info) Description 07/25/2017 Telephone [facility] [address] [facility] [address], [place] [id number] [place] [address] [place] [address] [address] [place] [address] Social History Tobacco Use Types Packs/Day Years Used Date Smoking Tobacco: Never Smokeless Tobacco: Never Alcohol Use Standard Drinks/Week Comments Yes 2 (1 standard drink = 0.6 oz pur e alcohol) Sex and Gender Information Value Date Recorded Sex Assigned at Not on file Legal Sex Male 1:22 AM CENTRAL SERVICE TECHNICIAN Gender Identity Male 02/12/2020 11:14 AM CENTRAL SERVICE TECHNICIAN Sexual Orientation Straight 02/12/2020 11 :14 AM CENTRAL SERVICE TECHNICIAN documented as of this encounter Miscellaneous Notes * Telephone Encounter - Peg Chacon MA - 07/25/2017 4:18 PM CDT I can not get patient samples for eva. Please call patient. Look at notes below. * Telephone Encounter - Peg Sagastume - 07/25/2017 3:39 PM CDT Please call patient-he needs xaltero samples. He only needs enough to get him the first week of July. [phone] documented in this encounter Plan of Treatment Not on file documented as of this encounter Visit Diagnoses Not on filedocumented in this encounter Care Teams Men'S Furnishings Salesperson Relationship Specialty Start Date End Date Ashok Gaffney MD PCP - General 08/23/11 documented as of this encounter
--- OUTSIDE RECORDS SUMMARY | 2024-04-01 21:15 | XMS_ITS | Encounter Summary ---
Author Organization [facility] Address [address] [facility] [address] [place] [address] Care Team Providers Care Shuttle Final Inspector Name Role Phone Ashok Gaffney MD Primary Care Provider [phone] Encounter Details Date Type Department Care Team (Late st Contact Info) Description 07/27/2019 Telephone [facility] [address] [facility] [facility] [address] [place] [address] Caitlyn Muir, METAL POLISHER AND BUFFER APPRENTICE [address] [facility] [address] [place], [place] [id number] Social History Tobacco Use Types Packs/Day Years Used Date Smoking Tobacco: Never Smokeless Tobacco: Never Alcohol Use Standard Drinks/Week Comments Yes 2 (1 standard drink = 0.6 oz pur e alcohol) Sex and Gender Information Value Date Recorded Sex Assigned at Not on file Legal Sex Male 1:22 AM HR ADMINISTRATIVE ASSISTANT Gender Identity Male 02/12/2020 11:14 AM HR ADMINISTRATIVE ASSISTANT Sexual Orientation Straight 02/12/2020 11 :14 AM HR ADMINISTRATIVE ASSISTANT documented as of this encounter Miscellaneous Notes * Telephone Encounter - Sofy Velez MA - 07/27/2019 1:42 PM CDT I lvm for pt and requested call back. I change his apt from 08/11 to 08/04 at 11:30 am. documented in this encounter Plan of Treatment Not on file documented as of this encounter Visit Diagnoses Not on filedocumented in this encounter Care Teams Shuttle Final Inspector Relationship Specialty Start Date End Date Ashok Gaffney MD PCP - General 08/23/11 documented as of this encounter
--- OUTSIDE RECORDS SUMMARY | 2024-04-01 21:15 | XMS_ITS | Encounter Summary ---
Author Organization [facility] Address [address] [place] [address] Care Team Providers Care Inspector Packer Name Role Phone Kashif Gaffney MD Primary Care Provider Reason for Visit * Cardiology (Routine) - Closed Specialty Diagnoses / Procedures Referred By Contac t Referred To Contact Diagnoses Paroxysmal atrial fibrillation (CMS/HCC) (HCC) Essential hypertension Left ventricular hypertrophy Procedures Transthoracic Echo Complete W Doppler/CF Tequila Joyce MD Phone: tel: fax: Referral ID Status Reason Start Date Expiration Date Visits Re quested Visits Authorized [id number] Closed 06/06/2017 12/03/2017 1 1 Encounter Details Date Type Department Care Team (Latest Contact Info) Description 06/17/2017 10:15 AM CDT Ancillary Procedure [facility] [address] [place] [id number] Paroxysmal atrial fibrillation (CMS/HCC); Essential hypertension; Left ventricular hypertrophy Social History Tobacco Use Types Packs/Day Years Used Date Smoking Tobacco: Never Smokeless Tobacco: Never Alcohol Use Standard Drinks/Week Comments Yes 2 (1 standard drink = 0.6 oz pur e alcohol) Sex and Gender Information Value Date Recorded Sex Assigned at Not on file Legal Sex Male 1:22 AM LITHOGRAPH PRESS FEEDER Gender Identity Male 02/12/2020 11:14 AM LITHOGRAPH PRESS FEEDER Sexual Orientation Straight 02/12/2020 11 :14 AM LITHOGRAPH PRESS FEEDER documented as of this encounter Last Filed Vital Signs Vital Sign Reading Time Taken Comments Blood Pressure - - Pulse - - Temperature - - Respiratory Rate - - Oxygen Saturation - - Inhaled Oxygen Concentration - - Weight 142.9 kg (315 lb) 06/17/2017 10:08 AM CDT Height 177.8 cm (5' 10 ) 06/17/2017 10:08 AM CDT Body Mass Index 45.2 06/17/2017 10:08 AM CDT documented in this encounter Plan of Treatment Not on file documented as of this encounter Procedures Procedure Name Priority Date/Time Associated Diagnosis Comments TRANSTHORACIC ECHO (TTE) COMPLETE W DOPPLER/CF WO CONTRAST Routine 06/17/2017 10:58 AM CDT Paroxysmal atrial fibrillation (CMS/HCC) Essential hypertension Left ventricular hypertrophy documented in this encounter Results * TRANSTHORACIC ECHO (TTE) COMPLETE W DOPPLER/CF WO CONTRAST (06/17/2017 10:58 AM CDT) Anatomical Region Laterality Modality Ultrasound 06/17/2017 9:08 AM CDT Narrative 06/17/2017 7:30 PM CDT [facility] [facility] [place] [address] [id number] [address] [facility] [address] [place] [address] P:[phone] P:[phone] Echocardiographic Report ADDENDUM Patient Name: MEENA ANDRADE : 06--1961 Study Date: 06/17/2017 9:08:44 AM Gender: M Tech: Location: [place] Ref.Physician: KASHIF GAFFNEY Height(Cm): 178 BSA: 2.53 [...] Findings: Interpretation Site: Exam was interpreted at [facility]. Left Ventricle: Mild concentric left ventricular hypertrophy. [...] fibrillation. Electronically Signed By: Allyson Jones MD, [facility] 2017-06-17 19:32:42 CDT CC: CC: Procedure Note Allyson Jones MD - 06/17/2017 [facility] [address] [facility] [address], [place] [address] [address] [facility] [address], [place] [address] P:[phone] P:[phone] Echocardiographic Report ADDENDUM Patient Name: MEENA ANDRADEPatient ID: [id number] : [id number] Date: 06/17/2017 9:08:44 AM Gender: MAccession #: [id number] Tech: GMLocation: [place] Ref.Physician: Ken GAFFNEY(Cm): 178 BSA: 2.53Weight(Kg): 142.88 Heart Rate: 95BP: [...] 2.60 - 3.70 ] cm MV Decel [id number] [ 150 - 200 ] msec LA Volume Index 37.00 [ 16.00 - 28.00 ] cc/m2 PV Peak Vel1.05 [ 0.40 - 0.80 ] m/s ACS MM 2.08 cm TR Peak Vel2.77 [ 0.40 - 0.80 ] m/s TR Peak PG 31mmHg RVSP38.00 mmHg E'0.11 E/E' 8 Findings: Interpretation Site: Exam was interpreted at [facility]. Left Ventricle: Mild concentric left ventricular hypertrophy. [...] atrialfibrillation. Electronically Signed By: Allyson Jones MD, [facility] 2017-06-17 19:32:42 CDT CC: CC: Tequila Joyce MD CV ECHO PROCEDURES Edited Result - Final documented in this encounter Visit Diagnoses Diagnosis Paroxysmal atrial fibrillation (CMS/HCC) (HCC) Atrial fibrillation Essential hypertension Unspecified essential hypertension Left ventricular hypertrophy Cardiomegaly documented in this encounter Care Teams Inspector Packer Relationship Specialty Start Date End Date Kashif Gaffney MD PCP - General 08/23/11 documented as of this encounter
--- OUTSIDE RECORDS SUMMARY | 2024-04-01 21:15 | XMS_ITS | Encounter Summary ---
Author Organization [facility] Address [address] [facility] [address] [place] [address] Care Team Providers Care Tierce Filler Name Role Phone Ashok Gaffney MD Primary Care Provider Reason for Visit * Reason Comments Follow-up one mo f/u on PAF, H TN, MIRTA, LVH Atrial Fibrillation f/u on cardioversion Encounter Details Date Type Department Care Team (Late st Contact Info) Description 07/15/2017 11:00 AM CDT Office Visit [facility] [address] [facility] [address] [place] [address] Petar Do MD [facility] [place] [id number] Morbid obesity with BMI of 40.0-44.9, adult (CMS/HCC) (Primary Dx); Paroxysmal atrial fibrillation (CMS/HCC); Obstructive sleep apnea syndrome; Essential hypertension; Chronic anticoagulation; Hyperlipidemia LDL goal <100 Social History Tobacco Use Types Packs/Day Years Used Date Smoking Tobacco: Never Smokeless Tobacco: Never Alcohol Use Standard Drinks/Week Comments Yes 2 (1 standard drink = 0.6 oz pur e alcohol) Sex and Gender Information Value Date Recorded Sex Assigned at Not on file Legal Sex Male 1:22 AM FLOOR MANAGER Gender Identity Male 02/12/2020 11:14 AM FLOOR MANAGER Sexual Orientation Straight 02/12/2020 11 :14 AM FLOOR MANAGER documented as of this encounter Last Filed Vital Signs Vital Sign Reading Time Taken Comments Blood Pressure 122/90 07/15/2017 11:40 AM CDT Pulse 68 07/15/2017 11:40 AM CDT Temperature - - Respiratory Rate - - Oxygen Saturation 97% 07/15/2017 11:40 AM CDT Inhaled Oxygen Concentration - - Weight 139.3 kg (307 lb) 07/15/2017 11:40 AM CDT Height 177.8 cm (5' 10 ) 07/15/2017 11:40 AM CDT Body Mass Index 44.05 07/15/2017 11:40 AM CDT documented in this encounter Progress Notes * Petar Do MD - 07/15/2017 11:00 AM CDT [facility] DATE OF VISIT: 07/15/2017 CHIEF COMPLAINT Chief Complaint Patient presents with ??? Follow-up one mo f/u on PAF, HTN, MIRTA, LVH ??? Atrial Fibrillation f/u on cardioversion HPI Vikas Banda is a 56 y.o. male with a [...] have spontaneously converted back to sinus rhythm. He returns today for follow-up. He did undergo successful cardioversion since last visit but unfortunately has reverted back to atrial fibrillation. He does feel dyspneic with exertion while in atrial fibrillation. He also feels palpitations. He denies any chest pain, syncope or presyncope. No paroxysmal nocturnal dyspnea or orthopnea. MEDICAL HISTORY Past Medical History: Diagnosis Date [...] BY ORAL ROUTE TWICE A DAY NIFEDIPINE (NIFEDIPINE XL) 60 MG 24 HR TABLET Take 1 tablet (60 mg total) by mouth daily. RIVAROXABAN (XARELTO) 20 MG TABLET Take 1 [...] orthopnea, paroxysmal nocturnal dyspnea and syncope. Respiratory: Positive for shortness of breath. Negative for cough, hemoptysis, snoring, sputum production and wheezing. Endocrine: Negative for cold intolerance, heat intolerance and polyuria. Hematologic/Lymphatic: Does not bruise/bleed easily. Skin: Negative for color change and rash. Musculoskeletal: Positive for joint pain and myalgias. Negative for falls and joint swelling. Gastrointestinal: Negative for abdominal pain, heartburn, nausea and vomiting. Genitourinary: Negative for dysuria. Neurological: Negative for dizziness, focal weakness, headaches, light- headedness and numbness. Psychiatric/Behavioral: Negative for depression. The patient is not nervous/anxious. Allergic/Immunologic: Negative for environmental allergies. PHYSICAL EXAM Blood pressure 122/90, pulse 68, height 177.8 cm (5' 10 ), weight (!) 139.3 kg (307 lb), SpO2 97 %. Body mass index is 44.05 kg/m??. Physical Exam Constitutional: He is oriented [...] fibrillation. Left axis deviation, nonspecific T-wave abnormality, abnormalEKG Echo 07/15/2017: Atrial fibrillation. PVC is noted. Left anterior fascicular block. Long QT interval. Abnormal EKG ASSESSMENT Diagnoses and all orders for this visit: Paroxysmal atrial fibrillation (CMS/[facility]) (Primary) On anticoagulation. Recurrent atrial fibrillation. Morbid obesity with BMI of 45.0-49.9, adult (CMS/HCC) Improved Essential hypertension Generally at goal Obstructive sleep apnea syndrome Compliant with CPAP Hyperlipidemia with goal LDL less than 100 Above goal PLAN/RECOMMENDATIONS 1. EKG today 2. Multaq is no longer working for him at maintaining sinus rhythm. I have talked to him about possibly switching him to sotalol or other antiarrhythmic therapy versus ablation. He is willing to discuss any of these options. Therefore I am going to refer him to Dr. Mcdaniel for opinion and recommen dation at this stage. Follow-up in 3 months or sooner as clinically indicated. His LDL is also above goal. Continue dietary and lifestyle modification for weight loss and improved cholesterol control. Will consider statintherapy depending on repeat LDL in 3 months Petar Do MD, [facility] documented in this encounter Miscellaneous Notes * Addendum Note - Kya Briggs MA - 07/15/2017 11:00 AM CDTAddended by: KYA BRIGGS on: 07/15/2017 12:13 PM Modules accepted: Orders documented in this encounter Plan of Treatment Not on file documented as of this encounter Procedures Procedure Name Priority Date/Time Associated Diagnosis Comments POCT LIPID PANEL Routine 07/15/2017 12:1 2 PM CDT Hyperlipidemia LDL goal <100 ECG 12-LEAD Routine 07/15/2017 Paroxysmal atrial fibrillation (CMS/HCC) documented in this encounter Results * POCT lipid panel (07/15/2017 12:12 PM CDT) Cholesterol, POC 223 mg/dL HDL, POC 25 mg/dL Triglycerides, POC 160 mg/dL LDL Cholesterol POC 167 mg/dL Chol/HDL Ratio, POC 9.1 Non-HDL Cholesterol, POC 199 mg/dL Cholesterol Total, POC 223 mg/dL Blood specimen (specimen) 07/15/2017 12:12 PM CDT us Petar Do MD POINT OF CARE TEST ORDERA BLES Final Result * ECG 12 lead (07/15/2017) us Petar Do MD ECG ORDERABLES Final Res ult documented in this encounter Visit Diagnoses Diagnosis Morbid obesity with BMI of 40.0-44.9, adult (HCC)- Primary Paroxysmal atrial fibrillation (CMS/HCC) (HCC) Atrial fibrillation Obstructive sleep apnea syndrome Obstructive sleep apnea (adult) (pediatric) Essential hypertension Unspecified essential hypertension Chronic anticoagulation Encounter for long-term (current) use of anticoagulants Hyperlipidemia LDL goal <100 Other and unspecified hyperlipidemia documented in this encounter Care Teams Tierce Filler Relationship Specialty Start Date End Date Ashok Gaffney MD PCP - General 08/23/11 documented as of this encounter
--- OUTSIDE RECORDS SUMMARY | 2024-04-01 21:15 | XMS_ITS | Encounter Summary ---
Author Organization [facility] Address [address] [facility] [address] [place] [address] Care Team Providers Care Supervisor Microwave Name Role Phone Ashok Gaffney MD Primary Care Provider Encounter Details Date Type Department Care Team (Late st Contact Info) Description 12/31/2016 Telephone [facility] [address] [facility] [address] [place] [address] Petar Do MD [address] [id number] Social History Tobacco Use Types Packs/Day Years Used Date Smoking Tobacco: Never Alcohol Use Standard Drinks/Week Comments Yes 0 (1 standard drink = 0.6 oz pur e alcohol) Sex and Gender Information Value Date Recorded Sex Assigned at Not on file Legal Sex Male 1:22 AM SPOT MACHINE OPERATOR Gender Identity Male 02/12/2020 11:14 AM SPOT MACHINE OPERATOR Sexual Orientation Straight 02/12/2020 11 :14 AM SPOT MACHINE OPERATOR documented as of this encounter Ordered Prescriptions Prescription Sig Dispense Quantity Refills Last Filled Start Date End Date dronedarone (MULTAQ) 400 mg tablet Take 1 tablet (400 mg total) by mouth 2 (two) times a day with meals. 60 tablet 3 12/31/2016 04/30/2017 documented in this encounter Miscellaneous Notes * Telephone Encounter - Vanita Agudelo RN - 12/31/2016 1:42 PM CDT LMOM samples are at the assistant front end manager, accidental [facility], but there will be a writtenRx also at the assistant front end manager documented in this encounter Plan of Treatment Not on file documented as of this encounter Visit Diagnoses Not on filedocumented in this encounter Discontinued Medications Medication Sig Discontinue Reason Start Date End Da te dronedarone (MULTAQ) 400 mg tablet TAKE 1 TABLET BY MOUTH TWICE DAILY WITH MORNING AND EVENING MEALS Reorder 09/09/2009 12/31/2016 documented as of this encounter Care Teams Supervisor Microwave Relationship Specialty Start Date End Date Ashok Gaffney MD PCP - General 08/23/11 documented as of this encounter
--- OUTSIDE RECORDS SUMMARY | 2024-04-01 21:15 | XMS_ITS | Encounter Summary ---
Author Organization [facility] Medical Group Address [address] [place] [address] Care Team Providers Care Software Quality Specialist Name Role Phone Ashok Gaffney MD Primary Care Provider Encounter Details Date Type Department Care Team (Late st Contact Info) Description 04/30/2017 Telephone [facility] [address] [facility] [address] [place] [address] Kimo Magdaleno MD [address] [facility] [address] [place], [place] [id number] Social History Tobacco Use Types Packs/Day Years Used Date Smoking Tobacco: Never Alcohol Use Standard Drinks/Week Comments Yes 0 (1 standard drink = 0.6 oz pur e alcohol) Sex and Gender Information Value Date Recorded Sex Assigned at Not on file Legal Sex Male 1:22 AM MEDICAL TRANSLATOR Gender Identity Male 02/12/2020 11:14 AM MEDICAL TRANSLATOR Sexual Orientation Straight 02/12/2020 11 :14 AM MEDICAL TRANSLATOR documented as of this encounter Miscellaneous Notes * Telephone Encounter - Vanita Agudelo RN - 04/30/2017 1:21 PM CST Samples of Multaq are at the desk clerk for pick up attendant CAL TRANSLATOR documented in this encounter Plan of Treatment Not on file documented as of this encounter Visit Diagnoses Not on filedocumented in this encounter Care Teams Software Quality Specialist Relationship Specialty Start Date End Date Ashok Gaffney MD PCP - General 08/23/11 documented as of this encounter
--- OUTSIDE RECORDS SUMMARY | 2024-04-01 21:15 | XMS_ITS | Encounter Summary ---
Author Organization [facility] Medical Group Address [address] [place] [address] Care Team Providers Care Brick Siding Applicator Name Role Phone Ashok Gaffney MD Primary Care Provider [phone] Encounter Details Date Type Department Care Team (Late st Contact Info) Description 08/13/2017 Telephone [facility] [address] [facility] [address] [place] [address] Eze Mcdaniel MD [address] [facility] [address] [place] [address] Social History Tobacco Use Types Packs/Day Years Used Date Smoking Tobacco: Never Smokeless Tobacco: Never Alcohol Use Standard Drinks/Week Comments Yes 2 (1 standard drink = 0.6 oz pur e alcohol) Sex and Gender Information Value Date Recorded Sex Assigned at Not on file Legal Sex Male 1:22 AM BEHAVIORAL HEALTH THERAPIST Gender Identity Male 02/12/2020 11:14 AM BEHAVIORAL HEALTH THERAPIST Sexual Orientation Straight 02/12/2020 11 :14 AM BEHAVIORAL HEALTH THERAPIST documented as of this encounter Miscellaneous Notes * Telephone Encounter - Eze Mcdaniel MD - 08/13/2017 12:10 PM CDT Okay. That is good news. He should get an EKG perhaps at Dr. Do office to confirm and have it sent us. When convenient. Can you make sure has appointment with me sometime in the future 1-2 months * Telephone Encounter - Sonya Michelle MA - 08/13/2017 10:39 AM CDT Mrs. Banda called for patient, stating that he is no longer in afib and won't need procedure on . She states he started Flecainide on Saturday. She is advised that I will notify Dr. Mcdanieland she is transferred to [facility] to cancel appt. If patient needs to be contacted, he can be reached by cell [phone] after 1:30pm today. documented in this encounter Plan of Treatment Not on file documented as of this encounter Visit Diagnoses Not on filedocumented in this encounter Care Teams Brick Siding Applicator Relationship Specialty Start Date End Date Ashok Gaffney MD PCP - General 08/23/11 documented as of this encounter
--- OUTSIDE RECORDS SUMMARY | 2024-04-01 21:15 | XMS_ITS | Encounter Summary ---
Author Organization [facility] Medical Group Address [address] [place] [address] Care Team Providers Care Inspecting And Testing Lead Hand Name Role Phone Ashok Gaffney MD Primary Care Provider [phone] Encounter Details Date Type Department Care Team (Late st Contact Info) Description 08/05/2019 11:30 AM CDT Telemedicine [facility]ia [facility] [address] [facility] [address] [place] [address] Caitlyn Muir, NAVID [address] [facility] [address] [place], [place] [id number] Paroxysmal atrial fibrillation (CMS/HCC) (Primary Dx) Social History Tobacco Use Types Packs/Day Years Used Date Smoking Tobacco: Never Smokeless Tobacco: Never Alcohol Use Standard Drinks/Week Comments Yes 2 (1 standard drink = 0.6 oz pur e alcohol) Sex and Gender Information Value Date Recorded Sex Assigned at Not on file Legal Sex Male 1:22 AM NUT AND BOLT ASSEMBLER Gender Identity Male 02/12/2020 11:14 AM NUT AND BOLT ASSEMBLER Sexual Orientation Straight 02/12/2020 11 :14 AM NUT AND BOLT ASSEMBLER documented as of this encounter Progress Notes * Caitlyn Muir NP - 08/05/2019 11:30 AM CDT This was a telemedicine visit with Vikas Banad which took place via telephone. During the visit, Iwas located at the [facility], [address], and the patient was located at home. The session started at 1140 and ended at 1150. The patient has been informed that the visit may not be secure and acknowledged the information. Patient ID: Vikas Banda is a 58 y.o. male Chief Complaint Atrial fibrillation HPI Mr. Banda is evaluated at the [facility] via telemedicine on 08/05/2019 for follow-up of hisatrial fibrillation. He underwent transesophageal echo on August [...] active without difficulty. No bleeding on anticoagulation. Current Outpatient Medications: ??? flecainide (TAMBOCOR) 150 mg tablet, Take 1 tablet (150 mg total) by mouth 2 (two) times a day,Disp: 180 tablet, Rfl: 3 ??? metoprolol XL (TOPROL-XL) 50 mg 24 hr tablet, Take 1 tablet (50 mg total) by mouth 2 (two) times a day, Disp: 180 tablet, Rfl: 3 ??? NIFEdipine XL 60 mg 24 hr tablet, TAKE 1 TABLET BY MOUTH EVERY DAY, Disp: 90 tablet, Rfl: 0 ??? rivaroxaban (XARELTO) 20 mg tablet, Take 1 tablet (20 mg total) by mouth daily, Disp: 28 tablet, Rfl: 0 Past Medical History: Diagnosis Date ??? HX OTHER MEDICAL 2012 Hypogonadism ??? HX OTHER MEDICAL Obesity, Morbid ??? HX OTHER MEDICAL Sleep Apnea, CPAP No family history on file. Social History Tobacco Use ??? Smoking status: Never Smoker ??? Smokeless tobacco: Never Used Substance Use Topics ??? Alcohol use: Yes Alcohol/week: 2.0 standard drinks Types: 2 Cans of beer per week Review of Systems Constitutional: Negative. HENT: Negative. Eyes: Negative. Respiratory: Negative. Cardiovascular: Negative. Gastrointestinal: Negative. Endocrine: Negative. Genitourinary: Negative. Skin: Negative. Neurological: Negative. Hematological: Negative. Psychiatric/Behavioral: Negative. Impression: 1. Atrial fibrillation with good suppression on flecainide. 2. Encounter for anticoagulation management. He remains on Xarelto 20 mg daily. He denies any issues with bleeding or bruising 3. Normal LV function Plan: Continue current medications Follow-up in 6 months for an office visit and 12 lead EKG Caitlyn Muir NP 08/05/2019 documented in this encounter Plan of Treatment Not on file documented as of this encounter Visit Diagnoses Diagnosis Paroxysmal atrial fibrillation (CMS/HCC) (HCC)- Primary Atrial fibrillation documented in this encounter Care Teams Inspecting And Testing Lead Hand Relationship Specialty Start Date End Date Ashok Gaffney MD PCP - General 08/23/11 documented as of this encounter
--- OUTSIDE RECORDS SUMMARY | 2024-04-01 21:15 | XMS_ITS | Encounter Summary ---
Author Organization [facility] Medical Group Address [address] [place] [address] Care Team Providers Care Process Worker Name Role Phone Ashok Gaffney MD Primary Care Provider Encounter Details Date Type Department Care Team (Late st Contact Info) Description 08/13/2017 Orders Only [facility] Medical [facility] Cardiology [address] [place] [phone] ProviderCydney MD [address] [place] [address] Social History Tobacco Use Types Packs/Day Years Used Date Smoking Tobacco: Never Smokeless Tobacco: Never Alcohol Use Standard Drinks/Week Comments Yes 2 (1 standard drink = 0.6 oz pur e alcohol) Sex and Gender Information Value Date Recorded Sex Assigned at Not on file Legal Sex Male 1:22 AM BOX CHIPPER Gender Identity Male 02/12/2020 11:14 AM BOX CHIPPER Sexual Orientation Straight 02/12/2020 11 :14 AM BOX CHIPPER documented as of this encounter Plan of Treatment Not on file documented as of this encounter Procedures Procedure Name Priority Date/Time Associated Diagnosis Comments TRANSESOPHAGEAL ECHOCARDIOGR AM (KATHERINE) W POSSIBLE CARDIOVERSION Routine 08/05/2017 documented in this encounter Results * Transesophageal Echocardiogram W Possible Cardioversion (08/05/2017) Anatomical Region Laterality Modality Ultrasound Historical Provider CV ECHO PROCEDURES Final Result documented in this encounter Visit Diagnoses Not on filedocumented in this encounter Care Teams Process Worker Relationship Specialty Start Date End Date Ashok Gaffney MD PCP - General 08/23/11 documented as of this encounter
--- OUTSIDE RECORDS SUMMARY | 2024-04-01 21:15 | XMS_ITS | Encounter Summary ---
Author Organization [facility] Medical [facility] Address [address] [facility] [address] [place] [address] Care Team Providers Care Construction And Maintenance Inspector Name Role Phone Ashok Gaffney MD Primary Care Provider Reason for Visit * Reason Onset Date Comments Med Refill 04/30/2017 Encounter Details Date Type Department Care Team (Late st Contact Info) Description 04/30/2017 Telephone [facility] [address] [place] [phone] Petar Do MD [address] [place] [place] [id number] Med Refill Social History Tobacco Use Types Packs/Day Years Used Date Smoking Tobacco: Never Alcohol Use Standard Drinks/Week Comments Yes 0 (1 standard drink = 0.6 oz pur e alcohol) Sex and Gender Information Value Date Recorded Sex Assigned at Not on file Legal Sex Male 1:22 AM MANAGER MANAGED CARE Gender Identity Male 02/12/2020 11:14 AM MANAGER MANAGED CARE Sexual Orientation Straight 02/12/2020 11 :14 AM MANAGER MANAGED CARE documented as of this encounter Ordered Prescriptions Prescription Sig Dispense Quantity Refills Last Filled Start Date End Date dronedarone (MULTAQ) 400 mg tablet Take 1 tablet (400 mg total) by mouth 2 (two) times a day with meals. 180 tablet 3 04/30/2017 02/24/2018 documented in this encounter Miscellaneous Notes * Telephone Encounter - Vanita Agudelo RN - 04/30/2017 2:23 PM CST Pt told me he needed a Rx when I spoke with him earlier, it's with the samples. GER MANAGED CARE documented in this encounter Plan of Treatment Not on file documented as of this encounter Visit Diagnoses Not on filedocumented in this encounter Discontinued Medications Medication Sig Discontinue Reason Start Date End Da te dronedarone (MULTAQ) 400 mg tablet Take 1 tablet (400 mg total) by mouth 2 (two) times a day with meals. Reorder 12/31/2016 04/30/2017 documented as of this encounter Care Teams Construction And Maintenance Inspector Relationship Specialty Start Date End Date Ashok Gaffney MD PCP - General 08/23/11 documented as of this encounter
--- OUTSIDE RECORDS SUMMARY | 2024-04-01 21:15 | XMS_ITS | Encounter Summary ---
Author Organization [facility] Medical [facility] Address [address] [place] [address] Care Team Providers Care Building Associate Name Role Phone Ashok Gaffney MD Primary Care Provider [phone] Encounter Details Date Type Department Care Team (Late st Contact Info) Description 03/03/2021 Telephone [facility] [address] [facility] [address] [place] [address] Eze Mcdaniel MD [address] [facility] [address] [place] [address] Social History Tobacco Use Types Packs/Day Years Used Date Smoking Tobacco: Never Smokeless Tobacco: Never Alcohol Use Standard Drinks/Week Comments Yes 2 (1 standard drink = 0.6 oz pur e alcohol) Sex and Gender Information Value Date Recorded Sex Assigned at Not on file Legal Sex Male 1:22 AM SALESPERSON MEN'S HATS Gender Identity Male 02/12/2020 11:14 AM SALESPERSON MEN'S HATS Sexual Orientation Straight 02/12/2020 11 :14 AM SALESPERSON MEN'S HATS documented as of this encounter Miscellaneous Notes * Telephone Encounter - Mayuri Morales MA - 03/03/2021 9:10 AM SALESPERSON MEN'S HATS JINNY Mann submitted to insurance via [employer]. Will inform pharmacy as soon as we get aresponse. SPERSON MEN'S HATS documented in this encounter Plan of Treatment Not on file documented as of this encounter Visit Diagnoses Not on filedocumented in this encounter Care Teams Building Associate Relationship Specialty Start Date End Date Ashok Gaffney MD PCP - General 08/23/11 documented as of this encounter
--- OUTSIDE RECORDS SUMMARY | 2024-04-01 21:15 | XMS_ITS | Encounter Summary ---
Author Organization [facility] Medical Group Address [address] [facility] [address] [place] [address] Care Team Providers Care Service Support Representative Name Role Phone Ashok Gaffney MD Primary Care Provider Encounter Details Date Type Department Care Team (Late st Contact Info) Description 08/14/2017 Telephone [facility]ia [facility] [address] [facility] [address] [place] [address] Eze Mcdaniel MD [address] [facility] [address] [place] [address] Social History Tobacco Use Types Packs/Day Years Used Date Smoking Tobacco: Never Smokeless Tobacco: Never Alcohol Use Standard Drinks/Week Comments Yes 2 (1 standard drink = 0.6 oz pur e alcohol) Sex and Gender Information Value Date Recorded Sex Assigned at Not on file Legal Sex Male 1:22 AM FOUNDRY WORKER APPRENTICE Gender Identity Male 02/12/2020 11:14 AM FOUNDRY WORKER APPRENTICE Sexual Orientation Straight 02/12/2020 11 :14 AM FOUNDRY WORKER APPRENTICE documented as of this encounter Miscellaneous Notes * Telephone Encounter - Olive Ferrer - 08/14/2017 9:10 AM CDT Patient left voicemail that he converted to sinus rhythm and no longer needs DCCV on . I canceled appointment wit the lab. documented in this encounter Plan of Treatment Not on file documented as of this encounter Visit Diagnoses Not on filedocumented in this encounter Care Teams Service Support Representative Relationship Specialty Start Date End Date Ashok Gaffney MD PCP - General 08/23/11 documented as of this encounter
--- OUTSIDE RECORDS SUMMARY | 2024-04-01 21:15 | XMS_ITS | Encounter Summary ---
Author Organization [facility] Medical Group Address [address] [facility] [address] [place] [address] Care Team Providers Care Hospital Pharmacy Technician Name Role Phone Ashok Gaffney MD Primary Care Provider [phone] Encounter Details Date Type Department Care Team (Late st Contact Info) Description 02/28/2021 Telephone [facility]ia Center [address] [facility] [address] [place] [address] Eze Mcdaniel MD [address] [facility] [address] [place] [address] Social History Tobacco Use Types Packs/Day Years Used Date Smoking Tobacco: Never Smokeless Tobacco: Never Alcohol Use Standard Drinks/Week Comments Yes 2 (1 standard drink = 0.6 oz pur e alcohol) Sex and Gender Information Value Date Recorded Sex Assigned at Not on file Legal Sex Male 1:22 AM SAW SHARPENER Gender Identity Male 02/12/2020 11:14 AM SAW SHARPENER Sexual Orientation Straight 02/12/2020 11 :14 AM SAW SHARPENER documented as of this encounter Miscellaneous Notes * Telephone Encounter - Shiloh Greene - 02/28/2021 11:43 AM CST Pt scheduled f/u, requesting 30 day Rx of Xarelto until appt. To [facility]. SHARPENER documented in this encounter Plan of Treatment Not on file documented as of this encounter Visit Diagnoses Not on filedocumented in this encounter Care Teams Hospital Pharmacy Technician Relationship Specialty Start Date End Date Ashok Gaffney MD PCP - General 08/23/11 documented as of this encounter
--- OUTSIDE RECORDS SUMMARY | 2024-04-01 21:15 | XMS_ITS | Encounter Summary ---
Author Organization [facility] Medical Group Address [address] [facility] [address] [place] [address] Care Team Providers Care Cone Treater Name Role Phone Ashok Gaffney MD Primary Care Provider [phone] Reason for Visit * Reason Onset Date Comments Appointment 09/28/2019 Encounter Details Date Type Department Care Team (Late st Contact Info) Description 09/28/2019 Telephone [facility]ia Center [address] [facility] [address] [place] [address] Caitlyn Muir, NAVID [address] [facility] [address] [place] [address] Appointment Social History Tobacco Use Types Packs/Day Years Used Date Smoking Tobacco: Never Smokeless Tobacco: Never Alcohol Use Standard Drinks/Week Comments Yes 2 (1 standard drink = 0.6 oz pur e alcohol) Sex and Gender Information Value Date Recorded Sex Assigned at Not on file Legal Sex Male 1:22 AM DIRECT CARE WORKER Gender Identity Male 02/12/2020 11:14 AM DIRECT CARE WORKER Sexual Orientation Straight 02/12/2020 11 :14 AM DIRECT CARE WORKER documented as of this encounter Miscellaneous Notes * Telephone Encounter - Manisha Stallworth MA - 09/28/2019 8:23 AM CDT Spoke with pt and scheduled for 02/15/20 * Telephone Encounter - Manisha Stallworth MA - 09/28/2019 8:22 AM CDT ----- Message from Caitlyn Muir NP sent at 08/05/2019 11:49 AM CDT ----- Regarding: follow up Please arrange follow up in 6 months in the office documented in this encounter Plan of Treatment Not on file documented as of this encounter Visit Diagnoses Not on filedocumented in this encounter Care Teams Cone Treater Relationship Specialty Start Date End Date Ashok Gaffney MD PCP - General 08/23/11 documented as of this encounter
--- OUTSIDE RECORDS SUMMARY | 2024-04-01 21:15 | XMS_ITS | Encounter Summary ---
Author Organization [facility] Medical Group Address [address] [facility] [address] [place] [address] Care Team Providers Care Web Content Writer Name Role Phone Ashok Gaffney MD Primary Care Provider [phone] Encounter Details Date Type Department Care Team (Late st Contact Info) Description 08/05/2017 Telephone [facility]hythmia Center [address] [facility] [address] [place] [address] Eze Mcdaniel MD [address] [facility] [address] [place] [address] Social History Tobacco Use Types Packs/Day Years Used Date Smoking Tobacco: Never Smokeless Tobacco: Never Alcohol Use Standard Drinks/Week Comments Yes 2 (1 standard drink = 0.6 oz pur e alcohol) Sex and Gender Information Value Date Recorded Sex Assigned at Not on file Legal Sex Male 1:22 AM ELECTRICIAN SUPERVISOR SUBSTATION Gender Identity Male 02/12/2020 11:14 AM ELECTRICIAN SUPERVISOR SUBSTATION Sexual Orientation Straight 02/12/2020 11 :14 AM ELECTRICIAN SUPERVISOR SUBSTATION documented as of this encounter Ordered Prescriptions Prescription Sig Dispense Quantity Refills Last Filled Start Date End Date flecainide (TAMBOCOR) 150 mg tabletIndications: Cardioversion of Atrial Fibrillation Take 1 tablet (150 mg total) by mouth 2 (two) times a day. 60 tablet 3 08/06/2017 10/14/2017 documented in this encounter Miscellaneous Notes * Telephone Encounter - Olive Ferrer - 08/06/2017 11:22 AM CDT Patient scheduled, rx sent to pharmacy. * Telephone Encounter - Erika Brown - 08/05/2017 3:24 PM CDT Pts called & said that he has his KATHERINE today & that someone was supposed to call in hisflecainide & she wants to make sure this gets done today so he can start it. She said that he was also told he would need a cardioversion within 5 days. Pt needs the flecainide sent to the [facility] on file & would like to try & set up the CV for this week. He can not do Saturday as he will be out of town. Please advise. [phone] documented in this encounter Plan of Treatment Not on file documented as of this encounter Visit Diagnoses Not on filedocumented in this encounter Care Teams Web Content Writer Relationship Specialty Start Date End Date Ashok Gaffney MD PCP - General 08/23/11 documented as of this encounter
--- OUTSIDE RECORDS SUMMARY | 2024-04-01 21:15 | XMS_ITS | Encounter Summary ---
Author Organization [facility] Medical Group Address [address] [facility] [address] [place] [address] Care Team Providers Care Operator Bearer Systems Name Role Phone Ashok Gaffney MD Primary Care Provider Reason for Visit * Reason Comments Atrial Fibrillation Encounter Details Date Type Department Care Team (Late st Contact Info) Description 03/15/2021 9:30 AM RACE CAR DRIVER Office Visit Arrhythmia Center [address] [facility] [address] [place] [address] Caitlyn Muir, NAVID [address] [facility] [address] [place] [address] Paroxysmal atrial fibrillation (CMS/HCC) (HCC) (Primary Dx) Social History Tobacco Use Types Packs/Day Years Used Date Smoking Tobacco: Never Smokeless Tobacco: Never Alcohol Use Standard Drinks/Week Comments Yes 2 (1 standard drink = 0.6 oz pur e alcohol) Sex and Gender Information Value Date Recorded Sex Assigned at Not on file Legal Sex Male 1:22 AM RACE CAR DRIVER Gender Identity Male 02/12/2020 11:14 AM RACE CAR DRIVER Sexual Orientation Straight 02/12/2020 11 :14 AM RACE CAR DRIVER documented as of this encounter Last Filed Vital Signs Vital Sign Reading Time Taken Comments Blood Pressure 122/78 03/15/2021 9:19 AM RACE CAR DRIVER Pulse 63 03/15/2021 9:19 AM RACE CAR DRIVER Temperature - - Respiratory Rate 16 03/15/2021 9:19 AM RACE CAR DRIVER Oxygen Saturation - - Inhaled Oxygen Concentration - - Weight 162.1 kg (357 lb 6.4 oz) 03/15/2021 9:19 AM RACE CAR DRIVER Height 177.8 cm (5' 10 ) 03/15/2021 9:19 AM RACE CAR DRIVER Body Mass Index 51.28 03/15/2021 9:19 AM RACE CAR DRIVER documented in this encounter Progress Notes * Caitlyn Muir, NAVID - 03/15/2021 9:30 AM CST Patient ID: Vikas Banda is a 60 y.o. male Chief Complaint Atrial fibrillation HPI Mr. Banda is evaluated at the [facility] today for follow up on 03/15/2021 for follow-up of his atrial fibrillation. He [...] active without difficulty. No bleeding on anticoagulation. No orthopnea or PND He denies any recent episodes of atrial fibrillation. No shortness of breath, dizziness, or syncope. EKG on my review today demonstrates sinus rhythm (63) IVCD, normal QT. Current Outpatient Medications: ??? flecainide (TAMBOCOR) 150 mg tablet, TAKE 1 TABLET BY MOUTH TWICE A DAY, Disp: 180 tablet, Rfl:0 ??? metoprolol XL (TOPROL-XL) 100 mg 24 hr tablet, TAKE 1/2 (50 MG) TABLET BY MOUTH TWICE A DAY, Disp: 30 tablet, Rfl: 0 ??? NIFEdipine CC 60 mg 24 hr tablet, TAKE 1 TABLET BY MOUTH EVERY DAY, Disp: 90 tablet, Rfl: 0 ??? rivaroxaban (Xarelto) 20 mg tablet, Take 1 tablet (20 mg total) by mouth daily, Disp: 30 tablet, Rfl: 0 Past Medical History: Diagnosis [...] function Plan: Continue current medications Follow-up in 1 year for an office visit and 12 lead EKG Caitlyn Muir NP 03/15/2021 CAR DRIVER documented in this encounter Plan of Treatment Not on file documented as of this encounter Procedures Procedure Name Priority Date/Time Associated Diagnosis Comments ECG 12-LEAD Routine 03/15/2021 Paroxysmal atrial fibrillation (CMS/HCC) (HCC) documented in this encounter Results * ECG 12 lead (03/15/2021) Caitlyn Muir NP ECG ORDERABLES Final Resu lt documented in this encounter Visit Diagnoses Diagnosis Paroxysmal atrial fibrillation (CMS/HCC) (HCC)- Primary Atrial fibrillation documented in this encounter Care Teams Operator Bearer Systems Relationship Specialty Start Date End Date Ashok Gaffney MD PCP - General 08/23/11 documented as of this encounter
--- OUTSIDE RECORDS SUMMARY | 2024-04-01 21:27 | XMS_ITS | Continuity of Care Document ---
Author Organization [facility] Address [address] [place] [address] Phone Care Team Providers Care Log Chain Worker Name Role Phone Charlie Farmer Unavailable Unavailable Advance Directives Directive Yes / No Effective Date File Name No Information Encounters Encounter Description Practice Location Reason(s) For Visit Diagnoses Date Provider Providers Copied on Encounter [facility], [address], [place], [place], [id number], [place] tel:[phone] [facility] No Information 8-200 0 Marleny Guerra. [address] , [address], [place], [address], [place]. tel:[phone] Family History Family Member Type Diagnosis Age At Onset No Information Payers Payer name Insurance type Covered constitution party ID Authoriza tion(s) General [employer] Commercial CI [id number] Social History Type Description Quantity Date Captured Comments Sex Male Smoking Status No Information Chief Complaint And Reason For Visit No Information Reason For Referral Reason For Referral No Information History Of Present Illness Encounter Date Complaint History Of Prese nt Illness No Information Functional Status Date Functional Assessmen t No Information Instructions Date Instruction Additional Infor mation No Information Assessments Type Assessment Date No Information Patient Care Teams Name Effective Dates (start - stop) Status Members No Information
== END 2024-03-28 11:05 | disposition home or self-care (01) | DRG 139 ==
LOC: ANHED 20:05 → ANH3MEDSUR 20:12
PROVIDERS: Emergency Medicine; Nurse Practitioner Adult Health; Admitting Provider Internal Medicine; Emergency Provider Physician Assistant; PCP Family Medicine; Visit Provider Hospitalist
DX: J10.00 Influenza due to other identified influenza virus with unspecified type of pneumonia (principal); J96.01 Acute respiratory failure with hypoxia; I48.20 Chronic atrial fibrillation, unspecified; I10 Essential (primary) hypertension; E87.70 Fluid overload, unspecified; E11.9 Type 2 diabetes mellitus without complications; E78.2 Mixed hyperlipidemia; M17.9 Osteoarthritis of knee, unspecified; Z20.822 Contact with and (suspected) exposure to COVID-19; Z79.82 Long term (current) use of aspirin; Z87.820 Personal history of traumatic brain injury
CPT/HCPCS: 36415; 71045; 71275; 80053; 82948; 83735; 83880; 85025; 87040; 87637; 93005; 93306; 94640; 96375; 99285; A9270; G0378; G0379; J0456; J0696; J1650; J1815; J7030; Q9967

== ENCOUNTER 2024-05-13 12:15 | Outpatient (CLI) | payer OTHER, SELFPAY ==
--- NOTE | ~2024-05-13 | XR_ITS ---
Clinical Indication: Pneumonia PA and lateral views of the chest: Comparison: 04/22/2024 Findings: The lungs are clear, without evidence of focal consolidation or pleural effusion. Cardiome diastinal silhouette is stable. Bones and soft tissues are unremarkable. Impression: Clear lungs. Reviewed, dictated and finalized at [facility]. H BLEACHING RANGE OPERATOR CHIEF Impression: Clear lungs.
--- OUTSIDE RECORDS SUMMARY | 2024-05-13 12:28 | XMS_ITS | Patient Health Summary ---
Author Organization [facility] Address [address] [place] [address] Care Team Providers Care Emissions Engineer Name Role Phone Unavailable Primary Care Provider Unavailabl e Note from [facility],non-owned Affiliates and Associated Physician Practices is amultiple site organization consisting of ambulatory clinics and hospital sitesin [place], [place], [place] and [place]. This disclosure is being madepursuant to the Care Everywhere program and may not contain all information available regarding this patient. Last updated 17.[facility] Social History Tobacco Use Types Packs/Day Years Used Date Smoking Tobacco: Never Assessed Sex and Gender Information Value Date Recorded Sex Assigned at Not on file Gender Identity Not on file Sexual Orientation Not on file Procedures * DERMATOPATHOLOGY(Performed 02/03/2019) Results * DERMATOPATHOLOGY (02/03/2019 12:00 AM [facility]) Case Report Dermatopathology Report Case: [id number] Authorizing Provider: Ashok Gaffney MD Collected: 02/03/2019 12:00 AM Ordering Location: [facility] DermPath Lab Received: 02/05/2019 01:38 PM Pathologist: David Ann MD Specimen: Skin, right hand thumb 3:11 PM [facility] DERMATOPATHOLOGY LABORATORY Final Diagnosis Specimen A. SKIN, right hand thumb: ACRAL FIBROKERATOMA; PRESENT AT MARGIN (D21.9) (see microscopic description and comment) 3:11 PM [facility] DERMATOPATHOLOGY LABORATORY Clinical History Changing lesion. Check margins. 3:11 PM [facility] DERMATOPATHOLOGY LABORATORY Gross Description Specimen A: Received is one formalin filled container labeled with the patient's name and designated right hand thumb. The specimen consists of a shave biopsy measuring [id number], bisected. The margin is inked green. Jar 0. 3:11 PM [facility] DERMATOPATHOLOGY LABORATORY Microscopic Description Specimen A. [...] the margin of the specimen. 3:11 PM [facility] DERMATOPATHOLOGY LABORATORY Disclaimer An external and internal positive and negative controls are appropriate for the histochemical, immunohistochemical and immunofluorescence stain(s) in this case (if any), except where stated explicitly. The performance characteristics of the stain(s) cited in this report were developed and its performance characteristic determined by the Dermatopathology Laboratory at [facility], directed by Dr. Jolly Ann. These tests need not be, and therefore are not, approved by the [place] Food and Drug Administration. The tests are used for clinical purposes. Billing Codes Specimen Charges Stain Charges 82833 1 3:11 PM [facility] DERMATOPATHOLOGY LABORATORY Embedded Images 3:11 PM [facility] DERMATOPATHOLOGY LABORATORY Pathology/Cytolog y TISSUE SPECIMEN FROM SKIN / Unknown 02/03/2019 02/05/2019 1:38 PM APNS Ashok Gaffney MD LAB - PATHOLOGY/CYTO LOGY ORDERABLES DERMATOPATHOLOGY LABORATORY [facility] - Department of Dermatology [address] [place] [address], 5th Floor Lab [address] [phone]
--- OUTSIDE RECORDS SUMMARY | 2024-05-13 12:28 | XMS_ITS | Referral Summary ---
Author Organization [facility] Address [address] [place] [address] Care Team Providers Care Vamp Stitcher Name Role Phone Unavailable Primary Care Provider Unavailabl e Source Comments [facility],non-owned Affiliates and Associated Physician Practices is amultiple site organization consisting of ambulatory clinics and hospital sitesin [place], [place], [place] and [place]. This disclosure is being madepursuant to the Care Everywhere program and may not contain all information available regarding this patient. Last updated 17.[facility] Social History Tobacco Use Types Packs/Day Years Used Date Smoking Tobacco: Never Assessed Sex and Gender Information Value Date Recorded Sex Assigned at Not on file Gender Identity Not on file Sexual Orientation Not on file Plan of Treatment Not on file
--- OUTSIDE RECORDS SUMMARY | 2024-05-13 12:28 | XMS_ITS | Continuity of Care Document ---
Author Organization [facility] Address [address] [place] [address] Phone Care Team Providers Care Lead Radiologic Technologist Name Role Phone Charlie Farmer Unavailable Unavailable Advance Directives Directive Yes / No Effective Date File Name No Information Encounters Encounter Description Practice Location Reason(s) For Visit Diagnoses Date Provider Providers Copied on Encounter [facility], [address], [place], [place], [id number], [place] tel:[phone] [facility] No Information 8-200 0 Marleny Guerra. [address] , [address], [place], [address], [place]. tel:[phone] Family History Family Member Type Diagnosis Age At Onset No Information Payers Payer name Insurance type Covered alliance party ID Authoriza tion(s) General Citizen [place] Commercial CI [id number] Social History Type Description Quantity Date Captured [...]
--- OUTSIDE RECORDS SUMMARY | 2024-05-13 12:28 | XMS_ITS | Clinical Summary ---
Author Organization [facility] [address] Address [address] [place] [address] Care Team Providers Care Freight Broker Name Role Phone Ashok Gaffney MD Primary Care Provider Allergies No known active allergies Medications metoprolol [...] until the patient's follow-up appointment. Appointment Scheduling: Doctor s Office: [facility], After hours emergency: or BPH (benign prostatic hyperplasia) 07/16/2023 Assessment & Plan (07/16/2023 2:55 PM CDT): Home Flomax 0.4 mg daily Methamphetamine use ([facility]) 03/20/2023 Assessment & Plan (03/20/2023 4:02 PM RESOLUTION ANALYST): Had a long discussion about the dangers of this and he was counseled to stop using. Will stop the flecainide as above. Anticoagulation management encounter 03/13/2023 Assessment & Plan (03/13/2023 1:39 PM RESOLUTION ANALYST): The patient is maintained on rivaroxaban. He states compliance with this. He denies any bleeding issues. Class 3 severe obesity witho ut serious comorbidity with body mass index (BMI) of 45.0 to 49.9 in adult 10/09/2017 Assessment & Plan (07/16/2023 10:04 AM CDT): On Phyllis weekly -RD consult Body mass index 40.0-44.9, adult 07/31/2017 Morbid obesity 07/31/2017 Hyperlipidemia LDL goal <100 07/15/2017 Assessment & Plan (07/16/2023 10:06 AM CDT): Home Rosuvastatin 20 mg daily Morbid obesity with BMI of 40.0-44.9, adult 10/2017 [facility] current use of antiarrhythmic drug 10/2017 Assessment & Plan (03/13/2023 1:40 PM RESOLUTION ANALYST): The patient is currently maintained on flecainide. [...] AM CDT): Home Xarelto - On hold 05/03 SDH, Resume per neurosurgery Home Metoprolol XL 100 mg daily 07/16 episode of Afib with RVR overnight requiring metoprolol 5 mg IV x 3 in the past 12-16 hours, Metoprolol PO increase from 25 mg bid to 50 mg bid. -continue telemetry Assessment & Plan (03/20/2023 4:02 PM RESOLUTION ANALYST): The patient is in rate controlled atrial fibrillation in the ER. Will stop his flecainide as above and continue his rivaroxaban and metoprolol. Assessment & Plan (03/13/2023 1:39 PM RESOLUTION ANALYST): EKG reveals sinus rhythm with first-degree AV [...] Department Care Team Description 02/12/2024 3:00 PM RESOLUTION ANALYST Office Visit [facility] [address] [address] Caitlyn Muir NP Cardiac arrhythmia, unspecified cardiac arrhythmia type (Primary Dx) from Last 3 Months Surgical History Surgery [...] drink = 0.6 oz pur e alcohol) [facility] Utilities Answer Date Recorded In the past 12 months has e [employer], [employer], oil, or water [employer] threatened to shut off services in your [...] any clubs o r organizations such as yarsani groups, unions, fraternal or athletic groups, or [...] and heating? Not hard at all 07/16/2023 [facility] of Occupat ional Health - Occupational Stress [...] on file Legal Sex Male 1:22 AM RESOLUTION ANALYST Gender Identity Male 02/12/2020 11:14 AM RESOLUTION ANALYST Sexual Orientation Straight 02/12/2020 11 :14 AM RESOLUTION ANALYST Obstetrics History Last Filed Vital Signs Vital Sign Reading Time Taken Comments Blood Pressure 136/86 02/12/2024 3:08 PM RESOLUTION ANALYST Pulse 95 02/12/2024 3:08 PM RESOLUTION ANALYST Temperature 36.4 C (97.5 F) 11/30/2023 12:37 PM CDT Respiratory Rate 33 11/30/2023 6:45 PM CDT Oxygen Saturation 97% 11/30/2023 6:45 PM CDT Inhaled Oxygen Concentration - - Weight 144.7 kg (319 lb) 02/12/2024 3:08 PM RESOLUTION ANALYST Height 177.8 cm (5' 10 ) 02/12/2024 3:08 PM RESOLUTION ANALYST Body Mass Index 45.77 02/12/2024 3:08 PM RESOLUTION ANALYST Plan of Treatment Health Maintenance Due Date [...] Comments ECG 12-LEAD Routine 02/12/2024 3:20 PM RESOLUTION ANALYST Cardiac arrhythmia, unspecified cardiac arrhythmia type from Last 3 Months Results * ECG 12 lead (02/12/2024 3:20 PM RESOLUTION ANALYST) Caitlyn Muir NP ECG ORDERABLES Final Resu lt from Last 3 Months Insurance [employer] OPEN ACCESS [facility] Advance Directives For more information, please contact: [phone] * Full Code (Latest Code Status on File) Date Activated Date Inactivated Comments 07/16/2023 7:51 AM 07/18/2023 3:17 PM Care Teams Freight Broker Relationship Specialty Start Date End Date Ashok Gaffney MD PCP - General 08/23/11
--- OUTSIDE RECORDS SUMMARY | 2024-05-13 12:28 | XMS_ITS | Clinical Summary ---
Author Organization [facility] Address [address] [place] [address] Care Team Providers Care Lease Buyer Name Role Phone Anjelica Moscoso CRNA Primary Care Provider Unav ailable Allergies No known active allergies Medications albuterol sulfate HFA 108 (90 Base) MCG/ACT inhaler Inhale 2 puffs into the lungs every 6 (six) hours as needed for Wheezing. 18 g 03/08/2023 Active Encounters Date Type Department Care Team Description 04/29/2024 Telephone [facility] [address] [address] Karla Gil, A Appointment Request (Self ref) from Last 3 Months Social History Tobacco Use Types Packs/Day Years [...] Comments Blood Pressure 180/100 03/08/2023 7:17 PM MAINTENANCE MECHANIC HELPER Pulse 60 03/08/2023 7:17 PM MAINTENANCE MECHANIC HELPER Temperature 37.1 C (98.8 F) 03/08/2023 4:24 PM MAINTENANCE MECHANIC HELPER Respiratory Rate 18 03/08/2023 4:24 PM MAINTENANCE MECHANIC HELPER Oxygen Saturation 93% 03/08/2023 7:17 PM MAINTENANCE MECHANIC HELPER Inhaled Oxygen Concentration - - Weight 158.8 kg (350 lb) 03/08/2023 4:24 PM MAINTENANCE MECHANIC HELPER Height 177.8 cm (5' 10 ) 03/08/2023 4:24 PM MAINTENANCE MECHANIC HELPER Body Mass Index 50.22 03/08/2023 4:24 PM MAINTENANCE MECHANIC HELPER Plan of Treatment Health Maintenance Due Date [...] 07/21/2020, 06/30/2020 Influenza Adult (#1) 2023 Meningococcal B Vaccine Aged Out No l onger eligible based on patient's age to complete this topic Meningococcal Vaccine Aged Out No abraham tyrone [...] to complete this topic Insurance Care Teams Lease Buyer Relationship Specialty Start Date End Date Anjelica Moscoso CRNA PCP - General ANESTHESIOLOGY 11/12/19
--- OUTSIDE RECORDS SUMMARY | 2024-05-13 12:28 | XMS_ITS | Clinical Summary ---
Author Organization [facility] Address [address] [place] [address] Care Team Providers Care Ground Worker Name Role Phone Unavailable Primary Care Provider Unavailabl e Source Comments [facility] [employer],non-owned Affiliates and Associated Physician Practices is amultiple site organization consisting of ambulatory clinics and hospital sitesin [place], [place], [place] and [place]. This disclosure is being madepursuant to the Care Everywhere program and may not contain all information available regarding this patient. Last updated 17.[facility] [employer] Social History Tobacco Use Types Packs/Day Years [...] 09/19/1980 DTAP/TDAP/TD VACCINES (1 - Tdap) 1981 PNEUMOCOCCAL VACCINE 50+ (1 of 1 - PCV) 2012 ZOSTER VACCINE (1 of 2) 2012 COVID-19 VACCINE (1 - 2023-2 5 season) 2023 INFLUENZA VACCINE [...] patient's age to complete this topic MENINGOCOCCAL (Group B) VACCINE Aged Out No longer eligible based on patient's age to complete this topic MENINGOCOCCAL VACCINE Aged Out No abraham tyrone eligible based on patient's age to complete this topic PNEUMOCOCCAL VACCINE Aged Out No long er eligible based on patient's age to complete this topic
--- OUTSIDE RECORDS SUMMARY | 2024-05-13 12:28 | XMS_ITS | Encounter Summary ---
Author Organization [facility] Address [address] [place] [address] Care Team Providers Care Performance Instructor Name Role Phone Unavailable Primary Care Provider Unavailabl e Encounter Details Date Type Department Care Team (Late st Contact Info) Description 02/05/2019 Lab Requisition [facility] DermPath Lab [address] [place] [id number] Ashok Gaffney MD [address] [place] [address] Social History Tobacco Use Types [...] Comments DERMATOPATHOLOGY Routine 02/03/2019 12:0 0 AM SOFTWARE DEVELOPMENT ADVISOR documented in this encounter Results * DERMATOPATHOLOGY (02/03/2019 12:00 AM SOFTWARE DEVELOPMENT ADVISOR) Case Report Dermatopathology Report Case: [id number] Authorizing Provider: Ashok Gaffney MD Collected: 02/03/2019 12:00 AM Ordering Location: [facility] DermPath Lab Received: 02/05/2019 01:38 PM Pathologist: David Ann MD Specimen: Skin, right hand thumb 9 3:11 PM SOFTWARE DEVELOPMENT ADVISOR DERMATOPATHOLOGY LABORATORY Final Diagnosis Specimen A. SKIN, right hand thumb: ACRAL FIBROKERATOMA; PRESENT AT MARGIN (D21.9) (see microscopic description and comment) 9 3:11 PM SOFTWARE DEVELOPMENT ADVISOR DERMATOPATHOLOGY LABORATORY Clinical History Changing lesion. Check margins. 3:11 PM [facility] DERMATOPATHOLOGY LABORATORY Gross Description Specimen A: Received is one formalin filled container labeled with the patient's name and designated right hand thumb. The specimen consists of a shave biopsy measuring [id number], bisected. The margin is inked green. Jar 0. 3:11 PM [facility] DERMATOPATHOLOGY LABORATORY Microscopic Description Specimen A. [...] the margin of the specimen. 3:11 PM [facility] DERMATOPATHOLOGY LABORATORY Disclaimer An external and internal positive and negative controls are appropriate for the histochemical, immunohistochemical and immunofluorescence stain(s) in this case (if any), except where stated explicitly. The performance characteristics of the stain(s) cited in this report were developed and its performance characteristic determined by the Dermatopathology Laboratory at [facility], directed by Dr. Jolly Ann. These tests need not be, and therefore are not, approved by the [place] Food and Drug Administration. The tests are used for clinical purposes. Billing Codes Specimen Charges Stain Charges 32588 1 9 3:11 PM [facility] DERMATOPATHOLOGY LABORATORY Embedded Images 3:11 PM [facility] DERMATOPATHOLOGY LABORATORY Pathology/Cytolog y TISSUE SPECIMEN FROM SKIN / Unknown 02/03/2019 02/05/2019 1:38 PM SOFTWARE DEVELOPMENT ADVISOR Ashok Gaffney MD LAB - PATHOLOGY/CYTO LOGY ORDERABLES DERMATOPATHOLOGY LABORATORY [facility] - Department of Dermatology [facility] [facility] [facility] [address], 5th [place] [address], [facility] [phone] documented in this encounter Visit Diagnoses Not on filedocumented in this encounter
--- OUTSIDE RECORDS SUMMARY | 2024-05-13 12:28 | XMS_ITS | Referral Summary ---
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 Will stop the flecainide as above. Anticoagulation management encounter 03/13/2023 Assessment & Plan (03/13/2023 1:39 PM GENERATION MANAGER): The patient is maintained on rivaroxaban. He [...] obesity with BMI of 40.0-44.9, adult 10/2017 longterm current use of antiarrhythmic drug 10/2017 Assessment & Plan (03/13/2023 1:40 PM GENERATION MANAGER): The patient is currently maintained on flecainide. [...] telemetry Assessment & Plan (03/20/2023 4:02 PM GENERATION MANAGER): The patient is in rate controlled atrial fibrillation in the ER. Will stop his flecainide as above and continue his rivaroxaban and metoprolol. Assessment & Plan (03/13/2023 1:39 PM GENERATION MANAGER): EKG reveals sinus rhythm with first-degree AV [...] drink = 0.6 oz pur e alcohol) [facility] Utilities Answer Date Recorded In the past 12 months has [facility] [employer], [employer], or water [employer] threatened to shut off services in your [...] often do you attend chur ch or baptism services? Never 07/16/2023 Do you belong to any clubs o r organizations such as taoism groups, unions, fraternal or athletic groups, or [...] and heating? Not hard at all 07/16/2023 [facility] [place] of Occupat ional Health - Occupational Stress [...] place to sleep or slept in a intermediate (including now)? No 07/16/2023 Personal Safety Answer Date Recorded Have you ever been in or are you currently in a harmful physical or emotional relationship or is someone making you feel afraid or unsafe? Denies 11/30/2023 Sex and Gender Information Value Date Recorded Sex Assigned at Not on file Legal Sex Male 1:22 AM GENERATION MANAGER Gender Identity Male 02/12/2020 11:14 AM GENERATION MANAGER Sexual Orientation Straight 02/12/2020 11 :14 AM GENERATION MANAGER Last Filed Vital Signs Vital Sign Reading Time Taken Comments Blood Pressure 136/86 02/12/2024 3:08 PM GENERATION MANAGER Pulse 95 02/12/2024 3:08 PM GENERATION MANAGER Temperature 36.4 C (97.5 F) 11/30/2023 12:37 PM CDT Respiratory Rate 33 11/30/2023 6:45 PM CDT Oxygen Saturation 97% 11/30/2023 6:45 PM CDT Inhaled Oxygen Concentration - - Weight 144.7 kg (319 lb) 02/12/2024 3:08 PM GENERATION MANAGER Height 177.8 cm (5' 10 ) 02/12/2024 3:08 PM GENERATION MANAGER Body Mass Index 45.77 02/12/2024 3:08 PM GENERATION MANAGER Plan of Treatment Not on file Procedures Procedure Name Priority Date/Time Associated Diagnosis Comments ECG 12-LEAD Routine 02/12/2024 3:20 PM GENERATION MANAGER Cardiac arrhythmia, unspecified cardiac arrhythmia type from Last 3 Months Results * ECG 12 lead (02/12/2024 3:20 PM GENERATION MANAGER) Caitlyn Muir VEHICLE CARE SPECIALIST ECG ORDERABLES Final Resu lt from Last 3 Months Insurance [facility] OPEN ACCESS [facility] Advance Directives For more information, please contact: [phone] * Full Code (Latest Code Status on File) Date Activated Date Inactivated Comments 07/16/2023 7:51 AM 07/18/2023 3:17 PM Care Teams Label Fuser Tender Relationship Specialty Start Date End Date Ashok Gaffney MD PCP - General 08/23/11
== END 2024-05-13 12:16 | disposition home or self-care (01) ==
PROVIDERS: PCP Family Medicine; Visit Provider Nurse Practitioner Family
DX: J18.9 Pneumonia, unspecified organism (principal)
CPT/HCPCS: 71046

== ENCOUNTER 2024-10-31 10:00 | Emergency (ER) | payer OTHER, SELFPAY ==
--- NOTE | 2024-10-31 10:01 | ED.GENADULT ---
HPI - General Adult General Chief complaint: Skin/Abscess/Foreign Body Stated complaint: Rash Time Seen by Provider: 10/31/24 10:01 Source: patient Mode of arrival: ambulatory Limitations: no limitations History of Present Illness HPI narrative: 64-year-old male patient presents to [facility] with complaints of pain to the left lower leg that started this morning. Patient states he woke up and the left lower a leg above the ankle was red, tender to the touch and warm. Patient does have history of AFib which he takes Eliquis for. Patient is type 2 diabetic but states his last A1c was 5.9 but does not know when his last states that once he was. Patient states he does not check his sugars daily. Patient denies taking anything for pain at this time. Patient denies any trauma that he is aware of the left lower leg. Related Data Home Medications ?Medication ?Instructions ?Recorded ?Confirmed ?Last Taken ?Type metoprolol tartrate 50 mg tablet 50 mg PO Q12H 02/03/19 10/14/24 04/21/24 History nifedipine 60 mg tablet,extended 60 mg PO DAILY 02/03/19 10/14/24 04/21/24 History release Allergies Allergy/AdvReac Type Severity Reaction Status Date / Time No Known Allergies Allergy Verified 10/31/24 10:02 Review of Systems Review of Systems: CONSTITUTIONAL: Denies fever, chills, or sweats. EYES: Denies visual changes, redness, or discharge. ENT: Denies rhinorrhea, congestion, sore throat, or otalgia. CARDIOVASCULAR: Denies chest pain, palpitations, or edema. RESPIRATORY: Denies cough or dyspnea. GASTROINTESTINAL: Denies abdominal pain, nausea, vomiting, or diarrhea. GENITOURINARY: Denies dysuria or hematuria. SKIN: Denies rash or itching. Positive left lower leg redness, warmth and tenderness that started this morning MUSCULOSKELETAL: Denies back pain, joint pain, or myalgia. NEUROLOGIC: Denies headache, numbness, or weakness. PSYCHIATRIC: Denies anxiety or depression. [facility] Past Medical History Medical History Aortic aneurysm Atrial fibrillation with rapid ventricular response Acute hypoxic respiratory failure Hypoxic respiratory failure Achilles rupture Nocturia Marital incompatibility involving divorce BMI 45.0-49.9, adult Encounter for screening for malignant neoplasm of colon Encounter for screening for malignant neoplasm of prostate Mixed hyperlipidemia Elevated glucose BMI 50.0-59.9, adult Osteoarthritis of knee Atrial fibrillation Surgical History Surgical History Hx of colonoscopy Family History Family History Mother Family history of glaucoma Lung cancer Sibling Family history of glaucoma Father Hypertension Social History Social History Smoking status: Never smoker Second hand tobacco smoke exposure: No Alcohol intake: current Drinks per week: 12 Substance use: never Substance use type: does not use Do You Feel Safe in your Home?: Yes Lack of Transportation: No Lack of Food: Never True Current Housing: I Have Housing Concerned About Future Housing: No Difficulty Paying Gas/Electric Bills: No Difficulty Paying for Meds: No Currently Unemployed: No Education: High School Diploma/GED Difficulty w/ Childcare or Family Care: No Living arrangements: alone Occupation/Education: occupation Additional occupation/education comments: [employer] Gender identity (if verbalized by the patient): Female Spiritual care concerns: No Comments At the time of my signature I agree with nursing past medical history, surgical, social, and family history. There is no relevant family history pertinent to the presenting complaint. Exam Narrative: GENERAL: Well-appearing, well-nourished, and in no acute distress. HEAD: Normocephalic, atraumatic. EYES: PERRLA and EOMI. ENT: Nares clear, no rhinorrhea or epistaxis. Mucous membranes moist. NECK: Supple. No lymphadenopathy CHEST: Clear to auscultation. No respiratory distress. HEART: Regular rate and rhythm. No murmur heard. Normal peripheral pulses. ABDOMEN: Soft, nontender, nondistended, normal active bowel sounds. EXTREMITIES: Normal range of motion. No edema. SKIN: Warm, dry, no rash. Patient has erythemic area that is warm to the touch and tender measuring approximately 15 x 7 cm. There is swelling noted to the left lower leg measuring approximately 12 in as compared to the right leg which was 10.5 in. Patient denies any numbness or tingling to the toes at this time but states he has had that in the past. Denies any fevers. NEURO: No focal deficits. Alert and oriented x3. Course Course Level of Care: Express Care Visit Vital Signs Vital signs: Vital Signs Temperature 36.7 C 10/31/24 10:10 Pulse Rate 87 10/31/24 10:10 Respiratory Rate 18 10/31/24 10:10 Blood Pressure 120/74 10/31/24 10:10 Pulse Oximetry 99 10/31/24 10:10 Oxygen Delivery Room Air 10/31/24 10:10 Temperature 36.7 C 10/31/24 10:10 Pulse Rate 87 10/31/24 10:10 Respiratory Rate 18 10/31/24 10:10 Blood Pressure 120/74 10/31/24 10:10 Pulse Oximetry 99 10/31/24 10:10 Oxygen Delivery Room Air 10/31/24 10:10 Vital signs reviewed. Medical Decision Making MDM Narrative Medical decision making narrative: Discussed with patient I believe that this is most likely a cellulitis infection to the left lower leg. Discussed with him we will discharge him home for with some oral antibiotics and we will jaky the redness area prior to him leaving today. Discussed with patient that if the redness continues to grow and goes outside of the marked area or he starts spiking a fever then he needs to go to the ER for possible IV antibiotics. Patient verbalized understanding. Discussed with patient he will need to follow up with his primary doctor next week. Patient verbalized understanding denies any other questions or concerns at this time. Differential Diagnosis Differential Diagnosis: Differential diagnosis: Contact dermatitis, poison deborah, poison sumac, psoriasis, eczema, allergic reaction, drug reaction, scabies, tinea syphilis, lung disease, viral exanthema, pityriasis, erythema multiforme. Vital Signs Vital Signs: Vital Signs Temperature 36.7 C 10/31/24 10:10 Pulse Rate 87 10/31/24 10:10 Respiratory Rate 18 10/31/24 10:10 Blood Pressure 120/74 10/31/24 10:10 Pulse Oximetry 99 10/31/24 10:10 Oxygen Delivery Room Air 10/31/24 10:10 Temperature 36.7 C 10/31/24 10:10 Pulse Rate 87 10/31/24 10:10 Respiratory Rate 18 10/31/24 10:10 Blood Pressure 120/74 10/31/24 10:10 Pulse Oximetry 99 10/31/24 10:10 Oxygen Delivery Room Air 10/31/24 10:10 Critical Care Time Critical Care Time Critical Care Time: No Discharge Plan Discharge Clinical Impression: Cellulitis of left anterior lower leg Patient Disposition: Home Condition: Stable Instructions: Antibiotic Form, Cellulitis (ED) Additional Instructions: Take the prescribed antibiotic medicine you are given as directed until it is gone. Take it even if you feel better. It treats the infection and stops it from returning. Not taking all the medicine can make future infections hard to treat. Keep the infected area clean. When possible, raise the infected area above the level of your heart. This helps keep swelling down. May take Tylenol ibuprofen as needed for pain Take your temperature once a day for a week to monitor for fevers. If you do spike a fever please call your doctor right away. Wash your hands often to prevent spreading the infection. In the future, wash your hands before and after you touch cuts, scratches, or bandages. This will help prevent infection. Please call your doctor today and be scheduled for follow-up appointments in regards to being evaluated for vascular disease. When to call your healthcare provider Call your healthcare provider immediately if you have any of the following: Difficulty or pain when moving the joints above or below the infected area Discharge or pus draining from the area Fever of 100.4?F (38?C) or higher, or as directed by your healthcare provider Pain that gets worse in or around the infected Redness that gets worse in or around the infected area, particularly if the area of redness expands to a wider area Shaking chills Swelling of the infected area Vomiting Patient Language: Yemeni Prescriptions: New cephalexin 500 mg capsule 500 mg PO Q12H 7 Days Qty: 14 0RF No Action Eliquis 5 mg tablet 5 mg PO ONCE Qty: 90 0RF Rx Instructions: cardio metoprolol tartrate 50 mg tablet 50 mg PO Q12H nifedipine 60 mg tablet extended release 60 mg PO DAILY furosemide [Lasix] 20 mg tablet 20 mg PO ONCE Qty: 90 0RF Mounjaro 12.5 mg/0.5 mL pen injector 12.5 mg subcut WEEKLY Qty: 2 2RF tamsulosin 0.4 mg capsule See Rx Instructions .ROUTE .COMPLEX Qty: 90 1RF Dose Instruction: TAKE 1 CAPSULE BY MOUTH EVERYDAY AT BEDTIME Rx Instructions: TAKE 1 CAPSULE BY MOUTH EVERYDAY AT BEDTIME lisinopril 5 mg tablet 5 mg PO DAILY Qty: 90 2RF rosuvastatin 20 mg tablet 20 mg PO DAILY Qty: 90 0RF Follow-up/Referrals: Ashok Gaffney MD [Primary Care Provider] - Time of Disposition: 10:25
[2024-10-31 10:10] VITALS: BP 120/74; PULSE 87; RESP 18; TEMP 36.7; O2SAT 99
== END 2024-10-31 10:30 | disposition home or self-care (01) ==
PROVIDERS: Emergency Provider Nurse Practitioner Family; PCP Family Medicine
DX: L03.116 Cellulitis of left lower limb (principal); I48.91 Unspecified atrial fibrillation; E78.2 Mixed hyperlipidemia
CPT/HCPCS: 99213; G0463